=== PATIENT | female | born 1955 | race American Indian/Alaskan Native ===

== ENCOUNTER 2017-09-24 17:14 | Observation (INO) | payer MEDICARE, MEDICAID ==
[2017-09-24 17:42] VITALS: BMI 23.8
[2017-09-24] MEDS ORDERED: Morphine 4 mg/ml ISec IVP STA (18:07)
--- NOTE | 2017-09-24 18:20 | ED PDOC ---
Arrival/HPI - General Historian: Patient - History of Present Illness Symptom Onset: Sudden Symptom Course: Unchanged Activities at Onset: Rest Context: Other (PMD office) <Gui Jones - Last Filed: 09/24/17 18:17> - General Historian: Patient <Ramo Phillip - Last Filed: 09/25/17 14:21> - General Chief Complaint: Abdominal Pain Time Seen by Provider: 09/24/17 17:23 - History of Present Illness Narrative History of Present Illness (Text): 09/24/17 18:19 A 62 year old female, whose past medical history includes HIV, hypertension, diabetes, CAD, COPD, CHF, anemia, asthma, RA, and hypothyroidism, presents to the emergency department from PMD office complaining of abdominal pain from her "irritable bowel syndrome", taking Viberzi. PMD called ambulance for patient to come to the emergency department for further evaluation, concerned for obstruction. Patient denies any other complaints at this time. PMD: Dr. Croft (Gui Jones) 09/24/17 19:12 62 y/o female ph including copd/hiv/htn/gerd/dm/cad/chf/ra/hypothyroidism, nkda , send in to the ER by Dr. Croft as the patient complaining of the left abdominal pain for 1 week. Pt. stated that she gets abdominal pain on and off chronically, aching pain, associated with nausea/vomiting, no diarrhea, no chest pain or shortness, no palpitation, advised to come to the ER for labs/ radiology study and IV medications. Pt. stated that she has no fever or chills. (Ramo Phillip) Past Medical History - Provider Review Nursing Documentation Reviewed: Yes - Infectious Disease Hx of Infectious Diseases: None - Tetanus Immunization Tetanus Immunization: Unknown - Cardiac Hx Congestive Heart Failure: Yes Hx Hypertension: Yes - Pulmonary Hx Chronic Obstructive Pulmonary Disease (COPD): Yes - Neurological HX Cerebrovascular Accident: No - HEENT Hx HEENT Disorder: No Hx Blind: No Hx Cataracts: No Hx Deafness: No Hx Difficulty Chewing: No Hx Epistaxis: No Hx Glaucoma: No Hx Macular Degeneration: No - Renal Hx Renal Failure: No - Endocrine/Metabolic Hx Diabetes Mellitus Type 2: Yes Hx Hypothyroidism: No - Hematological/Oncological Hx Anemia: Yes Other/Comment: blood transfusion - Integumentary Hx Dermatological Disorder: No Hx Basal Cell Carcinoma: No Hx Eczema: No Hx Melanoma: No Hx Psoriasis: No Hx Squamous Cell Carcinoma: No - Musculoskeletal/Rheumatological Hx Arthritis: Yes Hx Falls: No Hx Rheumatoid Arthritis: Yes - Gastrointestinal Hx Gastroesophageal Reflux: No Other/Comment: colonoscopy 12/23/14: colitis, descending colon polyp, Diverticulosis - Genitourinary/Gynecological Hx Genitourinary Disorders: No Hx Hematuria: No Hx Incontinence: No Hx Sexually Transmitted Diseases: No Hx Urinary Tract Infection: No - Psychiatric Hx Psychophysiologic Disorder: Yes (attempted suiside) Hx Anxiety: Yes Hx Depression: Yes Hx Emotional Abuse: No Hx Physical Abuse: No Hx Substance Use: No - Surgical History Other/Comment: trans vaginal mesh - Anesthesia Hx Anesthesia: No Hx Anesthesia Reactions: No Hx Malignant Hyperthermia: No - Suicidal Assessment Feels Threatened In Home Enviroment: No <Gui Jones - Last Filed: 09/24/17 18:17> - Provider Review Nursing Documentation Reviewed: Yes <Ramo Phillip - Last Filed: 09/25/17 14:21> Family/Social History - Physician Review Nursing Documentation Reviewed: Yes Family/Social History: No Known Family HX Smoking Status: Former Smoker Hx Alcohol Use: No Hx Substance Use: No Hx Substance Use Treatment: No <Gui Jones - Last Filed: 09/24/17 18:17> - Physician Review Nursing Documentation Reviewed: Yes Family/Social History: Unknown Family HX <Ramo Phillip - Last Filed: 09/25/17 14:21> Allergies/Home Meds <Gui Jones - Last Filed: 09/24/17 18:17> <Ramo Phillip - Last Filed: 09/25/17 14:21> Allergies/Adverse Reactions: Allergies No Known Allergies Allergy (Verified 03/05/15 15:54) Home Medications: Home Meds Medication Instructions Recorded Confirmed Albuterol Sulfate [Proair Hfa] 0.09 mg IH BID PRN 07/08/16 09/24/17 Budesonide/Formoterol Fumarate 1 aer IH DAILY 07/08/16 09/24/17 [Symbicort] Carvedilol [Coreg] 25 mg PO DAILY 07/08/16 09/24/17 Clopidogrel [Plavix] 75 mg PO DAILY 07/08/16 09/24/17 Darunavir Ethanolate [Prezista] 600 mg PO BID 07/08/16 09/24/17 Dolutegravir Sodium [Tivicay] 50 mg PO DAILY 07/08/16 09/24/17 Eluxadoline [Viberzi] 75 mg PO DAILY 07/08/16 09/24/17 Ergocalciferol (Vitamin D2) 50,000 unit PO DAILY 07/08/16 09/24/17 [Vitamin D2] Famotidine [Pepcid] 20 mg PO DAILY 07/08/16 09/24/17 Fluticasone Nasal [Flonase] 0.05 mg NS DAILY 07/08/16 09/24/17 Folic Acid 1 mg PO DAILY 07/08/16 09/24/17 Furosemide [Lasix] 40 mg PO DAILY 07/08/16 09/24/17 Gabapentin [Neurontin] 300 mg PO BID 07/08/16 09/24/17 Imipramine [Tofranil] 25 mg PO HS 07/08/16 09/24/17 Montelukast Sodium [Singulair] 10 mg PO DAILY 07/08/16 09/24/17 Uxxro-1-[id number] Ethyl Esters 1 GM 1 gm PO DAILY 07/08/16 09/24/17 [Lovaza] Pantoprazole [Protonix EC Tab] 40 mg PO DAILY 07/08/16 09/24/17 Propranolol [Inderal] 20 mg PO TID 07/08/16 09/24/17 Rilpivirine HCl [Edurant] 25 mg PO DAILY 07/08/16 09/24/17 Ritonavir [Norvir] 100 mg PO BID 07/08/16 09/24/17 Sertraline [Zoloft] 100 mg PO DAILY 07/08/16 09/24/17 Zafirlukast [Accolate] 20 mg PO BID 07/08/16 09/24/17 Zolpidem [Ambien] 5 mg PO HS 07/08/16 09/24/17 amLODIPine [Norvasc] 10 mg PO DAILY 07/08/16 09/24/17 DiphenhydrAMINE [Benadryl] 1 tab PO HS 09/24/17 09/24/17 Hydroxyzine Pamoate [Vistaril] 1 tab PO TID 09/24/17 09/24/17 Insulin Regular [HumuLIN R] 2 unit SC TID 09/24/17 09/24/17 Melatonin [Melatonin] 1 tab PO DAILY 09/24/17 09/24/17 Rilpivirine HCl [Edurant] 1 tab PO DAILY 09/24/17 09/24/17 Vitamin B Complex 100 No.2 [B-100 1 tab PO DAILY 09/24/17 09/24/17 Complex] Review of Systems - Physician Review All systems were reviewed & negative as marked: Yes - Review of Systems Constitutional: absent: Fevers Gastrointestinal: Abdominal Pain <Gabrin,Gui - Last Filed: 09/24/17 18:17> - Review of Systems Constitutional: absent: Fatigue Respiratory: absent: SOB, Cough Cardiovascular: absent: Chest Pain Gastrointestinal: Abdominal Pain, Nausea, Vomiting. absent: Diarrhea Musculoskeletal: absent: Arthralgias, Myalgias Skin: absent: Rash, Pruritis Neurological: absent: Headache, Dizziness <Ramo Phillip Q - Last Filed: 09/25/17 14:21> Physical Exam Vital Signs Reviewed: Yes Temperature: Afebrile Blood Pressure: Normal Pulse: Regular Respiratory Rate: Normal Appearance: Positive for: Well-Appearing, Non-Toxic, Comfortable Pain Distress: None Mental Status: Positive for: Alert and Oriented X 3 - Systems Exam Head: Present: Atraumatic, Normocephalic Pupils: Present: PERRL Extroacular Muscles: Present: EOMI Conjunctiva: Present: Normal Mouth: Present: Moist Mucous Membranes Neck: Present: Normal Range of Motion. No: JVD Respiratory/Chest: Present: Clear to Auscultation, Good Air Exchange, Other (no conversational dyspnea). No: Respiratory Distress, Accessory Muscle Use, Rales Cardiovascular: Present: Regular Rate and Rhythm, Normal S1, S2. No: Murmurs Abdomen: Present: Tenderness (diffuse). No: Distention, Peritoneal Signs, Rebound, Guarding, Mass/Organomegaly Back: Present: Normal Inspection Upper Extremity: Present: Normal Inspection. No: Cyanosis, Edema Lower Extremity: Present: Normal Inspection. No: Edema Neurological: Present: GCS=15, CN II-XII Intact, Speech Normal Skin: Present: Warm, Dry, Normal Color. No: Rashes Psychiatric: Present: Alert, Oriented x 3, Normal Insight, Normal Concentration <Gabrin,Gui - Last Filed: 09/24/17 18:17> Vital Signs Reviewed: Yes Temperature: Afebrile Blood Pressure: Normal Pulse: Regular Respiratory Rate: Normal Appearance: Positive for: Well-Appearing, Non-Toxic, Comfortable Pain Distress: Moderate Mental Status: Positive for: Alert and Oriented X 3 - Systems Exam Head: Present: Atraumatic, Normocephalic Pupils: Present: PERRL Extroacular Muscles: Present: EOMI Conjunctiva: Present: Normal Mouth: Present: Moist Mucous Membranes Neck: Present: Normal Range of Motion Respiratory/Chest: Present: Clear to Auscultation, Good Air Exchange, Other. No : Respiratory Distress, Accessory Muscle Use Cardiovascular: Present: Regular Rate and Rhythm, Normal S1, S2. No: Murmurs Abdomen: Present: Tenderness (diffuse). No: Distention, Peritoneal Signs Back: Present: Normal Inspection Upper Extremity: Present: Normal Inspection. No: Cyanosis, Edema Lower Extremity: Present: Normal Inspection. No: Edema Neurological: Present: GCS=15, CN II-XII Intact, Speech Normal, Motor Func Grossly Intact, Gait Normal, Memory Normal Skin: Present: Warm, Dry, Normal Color. No: Rashes Psychiatric: Present: Alert, Oriented x 3, Normal Insight, Normal Concentration <Ramo Phillip - Last Filed: 09/25/17 14:21> Vital Signs Temp Pulse Resp BP Pulse Ox 09/24/17 19:15 98.2 F 69 18 140/65 98 09/24/17 17:15 98.2 F 67 18 141/67 92 L Medical Decision Making - Lab Interpretations I have reviewed the lab results: Yes - EKG Interpretation Interpreted by ED Physician: Yes Type: 12 lead EKG <Gui Jones - Last Filed: 09/24/17 18:17> - Lab Interpretations I have reviewed the lab results: Yes - RAD Interpretation Retail Analytics Manager: Radiologist - EKG Interpretation Interpreted by ED Physician: Yes Type: 12 lead EKG Comparison: Com.w/previous EKG <Ramo Phillip - Last Filed: 09/25/17 14:21> ED Course and Treatment: 09/24/17 18:18 Impression: A 62 year old female with abdominal pain. Plan: -- EKG -- labs -- Chest X-ray -- Urinalysis -- Radiology abdomen -- Morphine, Zofran -- Reassess and disposition Prior Visits: Notes and results from previous visits were reviewed. Patient was last seen in the emergency department on 07/08/16 for evaluation of mid sternal chest pressure. Progress Notes: (Gui Jones) 09/24/17 19:10 -Case sign off by DR. Gui Jones for follow up the labs/radiology result: 09/24/17 20:38 -Pt. still in pain so dilaudid 1mg IV ordered, CT abdomen and pelvis added. 09/24/17 23:30 -EKG: NSR @ 69 BPM, no ST elevation or depression, T wave inversion on V3 to V4 as new onset compared with previous ekg. -Chest xray no active disease compared with previous xray -Abdominal xray show no obstruction -CT abdomen and pelvis There is a ventral abdominal hernia inferiorly, containing small bowel loops. There is no obstruction of bowel. There is new abnormal density within the subcutaneous tissues overlying the ventral abdominal wall, suggestive of a complex fluid collection. This measures 1.3 cm in thickness. This may be postoperative or infectious in etiology. Cholelithiasis. Hypodense renal cysts are visualized bilaterally. Additional indeterminate renal lesions are identified bilaterally, which are increased in density. Follow-up ultrasonography is recommended. Additional CT findings described above. -Lab show no acute findings except creatine 1.3 (newly) with GFR 50 (moderate stage 3) -BNP show no acute findings -Troponin show no acute findings -UA show +UTI, IV rocephine ordered -Pt. feels pain under controlled with IV dilaudid, will need GI/Surgical consults -Paging Dr. Croft for admission 09/24/17 23:41 -I spoke to Dr. Croft discussed about the case/labs/radiology result, request Dr. Olivera (GI)/DR. Torres (Surgery)/Dr. Mercedes ([place] Marker) on the routine consult. -Dr. Jones is off the shift and I will put in the admission order for him. 09/25/17 00:20 -I spoke to the surgical oncologist Dr. Deepthi Yanes dental professional and aware of the consult. (Ramo Phillip) - Lab Interpretations Lab Results: 09/24/17 18:30 09/24/17 18:30 Lab Results 09/24/17 19:45: Urine Color Yellow, Urine Appearance Sl cloudy, Urine pH 6.0, Ur Specific [place] 1.010, Urine Protein 30 H, Urine Glucose (UA) Negative, Urine Ketones Negative, Urine Blood Negative, Urine Nitrate Negative, Urine Bilirubin Negative, Urine Urobilinogen 0.2, Ur Leukocyte Esterase Trace H, Urine RBC Negative, Urine WBC 5 - 10, Ur Epithelial Cells 3 - 4, Urine Bacteria Few 09/24/17 18:30: Sodium 137, Potassium 4.4, Chloride 103, Carbon Dioxide 23, Anion Gap 15, BUN 11, Creatinine 1.3 H, Est GFR ( Amer) 50, Est GFR (Non- Af Amer) 41, Random Glucose 130 H, Calcium 9.4, Total Bilirubin 0.5, AST 32, ALT 19, Alkaline Phosphatase 132 H, Lactate Dehydrogenase 417, Total Creatine Kinase 227, Troponin I < 0.01, NT-Pro-B Natriuret Pep 171, Total Protein 7.9, Albumin 4.1, Globulin 3.7, Albumin/Globulin Ratio 1.1, Lipase 60 09/24/17 18:30: PT 11.7, INR 1.03 09/24/17 18:30: WBC 9.1, RBC 4.99, Hgb 13.7, Hct 40.6, MCV 81.4, MCH 27.5, MCHC 33.7, RDW 15.3 H, Plt Count 233, MPV 9.1, Gran % 49.6 L, Lymph % (Auto) 40.9 H, [place] % (Auto) 6.5 H, Eos % (Auto) 2.7, Baso % (Auto) 0.3, Gran # 4.51, Lymph # ( Auto) 3.7 H, [place] # (Auto) 0.6, Eos # (Auto) 0.3, Baso # (Auto) 0.03 - RAD Interpretation Radiology Orders: 09/24/17 18:06 CHEST PORTABLE [RAD] Stat 09/24/17 19:51 ABD 2 VIEWS (FLAT/UP OR DECUB) [RAD] Stat 09/24/17 20:53 ABDOMEN & PELVIS [ABD & PELVIS W/O PO OR IV CONT] [CT] Stat Chest xray: no active disease Abdominal xray: no bowel obstruction CT abdomen and pelvis: Lung bases: Mild atelectatic changes are visualized at the lung bases. Mediastinum: There is a small hiatal hernia. ABDOMEN: Liver: No mass. Gallbladder and bile ducts: Small gallstones are visualized within the gallbladder. Pancreas: Normal contour. No ductal dilation. Spleen: No splenomegaly. Adrenals: No mass. Kidneys and ureters: Hypodense renal cysts are visualized bilaterally. Additional indeterminate renal lesions are identified bilaterally, which are increased in density. At the lower pole the right kidney, this measures 1.3 x 1.2 cm. There is no hydronephrosis or obstructive calculi bilaterally. TERESA BRAUN | Final Radiology Report CONFIDENTIALITY STATEMENT This report is intended only for use by the referring physician, and only in accordance with law. If you received this in error, call [phone]. Page 2 of 2 Stomach and bowel: There is a ventral abdominal hernia inferiorly, containing small bowel loops. There is no significant wall thickening of the herniated bowel loops or stranding of the herniated fat to suggest incarceration. There is no obstruction of bowel. The cecum is identified anterior to the liver. PELVIS: Appendix: No findings to suggest acute appendicitis. Bladder: No stones. Reproductive: The uterus is absent. Hypodense follicles and cysts are visualized within the right ovary. The largest probable cyst measures 2.3 x 1.9 cm. Right ovarian cysts are visualized on the prior study as well. ABDOMEN and PELVIS: Intraperitoneal space: No free air. Bones/joints: Hypertrophic degenerative changes are noted within the spine. Advanced arthropathy is identified at L4-5, with anterior wedging of the L5 vertebral body. These are chronic findings compared to the prior study. Soft tissues: There is abnormal density within the subcutaneous tissues overlying the ventral abdominal wall, suggestive of a complex fluid collection. This measures 1.3 cm in thickness. Postoperative changes are identified involving the ventral abdominal wall. Vasculature: There is atherosclerotic calcification of the abdominal aorta. No abdominal aortic aneurysm. Lymph nodes: No enlarged lymph nodes. IMPRESSION: 1. There is a ventral abdominal hernia inferiorly, containing small bowel loops. There is no obstruction of bowel. 2. There is new abnormal density within the subcutaneous tissues overlying the ventral abdominal wall, suggestive of a complex fluid collection. This measures 1.3 cm in thickness. This may be postoperative or infectious in etiology. 3. Cholelithiasis. 4. Hypodense renal cysts are visualized bilaterally. Additional indeterminate renal lesions are identified bilaterally, which are increased in density. Follow-up ultrasonography is recommended. 5. Additional CT findings described above. Thank you for allowing us to participate in the care of your patient. Dictated and Authenticated by: Bipin Padilla MD 09/24/2017 10:46 PM Eastern Time ([place] & [place]) (Ramo Phillip) - EKG Interpretation EKG Interpretation (Text): 09/24/17 19:15 -EKG: NSR @ 69 BPM, no ST elevation or depression, T wave inversion on V3 to V4 as new onset. (Ramo Phillip) - Medication Orders Current Medication Orders: Acetaminophen (Tylenol 325mg Tab) 650 mg PO Q4 PRN PRN Reason: Pain, moderate (4-7) Lactated Ringer's (Lactated Ringer's) 1,000 mls @ 100 mls/hr IV .Q10H CAYLA Last Admin: 09/25/17 02:04 Dose: 100 mls/hr eMAR Start Stop Document 09/25/17 02:04 PCO (Rec: 09/25/17 02:05 PCO [id number]) Intravenous Solution Start Date 09/25/17 Start Time 02:04 End Date 09/25/17 End time 12:05 Total Infusion Time 601 Ondansetron HCl (Zofran Inj) 4 mg IVP Q6H PRN PRN Reason: Nausea/Vomiting Oxycodone HCl (Oxycodone Immediate Release Tab) 5 mg PO Q6H PRN PRN Reason: Pain, severe (8-10) Discontinued Medications Diphenhydramine HCl (Benadryl) 25 mg IVP STAT STA Stop: 09/25/17 01:57 Last Admin: 09/25/17 02:04 Dose: 25 mg IVP Administration Document 09/25/17 02:04 PCO (Rec: 09/25/17 02:04 PCO [id number]) Charges for Administration # of IVP Administrations 2 Hydromorphone HCl (Dilaudid) 1 mg IVP STAT STA Stop: 09/24/17 20:26 Last Admin: 09/24/17 20:55 Dose: 1 mg MAR Pain Assessment Document 09/24/17 20:55 LA (Rec: 09/24/17 20:[address] [id number]) Pain Reassessment Is this a pain reassessment? No Sleep Is patient sleeping during reassessment? No Presence of Pain Presence of Pain Yes Pain Scale Used Pain Scale Used Numeric Location Pain Location Body Site Abdomen Description Description Constant Intensity of Pain at present 7 IVP Administration Document 09/24/17 20:55 LA (Rec: 09/24/17 20:[address] [facility] [id number]) Charges for Administration # of IVP Administrations 1 Ceftriaxone Sodium (Rocephin 1 Gram Ivpb) 1 gm in 100 mls @ 200 mls/hr IVPB STAT STA PRN Reason: Protocol Stop: 09/24/17 21:39 Ceftriaxone Sodium (Rocephin 1 Gram Ivpb) 1 gm in 100 mls @ 200 mls/hr IVPB STAT STA PRN Reason: Protocol Stop: 09/25/17 02:00 Last Admin: 09/25/17 01:43 Dose: 200 mls/hr eMAR Start Stop Document 09/25/17 01:43 PCO (Rec: 09/25/17 01:44 PCO [id number]) Intravenous Solution Start Date 09/25/17 Start Time 01:43 End Date 09/25/17 End time 02:45 Total Infusion Time 62 Metoclopramide HCl (Reglan) 10 mg IVP STAT STA Stop: 09/24/17 20:26 Last Admin: 09/24/17 20:55 Dose: 10 mg IVP Administration Document 09/24/17 20:55 LA (Rec: 09/24/17 20:[address] [facility] [id number]) Charges for Administration # of IVP Administrations 1 Morphine Sulfate (Morphine) 4 mg IVP STAT STA Stop: 09/24/17 18:08 Last Admin: 09/24/17 18:30 Dose: 4 mg MAR Pain Assessment Document 09/24/17 18:30 LA (Rec: 09/24/17 18:30 LA [id number]) Pain Reassessment Is this a pain reassessment? No Sleep Is patient sleeping during reassessment? No Presence of Pain Presence of Pain Yes Pain Scale Used Pain Scale Used Numeric Location Pain Location Body Site Abdomen Description Description Constant Intensity of Pain at present 7 IVP Administration Document 09/24/17 18:30 LA (Rec: 09/24/17 18:30 LA [id number]) Charges for Administration # of IVP Administrations 1 Re-Assess: MAR Pain Assessment Document 09/24/17 19:30 LA (Rec: 09/24/17 20:07 [place] [facility] [id number]) Pain Reassessment Is this a pain reassessment? Yes Sleep Is patient sleeping during reassessment? No Presence of Pain Presence of Pain Yes Pain Scale Used Pain Scale Used Numeric Location Pain Location Body Site Abdomen Description Description Constant Intensity of Pain at present 5 Ondansetron HCl (Zofran Inj) 4 mg IVP STAT STA Stop: 09/24/17 18:08 Last Admin: 09/24/17 18:30 Dose: 4 mg IVP Administration Document 09/24/17 18:30 LA (Rec: 09/24/17 18:31 LA [id number]) Charges for Administration # of IVP Administrations 1 - Scribe Statement The provider has reviewed the documentation as recorded by the Scribe <Gui Jones - Last Filed: 09/24/17 18:17> - PA / ASSISTANT ENGINEER / Resident Statement MD/ has reviewed & agrees with the documentation as recorded. MD/DO has examined the patient and agrees with the treatment plan. <Ramo Phillip - Last Filed: 09/25/17 14:21> - Scribe Statement Eric Berry Provider Scribe Attestation: All medical record entries made by the Scribe were at my direction and personally dictated by me. I have reviewed the chart and agree that the record accurately reflects my personal performance of the history, physical exam, medical decision making, and the department course for this patient. I have also personally directed, reviewed, and agree with the discharge instructions and disposition. (Gui Jones) Disposition/Present on Arrival - Present on Arrival History of DVT/PE: No History of Uncontrolled Diabetes: No Urinary Catheter: No History of Decub. Ulcer: No History Surgical Site Infection Following: None <Gui Jones - Last Filed: 09/24/17 18:17> - Present on Arrival Any Indicators Present on Arrival: No History of DVT/PE: No History of Uncontrolled Diabetes: No Urinary Catheter: No History of Decub. Ulcer: No - Disposition Have Diagnosis and Disposition been Completed?: Yes Disposition Time: 21:13 Patient Plan: Admission <Ramo Phillip - Last Filed: 09/25/17 14:21> - Disposition Diagnosis: CKD (chronic kidney disease), UTI (urinary tract infection), Abdominal pain, Other ventral hernia without mention of obstruction or gangrene Disposition: HOSPITALIZED Patient Problems: Current Active Problems Problem Status Onset Abdominal pain Acute CKD (chronic kidney disease) Acute Other ventral hernia without mention of obstruction or gangrene Acute UTI (urinary tract infection) Acute Condition: STABLE
[2017-09-24 19:01] LABS: BASO # 0.03 K/mm3 (0.0-2.0); BASO % 0.3 % (0.0-3.0); EOS # 0.3 (0.0-0.7); EOS % 2.7 % (1.5-5.0); GRAN # 4.51 (1.4-6.5); GRAN % 49.6 % (50.0-68.0); HEMOGLOBIN 13.7 g/dL (12.0-16.0); LYMPH # 3.7 (1.2-3.4); LYMPH % 40.9 % (22.0-35.0); MEAN CELL VOLUME 81.4 fl (80.0-105.0); MEAN CORPUSCULAR HEMOGLOBIN 27.5 pg (25.0-35.0); MEAN CORPUSCULAR HGB CONC 33.7 g/dl (31.0-37.0); MEAN PLATELET VOLUME 9.1 fl (7.0-11.0); MONO # 0.6 (0.1-0.6); MONO % 6.5 % (1.0-6.0); RBC 4.99 10^6/uL (3.5-6.1); RED CELL DISTRIBUTION WIDTH 15.3 % (11.5-14.5); WHITE BLOOD COUNT 9.1 10^3/ul (4.5-11.0)
[2017-09-24 19:07] LABS: INR 1.03 (0.93-1.08); PROTHROMBIN TIME 11.7 SECONDS (9.4-12.5)
[2017-09-24 19:18] LABS: ALB/GLOB RATIO 1.1 (1.1-1.8); ALBUMIN 4.1 g/dL (3.0-4.8); ALT/SGPT 19 U/L (7-56); AST/SGOT 32 U/L (14-36); BLOOD UREA NITROGEN 11 mg/dL (7-21); CALCIUM 9.4 mg/dL (8.4-10.5); GFR AFRICAN-AMERICAN 50; GFR NON-AFRICAN AMERICAN 41; LIPASE 60 U/L (23-300)
[2017-09-24 19:30] LABS: B-TYPE NATRIURETIC PEPTIDE 171 pg/mL (0-450); TROPONIN I < 0.01 ng/mL
[2017-09-24 19:56] LABS: URINE BILIRUBIN NEGATIVE (NEGATIVE); URINE BLOOD NEGATIVE (NEGATIVE); URINE GLUCOSE (UA) NEGATIVE (NEGATIVE); URINE LEUKOCYTE ESTERASE TRACE Leu/uL (NEGATIVE); URINE PROTEIN 30 mg/dL (<30 mg/dL); URINE UROBILINOGEN 0.2 E.U./dL (<1 E.U./dL)
[2017-09-24 20:01] LABS: URINE APPEARANCE SL CLOUDY (CLEAR); URINE COLOR YELLOW (YELLOW)
[2017-09-24 20:03] LABS: URINE BACTERIA FEW (NEG); URINE RBC NEGATIVE /hpf (0-2)
[2017-09-24] MEDS ORDERED: Iohexol 240 (50 ml) ONE ×2 (20:23→20:26)
[2017-09-24] MEDS ORDERED: Iohexol 350 MG/100 ML VIAL ONE ×2 (20:23→20:26)
[2017-09-24] MEDS ORDERED: HYDROmorphone 1 mg/ml ISec IVP STA (20:25)
[2017-09-24] MEDS ORDERED: cefTRIAXone 1 gm 1 GM/100 ML BAG IVPB STA (21:10)
--- NOTE | 2017-09-24 22:47 | CT ---
EXAM: CT Abdomen and Pelvis Without Intravenous Contrast EXAM DATE/TIME: 09/24/2017 8:53 PM CLINICAL HISTORY: The patient age is 62 years old and is female; Pain; Abdominal pain; Flank; Left upper quadrant (luq); Prior surgery; Surgery date: 6+ months; Surgery type: Hyst. , C-sections, hernias; Additional info: Lt. Sided abdominal pain Facility exam id and description: Ct abdpelscon abd pelvis w/o po or iv cont TECHNIQUE: Axial computed tomography images of the abdomen and pelvis without intravenous contrast. All CT scans at this facility use one or more dose reduction techniques, viz.: automated exposure control; ma/kV adjustment per patient size (including targeted exams where dose is matched to indication; i.e. head); or iterative reconstruction technique. Coronal and sagittal reformatted images were created and reviewed. COMPARISON: CT - ABD PELVIS PO IV CONTRAST 2011-10-18 14:36 FINDINGS: Lung bases: Mild atelectatic changes are visualized at the lung bases. Mediastinum: There is a small hiatal hernia. ABDOMEN: Liver: No mass. Gallbladder and bile ducts: Small gallstones are visualized within the gallbladder. Pancreas: Normal contour. No ductal dilation. Spleen: No splenomegaly. Adrenals: No mass. Kidneys and ureters: Hypodense renal cysts are visualized bilaterally. Additional indeterminate renal lesions are identified bilaterally, which are increased in density. At the lower pole the right kidney, this measures 1.3 x 1.2 cm. There is no hydronephrosis or obstructive calculi bilaterally. Stomach and bowel: There is a ventral abdominal hernia inferiorly, containing small bowel loops. There is no significant wall thickening of the herniated bowel loops or stranding of the herniated fat to suggest incarceration. There is no obstruction of bowel. The cecum is identified anterior to the liver. PELVIS: Appendix: No findings to suggest acute appendicitis. Bladder: No stones. Reproductive: The uterus is absent. Hypodense follicles and cysts are visualized within the right ovary. The largest probable cyst measures 2.3 x 1.9 cm. Right ovarian cysts are visualized on the prior study as well. ABDOMEN and PELVIS: Intraperitoneal space: No free air. Bones/joints: Hypertrophic degenerative changes are noted within the spine. Advanced arthropathy is identified at L4-5, with anterior wedging of the L5 vertebral body. These are chronic findings compared to the prior study. Soft tissues: There is abnormal density within the subcutaneous tissues overlying the ventral abdominal wall, suggestive of a complex fluid collection. This measures 1.3 cm in thickness. Postoperative changes are identified involving the ventral abdominal wall. Vasculature: There is atherosclerotic calcification of the abdominal aorta. No abdominal aortic aneurysm. Lymph nodes: No enlarged lymph nodes. IMPRESSION: 1. There is a ventral abdominal hernia inferiorly, containing small bowel loops. There is no obstruction of bowel. 2. There is new abnormal density within the subcutaneous tissues overlying the ventral abdominal wall, suggestive of a complex fluid collection. This measures 1.3 cm in thickness. This may be postoperative or infectious in etiology. 3. Cholelithiasis. 4. Hypodense renal cysts are visualized bilaterally. Additional indeterminate renal lesions are identified bilaterally, which are increased in density. Follow-up ultrasonography is recommended. 5. Additional CT findings described above.
--- NOTE | 2017-09-25 00:54 | CP.PCM.CON ---
History of Present Illness - History of Present Illness History of Present Illness: General Surgery consult for Dr. Cary, covering for Dr. Torres Consulted for: Recurrent ventral hernia Patient is a 62F with extensive PMH including HIV, DM, COPD, IBS, and CAD with PSH of ventral incisional hernia repair with mesh with Dr. Jessica in 2011 and repair of recurrent ventral her[place] with Dr. Jessica [place] [facility] [place]. Patient reports chronic LLQ pain, nausea, and diarrhea with incontinence since her last hernia repair but the past 2-3 days the symptoms have been worse and she has been unable to eat. Patient also reports 3 episodes of clear, non- bloody emesis past 2 days. Patient states that the pain begins in [place] LLQ and radiates across her lower abdomen. Patient also complains of some left flank pain. Patient reports diarrhea is more frequent but denies any hematochezia, melena, dysuria, hematuria, polyuria, fevers, chills, or any other symptoms. PMH: uterine cancer s/p hysterectomy, HTN, RA, depression, anemia, asthma, hypothyroidism, HIV, DM, COPD, IBS, and CAD PSH: incisional ventral hernia repair x2, hysterectomy, x1 ALL: NKDA Soc: smokes 10cig/day for 50 years, ETOH: occasional, admits to marijuana many years ago, no other substances Review of Systems - Review of Systems All systems: reviewed and no additional remarkable complaints except (as per HPI ) Past Patient History - Infectious Disease Hx of Infectious Diseases: None - Tetanus Immunizations Tetanus Immunization: Unknown - Past Medical History & Family History Past Medical History?: Yes Past Family History: Reviewed and not pertinent - Past Social History Smoking Status: Heavy Smoker > 10 Cigarettes Daily Alcohol: Occasional Drugs: Denies - CARDIAC Hx Cardiac Disorders: Yes Hx Congestive Heart Failure: Yes Hx Hypertension: Yes Other/Comment: CAD - PULMONARY Hx Asthma: Yes Hx Chronic Obstructive Pulmonary Disease (COPD): Yes - NEUROLOGICAL HX Cerebrovascular Accident: No - HEENT Hx HEENT Problems: No Hx Blind: No Hx Cataracts: No Hx Deafness: No Hx Difficulty Chewing: No Hx Epistaxis: No Hx Glaucoma: No Hx Macular Degeneration: No - RENAL Hx Renal Failure: No - ENDOCRINE/METABOLIC Hx Diabetes Mellitus Type 2: Yes Hx Hypothyroidism: No - HEMATOLOGICAL/ONCOLOGICAL Hx Anemia: Yes Other/Comment: blood transfusion - INTEGUMENTARY Hx Dermatological Problems: No Hx Basil Cell: No Hx Eczema: No Hx Melanoma: No Hx Psoriasis: No Hx Squamous Cell: No - MUSCULOSKELETAL/RHEUMATOLOGICAL Hx Arthritis: Yes Hx Falls: No Hx Rheumatoid Arthritis: Yes - GASTROINTESTINAL Hx Gastrointestinal Disorders: Yes Hx Diarrhea: Yes (chronic diarrhea with bowel incontinence) Hx Gastroesophageal Reflux: No Hx Irritable Bowel: Yes Other/Comment: colonoscopy 12/23/14: colitis, descending colon polyp, Diverticulosis - GENITOURINARY/GYNECOLOGICAL Hx Genitourinary Disorders: No Hx Hematuria: No Hx Incontinence: No Hx Sexually Transmitted Disorders: No Hx Urinary Tract Infection: Yes - PSYCHIATRIC Hx Psychophysiologic Disorder: Yes (attempted suiside) Hx Anxiety: Yes Hx Depression: Yes Hx Emotional Abuse: No Hx Physical Abuse: No Hx Substance Use: No - SURGICAL HISTORY Hx Surgeries: Yes Hx Section: Yes Hx Cholecystectomy: No Hx Coronary Stent: No Hx Herniorrhaphy: Yes (ventral incisional hernia repair with mesh x2) Hx Hysterectomy: Yes Other/Comment: trans vaginal mesh - ANESTHESIA Hx Anesthesia: No Hx Anesthesia Reactions: No Hx Malignant Hyperthermia: No Meds Allergies/Adverse Reactions: Allergies Allergy/AdvReac Type Severity Reaction Status Date / Time No Known Allergies Allergy Verified 03/05/15 15:54 Physical Exam - Constitutional Appears: Well, Non-toxic, No Acute Distress - Head Exam Head Exam: ATRAUMATIC, NORMOCEPHALIC - Eye Exam Eye Exam: Normal appearance. absent: Conjunctival injection, Scleral icterus - ENT Exam ENT Exam: Mucous Membranes Moist, Normal Oropharynx - Respiratory Exam Respiratory Exam: NORMAL BREATHING PATTERN. absent: Accessory Muscle Use, Respiratory Distress - GI/Abdominal Exam GI & Abdominal Exam: Hernia (suprapubic hernia, non-tender, non-erythematous, soft, reducible but does not remain reduced), Soft, Tenderness (LLQ and suprapubis). absent: Distended - Extremities Exam Extremities exam: Negative for: calf tenderness, pedal edema, tenderness - Back Exam Back exam: CVA tenderness (L). absent: CVA tenderness (R), vertebral tenderness - Neurological Exam Neurological exam: Alert, Oriented x3 - Psychiatric Exam Psychiatric exam: Normal Affect, Normal Mood - Skin Skin Exam: Dry, Intact, Normal Color, Warm Results - Vital Signs Recent Vital Signs: Last Vital Signs Temp 98.2 F 09/24/17 17:15 Pulse 67 09/24/17 17:15 Resp 18 09/24/17 17:15 BP 141/67 09/24/17 17:15 Pulse Ox 92 L 09/24/17 17:15 - Labs Result Diagrams: 09/24/17 18:30 09/24/17 18:30 - Imaging and Cardiology CT scan - abdomen Status: Image reviewed by me, Report reviewed by me Assessment & Plan - Assessment and Plan (Free Text) Assessment: 62F with abdominal pain, probable UTI and recurrent ventral hernia, possible gastritis vs. pain from hernia vs. SBO Plan: Repeat cbc/cmp in the AM Abdominal XR in the AM to r/o obstruction Monitor bowel and urine output closely Keep patient NPO, IVF PRN nausea and pain medication Antibiotics for UTI per primary No acute surgical intervention indicated--minimal proximal dilation of the small bowel on the CT scan, patient not actively vomiting, no signs of strangulation of bowel. Will continue to monitor Incentive spirometer, SCD's Physical therapy Will discuss with Dr. Cary, further recs per him Deepthi Yanes, PGY2
[2017-09-25] MEDS ORDERED: cefTRIAXone 1 gm 1 GM/100 ML BAG IVPB STA (01:31)
[2017-09-25] MEDS ORDERED: oxyCODONE 5 mg Immediate Release Tab PO PRN (01:37)
[2017-09-25] MEDS ORDERED: Lactated Ringer's 1,000 ML IV SCH (01:45)
[2017-09-25] MEDS ORDERED: DiphenhydrAMINE 50 mg/ml Inj IVP STA (01:56)
[2017-09-25 04:44] VITALS: RESP 20
[2017-09-25 04:54] LABS: BASO # 0.04 K/mm3 (0.0-2.0); BASO % 0.5 % (0.0-3.0); EOS # 0.3 (0.0-0.7); EOS % 3.5 % (1.5-5.0); GRAN # 3.15 (1.4-6.5); GRAN % 41.9 % (50.0-68.0); HEMOGLOBIN 12.6 g/dL (12.0-16.0); LYMPH # 3.5 (1.2-3.4); LYMPH % 46.9 % (22.0-35.0); MEAN CELL VOLUME 81.6 fl (80.0-105.0); MEAN CORPUSCULAR HGB CONC 33.1 g/dl (31.0-37.0); MEAN PLATELET VOLUME 9.2 fl (7.0-11.0); MONO # 0.5 (0.1-0.6); MONO % 7.2 % (1.0-6.0); RBC 4.67 10^6/uL (3.5-6.1); RED CELL DISTRIBUTION WIDTH 15.4 % (11.5-14.5); WHITE BLOOD COUNT 7.5 10^3/ul (4.5-11.0)
--- NOTE | 2017-09-25 08:21 | RAD ---
HISTORY: Dyspnea COMPARISON: 07/08/2016 FINDINGS: LUNGS: No active pulmonary disease. PLEURA: No significant pleural effusion identified, no pneumothorax apparent. CARDIOVASCULAR: Normal. OSSEOUS STRUCTURES: No significant abnormalities. VISUALIZED UPPER ABDOMEN: Normal. OTHER FINDINGS: None. IMPRESSION: No active disease.
--- NOTE | 2017-09-25 08:23 | RAD ---
HISTORY: POSSSIBLE OBSTRUCTION COMPARISON: 03/11/2014 FINDINGS: BOWEL: No evidence of bowel obstruction. Dilated loop colon/ hepatic flexure right upper quadrant. No masses or abnormal calcifications. Ventral abdominal mesh noted. Psoas margins preserved. BONES: Osteoarthritis of both hips, right greater than left. OTHER FINDINGS: None. IMPRESSION: No evidence of bowel obstruction.
--- NOTE | 2017-09-25 09:17 | CARD ---
APPROVED REPORT EKG Measurement Heart [id number] IN [id number] <Conclusion> Normal sinus rhythm Possible Left atrial enlargement Low voltage QRS Poor R Progression V1-V3. Non Specific ST_T Changes.
[2017-09-25 10:04] LABS: ALBUMIN 3.7 g/dL (3.0-4.8); BILIRUBIN,DIRECT 0.1 mg/dL (0.0-0.4)
--- NOTE | 2017-09-25 10:48 | RAD ---
HISTORY: re-evaluate for SBO COMPARISON: 09/24/2017 FINDINGS: BOWEL: Normal. No obstruction. No free air. There is some residual contrast in the colon. There is no evidence of obstruction BONES: Normal. OTHER FINDINGS: None. IMPRESSION: No evidence of obstruction
--- NOTE | 2017-09-25 16:26 | CP.PCM.CON ---
<Sindi Rosario - Last Filed: 09/25/17 16:05> History of Present Illness - History of Present Illness History of Present Illness: Seen and examined , chart reviewed. Request for GI consult is for abdominal pain. HPI:this is a 62-year-old female with a past medical history of HIV, irritable bowel syndrome, coronary artery disease and multiple ventral hernia repair with mesh with Dr. Jessica, most recent was 2 years ago as per patient. Came with complaint of mid abdominal pain for 1 week but increasing in intensity. she describes the pain to be in the left lower quadrant and radiates across the abdomen. Patient also complains of left flank pain, no dysuria or hematuria. Patient reports loss of appetite, she did complain of nausea and vomiting the past 2 days but no hematopoiesis. Patient also complained of diarrhea, no reports of melena or weight loss. Passing gas. On admission patient had a CT scan of abdomen and pelvis without any contrast and this showed a ventral abdominal hernia containing small bowel loops but no bowel obstruction. There is a new abnormal density within the subcutaneous tissues over the ventral abdominal wall, possible fluid collection., Cholelithiasis and hypodense renal cysts bilaterally. This patient last endoscopy and colonoscopy were in 2014 found to have active gastritis with erosions, biopsies were negative for H. pylori or intestinal metaplasia. Colonoscopy patient found to have a adenomatous colon polyp and biopsies were taken in the cecum which showed submucosal edema but no inflammation. Patient went for an abdominal x-ray this morning which was negative for any acute findings or bowel obstruction. Past medical history: Hypertension, rheumatoid arthritis, HIV, diabetes mellitus , irritable bowel syndrome, COPD, coronary artery disease, hypothyroidism, anemia, uterine cancer status post hysterectomy Past surgical history: Incisional ventral hernia repair 2, hysterectomy, C- section 1, EGD/colonoscopy 12/22/14 Allergies no known drug allergies Family history: Noncontributory to this time Medications: Reviewed as per MAR Social history: Positive for smoking cigarettes, drinks alcohol on occasion, history of marijuana use Review of systems systems reviewed. Positive findings see HPI. Past Patient History - Infectious Disease Hx of Infectious Diseases: None - Tetanus Immunizations Tetanus Immunization: Unknown - Past Medical History & Family History Past Medical History?: Yes Past Family History: Reviewed and not pertinent - Past Social History Smoking Status: Heavy Smoker > 10 Cigarettes Daily Alcohol: Occasional Drugs: Denies - CARDIAC Hx Cardiac Disorders: Yes Hx Congestive Heart Failure: Yes Hx Hypertension: Yes Other/Comment: CAD - PULMONARY Hx Asthma: Yes Hx Chronic Obstructive Pulmonary Disease (COPD): Yes - NEUROLOGICAL HX Cerebrovascular Accident: No - HEENT Hx HEENT Problems: No Hx Blind: No Hx Cataracts: No Hx Deafness: No Hx Difficulty Chewing: No Hx Epistaxis: No Hx Glaucoma: No Hx Macular Degeneration: No - RENAL Hx Renal Failure: No - ENDOCRINE/METABOLIC Hx Diabetes Mellitus Type 2: Yes Hx Hypothyroidism: No - HEMATOLOGICAL/ONCOLOGICAL Hx Anemia: Yes Other/Comment: blood transfusion - INTEGUMENTARY Hx Dermatological Problems: No Hx Basil Cell: No Hx Eczema: No Hx Melanoma: No Hx Psoriasis: No Hx Squamous Cell: No - MUSCULOSKELETAL/RHEUMATOLOGICAL Hx Arthritis: Yes Hx Falls: No Hx Rheumatoid Arthritis: Yes - GASTROINTESTINAL Hx Gastrointestinal Disorders: Yes Hx Diarrhea: Yes (chronic diarrhea with bowel incontinence) Hx Gastroesophageal Reflux: No Hx Irritable Bowel: Yes Other/Comment: colonoscopy 12/23/14: colitis, descending colon polyp, Diverticulosis - GENITOURINARY/GYNECOLOGICAL Hx Genitourinary Disorders: No Hx Hematuria: No Hx Incontinence: No Hx Sexually Transmitted Disorders: No Hx Urinary Tract Infection: Yes - PSYCHIATRIC Hx Psychophysiologic Disorder: Yes (attempted suiside) Hx Anxiety: Yes Hx Depression: Yes Hx Emotional Abuse: No Hx Physical Abuse: No Hx Substance Use: No - SURGICAL HISTORY Hx Surgeries: Yes Hx Section: Yes Hx Cholecystectomy: No Hx Coronary Stent: No Hx Herniorrhaphy: Yes (ventral incisional hernia repair with mesh x2) Hx Hysterectomy: Yes Other/Comment: trans vaginal mesh - ANESTHESIA Hx Anesthesia: No Hx Anesthesia Reactions: No Hx Malignant Hyperthermia: No Meds Allergies/Adverse Reactions: Allergies Allergy/AdvReac Type Severity Reaction Status Date / Time No Known Allergies Allergy Verified 03/05/15 15:54 - Medications Medications: Current Medications Acetaminophen (Tylenol 325mg Tab) 650 mg PO Q4 PRN PRN Reason: Pain, moderate (4-7) Lactated Ringer's (Lactated Ringer's) 1,000 mls @ 100 mls/hr IV .Q10H [facility] Last Admin: 09/25/17 02:04 Dose: 100 mls/hr Ondansetron HCl (Zofran Inj) 4 mg IVP Q6H PRN PRN Reason: Nausea/Vomiting Oxycodone HCl (Oxycodone Immediate Release Tab) 5 mg PO Q6H PRN PRN Reason: Pain, severe (8-10) Physical Exam - Constitutional Appears: No Acute Distress - Head Exam Head Exam: NORMOCEPHALIC - Eye Exam Eye Exam: Scleral icterus. absent: Normal appearance - ENT Exam ENT Exam: Mucous Membranes Moist - Respiratory Exam Respiratory Exam: NORMAL BREATHING PATTERN. absent: Respiratory Distress - Cardiovascular Exam Cardiovascular Exam: +S1, +S2 - GI/Abdominal Exam GI & Abdominal Exam: Normal Bowel Sounds, Soft, Tenderness (left-sided diffuse abdominal pain). absent: Guarding, Rebound - Extremities Exam Extremities exam: Positive for: pedal pulses present. Negative for: calf tenderness, pedal edema - Neurological Exam Neurological exam: Alert, Oriented x3 - Skin Skin Exam: Dry, Warm Results - Vital Signs Recent Vital Signs: Last Vital Signs Temp 98.3 F 09/25/17 08:35 Pulse 67 09/25/17 08:35 Resp 20 09/25/17 08:35 BP 137/69 09/25/17 08:35 Pulse Ox 92 L 09/25/17 08:35 - Labs Result Diagrams: 09/25/17 04:20 09/25/17 04:20 Labs: Laboratory Results - last 24 hr 09/25/17 09/25/17 09/25/17 04:20 04:20 06:19 WBC 7.5 RBC 4.67 Hgb 12.6 Hct 38.1 MCV 81.6 MCH 27.0 MCHC 33.1 RDW 15.4 H Plt Count 209 MPV 9.2 Gran % 41.9 L Lymph % (Auto) 46.9 H [place] % (Auto) 7.2 H Eos % (Auto) 3.5 Baso % (Auto) 0.5 Gran # 3.15 Lymph # (Auto) 3.5 H [place] # (Auto) 0.5 Eos # (Auto) 0.3 Baso # (Auto) 0.04 Sodium 138 Potassium 3.9 Chloride 105 Carbon Dioxide 24 Anion Gap 13 BUN 11 Creatinine 1.3 H Est GFR ( Amer) 50 Est GFR (Non-Af Amer) 41 POC Glucose (mg/dL) 109 Random Glucose 102 Calcium 9.0 Phosphorus 3.8 Magnesium 2.0 Total Bilirubin Direct Bilirubin AST ALT Alkaline Phosphatase Total Protein Albumin Globulin Albumin/Globulin Ratio 09/25/17 09:46 WBC RBC Hgb Hct MCV MCH MCHC RDW Plt Count MPV Gran % Lymph % (Auto) [place] % (Auto) Eos % (Auto) Baso % (Auto) Gran # Lymph # (Auto) [place] # (Auto) Eos # (Auto) Baso # (Auto) Sodium Potassium Chloride Carbon Dioxide Anion Gap BUN Creatinine Est GFR ( Amer) Est GFR (Non-Af Amer) POC Glucose (mg/dL) Random Glucose Calcium Phosphorus Magnesium Total Bilirubin 0.2 Direct Bilirubin 0.1 AST 25 ALT 17 Alkaline Phosphatase 118 Total Protein 7.2 Albumin 3.7 Globulin 3.5 Albumin/Globulin Ratio 1.0 L Assessment & Plan - Assessment and Plan (Free Text) Assessment: Assessment: Abdominal pain Recurrent ventral hernia, lasts hernia repair with mesh was in 2014, s/p CT scan abnormal density in the subcutaneous tissue overlying ventral abdominal wall, Suggestive of fluid collection, postop changes or infectious etiology History of colon polyp Gastritis History of uterine cancer status post hysterectomy HIV Cholelithiasis Plan: Repeat abdominal x-ray negative for obstruction start clear liquid diet and advance as tolerated GI prophylaxis Pain management surgical FU Thank you for this consult and for allowing us to participate in your patient's care, further recommendations based upon clinical course. Seen and discussed with Dr. Olivera. <Maru Olivera V - Last Filed: 09/25/17 23:07> Meds - Medications Medications: Current Medications Acetaminophen (Tylenol 325mg Tab) 650 mg PO Q4 PRN PRN Reason: Pain, moderate (4-7) Albuterol/Ipratropium (Duoneb 3 Mg/0.5 Mg (3 Ml) Ud) 3 ml IH [id number] [facility] Amlodipine Besylate (Norvasc) 10 mg PO DAILY [facility] Carvedilol (Coreg) 25 mg PO BID [facility] Last Admin: 09/25/17 19:46 Dose: 25 mg Clopidogrel Bisulfate (Plavix) 75 mg PO DAILY [facility] Doxycycline Hyclate (Doryx) 100 mg PO Q12 [facility] PRN Reason: Protocol Ergocalciferol (Drisdol 50,000 Intl Units Cap) 1 cap PO Q7D [facility] Famotidine (Pepcid) 20 mg PO 1000,2200 [facility] Last Admin: 09/25/17 21:17 Dose: 20 mg Fluticasone Propionate (Flonase) 0 actuation NS DAILY [facility] Folic Acid (Folic Acid) 1 mg PO DAILY [facility] Furosemide (Lasix) 40 mg PO DAILY [facility] Gabapentin (Neurontin) 300 mg PO BID [facility] PRN Reason: Protocol Last Admin: 09/25/17 19:46 Dose: 300 mg Insulin Human Regular (Humulin R Low) 0 units SC ACHS [facility] PRN Reason: Protocol Methylprednisolone (Solu-Medrol) 20 mg IVP Q8 [facility] Montelukast Sodium (Singulair) 10 mg PO HS [facility] Last Admin: 09/25/17 21:17 Dose: 10 mg Nicotine (Nicoderm Cq) 1 patch TD DAILY [facility] Nicotine (Nicoderm Cq) 1 patch TD DAILY [facility] [id number] Ethyl Esters (Lovaza) 1 gm PO DAILY [facility] Ondansetron HCl (Zofran Inj) 4 mg IVP Q6H PRN PRN Reason: Nausea/Vomiting Oxycodone HCl (Oxycodone Immediate Release Tab) 5 mg PO Q6H PRN PRN Reason: Pain, severe (8-10) Pantoprazole Sodium (Protonix Susp) 40 mg PO 0600 [facility] Propranolol HCl (Inderal) 20 mg PO TID [facility] Last Admin: 09/25/17 19:47 Dose: 20 mg Sertraline HCl (Zoloft) 100 mg PO DAILY [facility] Vitamin B Complex/Vit C/Folic Acid (Nephro-Jenniffer) 1 tab PO 0800 [facility] Zolpidem Tartrate (Ambien) 5 mg PO HS PRN; Protocol PRN Reason: Insomnia Results - Vital Signs Recent Vital Signs: Last Vital Signs Temp 98.7 F 09/25/17 21:54 Pulse 83 09/25/17 21:54 Resp 20 09/25/17 21:54 BP 115/69 09/25/17 21:54 Pulse Ox 93 L 09/25/17 21:54 - Labs Result Diagrams: 09/25/17 04:20 09/25/17 04:20 Labs: Laboratory Results - last 24 hr 09/25/17 09/25/17 09/25/17 04:20 04:20 06:19 WBC 7.5 RBC 4.67 Hgb 12.6 Hct 38.1 MCV 81.6 MCH 27.0 MCHC 33.1 RDW 15.4 H Plt Count 209 MPV 9.2 Gran % 41.9 L Lymph % (Auto) 46.9 H [place] % (Auto) 7.2 H Eos % (Auto) 3.5 Baso % (Auto) 0.5 Gran # 3.15 Lymph # (Auto) 3.5 H [place] # (Auto) 0.5 Eos # (Auto) 0.3 Baso # (Auto) 0.04 Sodium 138 Potassium 3.9 Chloride 105 Carbon Dioxide 24 Anion Gap 13 BUN 11 Creatinine 1.3 H Est GFR ( Amer) 50 Est GFR (Non-Af Amer) 41 POC Glucose (mg/dL) 109 Random Glucose 102 Calcium 9.0 Phosphorus 3.8 Magnesium 2.0 Total Bilirubin Direct Bilirubin AST ALT Alkaline Phosphatase Total Protein Albumin Globulin Albumin/Globulin Ratio 09/25/17 09/25/17 09/25/17 09:46 11:29 16:04 WBC RBC Hgb Hct MCV MCH MCHC RDW Plt Count MPV Gran % Lymph % (Auto) [place] % (Auto) Eos % (Auto) Baso % (Auto) Gran # Lymph # (Auto) [place] # (Auto) Eos # (Auto) Baso # (Auto) Sodium Potassium Chloride Carbon Dioxide Anion Gap BUN Creatinine Est GFR ( Amer) Est GFR (Non-Af Amer) POC Glucose (mg/dL) 108 148 H Random Glucose Calcium Phosphorus Magnesium Total Bilirubin 0.2 Direct Bilirubin 0.1 AST 25 ALT 17 Alkaline Phosphatase 118 Total Protein 7.2 Albumin 3.7 Globulin 3.5 Albumin/Globulin Ratio 1.0 L 09/25/17 21:03 WBC RBC Hgb Hct MCV MCH MCHC RDW Plt Count MPV Gran % Lymph % (Auto) [place] % (Auto) Eos % (Auto) Baso % (Auto) Gran # Lymph # (Auto) [place] # (Auto) Eos # (Auto) Baso # (Auto) Sodium Potassium Chloride Carbon Dioxide Anion Gap BUN Creatinine Est GFR ( Amer) Est GFR (Non-Af Amer) POC Glucose (mg/dL) 134 H Random Glucose Calcium Phosphorus Magnesium Total Bilirubin Direct Bilirubin AST ALT Alkaline Phosphatase Total Protein Albumin Globulin Albumin/Globulin Ratio Assessment & Plan - Assessment and Plan (Free Text) Plan: p Attending/Attestation - Attestation I have personally seen and examined this patient.: Yes I have fully participated in the care of the patient.: Yes I have reviewed all pertinent clinical information: Yes Notes (Text): p 09/25/17 23:07
[2017-09-25] MEDS ORDERED: Ergocalciferol 50,000 Intl Units Cap PO SCH (19:00)
[2017-09-25] MEDS: MethylPREDNISolone 40 mg Vial IVP SCH (22:22)
[2017-09-25] MEDS: Insulin Reg-LOW-Coverage SC SCH (22:27)
[2017-09-26] MEDS: Albuterol-Ipratrop 3 mg / 0.5 (3 ml) UD IH SCH ×4 (01:26→20:45)
[2017-09-26] MEDS: Pantoprazole 40 mg Susp UD PO SCH (05:22)
[2017-09-26] MEDS: MethylPREDNISolone 40 mg Vial IVP SCH ×3 (05:23→21:52)
[2017-09-26] MEDS: Insulin Reg-LOW-Coverage SC SCH ×3 (07:43→16:47)
[2017-09-26] MEDS ORDERED: Magnesium Hydroxide Susp 30 ml UD PO ONE (07:58)
--- NOTE | 2017-09-26 08:08 | CP.PCM.PN ---
Subjective - Date & Time of Evaluation Date of Evaluation: 09/26/17 Time of Evaluation: 07:30 - Subjective Subjective: Surgery progress note for Dr. Cary, covering for Dr. Torres Patient seen and examined at bedside. Per nursing staff, no acute events overnight. Patient's diet was advanced yesterday, and she is tolerating a regular diet. Denies nausea, vomiting, diarrhea, or pain. Is passing gas, but has not yet had a BM. Denies fever, chills. Objective - Vital Signs/Intake and Output Vital Signs (last 24 hours): Temp Pulse Resp BP Pulse Ox 98.7 F 80 20 115/69 93 L 09/25/17 21:54 09/26/17 01:26 09/25/17 21:54 09/25/17 21:54 09/25/17 21:54 Intake and Output: 09/26/17 09/26/17 06:59 18:59 Intake Total 840 Balance 840 - Medications Medications: Current Medications Acetaminophen (Tylenol 325mg Tab) 650 mg PO Q4 PRN PRN Reason: Pain, moderate (4-7) Albuterol/Ipratropium (Duoneb 3 Mg/0.5 Mg (3 Ml) Ud) 3 ml IH [id number] [facility] Last Admin: 09/26/17 07:19 Dose: 3 ml Amlodipine Besylate (Norvasc) 10 mg PO DAILY [facility] Carvedilol (Coreg) 25 mg PO BID [facility] Last Admin: 09/25/17 19:46 Dose: 25 mg Clopidogrel Bisulfate (Plavix) 75 mg PO DAILY [facility] Doxycycline Hyclate (Doryx) 100 mg PO Q12 [facility] PRN Reason: Protocol Last Admin: 09/25/17 22:20 Dose: 100 mg Ergocalciferol (Drisdol 50,000 Intl Units Cap) 1 cap PO Q7D [facility] Famotidine (Pepcid) 20 mg PO 1000,2200 [facility] Last Admin: 09/25/17 21:17 Dose: 20 mg Fluticasone Propionate (Flonase) 0 actuation NS DAILY [facility] Folic Acid (Folic Acid) 1 mg PO DAILY [facility] Furosemide (Lasix) 40 mg PO DAILY [facility] Gabapentin (Neurontin) 300 mg PO BID [facility] PRN Reason: Protocol Last Admin: 09/25/17 19:46 Dose: 300 mg Insulin Human Regular (Humulin R Low) 0 units SC ACHS [facility] PRN Reason: Protocol Last Admin: 09/26/17 07:43 Dose: Not Given Magnesium Hydroxide (Milk Of Magnesia) 30 ml PO ONCE ONE Stop: 09/26/17 07:59 Methylprednisolone (Solu-Medrol) 20 mg IVP Q8 [facility] Last Admin: 09/26/17 05:23 Dose: 20 mg Montelukast Sodium (Singulair) 10 mg PO HS [facility] Last Admin: 09/25/17 21:17 Dose: 10 mg Nicotine (Nicoderm Cq) 1 patch TD DAILY [facility] Nicotine (Nicoderm Cq) 1 patch TD DAILY [facility] [id number] Ethyl Esters (Lovaza) 1 gm PO DAILY [facility] Ondansetron HCl (Zofran Inj) 4 mg IVP Q6H PRN PRN Reason: Nausea/Vomiting Oxycodone HCl (Oxycodone Immediate Release Tab) 5 mg PO Q6H PRN PRN Reason: Pain, severe (8-10) Pantoprazole Sodium (Protonix Susp) 40 mg PO 0600 [facility] Last Admin: 09/26/17 05:22 Dose: 40 mg Propranolol HCl (Inderal) 20 mg PO TID [facility] Last Admin: 09/25/17 19:47 Dose: 20 mg Sertraline HCl (Zoloft) 100 mg PO DAILY [facility] Vitamin B Complex/Vit C/Folic Acid (Nephro-Jenniffer) 1 tab PO 0800 [facility] Zolpidem Tartrate (Ambien) 5 mg PO HS PRN; Protocol PRN Reason: Insomnia - Labs Labs: 09/25/17 04:20 09/25/17 04:20 PT 11.7 SECONDS (9.4-12.5) 09/24/17 18:30 INR 1.03 (0.93-1.08) 09/24/17 18:30 - Constitutional Appears: Non-toxic, No Acute Distress, Chronically Ill - Eye Exam Eye Exam: Normal appearance - ENT Exam ENT Exam: Mucous Membranes Moist - Respiratory Exam Respiratory Exam: NORMAL BREATHING PATTERN - Cardiovascular Exam Cardiovascular Exam: +S1, +S2 - GI/Abdominal Exam GI & Abdominal Exam: Soft, Hernia (ventral, easily reducible, nontender). absent: Tenderness - Neurological Exam Neurological Exam: Alert, Awake Assessment and Plan - Assessment and Plan (Free Text) Assessment: 62F with abdominal pain, probable UTI and recurrent ventral hernia Plan: Diet was advanced yesterday, and patient is no tolerating a regular diet Patient has not required analgesics or antiemetics since admission No acute surgical intervention indicated; hernia is nonincarcerated, with no pain, nausea, vomiting; patient to follow up as outpatient for elective surgical repair Further recs per Dr. Luis Daniel Goetz PGY1
--- NOTE | 2017-09-26 08:44 | CON ---
DATE: 09/25/2017 PULMONARY CONSULTATION REFERRING PHYSICIAN: Lois Croft MD. REASON FOR CONSULTATION: Chronic obstructive lung disease. HISTORY OF PRESENT ILLNESS: This is a 62-year-old female well known to me from office and previous admission, has a known history of HIV positive, hypertension, diabetes, coronary artery disease, chronic obstructive lung disease, history of heart failure, anemia, rheumatoid arthritis, hypothyroid. Has a history of irritable bowel disease and been on Viberzi, complaining about abdominal pain. Did have some nausea and vomiting and also has some cough. Actively smokes. No hemoptysis, no hematemesis, no hematuria. No leg swelling reported. PAST MEDICAL HISTORY: As per history of present illness.. ALLERGIES: NONE KNOWN. FAMILY HISTORY: Positive for hypertension, diabetes. SOCIAL HISTORY: She is smoker. Denies any alcohol use. MEDICATIONS: She is on Ambien 5 mg at bedtime p.r.n., Coreg 25 mg twice a day, vitamin D 50,000 units weekly, Flonase one spray each nostril daily, folic acid 1 mg daily, insulin coverage, Inderal 20 mg three times a day, Lasix 40 mg daily, Lovaza 1 g daily, Nephro vitamins daily, gabapentin 300 mg twice a day, Nicoderm patch daily, Norvasc 10 mg daily, oxycodone immediate release 5 mg every 6 hours p.r.n., Pepcid 20 mg twice a day, Plavix 75 mg daily, Protonix 40 mg daily ,Singulair 10 mg daily, Tylenol p.r.n. basis, Zofran p.r.n. basis, Zoloft 100 mg daily. REVIEW OF SYSTEMS: No headache, no rhinitis. Has a mild cough and short of breath. No chest pain. No nausea. Has lower abdominal pain. Has diarrhea and also at the time constipation. No leg pain or leg swelling. PHYSICAL EXAMINATION: GENERAL: Lying in the bed. VITAL SIGNS: Temperature is 98, heart rate is 81, respiratory rate is 20, blood pressure 151/69, pulse ox 95% room air. HEENT: Moist mucous membranes. No ulcer or thrush noted. NECK: Supple. No JVD. LUNGS: Have bilateral wheezing. HEART: S1 and S2. ABDOMEN: Positive bowel sounds, soft to mostly suprapubic area. Tender to touch. EXTREMITIES: There is not much edema. NEUROLOGIC: Awake, alert, follows simple commands. LABORATORY DATA: Shows hemoglobin 12.6, hematocrit 38.1, WBC 7.5, platelet is 209. Sodium 138, potassium 3.9, chloride 105, bicarbonate 24, BUN 11, creatinine 1.3, glucose 134, calcium 9.0, magnesium 2, total bili 0.2, AST 25, ALT 17, alk phos is 118. Albumin is 3.5. Urinalysis showing wbc's of 5-10. Has abdominal x-ray done today shows no evidence of obstruction. Also had a CT of abdomen and pelvis done on admission, which shows that there is a ventral abdominal hernia inferiorly containing small bowel loop. No obstruction of the bowel. There is a new abdominal density within the subcutaneous tissue underlying the ventral abdominal wall suggesting a complex fluid collection. This 13 cm in thickness and it may be postoperative or infectious in etiology. There is cholelithiasis. Hyperdense renal cysts are visualized bilaterally. Chest x-ray done in ER shows no active disease. IMPRESSION AND PLAN: Chronic obstructive lung disease, human immunodeficiency virus positive, history of gastric ulcer, ventral hernia, diabetes, hypertension, hypothyroid, actively smokes. Case discussed with the nursing staff. Her home medication is renewed. Patient is seen by Surgery and Gastroenterology. Pulmonary point of view, add inhaled bronchodilator. May add doxycycline 100 mg twice a day, Solu-Medrol 20 mg every 8 hours. Gastric prophylaxis, sequential compression device to lower extremity. May place her on nicotine patch. The patient has to stop smoking. Thank you and we will follow with you. Osman Mercedes MD
[2017-09-26] MEDS: Furosemide 40 mg/5 mL Oral Soln UD PO SCH (09:34)
[2017-09-26] MEDS: Omega-3-Acid Ethyl Esters 1 GM Cap PO SCH (09:35)
[2017-09-26] MEDS: Fluticasone Nasal 50 mcg/Spray NS SCH (09:36)
[2017-09-26] MEDS: Multivitamin Vitamin B Complex (Nephro-Vite) Tab PO SCH (09:36)
[2017-09-26] MEDS ORDERED: Ergocalciferol 50,000 Intl Units Cap PO SCH (10:00)
--- NOTE | 2017-09-26 10:16 | HP ---
DATE OF EXAM: 09/25/2017 CHIEF COMPLAINT: Shortness of breath and abdominal pain. The patient was seen and examined at the bedside on 09/25/2017. HISTORY OF PRESENT ILLNESS: Ms. Lu Roa is a 62-year-old my private patient with past medical history of HIV positive, hypertension, diabetes mellitus, coronary artery disease, COPD, congestive heart failure, anemia, asthma, rheumatoid arthritis, hypothyroidism, actually came in my office with intractable abdominal pain, coughing, shortness of breath. She was wheezing badly. I sent her to [facility] Emergency Department. The patient has irritable bowel syndrome, taking but every night she is having accident, smearing her whole her bed. She states she is afraid to go to bed because whenever she is waking up, the bed is full with stool. From my office, I transferred the patient with ambulance, with , to the emergency room, concerning of obstruction. The patient denies any headaches, fevers, chest pain. No hematuria, no hematochezia. Pain is mainly in the left upper abdomen. Pain is constant, no relation with food. No palpitation. PAST MEDICAL HISTORY: As above, congestive heart failure, hypertension, COPD, diabetes mellitus type 2, anemia, history of blood transfusion, arthritis, history of colonoscopy, diverticulitis, descending colon polyp, diverticulosis, history of depression, history of attempting suicide, anxiety, depression, has transvaginal mesh. FAMILY HISTORY: Father and mother, noncontributory. HABITS: Actively smoking. No alcohol. No substance abuse. ALLERGIES: THE PATIENT IS NOT ALLERGIC WITH ANY MEDICATIONS. HOME MEDICATIONS: Reviewed by me, HIV medication,ProAir, Coreg, Plavix, vitamin D, Pepcid, Flonase, folic acid, Lasix, Neurontin, Singulair, Protonix, Inderal, Zoloft, Ambien, Norvasc, Vistaril, insulin, melatonin. REVIEW OF SYSTEMS: The patient was seen and examined at the bedside on 09/25/2017, abdominal pain is same but coughing and wheezing is better. No fatigue, no chest pain, no arthralgia, no myalgia, no pruritus. No dizziness. The 10-point review of system is done by me, everything is negative except above as mentioned. PHYSICAL EXAMINATION: VITAL SIGNS: Temperature 98.2, pulse 67, respiratory rate 18, blood pressure 140/57, pulse oximetry of 92%. HEENT: Head is normocephalic and atraumatic. Eyes: PERRLA. Extraocular muscles intact. Conjunctivae clear. Nose patent. Mucous membranes moist. NECK: Supple. No carotid bruits. No JVD or thyromegaly. CHEST: Bilaterally symmetrical. HEART: S1, S2 positive. LUNGS: Wheezing bilaterally. ABDOMEN: Soft. Tender in the left upper quadrant. Bowel sounds positive. No organomegaly. EXTREMITIES: No edema. No cyanosis. NEUROLOGICAL: Patient is awake and alert. Moving all 4 extremities. No focal deficits. LABORATORY DATA: White blood cell 9.1, hemoglobin 13.7, hematocrit 40.6, platelets 233. Sodium 137, potassium 4.4, BUN 11, creatinine 1.6, glucose of 130. ASSESSMENT AND PLAN: Ms. Lu Roa is 62-year-old lady with hyperglycemia, chronic kidney disease, urinary tract infection, abdominal pain, ventral hernia without mention of obstruction or gangrene, chronic obstructive pulmonary disease exacerbation, human immunodeficiency virus positive, hypertension, coronary artery disease, congestive heart failure, asthma, rheumatoid arthritis, hypothyroidism, history of irritable bowel syndrome, has accidental bowel movements every night. CAT scan of abdomen and pelvis done, abdominal x-ray done. She was seen by GI. Recurrent ventral hernia, last hernia repair with mesh was in 2014, status post CT scan; history of colon polyp; gastritis; history of uterine cancer status post hysterectomy, cholelithiasis, x-ray negative for obstruction, start clear liquid diet and advance as tolerated, gastrointestinal prophylaxis, pain management, surgical team is on the case. Repeat labs, repeat x-rays. Monitor bowel and urine output closely, antibiotics for urinary tract infection, no acute surgical intervention indicated, minimal proximal dilatation of the small bowel on the CT scan. The patient is not actively vomiting, no signs of strangulation of bowel, we will continue monitoring, the patient's incentive spirometry, SCD, physical therapy, gastrointestinal and deep venous thrombosis prophylaxis. Repeat labs. We will follow up. Lois Croft MD [facility] # [id number]
--- NOTE | 2017-09-26 10:48 | CP.PCM.PN ---
<Sindi Rosario - Last Filed: 09/26/17 10:48> Subjective - Date & Time of Evaluation Date of Evaluation: 09/26/17 Time of Evaluation: 10:25 - Subjective Subjective: Seen and examined, chart reviewed, denies N/V , abdominal pain better, but still have some soreness. No BM yet, passing flatus, had dose of MOM this am. Diet was advanced this am, tolerated well so far. No acute overnight events reported. Objective - Vital Signs/Intake and Output Vital Signs (last 24 hours): Temp Pulse Resp BP Pulse Ox 97.7 F 75 20 154/77 H 94 L 09/26/17 06:00 09/26/17 09:36 09/26/17 06:00 09/26/17 09:36 09/26/17 06:00 Intake and Output: 09/26/17 09/26/17 06:59 18:59 Intake Total 840 Balance 840 - Medications Medications: Current Medications Acetaminophen (Tylenol 325mg Tab) 650 mg PO Q4 PRN PRN Reason: Pain, moderate (4-7) Albuterol/Ipratropium (Duoneb 3 Mg/0.5 Mg (3 Ml) Ud) 3 ml IH [id number] [facility] Last Admin: 09/26/17 07:19 Dose: 3 ml Amlodipine Besylate (Norvasc) 10 mg PO DAILY [facility] Last Admin: 09/26/17 09:34 Dose: 10 mg Carvedilol (Coreg) 25 mg PO BID [facility] Last Admin: 09/26/17 09:35 Dose: 25 mg Clopidogrel Bisulfate (Plavix) 75 mg PO DAILY [facility] Last Admin: 09/26/17 09:35 Dose: 75 mg Doxycycline Hyclate (Doryx) 100 mg PO Q12 [facility] PRN Reason: Protocol Last Admin: 09/26/17 09:36 Dose: 100 mg Ergocalciferol (Drisdol 50,000 Intl Units Cap) 1 cap PO Q7D [facility] Famotidine (Pepcid) 20 mg PO 1000,2200 [facility] Last Admin: 09/26/17 09:36 Dose: 20 mg Fluticasone Propionate (Flonase) 0 actuation NS DAILY [facility] Last Admin: 09/26/17 09:36 Dose: 1 spr Folic Acid (Folic Acid) 1 mg PO DAILY [facility] Furosemide (Lasix) 40 mg PO DAILY [facility] Last Admin: 09/26/17 09:34 Dose: 40 mg Gabapentin (Neurontin) 300 mg PO BID [facility] PRN Reason: Protocol Last Admin: 09/26/17 09:35 Dose: 300 mg Insulin Human Regular (Humulin R Low) 0 units SC ACHS [facility] PRN Reason: Protocol Last Admin: 09/26/17 07:43 Dose: Not Given Methylprednisolone (Solu-Medrol) 20 mg IVP Q8 [facility] Last Admin: 09/26/17 05:23 Dose: 20 mg Montelukast Sodium (Singulair) 10 mg PO HS [facility] Last Admin: 09/25/17 21:17 Dose: 10 mg Nicotine (Nicoderm Cq) 1 patch TD DAILY [facility] Last Admin: 09/26/17 10:15 Dose: 1 patch Nicotine (Nicoderm Cq) 1 patch TD DAILY [facility] Last Admin: 09/26/17 10:17 Dose: Not Given [id number] Ethyl Esters (Lovaza) 1 gm PO DAILY [facility] Last Admin: 09/26/17 09:35 Dose: 1 gm Ondansetron HCl (Zofran Inj) 4 mg IVP Q6H PRN PRN Reason: Nausea/Vomiting Oxycodone HCl (Oxycodone Immediate Release Tab) 5 mg PO Q6H PRN PRN Reason: Pain, severe (8-10) Pantoprazole Sodium (Protonix Susp) 40 mg PO 0600 [facility] Last Admin: 09/26/17 05:22 Dose: 40 mg Propranolol HCl (Inderal) 20 mg PO TID [facility] Last Admin: 09/26/17 09:36 Dose: 20 mg Sertraline HCl (Zoloft) 100 mg PO DAILY [facility] Last Admin: 09/26/17 09:36 Dose: 100 mg Vitamin B Complex/Vit C/Folic Acid (Nephro-Jenniffer) 1 tab PO 0800 [facility] Last Admin: 09/26/17 09:36 Dose: 1 tab Zolpidem Tartrate (Ambien) 5 mg PO HS PRN; Protocol PRN Reason: Insomnia - Labs Labs: 09/25/17 04:20 09/25/17 04:20 PT 11.7 SECONDS (9.4-12.5) 09/24/17 18:30 INR 1.03 (0.93-1.08) 09/24/17 18:30 - Constitutional Appears: No Acute Distress - Eye Exam Eye Exam: Normal appearance. absent: Scleral icterus - ENT Exam ENT Exam: Mucous Membranes Moist - Neck Exam Neck Exam: Normal Inspection - Respiratory Exam Respiratory Exam: NORMAL BREATHING PATTERN. absent: Respiratory Distress - Cardiovascular Exam Cardiovascular Exam: +S1, +S2 - GI/Abdominal Exam GI & Abdominal Exam: Soft, Normal Bowel Sounds. absent: Guarding, Tenderness, Organomegaly, Rebound - Extremities Exam Extremities Exam: absent: Calf Tenderness, Pedal Edema - Neurological Exam Neurological Exam: Alert, Awake, Oriented x3 Assessment and Plan - Assessment and Plan (Free Text) Assessment: Assessment: Abdominal pain Recurrent ventral hernia, lasts hernia repair with mesh was in 2014, s/p CT scan abnormal density in the subcutaneous tissue overlying ventral abdominal wall, Suggestive of fluid collection, postop changes or infectious etiology History of colon polyp Gastritis History of uterine cancer status post hysterectomy HIV Cholelithiasis UTI CAD Plan: on solid food and tolerating, discuss eat slow and chew food well GI prophylaxis Pain management surgical FU on oral antibiotics on Plavix Seen and discussed with Dr. Olivera. <Maru Olivera V - Last Filed: 09/27/17 01:28> Objective - Vital Signs/Intake and Output Vital Signs (last 24 hours): Temp Pulse Resp BP Pulse Ox 98.2 F 76 20 160/75 H 98 09/26/17 21:57 09/26/17 21:57 09/26/17 21:57 09/26/17 21:57 09/26/17 21:57 Intake and Output: 09/26/17 09/27/17 18:59 06:59 Intake Total 780 Balance 780 - Medications Medications: Current Medications Acetaminophen (Tylenol 325mg Tab) 650 mg PO Q4 PRN PRN Reason: Pain, moderate (4-7) Albuterol/Ipratropium (Duoneb 3 Mg/0.5 Mg (3 Ml) Ud) 3 ml IH [id number] [facility] Last Admin: 09/26/17 20:45 Dose: 3 ml Amlodipine Besylate (Norvasc) 10 mg PO DAILY [facility] Last Admin: 09/26/17 09:34 Dose: 10 mg Carvedilol (Coreg) 25 mg PO BID [facility] Last Admin: 09/26/17 18:10 Dose: 25 mg Clopidogrel Bisulfate (Plavix) 75 mg PO DAILY [facility] Last Admin: 09/26/17 09:35 Dose: 75 mg Ergocalciferol (Drisdol 50,000 Intl Units Cap) 1 cap PO Q7D [facility] Fluticasone Propionate (Flonase) 0 actuation NS DAILY [facility] Last Admin: 09/26/17 09:36 Dose: 1 spr Folic Acid (Folic Acid) 1 mg PO DAILY [facility] Last Admin: 09/26/17 12:13 Dose: 1 mg Furosemide (Lasix) 40 mg PO DAILY [facility] Last Admin: 09/26/17 09:34 Dose: 40 mg Gabapentin (Neurontin) 300 mg PO BID [facility] PRN Reason: Protocol Last Admin: 09/26/17 18:10 Dose: 300 mg Insulin Human Regular (Humulin R Low) 0 units SC ACHS [facility] PRN Reason: Protocol Last Admin: 09/26/17 16:47 Dose: 2 units Methylprednisolone (Solu-Medrol) 20 mg IVP Q12 [facility] Last Admin: 09/26/17 21:52 Dose: 20 mg Montelukast Sodium (Singulair) 10 mg PO HS [facility] Last Admin: 09/26/17 21:52 Dose: 10 mg Nicotine (Nicoderm Cq) 1 patch TD DAILY [facility] Last Admin: 09/26/17 10:15 Dose: 1 patch [id number] Ethyl Esters (Lovaza) 1 gm PO DAILY [facility] Last Admin: 09/26/17 09:35 Dose: 1 gm Ondansetron HCl (Zofran Inj) 4 mg IVP Q6H PRN PRN Reason: Nausea/Vomiting Oxycodone HCl (Oxycodone Immediate Release Tab) 5 mg PO Q6H PRN PRN Reason: Pain, severe (8-10) Last Admin: 09/26/17 12:58 Dose: 5 mg Pantoprazole Sodium (Protonix Susp) 40 mg PO 0600 [facility] Last Admin: 09/26/17 05:22 Dose: 40 mg Propranolol HCl (Inderal) 20 mg PO TID [facility] Last Admin: 09/26/17 18:10 Dose: 20 mg Sertraline HCl (Zoloft) 100 mg PO DAILY [facility] Last Admin: 09/26/17 09:36 Dose: 100 mg Trimethoprim/Sulfamethoxazole (Bactrim Ds Tab) 1 tab PO BID [facility] PRN Reason: Protocol Vitamin B Complex/Vit C/Folic Acid (Nephro-Jenniffer) 1 tab PO 0800 [facility] Last Admin: 09/26/17 09:36 Dose: 1 tab Zolpidem Tartrate (Ambien) 5 mg PO HS PRN; Protocol PRN Reason: Insomnia Last Admin: 09/27/17 00:41 Dose: 5 mg - Labs Labs: 09/25/17 04:20 09/25/17 04:20 PT 11.7 SECONDS (9.4-12.5) 09/24/17 18:30 INR 1.03 (0.93-1.08) 09/24/17 18:30 Attending/Attestation - Attestation I have personally seen and examined this patient.: Yes I have fully participated in the care of the patient.: Yes I have reviewed all pertinent clinical information, including history, physical exam and plan: Yes Notes (Text): This is an addendum to GI progress report dictated by the Sindi Rosario.The patient was seen and examined earlier. Medical records, lab studies, imagings were reviewed. Last 24 hours events reviewed. Agreed with the above treatment plan as outlined in notes the with the addition of the following 09/27/17 01:28
--- NOTE | 2017-09-26 12:47 | PN ---
DATE: 09/26/2017 SUBJECTIVE: Lu Roa is seen on the floor. I reviewed the notes with resident and I agree. She comes in with abdominal pain and recurrent ventral hernia and the suprapubic area is somewhat tender, but easily reducible, and a minor source of the pain, and I believe the hernia is the cause of this abdominal pain, which seems to be self-limited. PHYSICAL EXAMINATION: VITAL SIGNS: Noted that the vital signs are normal, somewhat hypertensive, 139 pounds. LABORATORY DATA: White count is normal. SMA shows slightly elevated glucose. ASSESSMENT AND PLAN: This is the patient of . Multiple operations in the past. Reviewed the CAT scan; there is no evidence of infarction or obstruction, and I believe this can be done electively. Discussed with the patient. She wants no part of an operation. She "almost at the last operation." Therefore, we will watch conservatively. Recommended a binder. We will follow up peripherally. Please call us as necessary. Saturnino Cary MD
--- NOTE | 2017-09-26 23:42 | PN ---
DATE: 09/26/2017 PULMONARY PROGRESS NOTE REFERRING PHYSICIAN: Dr. Croft. SUBJECTIVE: The patient is lying in the bed, head at 45 degrees. Feels much better. Had some cough, shortness of breath. No chest pain. No nausea. No vomiting. Still has lower abdominal discomfort. No dysuria, leg pain or leg swelling. OBJECTIVE: GENERAL: In no acute distress. VITAL SIGNS: Temperature is 98, heart rate is 77, respiratory rate is 20, blood pressure 122/66, pulse ox 96% on nasal cannula. HEENT: Moist mucous membranes. No ulcer or thrush noted. NECK: Supple. No JVD. LUNGS: Have few scattered rhonchi and wheezing. HEART: S1 and S2. ABDOMEN: Soft with upper, lower abdomen area tender to touch. EXTREMITIES: There is no edema. NEUROLOGIC: Awake, alert. Follows simple commands. MEDICATIONS: She is on Ambien 5 mg at bedtime p.r.n., Coreg 25 mg twice a day, doxycycline 100 mg twice a day, vitamin D 50,000 units every 7 days, DuoNeb every 6 hours [id number], Flonase one spray each nostril daily, folic acid 1 mg daily, insulin coverage, propanolol 20 mg three times a day, Lasix 40 mg daily, Lovaza 1 g daily, multivitamins, which is Nephro vitamins daily, gabapentin 300 mg two times a day, Nicoderm patch daily, Norvasc 10 mg daily, oxycodone immediate release 5 mg every 6 hours p.r.n., Pepcid 20 mg twice a day, Plavix 75 mg daily, Protonix mg daily ,Singulair 10 mg daily, Solu-Medrol 20 mg every 8 hours, Tylenol p.r.n., Zofran p.r.n. basis. LABORATORY DATA: Reviewed. Blood sugar is 247. Microbiology: Urine culture has gram-negative rods. IMPRESSION AND PLAN: Chronic obstructive lung disease, human immunodeficiency virus positive, history of gastric ulcer, ventral hernia, diabetes, hypertension, hypothyroid, smoker. Patient was seen by Surgical team. Patient refuse any surgical manipulation. Recommended abdominal binder. Spoke to nursing staff to get a binder. Continue Solu-Medrol, we will decrease to every 12 hours. May discontinue doxycycline and add Bactrim. Thank you and we will follow with you. Osman Mercedes MD
[2017-09-27] MEDS: Albuterol-Ipratrop 3 mg / 0.5 (3 ml) UD IH SCH ×3 (03:05→13:49)
[2017-09-27] MEDS: Pantoprazole 40 mg Susp UD PO SCH (05:29)
--- NOTE | 2017-09-27 05:39 | PN ---
DATE: 09/26/2017 Patient is a 62-year-old female. SUBJECTIVE: Patient was seen and examined at the bedside on 09/26/2017. No nausea, vomiting, or diarrhea. No hematuria or hematochezia. Still having abdominal pain in the left upper quadrant and complaining about stool incontinence especially at night. According to her, she is afraid to go to the bed at night because when she is waking up in the morning, her bed is smeared with stool, that is what I have discussion done with Dr. Olivera. Patient is eating, tolerated food. No nausea or vomiting. PHYSICAL EXAMINATION: VITAL SIGNS: Temperature 97.7, pulse 75, respiratory rate 20, blood pressure 154/77, pulse oximetry 94. HEENT: Head: Normocephalic and atraumatic. Eyes: PERRLA. Extraocular muscles intact. Conjunctivae clear. Nose: Patent. Mucous membranes moist. NECK: Supple. No carotid bruit. No JVD or thyromegaly. CHEST: Bilaterally symmetrical. HEART: S1, S2 positive. LUNGS: Clear to auscultation. ABDOMEN: Soft, bowel sounds present. No organomegaly. EXTREMITIES: No edema. No cyanosis. NEUROLOGIC: Patient is awake, alert. Moving all four extremities. No focal deficits. MEDICATIONS: Ambien, Bactrim, Coreg, vitamin D, albuterol, folic acid, Inderal, furosemide, vitamin B complex, gabapentin, Neurontin, amlodipine, oxycodone, Plavix, Protonix, ceftriaxone, montelukast, methylprednisolone, acetaminophen, Zofran, and Zoloft. LABORATORY DATA: White blood cells 7.5, hemoglobin 12.6, hematocrit 38.1, platelets 209. Glucose 234, 247. Has protein in the urine and trace leukocytes. ASSESSMENT AND PLAN: Ms. Lu Roa is a 62-year-old lady with controlled diabetes mellitus type 2, proteinuria, and urinary tract infection, came with exacerbation of chronic obstructive pulmonary disease, asthma, has human immunodeficiency virus positive, history of gastric ulcer, ventral hernia, diabetes mellitus, hypertension, hypothyroidism. Patient is seen by the Surgical team. Patient refuses any surgical manipulation. Recommended abdominal binder and I saw patient was having that. Continue Solu-Medrol tapering doses; decreased to every 12 hours. May discontinue doxycycline and add Bactrim. I reviewed Dr. Mago's notes. Length of time discussion done with Dr. Olivera. Gastrointestinal and deep venous thrombosis prophylaxis. Last hernia repair with mesh was done in 2014. Status post CT scan of the abdomen; density in the subcutaneous tissue, ventral abdominal wall suggestive of fluid collection; postoperative changes and infectious etiology. History of colon polyp, gastritis, cholelithiasis, coronary artery disease. Pain management. Oral antibiotics and Plavix. Repeat labs. We will follow up. Lois Croft MD MTDMarialuisa
[2017-09-27] MEDS: Multivitamin Vitamin B Complex (Nephro-Vite) Tab PO SCH (08:48)
[2017-09-27 08:49] VITALS: PULSE 75; TEMP 98.1; O2SAT 97
[2017-09-27] MEDS: Insulin Reg-LOW-Coverage SC SCH ×2 (08:49→11:32)
[2017-09-27] MEDS ORDERED: Tmp-Smz 800 mg-160 mg DS Tab PO SCH (10:00)
[2017-09-27] MEDS: MethylPREDNISolone 40 mg Vial IVP SCH (11:33)
[2017-09-27] MEDS: Furosemide 40 mg/5 mL Oral Soln UD PO SCH (11:35)
[2017-09-27] MEDS: Omega-3-Acid Ethyl Esters 1 GM Cap PO SCH (11:37)
[2017-09-27] MEDS: Fluticasone Nasal 50 mcg/Spray NS SCH (11:37)
[2017-09-27 11:44] VITALS: BP 145/75
--- NOTE | 2017-09-28 20:11 | DS ---
The patient is a 62-year-old female. CHIEF COMPLAINT: Shortness of breath and abdominal pain. HISTORY OF PRESENT ILLNESS: Ms. Lu Roa is a 62-year-old my private patient with multiple medical problems including HIV, hepatitis, diabetes mellitus, coronary artery disease, diabetic neuropathy, nephropathy, retinopathy, COPD, congestive heart failure, anemia, rheumatoid arthritis, hypothyroidism, came in my office with intractable abdominal pain, coughing, shortness of breath, wheezing. I sent the patient to the hospital, we admitted the patient for Pulmonary consult, Dr. Mercedes started tapering dose of steroids. CAT scan of abdomen and pelvis done. Chest x-ray done. Seen by GI Dr. Olivera, surgeon by Dr. Saturnino Cary, cleared. The patient improved. Discharged home on 09/27/2017 with followup primary care physician, surgeon, and car changer. Tapering dose of Medrol Dosepak given and all medicines provided at the bedside. PAST MEDICAL HISTORY: As above. Congestive heart failure, hypertension, COPD, diabetes mellitus type 2, history of blood transfusion, arthritis, colonoscopy, diverticulitis, depression. FAMILY HISTORY: Father and mother, noncontributory. HABITS: Actively smoking. No alcohol. No substance abuse. ALLERGIES: THE PATIENT IS NOT ALLERGIC TO ANY MEDICATIONS. HOME MEDICATIONS: Reviewed by me. REVIEW OF SYSTEMS: The patient was seen and examined on the bedside, looking comfortable. No nausea, vomiting, or diarrhea. No hematuria or hematochezia. No headache. No dizziness. No chest pain. No palpitations. Abdominal pain is better. Coughing and wheezing is better. PHYSICAL EXAMINATION: VITAL SIGNS: Temperature 98.1, pulse 75, blood pressure 145/75, respiratory rate 20. HEENT: Head is normocephalic and atraumatic. Eyes; PERRLA. Extraocular muscles are intact. Conjunctivae are clear. Nose is patent. Mucous membranes are moist. NECK: Supple. No carotid bruit, JVD, or thyromegaly. CHEST: Bilaterally symmetrical. HEART: S1, S2 positive. LUNGS: Clear to auscultation. ABDOMEN: Soft. Bowel sounds are present. No organomegaly. EXTREMITIES: No edema. No cyanosis. NEUROLOGIC: The patient is awake and alert. Moving all four extremities. No focal deficit. LABORATORY DATA: White blood cell is 7.5, hemoglobin 12.6, hematocrit 38.1, and platelets 209. Glucose 175. ASSESSMENT AND PLAN: Ms. Lu Roa is a 62-year-old lady with history of HIV positive, chronic obstructive lung disease, history of gastric ulcers, ventral hernia, history of surgery of the ventral hernia with mesh, diabetes mellitus, hypertension, hypothyroidism, history of actively smoking. The patient was seen by the surgical team. The patient refuses surgery and surgical manipulation. Recommended abdominal binder. She is feeling better with binder. Breathing is better. History of chronic obstructive pulmonary disease. Continue tapering dose of steroids. Discharged to home with doxycycline, Bactrim, and Medrol Dosepak. Medicines provided on the bedside. Follow with car changer and primary care physician. Lois Croft MD MTDD
== END 2017-09-27 15:24 | disposition home or self-care (01) ==
LOC: ED 17:14 → ERH 23:42 → 5RSO 09-25 00:53
PROVIDERS: ADMIT Internal Medicine; ATTEND Internal Medicine
DX: K43.2 Incisional hernia without obstruction or gangrene (principal); Z21 Asymptomatic human immunodeficiency virus [HIV] infection status; E11.21 Type 2 diabetes mellitus with diabetic nephropathy; E11.319 Type 2 diabetes mellitus with unspecified diabetic retinopathy without macular edema; E11.40 Type 2 diabetes mellitus with diabetic neuropathy, unspecified; N39.0 Urinary tract infection, site not specified; J44.1 Chronic obstructive pulmonary disease with (acute) exacerbation; M06.9 Rheumatoid arthritis, unspecified; I13.0 Hypertensive heart and chronic kidney disease with heart failure and stage 1 through stage 4 chronic kidney disease, or unspecified chronic kidney disease; I50.9 Heart failure, unspecified; N18.9 Chronic kidney disease, unspecified; I25.10 Atherosclerotic heart disease of native coronary artery without angina pectoris; E11.65 Type 2 diabetes mellitus with hyperglycemia; K58.0 Irritable bowel syndrome with diarrhea; E03.9 Hypothyroidism, unspecified; F41.9 Anxiety disorder, unspecified; F32.9 Major depressive disorder, single episode, unspecified; D12.4 Benign neoplasm of descending colon; K29.70 Gastritis, unspecified, without bleeding; K80.20 Calculus of gallbladder without cholecystitis without obstruction; M19.90 Unspecified osteoarthritis, unspecified site; D64.9 Anemia, unspecified; F17.210 Nicotine dependence, cigarettes, uncomplicated; E11.22 Type 2 diabetes mellitus with diabetic chronic kidney disease; K21.9 Gastro-esophageal reflux disease without esophagitis; N28.1 Cyst of kidney, acquired; Z85.42 Personal history of malignant neoplasm of other parts of uterus; Z79.4 Long term (current) use of insulin; Z87.11 Personal history of peptic ulcer disease; Z90.710 Acquired absence of both cervix and uterus; Z79.02 Long term (current) use of antithrombotics/antiplatelets
CPT/HCPCS: 36415; 71045; 74019; 74176; 80048; 80053; 80076; 81001; 82550; 82948; 83615; 83690; 83735; 83880; 84100; 84484; 85025; 85610; 87086; 93005; 94640; 96361; 96365; 96375; 96376; 99285; G0378; J0696; J1170; J1200; J2270; J2405; J2765; J2920; J7120; Q9966

== ENCOUNTER 2017-12-27 20:32 | Inpatient (IN) | payer MEDICARE, MEDICAID ==
[2017-12-27 20:33] VITALS: BMI 23.8
[2017-12-27] MEDS ORDERED: Sodium Chloride 0.9% 1,000 ML IV SCH (21:00)
--- NOTE | 2017-12-27 21:07 | ED PDOC ---
Arrival/HPI - General Chief Complaint: GI Problem Time Seen by Provider: 12/27/17 20:38 Historian: Patient - History of Present Illness Narrative History of Present Illness (Text): 12/27/17 20:50 Lu Roa is a 62 year old female, whose past medical history includes HIV, hepatitis, diabetes, CAD, diabetic neuropathy, nephropathy, COPD, anemoa, arthritis, hypothyroidism, and IBS, who presents to the ED complaining of recurrent vomiting and decreased appetite over the past week. Patient states she is unable to "keep anything down," other than occasional liquid. Patient also complaining of diarrhea and dizziness with occasional abdominal cramps. Patient denies any urinary symptoms, fever, chills, chest pain, shortness of breath, or any other complaints. Time/Duration: 1 week Symptom Onset: Gradual Symptom Course: Unchanged Activities at Onset: Light Context: Home Past Medical History - Provider Review Nursing Documentation Reviewed: Yes - Infectious Disease Hx of Infectious Diseases: None - Tetanus Immunization Tetanus Immunization: Unknown - Cardiac Hx Cardiac Disorders: Yes Hx Congestive Heart Failure: Yes Hx Hypertension: Yes Other/Comment: CAD - Pulmonary Hx Respiratory Disorders: Yes Hx Asthma: Yes Hx Chronic Obstructive Pulmonary Disease (COPD): Yes - Neurological HX Cerebrovascular Accident: No - HEENT Hx HEENT Disorder: No Hx Blind: No Hx Cataracts: No Hx Deafness: No Hx Difficulty Chewing: No Hx Epistaxis: No Hx Glaucoma: No Hx Macular Degeneration: No - Renal Hx Renal Failure: No - Endocrine/Metabolic Hx Endocrine Disorders: Yes Hx Diabetes Mellitus Type 2: Yes Hx Hypothyroidism: No - Hematological/Oncological Hx Blood Disorders: Yes Hx Anemia: Yes Other/Comment: blood transfusion - Integumentary Hx Dermatological Disorder: No Hx Basal Cell Carcinoma: No Hx Eczema: No Hx Melanoma: No Hx Psoriasis: No Hx Squamous Cell Carcinoma: No - Musculoskeletal/Rheumatological Hx Musculoskeletal Disorders: Yes Hx Arthritis: Yes Hx Falls: No Hx Rheumatoid Arthritis: Yes - Gastrointestinal Hx Gastrointestinal Disorders: Yes Hx Diarrhea: Yes (chronic diarrhea with bowel incontinence) Hx Gastroesophageal Reflux: No Hx Irritable Bowel: Yes Other/Comment: colonoscopy 12/23/14: colitis, descending colon polyp, Diverticulosis - Genitourinary/Gynecological Hx Genitourinary Disorders: No Hx Hematuria: No Hx Incontinence: No Hx Sexually Transmitted Diseases: No Hx Urinary Tract Infection: Yes - Psychiatric Hx Psychophysiologic Disorder: Yes (attempted suiside) Hx Anxiety: Yes Hx Depression: Yes Hx Emotional Abuse: No Hx Physical Abuse: No Hx Substance Use: No - Surgical History Hx Section: Yes Hx Cholecystectomy: No Hx Coronary Stent: No Hx Hysterectomy: Yes Other/Comment: trans vaginal mesh - Anesthesia Hx Anesthesia: No Hx Anesthesia Reactions: No Hx Malignant Hyperthermia: No - Suicidal Assessment Feels Threatened In Home Enviroment: No Family/Social History - Physician Review Nursing Documentation Reviewed: Yes Family/Social History: Unknown Family HX Smoking Status: Heavy Smoker > 10 Cigarettes Daily Hx Alcohol Use: Yes (socially) Frequency of alcohol use: Socially Hx Substance Use: No Hx Substance Use Treatment: No Allergies/Home Meds Allergies/Adverse Reactions: Allergies No Known Allergies Allergy (Verified 12/27/17 20:45) Home Medications: Home Meds Medication Instructions Recorded Confirmed Albuterol Sulfate [Proair Hfa] 0.09 mg IH BID PRN 07/08/16 12/27/17 Budesonide/Formoterol Fumarate 1 aer IH DAILY 07/08/16 12/27/17 [Symbicort] Carvedilol [Coreg] 25 mg PO DAILY 07/08/16 12/27/17 Clopidogrel [Plavix] 75 mg PO DAILY 07/08/16 12/27/17 Darunavir Ethanolate [Prezista] 600 mg PO BID 07/08/16 12/27/17 Dolutegravir Sodium [Tivicay] 50 mg PO DAILY 07/08/16 12/27/17 Eluxadoline [Viberzi] 75 mg PO DAILY 07/08/16 12/27/17 Ergocalciferol (Vitamin D2) 50,000 unit PO DAILY 07/08/16 12/27/17 [Vitamin D2] Fluticasone Nasal [Flonase] 0.05 mg NS DAILY 07/08/16 12/27/17 Folic Acid 1 mg PO DAILY 07/08/16 12/27/17 Furosemide [Lasix] 40 mg PO DAILY 07/08/16 12/27/17 Gabapentin [Neurontin] 300 mg PO BID 07/08/16 12/27/17 Imipramine [Tofranil] 25 mg PO HS 07/08/16 12/27/17 Montelukast Sodium [Singulair] 10 mg PO DAILY 07/08/16 12/27/17 [id number] Ethyl Esters 1 GM 1 gm PO DAILY 07/08/16 12/27/17 [Lovaza] Pantoprazole [Protonix EC Tab] 40 mg PO DAILY 07/08/16 12/27/17 Propranolol [Inderal] 20 mg PO TID 07/08/16 12/27/17 Ritonavir [Norvir] 100 mg PO BID 07/08/16 12/27/17 Sertraline [Zoloft] 100 mg PO DAILY 07/08/16 12/27/17 Zafirlukast [Accolate] 20 mg PO BID 07/08/16 12/27/17 amLODIPine [Norvasc] 10 mg PO DAILY 07/08/16 12/27/17 Insulin Regular [HumuLIN R] 2 unit SC TID 09/24/17 12/27/17 Melatonin [Melatonin] 1 tab PO DAILY 09/24/17 12/27/17 Vitamin B Complex 100 No.2 [B-100 1 tab PO DAILY 09/24/17 12/27/17 Complex] Review of Systems - Physician Review All systems were reviewed & negative as marked: Yes - Review of Systems Constitutional: Normal. absent: Fevers Eyes: Normal ENT: Normal Respiratory: Normal. absent: SOB, Cough Cardiovascular: Normal. absent: Chest Pain Gastrointestinal: Abdominal Pain, Diarrhea, Vomiting, Appetite Changes (+ decreased appetite) Genitourinary Female: Normal. absent: Dysuria, Frequency, Hematuria, Urine Output Changes Musculoskeletal: Normal. absent: Back Pain, Neck Pain Skin: Normal. absent: Rash Neurological: Dizziness. absent: Headache Endocrine: Normal Hemo/Lymphatic: Normal Psychiatric: Normal Physical Exam Vital Signs Reviewed: Yes Vital Signs Temp Pulse Resp BP Pulse Ox 12/27/17 22:47 73 18 116/48 L 97 12/27/17 20:39 97.9 F 76 18 119/81 98 Temperature: Afebrile Blood Pressure: Normal Pulse: Regular Respiratory Rate: Normal Appearance: Positive for: Well-Appearing, Non-Toxic, Comfortable Pain Distress: None Mental Status: Positive for: Alert and Oriented X 3 - Systems Exam Head: Present: Atraumatic, Normocephalic Pupils: Present: PERRL Extroacular Muscles: Present: EOMI Conjunctiva: Present: Normal Ears: Present: Normal, NORMAL TM, Normal Canal. No: Erythema, TM Bulging, Fluid , TM Perf Mouth: Present: Moist Mucous Membranes Pharnyx: Present: Normal. No: ERYTHEMA, EXUDATE, TONSILS ENLARGED, Peritonsilar Swelling, Uvular Deviation, Muffled/Hoarse Voice, Strider, Soft Palate/Uvular Edema Nose (External): Present: Atraumatic Nose (Internal): Present: Normal Inspection Neck: Present: Normal Range of Motion. No: Meningeal Signs, MIDLINE TENDERNESS , Paraspinal Tenderness Respiratory/Chest: Present: Clear to Auscultation, Good Air Exchange. No: Respiratory Distress, Accessory Muscle Use Cardiovascular: Present: Regular Rate and Rhythm, Normal S1, S2. No: Murmurs Abdomen: Present: Tenderness (mild periumbilical/lower abdomen), Distention ( Globus abdomen). No: Normal Bowel Sounds (Decreased bowel sounds), Peritoneal Signs Back: Present: Normal Inspection. No: CVA Tenderness, Midline Tenderness, Paraspinal Tenderness Upper Extremity: Present: Normal Inspection. No: Cyanosis, Edema Lower Extremity: Present: Normal Inspection. No: Edema Neurological: Present: GCS=15, CN II-XII Intact, Speech Normal, Motor Func Grossly Intact, Normal Sensory Function, Normal Cerebellar Funct Skin: Present: Warm, Dry, Normal Color. No: Rashes Psychiatric: Present: Alert, Oriented x 3, Normal Insight, Normal Concentration Medical Decision Making ED Course and Treatment: 12/27/17 20:50 Impression: 62 year old female c/o vomiting, decreased appetite, diarrhea, and dizziness. Plan: -- CT Abdomen and Pelvis -- Labs, lipase -- IV fluids -- Zofran -- Pepcid -- Reassess and disposition Prior Visits: Notes and results from previous visits were reviewed. Progress Notes: 12/27/17 22:52 CT Abdomen and Pelvis shows: Lung bases: The visualized portions of the lung bases are normal. ABDOMEN: Liver: Unremarkable. No suspicious lesions are seen. Gallbladder and bile ducts: No gallbladder wall thickening or pericholecystic fluid to suggest cholecystitis. Pancreas: The pancreas appears normal. No ductal dilation. Spleen: The spleen is normal. Adrenals: Unremarkable. No mass. Kidneys and ureters: Both Bosniak class I and II cysts of the left kidney. Kidneys otherwise show no significant abnormalities. No obstructing stones. No hydronephrosis. Stomach and bowel: Focal eventration in the lower intra-abdominal wall near the pelvis which contains bowel loops without obstruction. No mucosal thickening. PELVIS: Appendix: No findings to suggest acute appendicitis. Bladder: Unremarkable. No stones. Reproductive: Right ovary contains small follicles the largest 1.8 cm. Uterus and left ovary have been removed. Small stones in the gallbladder. ABDOMEN and PELVIS: Intraperitoneal space: Unremarkable. No free air. No significant fluid collection. Bones/joints: Severe degenerative disc disease and facet disease at L4-5. There are marked degenerative changes in the right hip joint. The spine demonstrates moderate degenerative changes at multiple levels. No acute fracture. No dislocation. Soft tissues: Previous abdominal wall surgery for hernia repair, and placement of mesh in satisfactory position. Vasculature: The aorta demonstrates moderate atherosclerotic calcification. No abdominal aortic aneurysm. Lymph nodes: Unremarkable. No enlarged lymph nodes. IMPRESSION: No evidence of obstruction. Postsurgical changes of anterior abdomen, and pelvis. Renal cysts. Small gallstones. No significant acute findings. 12/27/17 23:39 Case discussed with surgical specialist flotation operator, who agrees to evaluate pt in ER. Reviewed EKG, NSR at 73 bpm. Prolonged QT. Non-specific ST/T wave changes. 12/28/17 00:03 Spoke with surgical specialist, present in ED to evaluate pt. States surgery will consult on case. 12/28/17 00:[address] Croft, who is aware and agrees with plan. Accepts pt in to her service. Pt will be [facility] to [facility] for abdominal pain, gastroenteritis, and dehydration. Requests Dr. Torres and Dr. Olivera on consult. - Lab Interpretations Lab Results: 12/27/17 21:00 12/27/17 21:00 Lab Results 12/28/17 00:31: POC Glucose (mg/dL) 135 H 12/27/17 22:00: pO2 85 H, VBG pH 7.29 L, VBG pCO2 34.0 L, VBG HCO3 16.3 L, VBG Total CO2 17.3 L, VBG O2 Sat (Calc) 97.8 H, VBG Base Excess -9.3 L, VBG Potassium 3.1 L, Glucose 162 H, Lactate 3.2 H, FiO2 21.0, Sodium 131.0 L, Chloride 101.0, Venous Blood Potassium 3.1 L 12/27/17 21:10: POC Glucose (mg/dL) 189 H 12/27/17 21:00: WBC 10.0 D, RBC 4.96, Hgb 13.8, Hct 39.5, MCV 79.6 L, MCH 27.8 , MCHC 34.9, RDW 15.6 H, Plt Count 224, MPV 10.1 12/27/17 21:00: Sodium 133, Potassium 3.4 L, Chloride 101, Carbon Dioxide 16 L, Anion Gap 19, BUN 6 L, Creatinine 1.3 H, Est GFR ( Amer) 50, Est GFR (Non -Af Amer) 41, Random Glucose 190 H, Calcium 9.0, Total Bilirubin 0.4, AST 30, ALT 15, Alkaline Phosphatase 112, Total Protein 7.4, Albumin 3.9, Globulin 3.4, Albumin/Globulin Ratio 1.2, Lipase 69 I have reviewed the lab results: Yes - RAD Interpretation Radiology Orders: 12/27/17 20:54 ABD & PELVIS W/O PO OR IV CONT [CT] Stat Knifeman: Radiologist - EKG Interpretation Interpreted by ED Physician: Yes Type: 12 lead EKG - Medication Orders Current Medication Orders: Albuterol Sulfate (Albuterol 0.083% Inhal Keyonna (2.5 Mg/3 Ml) Ud) 2.5 mg IH [id number] PRN PRN Reason: Shortness of Breath Amlodipine Besylate (Norvasc) 10 mg PO DAILY [facility] Carvedilol (Coreg) 25 mg PO DAILY [facility] Ergocalciferol (Drisdol 50,000 Intl Units Cap) 1 cap PO MON [facility] Fluticasone Propionate (Flonase) 1 actuation NS DAILY [facility] Folic Acid (Folic Acid) 1 mg PO DAILY [facility] Furosemide (Lasix) 40 mg PO DAILY [facility] Gabapentin (Neurontin) 300 mg PO BID [facility] PRN Reason: Protocol Sodium Chloride (Sodium Chloride 0.9%) 2,000 mls @ 999 mls/hr IV .Q2H1M STA Stop: 12/28/17 01:30 Last Admin: 12/27/17 23:51 Dose: 999 mls/hr eMAR Start Stop Document 12/27/17 23:51 CNR (Rec: 12/27/17 23:51 CNR [id number]) Intravenous Solution Start Date 12/27/17 Start Time 23:51 End Date 12/28/17 End time 00:51 Total Infusion Time 60 Lactated Ringer's (Lactated Ringer's) 1,000 mls @ 125 mls/hr IV .Q8H [facility]LA Stop: 12/30/17 00:16 Last Admin: 12/28/17 00:38 Dose: 125 mls/hr eMAR Start Stop Document 12/28/17 00:38 CNR (Rec: 12/28/17 00:38 CNR [id number]) Intravenous Solution Start Date 12/28/17 Start Time 00:38 Imipramine HCl (Tofranil) 25 mg PO HS [facility] Insulin Human Regular (Humulin R Low) 0 units SC Q6 CAYLA PRN Reason: Protocol Last Admin: 12/28/17 00:31 Dose: Not Given Non-Admin Reason: Blood Sugar Parameter MAR Blood Glucose Document 12/28/17 00:31 CNR (Rec: 12/28/17 00:31 CNR [id number]) Blood Glucose Finger Stick Blood Glucose (70-120) 135 Montelukast Sodium (Singulair) 10 mg PO HS [facility] Morphine Sulfate (Morphine) 2 mg IVP Q4H PRN PRN Reason: Pain, moderate (4-7) Multivitamins/Minerals (Therapeutic-M Tab) 1 tab PO DAILY [facility] Non-Formulary Medication (Budesonide/Formoterol Fumarate [Symbicort 160-4.5 Mcg Inhaler]) 1 aer IH DAILY [facility] Non-Formulary Medication (Darunavir Ethanolate [Prezista]) 600 mg PO BID [facility] Non-Formulary Medication (Dolutegravir Sodium [Tivicay]) 50 mg PO DAILY [facility] Non-Formulary Medication (Eluxadoline [Viberzi]) 75 mg PO DAILY [facility] Non-Formulary Medication (Melatonin [Melatonin]) 1 tab PO DAILY [facility] Awgrt-5-Aozj Ethyl Esters (Lovaza) 1 gm PO DAILY [facility] Ondansetron HCl (Zofran Inj) 4 mg IVP Q4H PRN PRN Reason: Nausea/Vomiting Pantoprazole Sodium (Protonix Ec Tab) 40 mg PO 0600 [facility] Propranolol HCl (Inderal) 20 mg PO TID [facility] Ritonavir (Norvir) 100 mg PO BRKDIN [facility] Sertraline HCl (Zoloft) 100 mg PO DAILY [facility] Discontinued Medications Famotidine (Pepcid) 20 mg IVP STAT STA Stop: 12/27/17 20:56 Last Admin: 12/27/17 21:07 Dose: 20 mg IVP Administration Document 12/27/17 21:07 CNR (Rec: 12/27/17 21:07 CNR [id number]) Charges for Administration # of IVP Administrations 1 Sodium Chloride (Sodium Chloride 0.9%) 1,000 mls @ 100 mls/hr IV .Q10H CAYLA Last Admin: 12/27/17 21:06 Dose: 100 mls/hr eMAR Start Stop Document 12/27/17 21:06 CNR (Rec: 12/27/17 21:07 CNR [id number]) Intravenous Solution Start Date 12/27/17 Start Time 21:07 Potassium Chloride (Potassium Chloride 20 Meq/100 Ml) 100 mls @ 50 mls/hr IV ONCE ONE Stop: 12/27/17 23:35 Last Admin: 12/27/17 22:13 Dose: 50 mls/hr eMAR Start Stop Document 12/27/17 22:13 CNR (Rec: 12/27/17 22:15 CNR [id number]) Intravenous Solution Start Date 12/27/17 Start Time 22:14 Piperacillin Sod/Tazobactam Sod (Zosyn 3.375 In Ns 100ml) 100 mls @ 200 mls/hr IV STAT STA PRN Reason: Protocol Stop: 12/28/17 00:00 Last Admin: 12/27/17 23:49 Dose: 200 mls/hr eMAR Start Stop Document 12/27/17 23:49 CNR (Rec: 12/27/17 23:51 CNR [id number]) Intravenous Solution Start Date 12/27/17 Start Time 23:51 End Date 12/28/17 End time 00:21 Total Infusion Time 30 Ketorolac Tromethamine (Toradol) 30 mg IVP ONCE ONE Stop: 12/27/17 22:04 Last Admin: 12/27/17 22:15 Dose: 30 mg MAR Pain Assessment Document 12/27/17 22:15 CNR (Rec: 12/27/17 22:15 CNR [id number]) Pain Reassessment Is this a pain reassessment? Yes Location Pain Location Body Site Abdomen Description Description Constant IVP Administration Document 12/27/17 22:15 CNR (Rec: 12/27/17 22:15 CNR [id number]) Charges for Administration # of IVP Administrations 1 Ondansetron HCl (Zofran Inj) 4 mg IVP ONCE ONE Stop: 12/27/17 20:56 Last Admin: 12/27/17 21:07 Dose: 4 mg IVP Administration Document 12/27/17 21:07 CNR (Rec: 12/27/17 21:07 CNR [id number]) Charges for Administration # of IVP Administrations 1 - Scribe Statement The provider has reviewed the documentation as recorded by the Scribelieser Lowry All medical record entries made by the Scribe were at my direction and personally dictated by me. I have reviewed the chart and agree that the record accurately reflects my personal performance of the history, physical exam, medical decision making, and the department course for this patient. I have also personally directed, reviewed, and agree with the discharge instructions and disposition. Disposition/Present on Arrival - Present on Arrival Any Indicators Present on Arrival: No History of DVT/PE: No History of Uncontrolled Diabetes: No Urinary Catheter: No History of Decub. Ulcer: No History Surgical Site Infection Following: None - Disposition Have Diagnosis and Disposition been Completed?: Yes Diagnosis: Nausea and vomiting, Abdominal pain, Gastroenteritis, Dehydration Disposition: HOSPITALIZED Disposition Time: 00:45 Patient Plan: Admission Condition: STABLE Referrals: Lois Croft MD [Primary Care Provider] - Follow up with primary Forms: [employer] ([place])
[2017-12-27 21:23] LABS: ALB/GLOB RATIO 1.2 (1.1-1.8); ALBUMIN 3.9 g/dL (3.0-4.8)
[2017-12-27 21:27] LABS: HEMOGLOBIN 13.8 g/dL (12.0-16.0); MEAN CELL VOLUME 79.6 fl (80.0-105.0); MEAN CORPUSCULAR HEMOGLOBIN 27.8 pg (25.0-35.0); MEAN CORPUSCULAR HGB CONC 34.9 g/dl (31.0-37.0); MEAN PLATELET VOLUME 10.1 fl (7.0-11.0); RBC 4.96 10^6/uL (3.5-6.1); RED CELL DISTRIBUTION WIDTH 15.6 % (11.5-14.5)
[2017-12-27] MEDS ORDERED: Potassium Chloride 20 mEq 100 ML IV ONE (21:36)
[2017-12-27 22:32] LABS: VENOUS BLOOD GAS BASE EXCESS -9.3 mmol/L (0.0-2.0); VENOUS BLOOD GAS PO2 85 mm/Hg (30-55); VENOUS BLOOD PH 7.29 (7.32-7.43)
[2017-12-27] MEDS ORDERED: Sodium Chloride 0.9% 2,000 ML IV STA (23:30)
[2017-12-27] MEDS ORDERED: Piperacillin/Tazobact 3.375 gm 100 ML IV STA (23:31)
[2017-12-28] MEDS ORDERED: Morphine 2 mg/ml ISec IVP PRN (00:09)
--- NOTE | 2017-12-28 00:22 | CP.PCM.CON ---
<Madelaine Montemayor - Last Filed: 12/28/17 07:46> History of Present Illness - History of Present Illness History of Present Illness: Surgery Consult: Dr. Torres Pt is a 62F with PMHx significant for DM, CHF, COPD, HIV, IBS & depression who [place] [facility] of abdominal pain. Pt states she has been having on/off abdominal pain for the past few months. She admits to being in the hospital in September for similar complaints. She describes the pain as diffuse and states it comes and goes. Over the past few weeks however, her pain has been more consistent with associated nausea/vomiting. She states she hasn't been able to keep anything down. Pt also admits to diarrhea secondary to her IBS. Pt had a ventral hernia repair with Dr. Jessica in [id number] and had a recurrence for which she had another ventral hernia repair a year later. Pt states that she thinks it's the hernia/mesh causing her problems again. She denies any other symptoms such fevers, chills, chest pain or SOB. In the ER, pt had a CT abdomen/pelvis which did not show any specific findings. Surgery called to evaluate. Currently, pt is resting comfortably in her bed. She states the pain is better. She hasn't had any more episodes of vomiting. Denies other complaints at this time. Pt states her last colonoscopy was 5-6 yrs ago and was normal. She states she no longer gets her period consistently & is menopausal. PMHx: as listed above PSHx: ventral hernia repair with mesh x 2, hysterectomy, NKDA Review of Systems - Review of Systems All systems: reviewed and no additional remarkable complaints except (as per HPI ) Past Patient History - Infectious Disease Hx of Infectious Diseases: None - Tetanus Immunizations Tetanus Immunization: Unknown - Past Medical History & Family History Past Medical History?: Yes - Past Social History Smoking Status: Heavy Smoker > 10 Cigarettes Daily - CARDIAC Hx Cardiac Disorders: Yes Hx Congestive Heart Failure: Yes Hx Hypertension: Yes Other/Comment: CAD - PULMONARY Hx Respiratory Disorders: Yes Hx Asthma: Yes Hx Chronic Obstructive Pulmonary Disease (COPD): Yes - NEUROLOGICAL HX Cerebrovascular Accident: No - HEENT Hx HEENT Problems: No Hx Blind: No Hx Cataracts: No Hx Deafness: No Hx Difficulty Chewing: No Hx Epistaxis: No Hx Glaucoma: No Hx Macular Degeneration: No - RENAL Hx Renal Failure: No - ENDOCRINE/METABOLIC Hx Endocrine Disorders: Yes Hx Diabetes Mellitus Type 2: Yes Hx Hypothyroidism: No - HEMATOLOGICAL/ONCOLOGICAL Hx Blood Disorders: Yes Hx Anemia: Yes Hx Blood Transfusions: Yes - INTEGUMENTARY Hx Dermatological Problems: No Hx Basil Cell: No Hx Eczema: No Hx Melanoma: No Hx Psoriasis: No Hx Squamous Cell: No - MUSCULOSKELETAL/RHEUMATOLOGICAL Hx Musculoskeletal Disorders: Yes Hx Arthritis: Yes Hx Falls: No Hx Rheumatoid Arthritis: Yes - GASTROINTESTINAL Hx Gastrointestinal Disorders: Yes Hx Diarrhea: Yes (chronic diarrhea with bowel incontinence) Hx Gastroesophageal Reflux: No Hx Irritable Bowel: Yes Other/Comment: colonoscopy 12/23/14: colitis, descending colon polyp, Diverticulosis - GENITOURINARY/GYNECOLOGICAL Hx Genitourinary Disorders: No Hx Hematuria: No Hx Incontinence: No Hx Sexually Transmitted Disorders: No Hx Urinary Tract Infection: Yes - PSYCHIATRIC Hx Psychophysiologic Disorder: Yes (attempted suicide) Hx Anxiety: Yes Hx Depression: Yes Hx Emotional Abuse: No Hx Physical Abuse: No Hx Substance Use: No - SURGICAL HISTORY Hx Section: Yes Hx Cholecystectomy: No Hx Coronary Stent: No Hx Hysterectomy: Yes - ANESTHESIA Hx Anesthesia: Yes Hx Anesthesia Reactions: No Hx Malignant Hyperthermia: No Meds Allergies/Adverse Reactions: Allergies Allergy/AdvReac Type Severity Reaction Status Date / Time No Known Allergies Allergy Verified 12/27/17 20:45 - Medications Medications: Current Medications Albuterol (Ventolin Hfa 90 Mcg/Actuation (8 G)) 90 puff IH BID PRN PRN Reason: Shortness of Breath Amlodipine Besylate (Norvasc) 10 mg PO DAILY [facility] Carvedilol (Coreg) 25 mg PO DAILY [facility] Ergocalciferol (Drisdol 50,000 Intl Units Cap) cap PO DAILY [facility] Fluticasone Propionate (Flonase) actuation NS DAILY [facility] Folic Acid (Folic Acid) 1 mg PO DAILY [facility] Furosemide (Lasix) 40 mg PO DAILY [facility] Gabapentin (Neurontin) 300 mg PO BID [facility] PRN Reason: Protocol Sodium Chloride (Sodium Chloride 0.9%) 2,000 mls @ 999 mls/hr IV .Q2H1M STA Stop: 12/28/17 01:30 Last Admin: 12/27/17 23:51 Dose: 999 mls/hr Lactated Ringer's (Lactated Ringer's) 1,000 mls @ 125 mls/hr IV .Q8H [facility] Stop: 12/30/17 00:16 Insulin Human Regular (Humulin R Low) 1 units SC Q6H [facility] PRN Reason: Protocol Montelukast Sodium (Singulair) 10 mg PO DAILY [facility] Morphine Sulfate (Morphine) 2 mg IVP Q4H PRN PRN Reason: Pain, moderate (4-7) Non-Formulary Medication (Budesonide/Formoterol Fumarate [Symbicort 160-4.5 Mcg Inhaler]) 1 aer IH DAILY [facility] Non-Formulary Medication (Darunavir Ethanolate [Prezista]) 600 mg PO BID [facility] Non-Formulary Medication (Dolutegravir Sodium [Tivicay]) 50 mg PO DAILY [facility] Non-Formulary Medication (Eluxadoline [Viberzi]) 75 mg PO DAILY [facility] Non-Formulary Medication (Imipramine [Tofranil]) 25 mg PO HS [facility] Non-Formulary Medication (Melatonin [Melatonin]) 1 tab PO DAILY [facility] Non-Formulary Medication (Ritonavir [Norvir]) 100 mg PO BID [facility] Non-Formulary Medication (Vitamin B Complex 100 No.2 [B-100 Complex]) 1 tab PO DAILY [facility] [id number] Ethyl Esters (Lovaza) 1 gm PO DAILY [facility] Ondansetron HCl (Zofran Inj) 4 mg IVP Q4H PRN PRN Reason: Nausea/Vomiting Pantoprazole Sodium (Protonix Ec Tab) 40 mg PO DAILY [facility] Propranolol HCl (Inderal) 20 mg PO TID [facility] Sertraline HCl (Zoloft) 100 mg PO DAILY [facility] Physical Exam - Constitutional Appears: Well, No Acute Distress - Head Exam Head Exam: ATRAUMATIC, NORMOCEPHALIC - Eye Exam Eye Exam: Normal appearance - ENT Exam ENT Exam: Mucous Membranes Moist - Respiratory Exam Respiratory Exam: NORMAL BREATHING PATTERN - Cardiovascular Exam Cardiovascular Exam: RRR - GI/Abdominal Exam GI & Abdominal Exam: Guarding (voluntary), Soft, Tenderness (generalized ). absent: Distended, Rebound - Neurological Exam Neurological exam: Alert, Oriented x3 - Skin Skin Exam: Dry, Warm Results - Vital Signs Recent Vital Signs: Last Vital Signs Temp 97.9 F 12/27/17 20:39 Pulse 73 12/27/17 22:47 Resp 18 12/27/17 22:47 BP 116/48 L 12/27/17 22:47 Pulse Ox 97 12/27/17 22:47 - Labs Result Diagrams: 12/28/17 06:00 12/28/17 06:00 Labs: Laboratory Results - last 24 hr 12/27/17 12/27/17 12/27/17 21:00 21:00 21:10 WBC 10.0 D RBC 4.96 Hgb 13.8 Hct 39.5 MCV 79.6 L MCH 27.8 MCHC 34.9 RDW 15.6 H Plt Count 224 MPV 10.1 pO2 VBG pH VBG pCO2 VBG HCO3 VBG Total CO2 VBG O2 Sat (Calc) VBG Base Excess VBG Potassium Glucose Lactate FiO2 Sodium 133 Potassium 3.4 L Chloride 101 Carbon Dioxide 16 L Anion Gap 19 BUN 6 L Creatinine 1.3 H Est GFR ( Amer) 50 Est GFR (Non-Af Amer) 41 POC Glucose (mg/dL) 189 H Random Glucose 190 H Calcium 9.0 Total Bilirubin 0.4 AST 30 ALT 15 Alkaline Phosphatase 112 Total Protein 7.4 Albumin 3.9 Globulin 3.4 Albumin/Globulin Ratio 1.2 Lipase 69 Venous Blood Potassium 12/27/17 22:00 WBC RBC Hgb Hct MCV MCH MCHC RDW Plt Count MPV pO2 85 H VBG pH 7.29 L VBG pCO2 34.0 L VBG HCO3 16.3 L VBG Total CO2 17.3 L VBG O2 Sat (Calc) 97.8 H VBG Base Excess -9.3 L VBG Potassium 3.1 L Glucose 162 H Lactate 3.2 H FiO2 21.0 Sodium 131.0 L Potassium Chloride 101.0 Carbon Dioxide Anion Gap BUN Creatinine Est GFR ( Amer) Est GFR (Non-Af Amer) POC Glucose (mg/dL) Random Glucose Calcium Total Bilirubin AST ALT Alkaline Phosphatase Total Protein Albumin Globulin Albumin/Globulin Ratio Lipase Venous Blood Potassium 3.1 L - Imaging and Cardiology CT scan - abdomen Status: Image reviewed by me Assessment & Plan - Assessment and Plan (Free Text) Assessment: 62F with abdominal pain Plan: - no acute findings on CT scan; will f/u official read - plan to start CLD and advance slowly as tolerated - encourage ambulation - d/w Dr. Brian Montemayor <Michael Torres - Last Filed: 12/28/17 10:03> Meds - Medications Medications: Current Medications Albuterol Sulfate (Albuterol 0.083% Inhal Keyonna (2.5 Mg/3 Ml) Ud) 2.5 mg IH [id number] PRN PRN Reason: Shortness of Breath Amlodipine Besylate (Norvasc) 10 mg PO DAILY [facility] Carvedilol (Coreg) 25 mg PO DAILY [facility] Ergocalciferol (Drisdol 50,000 Intl Units Cap) 1 cap PO MON [facility] Fluticasone Propionate (Flonase) 1 actuation NS DAILY [facility] Folic Acid (Folic Acid) 1 mg PO DAILY [facility] Furosemide (Lasix) 40 mg PO DAILY [facility] Gabapentin (Neurontin) 300 mg PO BID [facility] PRN Reason: Protocol Lactated Ringer's (Lactated Ringer's) 1,000 mls @ 125 mls/hr IV .Q8H [facility] Stop: 12/30/17 00:16 Last Admin: 12/28/17 00:38 Dose: 125 mls/hr Imipramine HCl (Tofranil) 25 mg PO HS [facility] Insulin Human Regular (Humulin R Low) 0 units SC Q6 [facility] PRN Reason: Protocol Last Admin: 12/28/17 06:40 Dose: Not Given Montelukast Sodium (Singulair) 10 mg PO HS [facility] Morphine Sulfate (Morphine) 2 mg IVP Q4H PRN PRN Reason: Pain, moderate (4-7) Multivitamins/Minerals (Therapeutic-M Tab) 1 tab PO DAILY [facility] Non-Formulary Medication (Budesonide/Formoterol Fumarate [Symbicort 160-4.5 Mcg Inhaler]) 1 aer IH DAILY [facility] Non-Formulary Medication (Darunavir Ethanolate [Prezista]) 600 mg PO BID [facility] Non-Formulary Medication (Dolutegravir Sodium [Tivicay]) 50 mg PO DAILY [facility] Non-Formulary Medication (Eluxadoline [Viberzi]) 75 mg PO DAILY [facility] Non-Formulary Medication (Melatonin [Melatonin]) 1 tab PO DAILY [facility] [id number] Ethyl Esters (Lovaza) 1 gm PO DAILY [facility] Ondansetron HCl (Zofran Inj) 4 mg IVP Q4H PRN PRN Reason: Nausea/Vomiting Pantoprazole Sodium (Protonix Ec Tab) 40 mg PO 0600 [facility] Last Admin: 08/26/18 06:40 Dose: 40 mg Propranolol HCl (Inderal) 20 mg PO TID [facility] Ritonavir (Norvir) 100 mg PO BRKDIN [facility] Sertraline HCl (Zoloft) 100 mg PO DAILY [facility] Results - Vital Signs Recent Vital Signs: Last Vital Signs Temp 98 F 12/28/17 08:00 Pulse 73 12/28/17 08:00 Resp 20 12/28/17 08:00 BP 128/72 12/28/17 08:00 Pulse Ox 98 12/28/17 08:00 - Labs Result Diagrams: 12/28/17 06:00 12/28/17 06:00 Labs: Laboratory Results - last 24 hr 12/28/17 12/28/17 12/28/17 01:30 06:00 06:00 WBC 6.3 D RBC 4.73 Hgb 12.5 Hct 37.3 MCV 78.9 L MCH 26.4 MCHC 33.5 RDW 15.6 H Plt Count 204 MPV 9.6 Gran % 40.1 L Lymph % (Auto) 49.4 H Lanier % (Auto) 7.0 H Eos % (Auto) 3.2 Baso % (Auto) 0.3 Gran # 2.51 Lymph # (Auto) 3.1 Lanier # (Auto) 0.4 Eos # (Auto) 0.2 Baso # (Auto) 0.02 pO2 64 H VBG pH 7.22 L VBG pCO2 39.0 L VBG HCO3 16.0 L VBG Total CO2 17.2 L VBG O2 Sat (Calc) 93.1 H VBG Base Excess -11.1 L VBG Potassium 3.2 L Sodium 136.0 142 Chloride 109.0 H 113 H Glucose 157 H Lactate 2.2 H FiO2 21.0 Potassium 3.8 Carbon Dioxide 21 Anion Gap 12 BUN 8 Creatinine 1.1 Est GFR ( Amer) > 60 Est GFR (Non-Af Amer) 50 POC Glucose (mg/dL) Random Glucose 119 H Calcium 7.9 L Phosphorus 3.4 Magnesium 1.8 Total Bilirubin 0.3 AST 26 ALT 23 Alkaline Phosphatase 103 Total Protein 6.3 Albumin 3.1 Globulin 3.1 Albumin/Globulin Ratio 1.0 L Venous Blood Potassium 3.2 L 12/28/17 12/28/17 06:09 06:15 WBC RBC Hgb Hct MCV MCH MCHC RDW Plt Count MPV Gran % Lymph % (Auto) Lanier % (Auto) Eos % (Auto) Baso % (Auto) Gran # Lymph # (Auto) Lanier # (Auto) Eos # (Auto) Baso # (Auto) pO2 209 H VBG pH 7.30 L VBG pCO2 44.0 VBG HCO3 21.6 VBG Total CO2 23.0 VBG O2 Sat (Calc) 99.7 H VBG Base Excess -4.8 L VBG Potassium 3.8 Sodium 139.0 Chloride 113.0 H Glucose 124 H Lactate 1.2 FiO2 21.0 Potassium Carbon Dioxide Anion Gap BUN Creatinine Est GFR ( Amer) Est GFR (Non-Af Amer) POC Glucose (mg/dL) 123 H Random Glucose Calcium Phosphorus Magnesium Total Bilirubin AST ALT Alkaline Phosphatase Total Protein Albumin Globulin Albumin/Globulin Ratio Venous Blood Potassium 3.8 Assessment & Plan - Assessment and Plan (Free Text) Assessment: Rec Abdoninal pin-admission Patient feels it is due to her Mesh(Herniorraphy)--UNLIKELY The possibility of surgery with her major co morbidities really contraindicatr any recommendation for intervention (ie: COBPD/HIV/CHF/Hepatitis/DM) This consult done under my direct supervision I will be away 12/29 for 1 week: Dr Ga Cary covering Thanks Eliceo Torres MD FACS
[2017-12-28] MEDS: Insulin Reg-LOW-Coverage SC SCH ×4 (00:31→17:58)
[2017-12-28] MEDS ORDERED: Albuterol 0.083% Inhal Sol (2.5 mg/3 mL) UD IH PRN (00:34)
[2017-12-28] MEDS: Lactated Ringer's 1,000 ML IV SCH ×2 (00:38→17:59)
[2017-12-28 01:43] LABS: VENOUS BLOOD GAS BASE EXCESS -11.1 mmol/L (0.0-2.0); VENOUS BLOOD GAS PO2 64 mm/Hg (30-55); VENOUS BLOOD PH 7.22 (7.32-7.43)
[2017-12-28 01:53] LABS: PH,URINE 6.5 (4.7-8.0); URINE BILIRUBIN NEGATIVE (NEGATIVE); URINE BLOOD NEGATIVE (NEGATIVE); URINE GLUCOSE (UA) NEGATIVE (NEGATIVE); URINE LEUKOCYTE ESTERASE NEGATIVE Leu/uL (NEGATIVE); URINE PROTEIN NEGATIVE mg/dL (<30 mg/dL); URINE UROBILINOGEN 0.2 E.U./dL (<1 E.U./dL)
[2017-12-28 01:55] LABS: URINE APPEARANCE CLEAR (CLEAR); URINE COLOR YELLOW (YELLOW)
[2017-12-28] MEDS: Pantoprazole 40 mg EC Tab PO SCH (06:40)
[2017-12-28 06:43] LABS: BASO # 0.02 K/mm3 (0.0-2.0); BASO % 0.3 % (0.0-3.0); EOS # 0.2 (0.0-0.7); EOS % 3.2 % (1.5-5.0); GRAN # 2.51 (1.4-6.5); GRAN % 40.1 % (50.0-68.0); HEMOGLOBIN 12.5 g/dL (12.0-16.0); LYMPH # 3.1 (1.2-3.4); LYMPH % 49.4 % (22.0-35.0); MEAN CELL VOLUME 78.9 fl (80.0-105.0); MEAN CORPUSCULAR HEMOGLOBIN 26.4 pg (25.0-35.0); MEAN CORPUSCULAR HGB CONC 33.5 g/dl (31.0-37.0); MEAN PLATELET VOLUME 9.6 fl (7.0-11.0); MONO # 0.4 (0.1-0.6); RBC 4.73 10^6/uL (3.5-6.1); RED CELL DISTRIBUTION WIDTH 15.6 % (11.5-14.5); WHITE BLOOD COUNT 6.3 10^3/ul (4.5-11.0)
[2017-12-28 06:48] LABS: VENOUS BLOOD GAS BASE EXCESS -4.8 mmol/L (0.0-2.0); VENOUS BLOOD GAS PO2 209 mm/Hg (30-55)
[2017-12-28 07:21] LABS: ALBUMIN 3.1 g/dL (3.0-4.8); ALT/SGPT 23 U/L (7-56); AST/SGOT 26 U/L (14-36); BLOOD UREA NITROGEN 8 mg/dL (7-21); CALCIUM 7.9 mg/dL (8.4-10.5); GFR NON-AFRICAN AMERICAN 50
--- NOTE | 2017-12-28 09:33 | CT ---
Date of service: 12/27/2017 PROCEDURE: CT Abdomen and Pelvis without intravenous contrast HISTORY: vomiting/abdominal pain COMPARISON: 09/24/2017. TECHNIQUE: CT scan of the abdomen and pelvis was performed without administration of intravenous contrast. Oral contrast was not administered. Coronal and sagittal reformatted images were obtained. . Radiation dose: Total exam DLP = mGy-cm. This CT exam was performed using one or more of the following dose reduction techniques: Automated exposure control, adjustment of the mA and/or kV according to patient size, and/or use of iterative reconstruction technique. FINDINGS: LOWER THORAX: Mild fibrotic changes in the right peripheral lung. Otherwise the lung bases are clear. LIVER: Normal in size. No intrahepatic ductal dilatation. GALLBLADDER AND BILE DUCTS: There are tiny calcified gallstones. No biliary dilatation PANCREAS: Normal in size. No ductal dilatation. SPLEEN: Normal in size. ADRENALS: Normal in size. No discrete nodule. KIDNEYS AND URETERS: Normal in size without nephrolithiasis. No hydronephrosis. There are stable simple and presumable hemorrhagic cysts in the left kidney. VASCULATURE: No aortic aneurysm. BOWEL: The small bowel loops are normal in caliber. The colon is normal in size. No bowel dilatation or wall thickening. No bowel obstruction. APPENDIX: Normal appendix. PERITONEUM: No free fluid. No free air. LYMPH NODES: No enlarged lymph nodes. BLADDER: Well distended and grossly normal in appearance. REPRODUCTIVE: The uterus is normal in size. There is a 2.3 cm cyst in the right ovary. BONES: No acute fracture. OTHER FINDINGS: There are postsurgical changes of midline ventral hernia repair. There is an infraumbilical ventral hernia containing nonobstructed small bowel lobes. IMPRESSION: No acute abdominal or pelvic abnormality. Status post repair of ventral hernia, small infraumbilical ventral hernia containing nonobstructed small bowel lobes. No other significant interval change. A preliminary report was provided by [facility].
[2017-12-28] MEDS ORDERED: ELUXADOLINE 75 MG PO SCH (10:00)
[2017-12-28] MEDS ORDERED: Non Formulary Medication (Dolutegravir Sodium [Tivicay] 50 MG) PO SCH (10:00)
[2017-12-28] MEDS ORDERED: Non Formulary Medication (Budesonide/Formoterol Fumarate [Symbicort 160-4.5 Mcg Inhaler] 1 IH SCH (10:00)
[2017-12-28] MEDS ORDERED: DARUNAVIR ETHANOLATE 600 MG PO SCH (10:00)
[2017-12-28] MEDS ORDERED: ZAFIRLUKAST 20 MG PO SCH (10:00)
[2017-12-28] MEDS ORDERED: MELATONIN PO SCH (10:00)
[2017-12-28] MEDS: Fluticasone Nasal 50 mcg/Spray NS SCH (10:35)
[2017-12-28] MEDS: Omega-3-Acid Ethyl Esters 1 GM Cap PO SCH (10:35)
[2017-12-28] MEDS: Multivitamin With Minerals Tab PO SCH (10:36)
--- NOTE | 2017-12-28 12:53 | CARD ---
APPROVED REPORT Date of service: 12/27/2017 EKG Measurement Heart [id number] <Conclusion> Normal sinus rhythm Cannot rule out Anterior infarct, age undetermined Prolonged QT Abnormal ECG
--- NOTE | 2017-12-28 14:49 | ED PDOC ---
ED Additional Note - Physician Additional Note Physician Additional Note: CT of abdomen and pelvis was placed into PA review folder; CT:FINDINGS: LOWER THORAX: Mild fibrotic changes in the right peripheral lung. Otherwise the lung bases are clear. LIVER: Normal in size. No intrahepatic ductal dilatation. GALLBLADDER AND BILE DUCTS: There are tiny calcified gallstones. No biliary dilatation PANCREAS: Normal in size. No ductal dilatation. SPLEEN: Normal in size. ADRENALS: Normal in size. No discrete nodule. KIDNEYS AND URETERS: Normal in size without nephrolithiasis. No hydronephrosis. There are stable simple and presumable hemorrhagic cysts in the left kidney. VASCULATURE: No aortic aneurysm. BOWEL: The small bowel loops are normal in caliber. The colon is normal in size. No bowel dilatation or wall thickening. No bowel obstruction. APPENDIX: Normal appendix. PERITONEUM: No free fluid. No free air. LYMPH NODES: No enlarged lymph nodes. BLADDER: Well distended and grossly normal in appearance. REPRODUCTIVE: The uterus is normal in size. There is a 2.3 cm cyst in the right ovary. BONES: No acute fracture. OTHER FINDINGS: There are postsurgical changes of midline ventral hernia repair. There is an infraumbilical ventral hernia containing nonobstructed small bowel lobes. IMPRESSION: No acute abdominal or pelvic abnormality. Status post repair of ventral hernia , small infraumbilical ventral hernia containing nonobstructed small bowel lobes. No other significant interval change. i spoke with dr. azul in depth and discussed the final Ct reading of small infraumbilical ventral hernia containing nonobstructed small bowel lobes. He states he is aware and states he was able to palpate the hernia.
--- NOTE | 2017-12-28 15:50 | CP.PCM.PCO ---
Physician Communication Note - Physician Communication Note Physician Communication Note: CT: Non Obstructing Hernia/Cons Rx now-not surgery
--- NOTE | 2017-12-28 16:26 | CP.PCM.CON ---
<Andrew Adame - Last Filed: 12/28/17 16:21> History of Present Illness - History of Present Illness History of Present Illness: PGY-4 GI Fellow Consult Note Mrs. Roa is a 62 yo BF with IBS-D [on eluxadoline (Viberzi)], DM, COPD, CAD, Hypothyroid, HIV, Depression presenting with complaint of abdominal pain and diarrhea. She states these are chronic issues for her for years, but states that some symptoms worse over the last several weeks. She reports diffuse, intermittent pain associated with NB/NB emesis. She reports being unable to keep anything down with decreased appetite. Diarrhea is too high to count with loose brown BMs reported. She denied any nocturnal symptoms, hematemesis, melena, hematochezia, sick contacts, recent travel or change in diet. Of note, she states that she has not had her viberzi in many weeks. 12 point ROS negative other than stated above MHx: See above SurgHx: Vent hernia repari x 2, CSPY Dec 2014 with tubular adenoma and diverticulosis. EGD in Feb 2015 with erosive gastritis (biopsies negative) Meds: reviewed (on HAART), plavix FamHx: Denied Gi probs SocHx: +Tob, Social EtOH, denied ill All: NKDA Past Patient History - Infectious Disease Hx of Infectious Diseases: None - Tetanus Immunizations Tetanus Immunization: Unknown - Past Medical History & Family History Past Medical History?: Yes - Past Social History Smoking Status: Heavy Smoker > 10 Cigarettes Daily - CARDIAC Hx Cardiac Disorders: Yes Hx Congestive Heart Failure: Yes Hx Hypertension: Yes Other/Comment: CAD - PULMONARY Hx Respiratory Disorders: Yes Hx Asthma: Yes Hx Chronic Obstructive Pulmonary Disease (COPD): Yes - NEUROLOGICAL HX Cerebrovascular Accident: No - HEENT Hx HEENT Problems: No Hx Blind: No Hx Cataracts: No Hx Deafness: No Hx Difficulty Chewing: No Hx Epistaxis: No Hx Glaucoma: No Hx Macular Degeneration: No - RENAL Hx Renal Failure: No - ENDOCRINE/METABOLIC Hx Endocrine Disorders: Yes Hx Diabetes Mellitus Type 2: Yes Hx Hypothyroidism: No - HEMATOLOGICAL/ONCOLOGICAL Hx Blood Disorders: Yes Hx Anemia: Yes Hx Blood Transfusions: Yes - INTEGUMENTARY Hx Dermatological Problems: No Hx Basil Cell: No Hx Eczema: No Hx Melanoma: No Hx Psoriasis: No Hx Squamous Cell: No - MUSCULOSKELETAL/RHEUMATOLOGICAL Hx Musculoskeletal Disorders: Yes Hx Arthritis: Yes Hx Falls: No Hx Rheumatoid Arthritis: Yes - GASTROINTESTINAL Hx Gastrointestinal Disorders: Yes Hx Diarrhea: Yes (chronic diarrhea with bowel incontinence) Hx Gastroesophageal Reflux: No Hx Irritable Bowel: Yes Other/Comment: colonoscopy 12/23/14: colitis, descending colon polyp, Diverticulosis - GENITOURINARY/GYNECOLOGICAL Hx Genitourinary Disorders: No Hx Hematuria: No Hx Incontinence: No Hx Sexually Transmitted Disorders: No Hx Urinary Tract Infection: Yes - PSYCHIATRIC Hx Psychophysiologic Disorder: Yes (attempted suicide) Hx Anxiety: Yes Hx Depression: Yes Hx Emotional Abuse: No Hx Physical Abuse: No Hx Substance Use: No - SURGICAL HISTORY Hx Section: Yes Hx Cholecystectomy: No Hx Coronary Stent: No Hx Hysterectomy: Yes - ANESTHESIA Hx Anesthesia: Yes Hx Anesthesia Reactions: No Hx Malignant Hyperthermia: No Meds Allergies/Adverse Reactions: Allergies Allergy/AdvReac Type Severity Reaction Status Date / Time No Known Allergies Allergy Verified 12/27/17 20:45 - Medications Medications: Current Medications Albuterol Sulfate (Albuterol 0.083% Inhal Keyonna (2.5 Mg/3 Ml) Ud) 2.5 mg IH [id number] PRN PRN Reason: Shortness of Breath Amlodipine Besylate (Norvasc) 10 mg PO DAILY [facility] Last Admin: 12/28/17 10:36 Dose: 10 mg Carvedilol (Coreg) 25 mg PO DAILY [facility] Last Admin: 12/28/17 10:35 Dose: 25 mg Ergocalciferol (Drisdol 50,000 Intl Units Cap) 1 cap PO MON [facility] Fluticasone Propionate (Flonase) 1 actuation NS DAILY [facility] Last Admin: 12/28/17 10:35 Dose: 1 spr Folic Acid (Folic Acid) 1 mg PO DAILY [facility] Last Admin: 12/28/17 10:36 Dose: 1 mg Furosemide (Lasix) 40 mg PO DAILY [facility] Last Admin: 12/28/17 10:37 Dose: 40 mg Gabapentin (Neurontin) 300 mg PO BID [facility] PRN Reason: Protocol Last Admin: 12/28/17 10:36 Dose: 300 mg Lactated Ringer's (Lactated Ringer's) 1,000 mls @ 125 mls/hr IV .Q8H [facility] Stop: 12/30/17 00:16 Last Admin: 12/28/17 00:38 Dose: 125 mls/hr Imipramine HCl (Tofranil) 25 mg PO HS [facility] Insulin Human Regular (Humulin R Low) 0 units SC Q6 [facility] PRN Reason: Protocol Last Admin: 12/28/17 13:20 Dose: Not Given Montelukast Sodium (Singulair) 10 mg PO HS [facility] Morphine Sulfate (Morphine) 2 mg IVP Q4H PRN PRN Reason: Pain, moderate (4-7) Multivitamins/Minerals (Therapeutic-M Tab) 1 tab PO DAILY [facility] Last Admin: 12/28/17 10:36 Dose: 1 tab Non-Formulary Medication (Budesonide/Formoterol Fumarate [Symbicort 160-4.5 Mcg Inhaler]) 1 aer IH DAILY [facility] Non-Formulary Medication (Darunavir Ethanolate [Prezista]) 600 mg PO BID [facility] Non-Formulary Medication (Dolutegravir Sodium [Tivicay]) 50 mg PO DAILY [facility] Non-Formulary Medication (Eluxadoline [Viberzi]) 75 mg PO DAILY [facility] Non-Formulary Medication (Melatonin [Melatonin]) 1 tab PO DAILY [facility] [id number] Ethyl Esters (Lovaza) 1 gm PO DAILY [facility] Last Admin: 12/28/17 10:35 Dose: 1 gm Ondansetron HCl (Zofran Inj) 4 mg IVP Q4H PRN PRN Reason: Nausea/Vomiting Pantoprazole Sodium (Protonix Ec Tab) 40 mg PO 0600 [facility] Last Admin: 12/28/17 06:40 Dose: 40 mg Propranolol HCl (Inderal) 20 mg PO TID [facility] Last Admin: 12/28/17 13:32 Dose: Not Given Ritonavir (Norvir) 100 mg PO BRKDIN [facility] Last Admin: 12/28/17 10:35 Dose: 100 mg Sertraline HCl (Zoloft) 100 mg PO DAILY [facility] Last Admin: 12/28/17 10:36 Dose: 100 mg Physical Exam - Constitutional Appears: Well, Non-toxic, No Acute Distress - Head Exam Head Exam: ATRAUMATIC, NORMAL INSPECTION - Eye Exam Eye Exam: EOMI, Normal appearance. absent: Conjunctival injection, Scleral icterus - ENT Exam ENT Exam: Mucous Membranes Moist, Normal External Ear Exam. absent: Mucous Membranes Dry - Respiratory Exam Respiratory Exam: Clear to Auscultation Bilateral. absent: Respiratory Distress - Cardiovascular Exam Cardiovascular Exam: REGULAR RHYTHM, RRR - GI/Abdominal Exam GI & Abdominal Exam: Normal Bowel Sounds, Soft, Tenderness (mildly ttp in L half of abdomen w/o guarding). absent: Bruit, Diminished Bowel Sounds, Distended, Firm, Guarding, Hernia, Organomegaly - Rectal Exam Rectal Exam: Deferred - Extremities Exam Extremities exam: Positive for: normal inspection - Neurological Exam Neurological exam: Alert, CN II-XII Intact - Psychiatric Exam Psychiatric exam: Normal Affect, Normal Mood - Skin Skin Exam: Normal Color, Warm Results - Vital Signs Recent Vital Signs: Last Vital Signs Temp 97.8 F 12/28/17 14:00 Pulse 72 12/28/17 14:00 Resp 20 12/28/17 14:00 BP 137/68 12/28/17 14:00 Pulse Ox 98 12/28/17 14:00 - Labs Result Diagrams: 12/28/17 06:00 12/28/17 06:00 Labs: Laboratory Results - last 24 hr 12/28/17 12/28/17 12/28/17 01:30 06:00 06:00 WBC 6.3 D RBC 4.73 Hgb 12.5 Hct 37.3 MCV 78.9 L MCH 26.4 MCHC 33.5 RDW 15.6 H Plt Count 204 MPV 9.6 Gran % 40.1 L Lymph % (Auto) 49.4 H [place] % (Auto) 7.0 H Eos % (Auto) 3.2 Baso % (Auto) 0.3 Gran # 2.51 Lymph # (Auto) 3.1 [place] # (Auto) 0.4 Eos # (Auto) 0.2 Baso # (Auto) 0.02 pO2 64 H VBG pH 7.22 L VBG pCO2 39.0 L VBG HCO3 16.0 L VBG Total CO2 17.2 L VBG O2 Sat (Calc) 93.1 H VBG Base Excess -11.1 L VBG Potassium 3.2 L Sodium 136.0 142 Chloride 109.0 H 113 H Glucose 157 H Lactate 2.2 H FiO2 21.0 Potassium 3.8 Carbon Dioxide 21 Anion Gap 12 BUN 8 Creatinine 1.1 Est GFR ( Amer) > 60 Est GFR (Non-Af Amer) 50 POC Glucose (mg/dL) Random Glucose 119 H Calcium 7.9 L Phosphorus 3.4 Magnesium 1.8 Total Bilirubin 0.3 AST 26 ALT 23 Alkaline Phosphatase 103 Total Protein 6.3 Albumin 3.1 Globulin 3.1 Albumin/Globulin Ratio 1.0 L Venous Blood Potassium 3.2 L 12/28/17 12/28/17 12/28/17 06:09 06:15 11:11 WBC RBC Hgb Hct MCV MCH MCHC RDW Plt Count MPV Gran % Lymph % (Auto) [place] % (Auto) Eos % (Auto) Baso % (Auto) Gran # Lymph # (Auto) [place] # (Auto) Eos # (Auto) Baso # (Auto) pO2 209 H VBG pH 7.30 L VBG pCO2 44.0 VBG HCO3 21.6 VBG Total CO2 23.0 VBG O2 Sat (Calc) 99.7 H VBG Base Excess -4.8 L VBG Potassium 3.8 Sodium 139.0 Chloride 113.0 H Glucose 124 H Lactate 1.2 FiO2 21.0 Potassium Carbon Dioxide Anion Gap BUN Creatinine Est GFR ( Amer) Est GFR (Non-Af Amer) POC Glucose (mg/dL) 123 H 139 H Random Glucose Calcium Phosphorus Magnesium Total Bilirubin AST ALT Alkaline Phosphatase Total Protein Albumin Globulin Albumin/Globulin Ratio Venous Blood Potassium 3.8 12/28/17 15:53 WBC RBC Hgb Hct MCV MCH MCHC RDW Plt Count MPV Gran % Lymph % (Auto) [place] % (Auto) Eos % (Auto) Baso % (Auto) Gran # Lymph # (Auto) [place] # (Auto) Eos # (Auto) Baso # (Auto) pO2 VBG pH VBG pCO2 VBG HCO3 VBG Total CO2 VBG O2 Sat (Calc) VBG Base Excess VBG Potassium Sodium Chloride Glucose Lactate FiO2 Potassium Carbon Dioxide Anion Gap BUN Creatinine Est GFR ( Amer) Est GFR (Non-Af Amer) POC Glucose (mg/dL) 102 Random Glucose Calcium Phosphorus Magnesium Total Bilirubin AST ALT Alkaline Phosphatase Total Protein Albumin Globulin Albumin/Globulin Ratio Venous Blood Potassium Assessment & Plan - Assessment and Plan (Free Text) Assessment: 62 yo BF with HIV, IBS-D, COPD, DM, CAd presenting with abd pain and diarrhea. # Acute on Chronic Abd Pain and Diarrhea: Exact etiology unclear but perhaps multifactorial from IBS-D flare since not taking viberzi recently as well was possible viral gastroenteritis. Infectious cause of diarrhea always possible especially in HIV patient (unable to find last CD4 but reportedly complaint with HAART. Plan: - Check for infectious diarrhea with Cdiff and Stool Cx, hold O&P for now - Restart eluxadoline if able - IVF - FLD, ADAT - Probiotic - Consider further w/u if symptoms persist/above unrevealing Pt seen and examined with Dr. Olivera; see his attestation for further details/ changes <Maru Olivera V - Last Filed: 12/29/17 00:37> Meds - Medications Medications: Current Medications Albuterol Sulfate (Albuterol 0.083% Inhal Keyonna (2.5 Mg/3 Ml) Ud) 2.5 mg IH [id number] PRN PRN Reason: Shortness of Breath Amlodipine Besylate (Norvasc) 10 mg PO DAILY [facility] Last Admin: 12/28/17 10:36 Dose: 10 mg Carvedilol (Coreg) 25 mg PO DAILY [facility] Last Admin: 12/28/17 10:35 Dose: 25 mg Ergocalciferol (Drisdol 50,000 Intl Units Cap) 1 cap PO MON [facility] Fluticasone Propionate (Flonase) 1 actuation NS DAILY [facility] Last Admin: 12/28/17 10:35 Dose: 1 spr Folic Acid (Folic Acid) 1 mg PO DAILY [facility] Last Admin: 12/28/17 10:36 Dose: 1 mg Furosemide (Lasix) 40 mg PO DAILY [facility] Last Admin: 12/28/17 10:37 Dose: 40 mg Gabapentin (Neurontin) 300 mg PO BID [facility] PRN Reason: Protocol Last Admin: 12/28/17 17:56 Dose: 300 mg Lactated Ringer's (Lactated Ringer's) 1,000 mls @ 125 mls/hr IV .Q8H [facility] Stop: 12/30/17 00:16 Last Admin: 12/28/17 17:59 Dose: 125 mls/hr Sodium Chloride (Sodium Chloride 0.9%) 1,000 mls @ 100 mls/hr IV .Q10H [facility] Imipramine HCl (Tofranil) 25 mg PO HS [facility] Last Admin: 12/28/17 22:06 Dose: Not Given Insulin Human Regular (Humulin R Low) 0 units SC Q6 [facility] PRN Reason: Protocol Last Admin: 12/29/17 00:14 Dose: Not Given Lactobacillus Acidophilus (Bacid Acidophilus) 1 cap PO BID [facility] Montelukast Sodium (Singulair) 10 mg PO HS [facility] Last Admin: 12/28/17 22:05 Dose: 10 mg Morphine Sulfate (Morphine) 2 mg IVP Q4H PRN PRN Reason: Pain, moderate (4-7) Multivitamins/Minerals (Therapeutic-M Tab) 1 tab PO DAILY [facility] Last Admin: 12/28/17 10:36 Dose: 1 tab Non-Formulary Medication (Budesonide/Formoterol Fumarate [Symbicort 160-4.5 Mcg Inhaler]) 1 aer IH DAILY [facility] Non-Formulary Medication (Darunavir Ethanolate [Prezista]) 600 mg PO BID [facility] Non-Formulary Medication (Dolutegravir Sodium [Tivicay]) 50 mg PO DAILY [facility] Non-Formulary Medication (Eluxadoline [Viberzi]) 75 mg PO DAILY [facility] Non-Formulary Medication (Melatonin [Melatonin]) 1 tab PO DAILY [facility] [id number]-[id number] Ethyl Esters (Lovaza) 1 gm PO DAILY [facility] Last Admin: 12/28/17 10:35 Dose: 1 gm Ondansetron HCl (Zofran Inj) 4 mg IVP Q4H PRN PRN Reason: Nausea/Vomiting Pantoprazole Sodium (Protonix Ec Tab) 40 mg PO 0600 [facility] Last Admin: 12/28/17 06:40 Dose: 40 mg Propranolol HCl (Inderal) 20 mg PO TID [facility] Last Admin: 12/28/17 17:56 Dose: 20 mg Ritonavir (Norvir) 100 mg PO BRKDIN [facility] Last Admin: 12/28/17 17:56 Dose: 100 mg Sertraline HCl (Zoloft) 100 mg PO DAILY [facility] Last Admin: 12/28/17 10:36 Dose: 100 mg Results - Vital Signs Recent Vital Signs: Last Vital Signs Temp 98.5 F 12/28/17 21:48 Pulse 73 12/28/17 21:48 Resp 20 12/28/17 21:48 BP 115/65 12/28/17 21:48 Pulse Ox 91 L 12/28/17 21:48 - Labs Result Diagrams: 12/28/17 06:00 12/28/17 06:00 Labs: Laboratory Results - last 24 hr 12/28/17 12/28/17 12/28/17 01:30 06:00 06:00 WBC 6.3 D RBC 4.73 Hgb 12.5 Hct 37.3 MCV 78.9 L MCH 26.4 MCHC 33.5 RDW 15.6 H Plt Count 204 MPV 9.6 Gran % 40.1 L Lymph % (Auto) 49.4 H [place] % (Auto) 7.0 H Eos % (Auto) 3.2 Baso % (Auto) 0.3 Gran # 2.51 Lymph # (Auto) 3.1 [place] # (Auto) 0.4 Eos # (Auto) 0.2 Baso # (Auto) 0.02 pO2 64 H VBG pH 7.22 L VBG pCO2 39.0 L VBG HCO3 16.0 L VBG Total CO2 17.2 L VBG O2 Sat (Calc) 93.1 H VBG Base Excess -11.1 L VBG Potassium 3.2 L Sodium 136.0 142 Chloride 109.0 H 113 H Glucose 157 H Lactate 2.2 H FiO2 21.0 Potassium 3.8 Carbon Dioxide 21 Anion Gap 12 BUN 8 Creatinine 1.1 Est GFR ( Amer) > 60 Est GFR (Non-Af Amer) 50 POC Glucose (mg/dL) Random Glucose 119 H Calcium 7.9 L Phosphorus 3.4 Magnesium 1.8 Total Bilirubin 0.3 AST 26 ALT 23 Alkaline Phosphatase 103 Total Protein 6.3 Albumin 3.1 Globulin 3.1 Albumin/Globulin Ratio 1.0 L Venous Blood Potassium 3.2 L 12/28/17 12/28/17 12/28/17 06:09 06:15 11:11 WBC RBC Hgb Hct MCV MCH MCHC RDW Plt Count MPV Gran % Lymph % (Auto) [place] % (Auto) Eos % (Auto) Baso % (Auto) Gran # Lymph # (Auto) [place] # (Auto) Eos # (Auto) Baso # (Auto) pO2 209 H VBG pH 7.30 L VBG pCO2 44.0 VBG HCO3 21.6 VBG Total CO2 23.0 VBG O2 Sat (Calc) 99.7 H VBG Base Excess -4.8 L VBG Potassium 3.8 Sodium 139.0 Chloride 113.0 H Glucose 124 H Lactate 1.2 FiO2 21.0 Potassium Carbon Dioxide Anion Gap BUN Creatinine Est GFR ( Amer) Est GFR (Non-Af Amer) POC Glucose (mg/dL) 123 H 139 H Random Glucose Calcium Phosphorus Magnesium Total Bilirubin AST ALT Alkaline Phosphatase Total Protein Albumin Globulin Albumin/Globulin Ratio Venous Blood Potassium 3.8 12/28/17 12/28/17 12/29/17 15:53 17:48 00:08 WBC RBC Hgb Hct MCV MCH MCHC RDW Plt Count MPV Gran % Lymph % (Auto) [place] % (Auto) Eos % (Auto) Baso % (Auto) Gran # Lymph # (Auto) [place] # (Auto) Eos # (Auto) Baso # (Auto) pO2 VBG pH VBG pCO2 VBG HCO3 VBG Total CO2 VBG O2 Sat (Calc) VBG Base Excess VBG Potassium Sodium Chloride Glucose Lactate FiO2 Potassium Carbon Dioxide Anion Gap BUN Creatinine Est GFR ( Amer) Est GFR (Non-Af Amer) POC Glucose (mg/dL) 102 182 H 162 H Random Glucose Calcium Phosphorus Magnesium Total Bilirubin AST ALT Alkaline Phosphatase Total Protein Albumin Globulin Albumin/Globulin Ratio Venous Blood Potassium Attending/Attestation - Attestation I have personally seen and examined this patient.: Yes I have fully participated in the care of the patient.: Yes I have reviewed all pertinent clinical information: Yes Notes (Text): This is an addendum to GI consult report dictated by the GI Fellow.The patient was seen and examined earlier. Medical records, lab studies, imagings were reviewed. Last 24 hours events reviewed. Agreed with the above treatment plan as outlined in GI Fellow 's notes with the addition of the following this patient is admitted now with abdominal pain nausea vomiting and diarrhea morales of acute gastroenteritis, dehydration Patient does have a history of IBS D. Patient was on by [facility] Follow-up stool cultures, continue IVF, follow-up electrolytes, clear liquid diet Continue probiotics would slowly advance the diet based ohe clinical course 12/29/17 00:33
[2017-12-29] MEDS: Insulin Reg-LOW-Coverage SC SCH ×5 (00:14→23:24)
[2017-12-29] MEDS: Lactated Ringer's 1,000 ML IV SCH (00:15)
[2017-12-29] MEDS: Pantoprazole 40 mg EC Tab PO SCH (06:05)
[2017-12-29] MEDS: Sodium Chloride 0.9% 1,000 ML IV SCH (08:59)
[2017-12-29] MEDS: Omega-3-Acid Ethyl Esters 1 GM Cap PO SCH (09:01)
[2017-12-29] MEDS: Lactobacillus Acidophilus 500 MU Cap PO SCH ×2 (09:02→17:33)
[2017-12-29] MEDS: Multivitamin With Minerals Tab PO SCH (09:34)
[2017-12-29] MEDS: Fluticasone Nasal 50 mcg/Spray NS SCH (09:35)
[2017-12-29] MEDS ORDERED: Ergocalciferol 50,000 Intl Units Cap PO SCH (10:00)
--- NOTE | 2017-12-29 18:48 | CP.PCM.PN ---
<Zhao Lu - Last Filed: 12/29/17 18:53> Subjective - Date & Time of Evaluation Date of Evaluation: 12/29/17 Time of Evaluation: 18:45 - Subjective Subjective: GI Progress Note for Dr. Olivera's Service- Robin, PGY2 Patient seen and assessed at bedside. No acute events overnight. Patient endorses several loose BM's yesterday but none today thus far. Patient denies any complaints at this time including fevers, chills, headache, chest pain, SOB , abdominal pain, N/V/C, changes in urine output or any skin changes. Objective - Vital Signs/Intake and Output Vital Signs (last 24 hours): Temp Pulse Resp BP Pulse Ox 98.9 F 80 18 132/90 93 L 12/29/17 14:00 12/29/17 14:00 12/29/17 14:00 12/29/17 14:23 12/29/17 14:00 Intake and Output: 12/29/17 12/29/17 06:59 18:59 Intake Total 2520 Balance 2520 - Medications Medications: Current Medications Albuterol Sulfate (Albuterol 0.083% Inhal Keyonna (2.5 Mg/3 Ml) Ud) 2.5 mg IH [id number] PRN PRN Reason: Shortness of Breath Amlodipine Besylate (Norvasc) 10 mg PO DAILY [facility] Last Admin: 12/29/17 09:02 Dose: 10 mg Carvedilol (Coreg) 25 mg PO DAILY [facility] Last Admin: 12/29/17 09:34 Dose: 25 mg Ergocalciferol (Drisdol 50,000 Intl Units Cap) 1 cap PO MON [facility] Last Admin: 12/29/17 09:34 Dose: 1 cap Fluticasone Propionate (Flonase) 1 actuation NS DAILY [facility] Last Admin: 12/29/17 09:35 Dose: 1 spr Folic Acid (Folic Acid) 1 mg PO DAILY [facility] Last Admin: 12/29/17 09:03 Dose: 1 mg Furosemide (Lasix) 40 mg PO DAILY [facility] Last Admin: 12/29/17 09:03 Dose: 40 mg Gabapentin (Neurontin) 300 mg PO BID [facility] PRN Reason: Protocol Last Admin: 12/29/17 17:34 Dose: 300 mg Home Med (Home Med) 1 unit PO HS [facility] Sodium Chloride (Sodium Chloride 0.9%) 1,000 mls @ 100 mls/hr IV .Q10H [facility] Last Admin: 12/29/17 08:59 Dose: 100 mls/hr Insulin Human Regular (Humulin R Low) 0 units SC Q6 [facility] PRN Reason: Protocol Last Admin: 12/29/17 17:34 Dose: Not Given Lactobacillus Acidophilus (Bacid Acidophilus) 1 cap PO BID [facility] Last Admin: 12/29/17 17:33 Dose: 1 cap Montelukast Sodium (Singulair) 10 mg PO HS [facility] Last Admin: 12/28/17 22:05 Dose: 10 mg Morphine Sulfate (Morphine) 2 mg IVP Q4H PRN PRN Reason: Pain, moderate (4-7) Multivitamins/Minerals (Therapeutic-M Tab) 1 tab PO DAILY [facility] Last Admin: 12/29/17 09:34 Dose: 1 tab Non-Formulary Medication (Budesonide/Formoterol Fumarate [Symbicort 160-4.5 Mcg Inhaler]) 1 aer IH DAILY [facility] Non-Formulary Medication (Darunavir Ethanolate [Prezista]) 600 mg PO BID [facility] Last Admin: 12/29/17 10:00 Dose: Not Given Non-Formulary Medication (Dolutegravir Sodium [Tivicay]) 50 mg PO DAILY [facility] Non-Formulary Medication (Eluxadoline [Viberzi]) 75 mg PO DAILY [facility] Melatonin [Melatonin (] 1 Tab) 1 tab PO DAILY [facility] Last Admin: 12/29/17 12:25 Dose: Not Given [id number] Ethyl Esters (Lovaza) 1 gm PO DAILY [facility] Last Admin: 12/29/17 09:01 Dose: 1 gm Ondansetron HCl (Zofran Inj) 4 mg IVP Q4H PRN PRN Reason: Nausea/Vomiting Pantoprazole Sodium (Protonix Ec Tab) 40 mg PO 0600 [facility] Last Admin: 12/29/17 06:05 Dose: 40 mg Propranolol HCl (Inderal) 20 mg PO TID [facility] Last Admin: 12/29/17 17:33 Dose: 20 mg Ritonavir (Norvir) 100 mg PO BRKDIN [facility] Last Admin: 12/29/17 17:35 Dose: 100 mg Sertraline HCl (Zoloft) 100 mg PO DAILY [facility] Last Admin: 12/29/17 09:02 Dose: 100 mg - Labs Labs: 12/28/17 06:00 12/28/17 06:00 - Constitutional Appears: Non-toxic, No Acute Distress - Head Exam Head Exam: ATRAUMATIC, NORMOCEPHALIC - Eye Exam Eye Exam: EOMI, Normal appearance - ENT Exam ENT Exam: Mucous Membranes Moist, Normal Exam - Neck Exam Neck Exam: Full ROM - Respiratory Exam Respiratory Exam: Clear to Ausculation Bilateral, NORMAL BREATHING PATTERN. absent: Accessory Muscle Use, Chest Wall Tenderness, Decreased Breath Sounds, Prolonged Expiratory Phase, Rales, Rhonchi, Wheezes, Respiratory Distress, Stridor - Cardiovascular Exam Cardiovascular Exam: REGULAR RHYTHM, RRR, +S1, +S2 - GI/Abdominal Exam GI & Abdominal Exam: Soft, Normal Bowel Sounds. absent: Distended, Firm, Guarding, Tenderness - Extremities Exam Extremities Exam: Full ROM, Normal Capillary Refill, Normal Inspection - Neurological Exam Neurological Exam: Alert, Awake, Normal Gait, Oriented x3 - Psychiatric Exam Psychiatric exam: Normal Affect, Normal Mood - Skin Skin Exam: Dry, Intact, Normal Color, Warm Assessment and Plan - Assessment and Plan (Free Text) Assessment: 62 year old female with a past medical history significant for HIV, IBS-D, COPD , DM, and CAD who presented with abdominal pain and diarrhea. Plan: -C. Diff Serology and Stool Cultures pending -Continue Eluxadoline, Probiotic and daily PPI -Tolerating Heart Healthy/Moderate Carbohydrate Consistent Diet -Symptoms improving but will consider further workup if symptoms persist/other workup is unrevealing Patient seen and case discussed with attending, Dr. Olivera. <Maru Olivera V - Last Filed: 12/30/17 06:16> Objective - Vital Signs/Intake and Output Vital Signs (last 24 hours): Temp Pulse Resp BP Pulse Ox 98.7 F 81 20 140/73 91 L 12/29/17 21:54 12/29/17 21:54 12/29/17 21:54 12/29/17 21:54 12/29/17 21:54 Intake and Output: 12/29/17 12/30/17 18:59 06:59 Intake Total 1000 Balance 1000 - Medications Medications: Current Medications Albuterol Sulfate (Albuterol 0.083% Inhal Keyonna (2.5 Mg/3 Ml) Ud) 2.5 mg IH [id number] PRN PRN Reason: Shortness of Breath Amlodipine Besylate (Norvasc) 10 mg PO DAILY [facility] Last Admin: 12/29/17 09:02 Dose: 10 mg Carvedilol (Coreg) 25 mg PO DAILY [facility] Last Admin: 12/29/17 09:34 Dose: 25 mg Ergocalciferol (Drisdol 50,000 Intl Units Cap) 1 cap PO MON [facility] Last Admin: 12/29/17 09:34 Dose: 1 cap Fluticasone Propionate (Flonase) 1 actuation NS DAILY [facility] Last Admin: 12/29/17 09:35 Dose: 1 spr Folic Acid (Folic Acid) 1 mg PO DAILY [facility] Last Admin: 12/29/17 09:03 Dose: 1 mg Furosemide (Lasix) 40 mg PO DAILY [facility] Last Admin: 12/29/17 09:03 Dose: 40 mg Gabapentin (Neurontin) 300 mg PO BID [facility] PRN Reason: Protocol Last Admin: 12/29/17 17:34 Dose: 300 mg Home Med (Home Med) 1 unit PO HS [facility] Last Admin: 12/29/17 21:59 Dose: Not Given Sodium Chloride (Sodium Chloride 0.9%) 1,000 mls @ 100 mls/hr IV .Q10H [facility] Last Admin: 12/30/17 05:28 Dose: 100 mls/hr Insulin Human Regular (Humulin R Low) 0 units SC ACHS [facility] PRN Reason: Protocol Lactobacillus Acidophilus (Bacid Acidophilus) 1 cap PO BID [facility] Last Admin: 12/29/17 17:33 Dose: 1 cap Montelukast Sodium (Singulair) 10 mg PO HS [facility] Last Admin: 12/29/17 22:01 Dose: 10 mg Morphine Sulfate (Morphine) 2 mg IVP Q4H PRN PRN Reason: Pain, moderate (4-7) Multivitamins/Minerals (Therapeutic-M Tab) 1 tab PO DAILY [facility] Last Admin: 12/29/17 09:34 Dose: 1 tab Non-Formulary Medication (Eluxadoline [Viberzi]) 75 mg PO DAILY [facility] Non Formulary Medication ( Darunavir Ethanolate [Prezista] 800 Mg) 800 mg PO DAILY [facility] Melatonin [Melatonin (] 5mg 1 Tab) 1 tab PO [facility] Non-Formulary Medication (Dolutegravir Sodium [Tivicay]) 50 mg PO DAILY [facility] Non-Formulary Medication (Budesonide/Formoterol Fumarate [Symbicort 160-4.5 Mcg Inhaler]) 1 aer IH DAILY [facility] [id number] Ethyl Esters (Lovaza) 1 gm PO DAILY [facility] Last Admin: 12/29/17 09:01 Dose: 1 gm Ondansetron HCl (Zofran Inj) 4 mg IVP Q4H PRN PRN Reason: Nausea/Vomiting Pantoprazole Sodium (Protonix Ec Tab) 40 mg PO 0600 [facility] Last Admin: 12/30/17 05:26 Dose: 40 mg Propranolol HCl (Inderal) 20 mg PO TID [facility] Last Admin: 12/29/17 17:33 Dose: 20 mg Ritonavir (Norvir) 100 mg PO BRKDIN [facility] Last Admin: 12/29/17 17:35 Dose: 100 mg Sertraline HCl (Zoloft) 100 mg PO DAILY [facility] Last Admin: 12/29/17 09:02 Dose: 100 mg - Labs Labs: 12/28/17 06:00 12/28/17 06:00 Attending/Attestation - Attestation I have personally seen and examined this patient.: Yes I have fully participated in the care of the patient.: Yes I have reviewed all pertinent clinical information, including history, physical exam and plan: Yes
[2017-12-29] MEDS ORDERED: IMIPRAMINE 25 MG PO SCH (22:00)
[2017-12-30] MEDS ORDERED: DARUNAVIR ETHANOLATE 800 MG PO SCH (02:23)
[2017-12-30] MEDS ORDERED: MELATONIN 5 MG PO SCH (02:28)
[2017-12-30] MEDS ORDERED: Non Formulary Medication (Dolutegravir Sodium [Tivicay] 50 MG) PO SCH (02:31)
[2017-12-30] MEDS ORDERED: Non Formulary Medication (Budesonide/Formoterol Fumarate [Symbicort 160-4.5 Mcg Inhaler] 1 IH SCH (02:35)
--- NOTE | 2017-12-30 05:07 | PN ---
Copied To: Lois Croft MD Attending MD: Lois Croft MD DATE: 12/29/2017 SUBJECTIVE: The patient was comfortable. Family was around. No nausea, vomiting, diarrhea. No hematuria or hematochezia. No headache, dizziness, chest pain or palpitations. 5 bowel movement. PHYSICAL EXAMINATION: VITAL SIGNS: Temperature 98.9, pulse 80, respiratory rate 18, blood pressure 142/90, pulse oximetry 93. HEENT: Head normocephalic, atraumatic. Eyes PERRLA. Extraocular muscles are intact. Conjunctivae clear. Nose patent. Mucous membrane moist. NECK: Supple. No carotid bruit. No JVD or thyromegaly. CHEST: Bilaterally symmetrical. HEART: S1 and S2 positive. LUNGS: Clear to auscultation. ABDOMEN: Soft. Bowel sounds positive. No organomegaly. EXTREMITIES: No edema. No cyanosis. NEUROLOGICAL: The patient is awake and alert. Moving all 4 extremities. No focal deficits. MEDICATIONS: Albuterol, amlodipine, carvedilol, fluticasone, folic acid, NS, insulin, lactobacillus. ASSESSMENT AND PLAN: hiv+ . copd . htn , asthma . stool incontenece , anemia , dm , came with abdominal pain , r/o uti . gi and surgery is on the case Gastrointestinal, deep venous thrombosis prophylaxes. Repeat labs. We will follow up. Lois Croft MD [email or web address]
[2017-12-30] MEDS: Pantoprazole 40 mg EC Tab PO SCH (05:26)
[2017-12-30] MEDS: Sodium Chloride 0.9% 1,000 ML IV SCH (05:28)
[2017-12-30 06:54] LABS: HEMOGLOBIN 12.4 g/dL (12.0-16.0); MEAN CORPUSCULAR HEMOGLOBIN 26.7 pg (25.0-35.0); MEAN CORPUSCULAR HGB CONC 33.3 g/dl (31.0-37.0); MEAN PLATELET VOLUME 10.3 fl (7.0-11.0); RBC 4.65 10^6/uL (3.5-6.1); RED CELL DISTRIBUTION WIDTH 15.9 % (11.5-14.5); WHITE BLOOD COUNT 7.5 10^3/ul (4.5-11.0)
[2017-12-30 07:14] LABS: BLOOD UREA NITROGEN 12 mg/dL (7-21); GFR NON-AFRICAN AMERICAN > 60
[2017-12-30] MEDS ORDERED: Potassium Chloride 20 mEq ER Tab PO ONE (08:18)
--- NOTE | 2017-12-30 08:33 | HP ---
date 12/28/17 Copied To: Lois Croft MD Attending MD: Lois Croft MD CHIEF COMPLAINTS: Dizziness, diarrhea. HISTORY OF PRESENT ILLNESS: Ms. Lu Roa, 62-year-old female whose past medical history has HIV positive, hepatitis, diabetes mellitus, coronary artery disease, diabetic neuropathy, nephropathy, COPD, anemia, arthritis, hypothyroidism, irritable bowel syndrome. Came to the emergency room for recurrent diarrhea, abdominal pain, history of vomiting. The patient states she is unable to keep anything down other than occasional liquid. The patient is also complaining about dizziness with occasional abdominal cramps, diarrhea. The patient denies any urinary symptoms. No fever. No chills. No shortness of breath. The patient was seen in her room. SonMarkie was sitting on the bedside also. PAST MEDICAL HISTORY: As above, hypertension, coronary artery disease, COPD, asthma, diabetes mellitus type 2, arthritis, rheumatoid arthritis, chronic diarrhea with bowel incontinence, irritable bowel syndrome, anxiety, transvaginal mesh. FAMILY HISTORY: Father and mother, noncontributory. HABITS: Heavy smoking, more than 10 cigarettes. Alcohol, yes. Substance abuse, no. ALLERGIES: THE PATIENT IS NOT ALLERGIC WITH ANY MEDICATIONS. HOME MEDICATIONS: She has a big list of medications, reviewed by me. ProAir, Symbicort, Coreg, Plavix, HIV medication , Flonase, Lasix, Neurontin, Tofranil, Singulair, Protonix, Inderal, Zoloft, Accolate, Norvasc, melatonin. REVIEW OF SYSTEMS: The patient was seen and examined on the bedside. Markie Ferrer was sitting on the bedside also. Still having diarrhea, at least doing 6-7 times a day. Abdominal pain, vomiting, appetite change. No dysuria, frequency, hematuria, urinary output change, back pain or neck pain. The patient has dizziness. PHYSICAL EXAMINATION: VITAL SIGNS: Temperature 97.9, pulse 76, respiratory rate 18, blood pressure 119/81, pulse oximetry 98. HEENT: Head normocephalic, atraumatic. Eyes PERRLA. Extraocular muscles intact. Conjunctivae clear. Nose patent. Mucous membrane moist. NECK: Supple. No carotid bruit. No JVD or thyromegaly. CHEST: Bilaterally symmetrical. HEART: S1 and S2 positive. LUNGS: Clear to auscultation. ABDOMEN: Soft. Bowel sounds positive. No organomegaly. EXTREMITIES: No edema. No cyanosis. NEUROLOGICAL: The patient is awake and alert. Moving all 4 extremities. No focal deficits. LABORATORY DATA: White blood cells 10, hemoglobin 13.8, hematocrit 39.5, platelets 224. Sodium 133, potassium 3.4, BUN 6, creatinine 1.3, glucose 190. ASSESSMENT AND PLAN: Ms. Lu Roa, 62-year-old lady with anemia, hypokalemia, replaced; hyperglycemia, is admitted due to nausea, vomiting, abdominal pain, gastroenteritis, dehydration, dizziness. Did CAT scan of abdomen and pelvis, showed no acute abdominal or pelvic abnormality, status post repair of the ventral hernia, small intraumbilical ventral hernia containing nonobstructive small bowel loops. Seen by Dr. Michael Torres, surgeon. According to his communication report, CT shows nonobstructive hernia/ medicle treatment, not surgery. Medical treatment right now. Seen by Dr. Olivera. Dr. Torres for CT regarding a small infraumbilical ventral hernia containing nonobstructive small bowel. He states he is aware and states that he was able to palpate the hernia. We will give some IV fluid. Gastrointestinal, deep venous thrombosis prophylaxes. Repeat labs. We will follow up. Lois Croft MD [facility]
[2017-12-30] MEDS: Omega-3-Acid Ethyl Esters 1 GM Cap PO SCH (09:15)
[2017-12-30] MEDS: Lactobacillus Acidophilus 500 MU Cap PO SCH (09:15)
[2017-12-30] MEDS: Multivitamin With Minerals Tab PO SCH (09:16)
[2017-12-30] MEDS: Insulin Reg-LOW-Coverage SC SCH ×2 (09:17→12:34)
[2017-12-30] MEDS: Fluticasone Nasal 50 mcg/Spray NS SCH (09:19)
[2017-12-30 09:25] VITALS: RESP 18
--- NOTE | 2017-12-30 12:07 | CP.PCM.PN ---
<Sallie Allen - Last Filed: 12/30/17 12:08> Subjective - Date & Time of Evaluation Date of Evaluation: 12/30/17 Time of Evaluation: 08:00 - Subjective Subjective: GI Fellow PGY5 Progress Note Patient seen and examined at bedside reports less BM since admission and no BM this am. Patient reports mild abdominal disomcoft that is much improved since admission. She is tolerating diet. ROS: A 12pt ROS was negative except as above Objective - Vital Signs/Intake and Output Vital Signs (last 24 hours): Temp Pulse Resp BP Pulse Ox 97.8 F 68 18 148/74 94 L 12/30/17 06:00 12/30/17 09:18 12/30/17 06:00 12/30/17 09:18 12/30/17 06:00 Intake and Output: 12/30/17 12/30/17 06:59 18:59 Intake Total 1000 Balance 1000 - Medications Medications: Current Medications Albuterol Sulfate (Albuterol 0.083% Inhal Keyonna (2.5 Mg/3 Ml) Ud) 2.5 mg IH [id number] PRN PRN Reason: Shortness of Breath Amlodipine Besylate (Norvasc) 10 mg PO DAILY [facility] Last Admin: 12/30/17 09:18 Dose: 10 mg Carvedilol (Coreg) 25 mg PO DAILY [facility] Last Admin: 12/30/17 09:18 Dose: 25 mg Ergocalciferol (Drisdol 50,000 Intl Units Cap) 1 cap PO MON [facility] Last Admin: 12/29/17 09:34 Dose: 1 cap Fluticasone Propionate (Flonase) 1 actuation NS DAILY [facility] Last Admin: 12/30/17 09:19 Dose: 1 spr Folic Acid (Folic Acid) 1 mg PO DAILY [facility] Last Admin: 12/30/17 09:17 Dose: 1 mg Furosemide (Lasix) 40 mg PO DAILY [facility] Last Admin: 12/30/17 09:18 Dose: 40 mg Gabapentin (Neurontin) 300 mg PO BID [facility] PRN Reason: Protocol Last Admin: 12/30/17 09:16 Dose: 300 mg Home Med (Home Med) 1 unit PO HS [facility] Last Admin: 12/29/17 21:59 Dose: Not Given Sodium Chloride (Sodium Chloride 0.9%) 1,000 mls @ 100 mls/hr IV .Q10H [facility] Last Admin: 12/30/17 05:28 Dose: 100 mls/hr Insulin Human Regular (Humulin R Low) 0 units SC ACHS [facility] PRN Reason: Protocol Last Admin: 12/30/17 09:17 Dose: 2 units Lactobacillus Acidophilus (Bacid Acidophilus) 1 cap PO BID [facility] Last Admin: 12/30/17 09:15 Dose: 1 cap Montelukast Sodium (Singulair) 10 mg PO HS [facility] Last Admin: 12/29/17 22:01 Dose: 10 mg Morphine Sulfate (Morphine) 2 mg IVP Q4H PRN PRN Reason: Pain, moderate (4-7) Multivitamins/Minerals (Therapeutic-M Tab) 1 tab PO DAILY [facility] Last Admin: 12/30/17 09:16 Dose: 1 tab Non-Formulary Medication (Eluxadoline [Viberzi]) 75 mg PO DAILY [facility] Non Formulary Medication ( Darunavir Ethanolate [Prezista] 800 Mg) 800 mg PO DAILY [facility] Melatonin [Melatonin (] 5mg 1 Tab) 1 tab PO [facility] Non-Formulary Medication (Dolutegravir Sodium [Tivicay]) 50 mg PO DAILY [facility] Non-Formulary Medication (Budesonide/Formoterol Fumarate [Symbicort 160-4.5 Mcg Inhaler]) 1 aer IH DAILY [facility] [id number] Ethyl Esters (Lovaza) 1 gm PO DAILY [facility] Last Admin: 12/30/17 09:15 Dose: 1 gm Ondansetron HCl (Zofran Inj) 4 mg IVP Q4H PRN PRN Reason: Nausea/Vomiting Pantoprazole Sodium (Protonix Ec Tab) 40 mg PO 0600 [facility] Last Admin: 12/30/17 05:26 Dose: 40 mg Propranolol HCl (Inderal) 20 mg PO TID [facility] Last Admin: 12/30/17 09:17 Dose: 20 mg Ritonavir (Norvir) 100 mg PO BRKDIN [facility] Last Admin: 12/30/17 09:16 Dose: 100 mg Sertraline HCl (Zoloft) 100 mg PO DAILY [facility] Last Admin: 12/30/17 09:16 Dose: 100 mg - Labs Labs: 12/30/17 06:00 12/30/17 06:00 - Constitutional Appears: Non-toxic, No Acute Distress - Head Exam Head Exam: ATRAUMATIC, NORMAL INSPECTION, NORMOCEPHALIC - Eye Exam Eye Exam: EOMI, Normal appearance, PERRL Pupil Exam: PERRL - ENT Exam ENT Exam: Mucous Membranes Moist - Neck Exam Neck Exam: Full ROM, Normal Inspection - Respiratory Exam Respiratory Exam: Clear to Ausculation Bilateral, NORMAL BREATHING PATTERN - Cardiovascular Exam Cardiovascular Exam: REGULAR RHYTHM, RRR, +S1, +S2 - GI/Abdominal Exam GI & Abdominal Exam: Soft, Normal Bowel Sounds. absent: Distended, Firm, Guarding, Tenderness - Rectal Exam Rectal Exam: Deferred - Extremities Exam Extremities Exam: Full ROM, Normal Inspection - Back Exam Back Exam: NORMAL INSPECTION - Neurological Exam Neurological Exam: Alert, Awake, Oriented x3 - Psychiatric Exam Psychiatric exam: Normal Affect, Normal Mood - Skin Skin Exam: Dry, Intact, Normal Color, Warm Assessment and Plan - Assessment and Plan (Free Text) Assessment: This is a 62 year old female with a past medical history significant for HIV, IBS-D, COPD, DM, and CAD who presented with abdominal pain and diarrhea. 1. Gastroenteritis 2. IBS-D Plan: -Continue supportive care -Continue Eluxadoline, Probiotic and daily PPI -Tolerating Heart Healthy/Moderate Carbohydrate Consistent Diet -Symptoms improving, clinically better -Recommend outpt colonoscopy -Pt okay for discharge from GI perspective <Maru Olivera V - Last Filed: 12/30/17 23:45> Objective - Vital Signs/Intake and Output Vital Signs (last 24 hours): Temp Pulse Resp BP Pulse Ox 98.2 F 69 18 129/84 96 12/30/17 14:00 12/30/17 14:00 12/30/17 14:00 12/30/17 14:00 12/30/17 14:00 - Labs Labs: 12/30/17 06:00 12/30/17 06:00 Attending/Attestation - Attestation I have personally seen and examined this patient.: Yes I have fully participated in the care of the patient.: Yes I have reviewed all pertinent clinical information, including history, physical exam and plan: Yes
--- NOTE | 2017-12-30 13:27 | CP.PCM.CON ---
<Chiqui Garsia - Last Filed: 12/30/17 14:37> History of Present Illness - History of Present Illness History of Present Illness: PGY3 ID Consult Note for Dr. Ponce 62yo female PMHx IBS-D [on eluxadoline (Viberzi)], DM, COPD, CAD, Hypothyroid, HIV compliant with medications, Depression presents with diarrhea and abdominal pain. Patient reports these symptoms are chronic for >1 year and recently worsened from baseline although she could not quantify how many days. On admission, patient could not quantify number of BMs as she wears diapers but denied any blood/melena. She reports she ran out of Viberzi and was unable to fill her prescription and had not taken it for days. She admitted to some LLQ abdominal pain that radiated to her RLQ. She described the pain as an intermittent sharp/stabbing sensation 10/10 at its worst and could not quantify the pain at baseline. She reported decreased appetite secondary to the pain. She denied any fever/chills associated with her diarrhea but admitted to some nausea with no nonbloody/nonbilious emesis. This AM patient was seen and examined at [facility]. She reported diarrhea had resolved and she had a solid BM this morning. Denied any acute complaints of fever, chills, chest pain, palpitations, SOB, cough, abd pain, vomiting, constipation, dysuria, hematuria, pyuria, pain/swelling in her legs bilaterally. She did complain of some nausea but tolerated her diet this afternoon. Patient reports not having had a colonoscopy in years and is aware she is to follow up with Dr. Olivera upon discharge. Of note, patient follows up with [facility] in and is compliant with HAART therapy PMHx: IBS-D [on eluxadoline (Viberzi)], DM, COPD, CAD, Hypothyroid, HIV compliant with medications, Depression PSurgHx: Vent hernia repair x 2, CSPY Dec 2014 with tubular adenoma and diverticulosis. EGD in Feb 2015 with erosive gastritis (biopsies negative) Meds: reviewed (on HAART), plavix SocHx: +Tob 1/2ppd for 45 years, Social EtOH, denied ill drug use All: NKDA Review of Systems - Review of Systems All systems: reviewed and no additional remarkable complaints except Review of Systems: as per HPI Past Patient History - Infectious Disease Hx of Infectious Diseases: None - Tetanus Immunizations Tetanus Immunization: Unknown - Past Medical History & Family History Past Medical History?: Yes - Past Social History Smoking Status: Heavy Smoker > 10 Cigarettes Daily - CARDIAC Hx Cardiac Disorders: Yes Hx Congestive Heart Failure: Yes Hx Hypertension: Yes Other/Comment: CAD - PULMONARY Hx Respiratory Disorders: Yes Hx Asthma: Yes Hx Chronic Obstructive Pulmonary Disease (COPD): Yes - NEUROLOGICAL HX Cerebrovascular Accident: No - HEENT Hx HEENT Problems: No Hx Blind: No Hx Cataracts: No Hx Deafness: No Hx Difficulty Chewing: No Hx Epistaxis: No Hx Glaucoma: No Hx Macular Degeneration: No - RENAL Hx Renal Failure: No - ENDOCRINE/METABOLIC Hx Endocrine Disorders: Yes Hx Diabetes Mellitus Type 2: Yes Hx Hypothyroidism: No - HEMATOLOGICAL/ONCOLOGICAL Hx Blood Disorders: Yes Hx Anemia: Yes Hx Blood Transfusions: Yes - INTEGUMENTARY Hx Dermatological Problems: No Hx Basil Cell: No Hx Eczema: No Hx Melanoma: No Hx Psoriasis: No Hx Squamous Cell: No - MUSCULOSKELETAL/RHEUMATOLOGICAL Hx Musculoskeletal Disorders: Yes Hx Arthritis: Yes Hx Falls: No Hx Rheumatoid Arthritis: Yes - GASTROINTESTINAL Hx Gastrointestinal Disorders: Yes Hx Diarrhea: Yes (chronic diarrhea with bowel incontinence) Hx Gastroesophageal Reflux: No Hx Irritable Bowel: Yes Other/Comment: colonoscopy 12/23/14: colitis, descending colon polyp, Diverticulosis - GENITOURINARY/GYNECOLOGICAL Hx Genitourinary Disorders: No Hx Hematuria: No Hx Incontinence: No Hx Sexually Transmitted Disorders: No Hx Urinary Tract Infection: Yes - PSYCHIATRIC Hx Psychophysiologic Disorder: Yes (attempted suicide) Hx Anxiety: Yes Hx Depression: Yes Hx Emotional Abuse: No Hx Physical Abuse: No Hx Substance Use: No - SURGICAL HISTORY Hx Section: Yes Hx Cholecystectomy: No Hx Coronary Stent: No Hx Hysterectomy: Yes - ANESTHESIA Hx Anesthesia: Yes Hx Anesthesia Reactions: No Hx Malignant Hyperthermia: No Meds Allergies/Adverse Reactions: Allergies Allergy/AdvReac Type Severity Reaction Status Date / Time No Known Allergies Allergy Verified 12/27/17 20:45 - Medications Medications: Current Medications Albuterol Sulfate (Albuterol 0.083% Inhal Keyonna (2.5 Mg/3 Ml) Ud) 2.5 mg IH [id number] PRN PRN Reason: Shortness of Breath Amlodipine Besylate (Norvasc) 10 mg PO DAILY [facility] Last Admin: 12/30/17 09:18 Dose: 10 mg Carvedilol (Coreg) 25 mg PO DAILY [facility] Last Admin: 12/30/17 09:18 Dose: 25 mg Ergocalciferol (Drisdol 50,000 Intl Units Cap) 1 cap PO MON [facility] Last Admin: 12/29/17 09:34 Dose: 1 cap Fluticasone Propionate (Flonase) 1 actuation NS DAILY [facility] Last Admin: 12/30/17 09:19 Dose: 1 spr Folic Acid (Folic Acid) 1 mg PO DAILY [facility] Last Admin: 12/30/17 09:17 Dose: 1 mg Furosemide (Lasix) 40 mg PO DAILY [facility] Last Admin: 12/30/17 09:18 Dose: 40 mg Gabapentin (Neurontin) 300 mg PO BID [facility] PRN Reason: Protocol Last Admin: 12/30/17 09:16 Dose: 300 mg Home Med (Home Med) 1 unit PO HS [facility] Last Admin: 12/29/17 21:59 Dose: Not Given Sodium Chloride (Sodium Chloride 0.9%) 1,000 mls @ 100 mls/hr IV .Q10H [facility] Last Admin: 12/30/17 05:28 Dose: 100 mls/hr Insulin Human Regular (Humulin R Low) [address] [facility] PRN Reason: Protocol Last Admin: 12/30/17 12:34 Dose: Not Given Lactobacillus Acidophilus (Bacid Acidophilus) 1 cap PO BID [facility] Last Admin: 12/30/17 09:15 Dose: 1 cap Montelukast Sodium (Singulair) 10 mg PO [facility] Last Admin: 12/29/17 22:01 Dose: 10 mg Morphine Sulfate (Morphine) 2 mg IVP Q4H PRN PRN Reason: Pain, moderate (4-7) Multivitamins/Minerals (Therapeutic-M Tab) 1 tab PO DAILY [facility] Last Admin: 12/30/17 09:16 Dose: 1 tab Non-Formulary Medication (Eluxadoline [Viberzi]) 75 mg PO DAILY [facility] Last Admin: 12/30/17 12:32 Dose: Not Given Non Formulary Medication ( Darunavir Ethanolate [Prezista] 800 Mg) 800 mg PO DAILY [facility] Last Admin: 12/30/17 12:03 Dose: 800 mg Melatonin [Melatonin (] 5mg 1 Tab) 1 tab PO [facility] Non-Formulary Medication (Dolutegravir Sodium [Tivicay]) 50 mg PO DAILY [facility] Last Admin: 12/30/17 12:12 Dose: 50 mg Non-Formulary Medication (Budesonide/Formoterol Fumarate [Symbicort 160-4.5 Mcg Inhaler]) 1 aer IH DAILY [facility] Last Admin: 12/30/17 12:02 Dose: 1 aer [id number] Ethyl Esters (Lovaza) 1 gm PO DAILY [facility] Last Admin: 12/30/17 09:15 Dose: 1 gm Ondansetron HCl (Zofran Inj) 4 mg IVP Q4H PRN PRN Reason: Nausea/Vomiting Pantoprazole Sodium (Protonix Ec Tab) 40 mg PO 0600 [facility] Last Admin: 12/30/17 05:26 Dose: 40 mg Propranolol HCl (Inderal) 20 mg PO TID [facility] Last Admin: 12/30/17 09:17 Dose: 20 mg Ritonavir (Norvir) 100 mg PO BRKDIN [facility] Last Admin: 12/30/17 09:16 Dose: 100 mg Sertraline HCl (Zoloft) 100 mg PO DAILY [facility] Last Admin: 12/30/17 09:16 Dose: 100 mg Physical Exam - Constitutional Appears: Non-toxic, No Acute Distress - Head Exam Head Exam: ATRAUMATIC, NORMAL INSPECTION, NORMOCEPHALIC - Eye Exam Eye Exam: EOMI, Normal appearance, PERRL. absent: Conjunctival injection, Scleral icterus Pupil Exam: NORMAL ACCOMODATION - ENT Exam ENT Exam: Mucous Membranes Dry - Neck Exam Neck exam: Positive for: Full Rom. Negative for: Lymphadenopathy - Respiratory Exam Respiratory Exam: Clear to Auscultation Bilateral, NORMAL BREATHING PATTERN. absent: Accessory Muscle Use, Rales, Rhonchi, Wheezes, Respiratory Distress - Cardiovascular Exam Cardiovascular Exam: +S1, +S2. absent: Bradycardia, Tachycardia - GI/Abdominal Exam GI & Abdominal Exam: Normal Bowel Sounds, Soft, Tenderness (to palpation). absent: Distended, Firm, Guarding, Rigid - Rectal Exam Rectal Exam: Deferred - Extremities Exam Extremities exam: Positive for: normal capillary refill, normal inspection, pedal pulses present. Negative for: pedal edema - Neurological Exam Neurological exam: Alert, CN II-XII Intact, Oriented x3 - Psychiatric Exam Psychiatric exam: Normal Affect, Normal Mood - Skin Skin Exam: Dry, Intact, Normal Color Results - Vital Signs Recent Vital Signs: Last Vital Signs Temp 97.8 F 12/30/17 06:00 Pulse 68 12/30/17 09:18 Resp 18 12/30/17 06:00 BP 148/74 12/30/17 09:18 Pulse Ox 94 L 12/30/17 06:00 - Labs Result Diagrams: 12/30/17 06:00 12/30/17 06:00 Labs: Laboratory Results - last 24 hr 12/29/17 12/29/17 12/29/17 11:10 16:06 21:35 WBC RBC Hgb Hct MCV MCH MCHC RDW Plt Count MPV Sodium Potassium Chloride Carbon Dioxide Anion Gap BUN Creatinine Est GFR ( Amer) Est GFR (Non-Af Amer) POC Glucose (mg/dL) 176 H 199 H 181 H Random Glucose Calcium 12/30/17 12/30/17 12/30/17 06:00 06:00 06:54 WBC 7.5 RBC 4.65 Hgb 12.4 Hct 37.2 MCV 80.0 MCH 26.7 MCHC 33.3 RDW 15.9 H Plt Count 206 MPV 10.3 Sodium 143 Potassium 3.2 L Chloride 108 H Carbon Dioxide 27 Anion Gap 12 BUN 12 Creatinine 0.9 Est GFR ( Amer) > 60 Est GFR (Non-Af Amer) > 60 POC Glucose (mg/dL) 215 H Random Glucose 180 H Calcium 9.0 12/30/17 11:03 WBC RBC Hgb Hct MCV MCH MCHC RDW Plt Count MPV Sodium Potassium Chloride Carbon Dioxide Anion Gap BUN Creatinine Est GFR ( Amer) Est GFR (Non-Af Amer) POC Glucose (mg/dL) 147 H Random Glucose Calcium Assessment & Plan - Assessment and Plan (Free Text) Assessment: 62yo female PMHx IBS-D [on eluxadoline (Viberzi)], DM, COPD, CAD, Hypothyroid, HIV compliant with medications, Depression presents with diarrhea and abdominal pain. ID consulted for Urine culture growing gram negative rods Plan: -abdominal pain and diarrhea resolved and patient tolerating PO diet -urine culture: Gram negative rods -patient does not need any abx at this time -C Diff negative -blood culture prelim negative x 2 -f/u stool culture -CT A/P: no acute abd or pelvic abnl; s/p ventral hernia repair; small infraumbilical ventral hernia containing nonobstructed small bowel lobes -continue current management Discussed with Dr. Rosario Garsia PGY3 <Jerry Ponce - Last Filed: 12/30/17 14:44> Meds - Medications Medications: Current Medications Albuterol Sulfate (Albuterol 0.083% Inhal Keyonna (2.5 Mg/3 Ml) Ud) 2.5 mg IH [id number] PRN PRN Reason: Shortness of Breath Amlodipine Besylate (Norvasc) 10 mg PO DAILY [facility] Last Admin: 12/30/17 09:18 Dose: 10 mg Carvedilol (Coreg) 25 mg PO DAILY [facility] Last Admin: 12/30/17 09:18 Dose: 25 mg Ergocalciferol (Drisdol 50,000 Intl Units Cap) 1 cap PO MON [facility] Last Admin: 12/29/17 09:34 Dose: 1 cap Fluticasone Propionate (Flonase) 1 actuation NS DAILY [facility] Last Admin: 12/30/17 09:19 Dose: 1 spr Folic Acid (Folic Acid) 1 mg PO DAILY [facility] Last Admin: 12/30/17 09:17 Dose: 1 mg Furosemide (Lasix) 40 mg PO DAILY [facility] Last Admin: 12/30/17 09:18 Dose: 40 mg Gabapentin (Neurontin) 300 mg PO BID [facility] PRN Reason: Protocol Last Admin: 12/30/17 09:16 Dose: 300 mg Home Med (Home Med) 1 unit PO HS [facility] Last Admin: 12/29/17 21:59 Dose: Not Given Sodium Chloride (Sodium Chloride 0.9%) 1,000 mls @ 100 mls/hr IV .Q10H [facility] Last Admin: 12/30/17 05:28 Dose: 100 mls/hr Insulin Human Regular (Humulin R Low) 0 units SC ACHS [facility] PRN Reason: Protocol Last Admin: 12/30/17 12:34 Dose: Not Given Lactobacillus Acidophilus (Bacid Acidophilus) 1 cap PO BID [facility] Last Admin: 12/30/17 09:15 Dose: 1 cap Montelukast Sodium (Singulair) 10 mg PO HS [facility] Last Admin: 12/29/17 22:01 Dose: 10 mg Morphine Sulfate (Morphine) 2 mg IVP Q4H PRN PRN Reason: Pain, moderate (4-7) Multivitamins/Minerals (Therapeutic-M Tab) 1 tab PO DAILY [facility] Last Admin: 12/30/17 09:16 Dose: 1 tab Non-Formulary Medication (Eluxadoline [Viberzi]) 75 mg PO DAILY [facility] Last Admin: 12/30/17 12:32 Dose: Not Given Non Formulary Medication ( Darunavir Ethanolate [Prezista] 800 Mg) 800 mg PO DAILY [facility] Last Admin: 12/30/17 12:03 Dose: 800 mg Melatonin [Melatonin (] 5mg 1 Tab) 1 tab PO [facility] Non-Formulary Medication (Dolutegravir Sodium [Tivicay]) 50 mg PO DAILY [facility] Last Admin: 12/30/17 12:12 Dose: 50 mg Non-Formulary Medication (Budesonide/Formoterol Fumarate [Symbicort 160-4.5 Mcg Inhaler]) 1 aer IH DAILY [facility] Last Admin: 12/30/17 12:02 Dose: 1 aer [id number]-[id number] Ethyl Esters (Lovaza) 1 gm PO DAILY [facility] Last Admin: 12/30/17 09:15 Dose: 1 gm Ondansetron HCl (Zofran Inj) 4 mg IVP Q4H PRN PRN Reason: Nausea/Vomiting Pantoprazole Sodium (Protonix Ec Tab) 40 mg PO 0600 [facility] Last Admin: 12/30/17 05:26 Dose: 40 mg Propranolol HCl (Inderal) 20 mg PO TID [facility] Last Admin: 12/30/17 13:24 Dose: 20 mg Ritonavir (Norvir) 100 mg PO BRKDIN [facility] Last Admin: 12/30/17 09:16 Dose: 100 mg Sertraline HCl (Zoloft) 100 mg PO DAILY [facility] Last Admin: 12/30/17 09:16 Dose: 100 mg Results - Vital Signs Recent Vital Signs: Last Vital Signs Temp 97.8 F 12/30/17 06:00 Pulse 72 12/30/17 13:24 Resp 18 12/30/17 06:00 BP 147/82 12/30/17 13:24 Pulse Ox 94 L 12/30/17 06:00 - Labs Result Diagrams: 12/30/17 06:00 12/30/17 06:00 Labs: Laboratory Results - last 24 hr 12/29/17 12/29/1712/29/18 11:10 16:06 21:35 WBC RBC Hgb Hct MCV MCH MCHC RDW Plt Count MPV Sodium Potassium Chloride Carbon Dioxide Anion Gap BUN Creatinine Est GFR ( Amer) Est GFR (Non-Af Amer) POC Glucose (mg/dL) 176 H 199 H 181 H Random Glucose Calcium 12/30/17 12/30/17 12/30/17 06:00 06:00 06:54 WBC 7.5 RBC 4.65 Hgb 12.4 Hct 37.2 MCV 80.0 MCH 26.7 MCHC 33.3 RDW 15.9 H Plt Count 206 MPV 10.3 Sodium 143 Potassium 3.2 L Chloride 108 H Carbon Dioxide 27 Anion Gap 12 BUN 12 Creatinine 0.9 Est GFR ( Amer) > 60 Est GFR (Non-Af Amer) > 60 POC Glucose (mg/dL) 215 H Random Glucose 180 H Calcium 9.0 12/30/17 11:03 WBC RBC Hgb Hct MCV MCH MCHC RDW Plt Count MPV Sodium Potassium Chloride Carbon Dioxide Anion Gap BUN Creatinine Est GFR ( Amer) Est GFR (Non-Af Amer) POC Glucose (mg/dL) 147 H Random Glucose Calcium Assessment & Plan - Assessment and Plan (Free Text) Plan: Gastroenteritis/ gram neg xi in uc asymptomatic/ no abx needed
[2017-12-30 15:13] VITALS: BP 129/84; PULSE 69; TEMP 98.2; O2SAT 96
--- NOTE | 2017-12-30 16:11 | CON ---
Copied To: Raj Duncan MD Attending MD: Raj Duncan MD DATE: 12/30/2017 NEUROLOGY CONSULTATION CHIEF COMPLAINT: Dizziness. HISTORY OF PRESENT ILLNESS: This is a 62-year-old -[place] woman with past medical history of IBS, diabetes mellitus, COPD, CAD, hypothyroidism, chronic diarrhea, HIV with compliant with medications, came with diarrhea and abdominal pain which have mildly improved, but has still some mild diarrhea, was consulted for dizziness in terms of gets lightheaded. She does have features of diabetic peripheral neuropathy on neuro examination. Currently, she is much stable and Romberg's is negative, but she has frequent hyperglycemic accelerations which makes her dizzy. Currently, she is stable. PAST MEDICAL HISTORY: As above. SOCIAL HISTORY: No illicit drug use ETOH abuse at this time except for she is a chronic smoker, smoking half a pack per day and has been given smoking counseling. REVIEW OF SYSTEMS: A 14-point review of system is negative except as per the HPI. ALLERGIES: NO KNOWN DRUG ALLERGIES. MEDICATIONS: Reviewed by nurse per reconciliation sheet. LABORATORY DATA: Sodium is 143, potassium 3.2, chloride 108, carbon dioxide 27. BUN of 12, creatinine of 0.9. Random glucose 180. PHYSICAL EXAMINATION VITAL SIGNS: Temperature afebrile, pulse rate 72, blood pressure 147/82, and respiratory rate of 16. GENERAL: The patient is sitting up in bed, in no acute distress. HEENT: Head is atraumatic and normocephalic. PERRLA. Extraocular muscles intact. NECK: Supple. No JVD. No adenopathy noted. LUNGS: Clear to auscultation. No adventitious sounds. HEART: S1 and S2, normal rate and rhythm. No murmurs, rubs, or gallops. ABDOMEN: Soft, nontender, and nondistended. Bowel sounds are present. EXTREMITIES: No clubbing. No cyanosis. Peripheral pulses are 2+ felt bilaterally. NEUROLOGIC: The patient is alert and oriented to person, place, month, and year. Speech is fluent without any errors. Cranial nerves II through XII are intact. Motor exam: Moves all extremities equally. No pronator drift seen. Sensory exam: Decreased light touch and pinprick up to the calves bilaterally. Decreased vibration of the toes. DTRs are 2+ throughout, 1 at both knees and ankles. Coordination: [id number] intact. No dysmetria noted. Gait is slightly wide based. Romberg's is negative. ASSESSMENT AND PLAN AND IMPRESSION: Her dizziness is more likely multifactorial likely secondary to underlying current medical conditions in terms of chronic diarrhea as well as some transient hyperglycemic accelerations. She has also underlying diabetic peripheral neuropathy from uncontrolled diabetes and is on Neurontin for neuropathic relief. At this time, we will recommend; 1. Avoid sudden movements. 2. Salt restriction in diet. 3. Keep systolic blood pressure between 130s to 140s and diastolic 70s to 80s. 4. Continue with gabapentin 300 mg p.o. b.i.d. for neuropathic relief. 5. Follow up as an outpatient for any further complaints of dizziness as well as neuropathy workup. At this time, continue with current present medical management. Avoid over-sedating meds. Thank you for this consult. She is currently stable for discharge. Raj Duncan MD
--- NOTE | 2017-12-31 21:37 | DS ---
Copied To: Lois Croft MD Attending MD: Lois Croft MD CHIEF COMPLAINTS: Abdominal pain, dizziness, diarrhea. HISTORY OF PRESENT ILLNESS: Ms. Lu Roa is a 62-year-old lady with past medical history of HIV positive, hepatitis, diabetes mellitus, coronary artery disease, diabetic neuropathy, diabetic nephropathy, COPD, anemia, arthritis, hypothyroidism, irritable bowel syndrome, came to the emergency room with recurrent diarrhea, abdominal pain, history of vomiting. The patient states she is unable to keep anything down other than occasional liquid drinks. The patient is complaining of dizziness with occasional abdominal cramps. No fever, no chills. No urinary symptoms. We did CAT scan of the abdomen and pelvis, reviewed by me. Seen by Dr. Raj Duncan for dizziness, he cleared the patient. Seen by Dr. Jerry Ponce to rule out UTI, he cleared the patient. Seen by GI, Dr. Olivera also. The patient improved, discharged home. Follow up with all her doctors as outpatient. The patient was seen by Dr. Torres also. The patient had a little bit umbilical hernia, but the hernia is not symptomatic. PAST MEDICAL HISTORY: As above. Hypertension, coronary artery disease, COPD, asthma, diabetes mellitus type 2, arthritis, rheumatoid arthritis, chronic diarrhea with bowel incontinence, irritable bowel syndrome, anxiety, transvaginal mesh. FAMILY HISTORY: Father and mother, noncontributory. HABITS: Heavy smoking, more than 10 cigarettes a day. Alcohol, yes. Substance abuse, no. ALLERGIES: THE PATIENT IS NOT ALLERGIC WITH ANY MEDICATIONS. HOME MEDICATIONS: Reviewed by me. REVIEW OF SYSTEMS: The patient was seen and examined on the bedside, looking comfortable. No nausea, vomiting, or diarrhea. No hematuria or hematochezia. No swelling of the legs. No chest pain. No palpitations. Abdominal pain is better. No headache. No dizziness. The patient is much stable, Romberg's is negative. The patient has frequent hyperglycemic attacks that is making her dizzy. PHYSICAL EXAMINATION: VITAL SIGNS: Temperature 98.6, pulse 72, blood pressure 147/82, respiratory rate 16. HEENT: Head is normocephalic and atraumatic. Eyes: PERRLA. Extraocular muscles are intact. Conjunctivae clear. Nose patent. Mucous membranes are moist. NECK: Supple. No carotid bruit. No JVD or thyromegaly. CHEST: Bilaterally symmetrical. HEART: S1, S2 positive. LUNGS: Clear to auscultation. ABDOMEN: Soft. Bowel sounds are present. No organomegaly. EXTREMITIES: No edema. No cyanosis. NEUROLOGIC: The patient is awake and alert. Moving all four extremities. No focal deficit. LABORATORY DATA: White blood cells 7.5, hemoglobin 12.4, hematocrit 37.2, and platelets 206. Sodium 142, potassium 3.2, BUN 12, creatinine 0.9, glucose 147. MEDICATIONS: Lactobacillus acidophilus, inhalers, Coreg, HIV medications, vitamin D, Viberzi, Flonase, folic acid, Inderal. ASSESSMENT AND PLAN: Ms. Lu Roa is a 62-year-old female with human immunodeficiency virus positive, stable, getting medications; hypokalemia, replaced; uncontrolled diabetes mellitus; urinalysis has gram-negative rods, Infectious Disease consult called, he cleared the patient; came with dizziness, her dizziness is likely multifactorial, likely secondary to underlying current medical condition in the terms of chronic diarrhea as well as some transient hyperglycemic accelerations; she had diabetic peripheral neuropathy, diabetic nephropathy, uncontrolled diabetes actually; the patient is on Neurontin for neuropathic relief; history of human immunodeficiency virus positive; according to neurologist, try to avoid sudden movements, salt restriction with diet. Continue gabapentin. Follow up as outpatient. Avoid over-sedating medications; history of chronic obstructive pulmonary disease; asthma; coronary artery disease; hypothyroidism; history of chronic diarrhea; irritable bowel syndrome, he is under care of GI; discussion done with nurse practitioner. Repeat labs. We will follow up. Lois Croft MD
== END 2017-12-30 16:47 | disposition home or self-care (01) | DRG 392 ==
LOC: ED 20:32 → ERH 12-28 00:48 → 5RSO 12-28 01:43
PROVIDERS: ADMIT Internal Medicine; ATTEND Internal Medicine
DX: K58.0 Irritable bowel syndrome with diarrhea (principal); E86.0 Dehydration; Z21 Asymptomatic human immunodeficiency virus [HIV] infection status; E11.42 Type 2 diabetes mellitus with diabetic polyneuropathy; E11.21 Type 2 diabetes mellitus with diabetic nephropathy; E11.65 Type 2 diabetes mellitus with hyperglycemia; M06.9 Rheumatoid arthritis, unspecified; E87.6 Hypokalemia; I11.0 Hypertensive heart disease with heart failure; I50.9 Heart failure, unspecified; K57.90 Diverticulosis of intestine, part unspecified, without perforation or abscess without bleeding; I25.10 Atherosclerotic heart disease of native coronary artery without angina pectoris; F32.9 Major depressive disorder, single episode, unspecified; E03.9 Hypothyroidism, unspecified; F17.210 Nicotine dependence, cigarettes, uncomplicated; J44.9 Chronic obstructive pulmonary disease, unspecified; Z79.4 Long term (current) use of insulin; Z79.02 Long term (current) use of antithrombotics/antiplatelets; Z87.440 Personal history of urinary (tract) infections

== ENCOUNTER 2018-03-09 01:13 | Observation (INO) | payer MEDICARE, MEDICAID ==
[2018-03-09] MEDS ORDERED: Sodium Chloride 0.9% 1,000 ML IV STA ×3 (01:39→08:41)
[2018-03-09] MEDS ORDERED: Morphine 4 mg/ml ISec IVP STA ×4 (01:39→04:46)
[2018-03-09] MEDS ORDERED: Morphine 4 mg/ml ISec ONE (01:42)
--- NOTE | 2018-03-09 01:57 | ED PDOC ---
Arrival/HPI - General Chief Complaint: Abdominal Pain Time Seen by Provider: 03/09/18 01:35 Historian: Patient - History of Present Illness Narrative History of Present Illness (Text): 03/09/18 01:40 Lu Roa is a 63 year old female, whose past medical history includes ventral hernia repair x2, HIV, hepatitis, diabetes, CAD, diabetic neuropathy, nephropathy, COPD, anemia, arthritis, hypothyroidism, and IBS, who presents to the ED complaining of LLQ abdominal pain tonight. Patient reports chronic diarrhea secondary to her IBS. Patient denies any fever, chills, chest pain, shortness of breath, urinary symptoms, back pain, neck pain, headache, dizziness, or any other complaints. Symptom Onset: Gradual Symptom Course: Unchanged Activities at Onset: Light Context: Home Past Medical History - Provider Review Nursing Documentation Reviewed: Yes - Infectious Disease Hx of Infectious Diseases: None - Tetanus Immunization Tetanus Immunization: Unknown - Cardiac Hx Cardiac Disorders: Yes Hx Congestive Heart Failure: Yes Hx Hypertension: Yes Other/Comment: CAD - Pulmonary Hx Respiratory Disorders: Yes Hx Asthma: Yes Hx Chronic Obstructive Pulmonary Disease (COPD): Yes - Neurological HX Cerebrovascular Accident: No - HEENT Hx HEENT Disorder: No Hx Blind: No Hx Cataracts: No Hx Deafness: No Hx Difficulty Chewing: No Hx Epistaxis: No Hx Glaucoma: No Hx Macular Degeneration: No - Renal Hx Renal Failure: No - Endocrine/Metabolic Hx Endocrine Disorders: Yes Hx Diabetes Mellitus Type 2: Yes Hx Hypothyroidism: No - Hematological/Oncological Hx Blood Disorders: Yes Hx Anemia: Yes Hx Blood Transfusions: Yes - Integumentary Hx Dermatological Disorder: No Hx Basal Cell Carcinoma: No Hx Eczema: No Hx Melanoma: No Hx Psoriasis: No Hx Squamous Cell Carcinoma: No - Musculoskeletal/Rheumatological Hx Musculoskeletal Disorders: Yes Hx Arthritis: Yes Hx Falls: No Hx Rheumatoid Arthritis: Yes - Gastrointestinal Hx Gastrointestinal Disorders: Yes Hx Diarrhea: Yes (chronic diarrhea with bowel incontinence) Hx Gastroesophageal Reflux: No Hx Irritable Bowel: Yes Other/Comment: colonoscopy 12/23/14: colitis, descending colon polyp, Diverticulosis - Genitourinary/Gynecological Hx Genitourinary Disorders: No Hx Hematuria: No Hx Incontinence: No Hx Sexually Transmitted Diseases: No Hx Urinary Tract Infection: Yes - Psychiatric Hx Psychophysiologic Disorder: Yes (attempted suicide) Hx Anxiety: Yes Hx Depression: Yes Hx Emotional Abuse: No Hx Physical Abuse: No Hx Substance Use: No - Surgical History Hx Section: Yes Hx Cholecystectomy: No Hx Coronary Stent: No Hx Hysterectomy: Yes - Anesthesia Hx Anesthesia: Yes Hx Anesthesia Reactions: No Hx Malignant Hyperthermia: No - Suicidal Assessment Feels Threatened In Home Enviroment: No Family/Social History - Physician Review Nursing Documentation Reviewed: Yes Family/Social History: Unknown Family HX Smoking Status: Heavy Smoker > 10 Cigarettes Daily Hx Alcohol Use: Yes Hx Substance Use: No Hx Substance Use Treatment: No Allergies/Home Meds Allergies/Adverse Reactions: Allergies No Known Allergies Allergy (Verified 03/09/18 01:16) Home Medications: Home Meds Medication Instructions Recorded Confirmed Albuterol Sulfate [Proair Hfa] 0.09 mg IH BID PRN 07/08/16 03/09/18 Budesonide/Formoterol Fumarate 1 aer IH DAILY 07/08/16 03/09/18 [Symbicort 160-4.5 Mcg Inhaler] Carvedilol [Coreg] 25 mg PO DAILY 07/08/16 03/09/18 Clopidogrel [Plavix] 75 mg PO DAILY 07/08/16 03/09/18 Darunavir Ethanolate [Prezista] 600 mg PO BID 07/08/16 03/09/18 Dolutegravir Sodium [Tivicay] 50 mg PO DAILY 07/08/16 03/09/18 Eluxadoline [Viberzi] 75 mg PO DAILY 07/08/16 03/09/18 Ergocalciferol (Vitamin D2) 50,000 unit PO DAILY 07/08/16 03/09/18 [Vitamin D2] Fluticasone Nasal [Flonase] 0.05 mg NS DAILY 07/08/16 03/09/18 Folic Acid 1 mg PO DAILY 07/08/16 03/09/18 Furosemide [Lasix] 40 mg PO DAILY 07/08/16 03/09/18 Gabapentin [Neurontin] 300 mg PO BID 07/08/16 03/09/18 Imipramine [Tofranil] 25 mg PO HS 07/08/16 03/09/18 Montelukast Sodium [Singulair] 10 mg PO DAILY 07/08/16 03/09/18 Jlleb-4-Wtyy Ethyl Esters 1 GM 1 gm PO DAILY 07/08/16 03/09/18 [Lovaza] Pantoprazole [Protonix EC Tab] 40 mg PO DAILY 07/08/16 03/09/18 Propranolol [Inderal] 20 mg PO TID 07/08/16 03/09/18 Ritonavir [Norvir] 100 mg PO BID 07/08/16 03/09/18 Sertraline [Zoloft] 100 mg PO DAILY 07/08/16 03/09/18 Zafirlukast [Accolate] 20 mg PO BID 07/08/16 03/09/18 amLODIPine [Norvasc] 10 mg PO DAILY 07/08/16 03/09/18 Insulin Regular [HumuLIN R] 2 unit SC TID 09/24/17 03/09/18 Melatonin 1 tab PO DAILY 09/24/17 03/09/18 Vitamin B Complex 100 No.2 [B-100 1 tab PO DAILY 09/24/17 03/09/18 Complex] Review of Systems - Physician Review All systems were reviewed & negative as marked: Yes - Review of Systems Constitutional: Normal. absent: Fevers Eyes: Normal ENT: Normal Respiratory: Normal Cardiovascular: Normal Gastrointestinal: Abdominal Pain, Diarrhea Genitourinary Female: Normal. absent: Dysuria, Frequency, Hematuria, Urine Outp ut Changes Musculoskeletal: Normal. absent: Back Pain, Neck Pain Skin: Normal. absent: Rash Neurological: Normal. absent: Headache, Dizziness Endocrine: Normal Hemo/Lymphatic: Normal Psychiatric: Normal Physical Exam Vital Signs Reviewed: Yes Temperature: Afebrile Blood Pressure: Normal Pulse: Regular Respiratory Rate: Normal Appearance: Positive for: Well-Appearing, Non-Toxic, Comfortable Pain Distress: None Mental Status: Positive for: Alert and Oriented X 3 - Systems Exam Head: Present: Atraumatic, Normocephalic Pupils: Present: PERRL Extroacular Muscles: Present: EOMI Conjunctiva: Present: Normal Mouth: Present: Moist Mucous Membranes Neck: Present: Normal Range of Motion Respiratory/Chest: Present: Clear to Auscultation, Good Air Exchange. No: Respiratory Distress, Accessory Muscle Use Cardiovascular: Present: Regular Rate and Rhythm, Normal S1, S2. No: Murmurs Abdomen: Present: Tenderness (LLQ tenderness). No: Distention, Peritoneal Signs Back: Present: Normal Inspection Upper Extremity: Present: Normal Inspection. No: Cyanosis, Edema Lower Extremity: Present: Normal Inspection. No: Edema Neurological: Present: GCS=15, CN II-XII Intact, Speech Normal Skin: Present: Warm, Dry, Normal Color. No: Rashes Psychiatric: Present: Alert, Oriented x 3, Normal Insight, Normal Concentration Medical Decision Making ED Course and Treatment: 03/09/18 01:40 Impression: 63 year old female complaining of LLQ pain tonight. Plan: -- Labs, lipase -- IV fluids -- Zofran -- Pepcid -- Morphine -- Reassess and disposition Prior Visits: Notes and results from previous visits were reviewed. On 12/27/2017, pt was seen in the Emergency department for vomiting, diarrhea, decrease appetite, and abdominal cramps. Pt was admitted to the hospital for further evaluation. Progress Notes: 03/09/18 05:36 CT Abdomen and Pelvis reviewed, shows: Bilateral basilar subsegmental atelectatic pulmonary changes. nenhanced liver. Cholelithiasis and nondilated extrahepatic biliary system. Normal unenhanced spleen. Normal pancreas. Normal bilateral adrenal glands. Normal size of the right kidney. There is no right renal mass. There are no right renal calculi. There is no right hydronephrosis. Normal visualized right ureter. Normal size of the left kidney. There is no left renal mass. There are no left renal calculi. There is no left hydronephrosis. Normal visualized left ureter. 1.1 cm hypodense lesion of the left kidney, probably a complex cyst. Fluid filled stomach. Normal small intestine. Normal colon. The appendix is visualized and appears normal. There is no demonstrated peritoneal fluid. Normal abdominal aorta. Normal inferior vena cava. Normal retroperitoneum. Normal urinary bladder. There is no pelvic mass lesion or lymphadenopathy. There is no pelvic fluid. Hysterectomy. Right ovarian cysts with the largest measuring 2.3 cm. Surgical changes of the lower aspect of the anterior abdominal wall. Diastasis of the midline lower aspect of the anterior abdominal wall. Normal osseous structures. IMPRESSION: Mild constipation. Cholelithiasis without acute cholecystitis. Right ovarian cysts. Additional chronic findings, as above. Electronically signed on Mar 09, 2018 5:29:49 AM EST by: Roseline Jacob M.D., Certified by EVE, RADHA, Neuroradiology 03/09/18 05:[address] Croft, who is aware and agrees with plan. Accepts pt in to her service. Pt will go to [facility] observation for abdominal pain. Requests Dr. Olivera and Dr. Torres on consult. - Lab Interpretations I have reviewed the lab results: Yes - RAD Interpretation Warp Tying Machine Knotter: Radiologist - Medication Orders Current Medication Orders: Sodium Chloride (Sodium Chloride 0.9%) 1,000 mls @ 999 mls/hr IV .Q1H1M STA Stop: 03/09/18 02:39 Discontinued Medications Famotidine (Pepcid) 20 mg IVP STAT STA Stop: 03/09/18 01:40 Morphine Sulfate (Morphine) 4 mg IVP STAT STA Stop: 03/09/18 01:40 Ondansetron HCl (Zofran Inj) 4 mg IVP ONCE ONE Stop: 03/09/18 01:40 - Scribe Statement The provider has reviewed the documentation as recorded by the Mary Jane Lowry Provider Scribe Attestation: All medical record entries made by the Scribe were at my direction and personally dictated by me. I have reviewed the chart and agree that the record accurately reflects my personal performance of the history, physical exam, medical decision making, and the department course for this patient. I have also personally directed, reviewed, and agree with the discharge instructions and disposition. Disposition/Present on Arrival - Present on Arrival Any Indicators Present on Arrival: No History of DVT/PE: No History of Uncontrolled Diabetes: No Urinary Catheter: No History of Decub. Ulcer: No History Surgical Site Infection Following: None - Disposition Have Diagnosis and Disposition been Completed?: Yes Diagnosis: Intractable abdominal pain Disposition: HOSPITALIZED Disposition Time: 05:46 Condition: STABLE Forms: [employer] ([employer])
[2018-03-09 02:09] LABS: HEMOGLOBIN 13.3 g/dL (12.0-16.0); MEAN CORPUSCULAR HEMOGLOBIN 28.3 pg (25.0-35.0); MEAN CORPUSCULAR HGB CONC 33.9 g/dl (31.0-37.0); MEAN PLATELET VOLUME 10.3 fl (7.0-11.0); RBC 4.7 10^6/uL (3.5-6.1); RED CELL DISTRIBUTION WIDTH 14.6 % (11.5-14.5); WHITE BLOOD COUNT 8.5 10^3/uL (4.5-11.0)
[2018-03-09 02:15] LABS: ALBUMIN 3.8 g/dL (3.0-4.8); CALCIUM 9.2 mg/dL (8.4-10.5)
[2018-03-09 02:16] LABS: MEAN CELL VOLUME 83.4 fl (80.0-105.0)
[2018-03-09] MEDS ORDERED: Potassium Chloride 20 mEq ER Tab PO STA (02:28)
--- NOTE | 2018-03-09 08:13 | CP.PCM.CON ---
<Bridget Gleason - Last Filed: 03/09/18 08:41> History of Present Illness - History of Present Illness History of Present Illness: Bridget Gleason, PGY-1, Surgery Consult Note for Dr. Torres 63 year old female with past medical history of IBS, diabetes mellitus type 2, COPD, CAD, hypothyroidism, HIV, asthma, depression, PUD presents with sharp stabbing, nonradiating, intermittent left lower quadrant abdominal pain that started last night. Movement exacerbates the pain, but patient has no remitting factors. Patient denies any episodes of nausea and vomiting. Patient has had intermittent pain in her left lower quadrant but reported that this pain was worse than her previous pain. Patient's last bowel movement was 2 days ago and has not passed gas since that time. Patient's appetite has been poor since after eating breakfast yesterday morning. Patient denies nausea, vomiting, fever, headache, chills, chest pain, heart palpitations, shortness of breath. PMH: as stated above PSH: ventral hernia repairx2 by Dr. Martin, hysterectomy with removal of 1 ovary, FMHx: mother: at 56 due to CAD, father at unknown age due to bleeding gastric ulcers, aunt had breast cancer SHx: smokes 7-8 cigarettes a day, drinks occassionally, no current recreational drug use Allergies: NKDA PMD: Dr. Amaya Review of Systems - Constitutional Constitutional: absent: Anorexia, Chills, Fever, Increased Appetite - EENT Eyes: absent: Blurred Vision Ears: absent: Decreased Hearing Nose/Mouth/Throat: absent: Dysphagia, Sore Throat - Cardiovascular Cardiovascular: absent: Chest Pain - Respiratory Respiratory: absent: Dyspnea - Gastrointestinal Gastrointestinal: Abdominal Pain (llq), Constipation. absent: Dysphagia, Nausea, Vomiting - Genitourinary Genitourinary: absent: Dysuria, Hematuria - Musculoskeletal Musculoskeletal: absent: Arthralgias - Neurological Neurological: Dizziness, Numbness, Tingling. absent: Headaches, Tremor - Endocrine Endocrine: Polydipsia Past Patient History - Infectious Disease Hx of Infectious Diseases: None - Tetanus Immunizations Tetanus Immunization: Unknown - Past Medical History & Family History Past Medical History?: Yes - Past Social History Smoking Status: Heavy Smoker > 10 Cigarettes Daily - CARDIAC Hx Cardiac Disorders: Yes Hx Congestive Heart Failure: Yes Hx Hypertension: Yes Other/Comment: CAD - PULMONARY Hx Respiratory Disorders: Yes Hx Asthma: Yes Hx Chronic Obstructive Pulmonary Disease (COPD): Yes - NEUROLOGICAL HX Cerebrovascular Accident: No - HEENT Hx HEENT Problems: No Hx Blind: No Hx Cataracts: No Hx Deafness: No Hx Difficulty Chewing: No Hx Epistaxis: No Hx Glaucoma: No Hx Macular Degeneration: No - RENAL Hx Renal Failure: No - ENDOCRINE/METABOLIC Hx Endocrine Disorders: Yes Hx Diabetes Mellitus Type 2: Yes Hx Hypothyroidism: No - HEMATOLOGICAL/ONCOLOGICAL Hx Blood Disorders: Yes Hx Anemia: Yes Hx Blood Transfusions: Yes - INTEGUMENTARY Hx Dermatological Problems: No Hx Basil Cell: No Hx Eczema: No Hx Melanoma: No Hx Psoriasis: No Hx Squamous Cell: No - MUSCULOSKELETAL/RHEUMATOLOGICAL Hx Musculoskeletal Disorders: Yes Hx Arthritis: Yes Hx Falls: No Hx Rheumatoid Arthritis: Yes - GASTROINTESTINAL Hx Gastrointestinal Disorders: Yes Hx Diarrhea: Yes (chronic diarrhea with bowel incontinence) Hx Gastroesophageal Reflux: No Hx Irritable Bowel: Yes Other/Comment: colonoscopy 12/23/14: colitis, descending colon polyp, Diverticulosis - GENITOURINARY/GYNECOLOGICAL Hx Genitourinary Disorders: No Hx Hematuria: No Hx Incontinence: No Hx Sexually Transmitted Disorders: No Hx Urinary Tract Infection: Yes - PSYCHIATRIC Hx Psychophysiologic Disorder: Yes (attempted suicide) Hx Anxiety: Yes Hx Depression: Yes Hx Emotional Abuse: No Hx Physical Abuse: No Hx Substance Use: No - SURGICAL HISTORY Hx Section: Yes Hx Cholecystectomy: No Hx Coronary Stent: No Hx Hysterectomy: Yes - ANESTHESIA Hx Anesthesia: Yes Hx Anesthesia Reactions: No Hx Malignant Hyperthermia: No Meds Allergies/Adverse Reactions: Allergies Allergy/AdvReac Type Severity Reaction Status Date / Time No Known Allergies Allergy Verified 03/09/18 01:16 - Medications Medications: Current Medications Hydromorphone HCl (Dilaudid) 0.5 mg IVP Q6H PRN PRN Reason: Pain, moderate (4-7) Sodium Chloride (Sodium Chloride 0.9%) 1,000 mls @ 100 mls/hr IV .Q10H STA Stop: 03/09/18 15:43 Physical Exam - Constitutional Appears: Well, Non-toxic, No Acute Distress - Head Exam Head Exam: ATRAUMATIC, NORMAL INSPECTION, NORMOCEPHALIC - Eye Exam Eye Exam: EOMI Pupil Exam: PERRL - ENT Exam ENT Exam: Mucous Membranes Moist - Respiratory Exam Respiratory Exam: Clear to Auscultation Bilateral, NORMAL BREATHING PATTERN Additional comments: intermittent wheezing - Cardiovascular Exam Cardiovascular Exam: REGULAR RHYTHM - GI/Abdominal Exam GI & Abdominal Exam: Distended, Normal Bowel Sounds, Soft, Tenderness. absent: Guarding, Rebound - Extremities Exam Extremities exam: Positive for: full ROM - Neurological Exam Neurological exam: Alert, CN II-XII Intact, Oriented x3 - Psychiatric Exam Psychiatric exam: Normal Affect, Normal Mood - Skin Skin Exam: Dry, Intact, Normal Color Results - Vital Signs Recent Vital Signs: Last Vital Signs Temp 98.7 F 03/09/18 01:14 Pulse 80 03/09/18 06:04 Resp 18 03/09/18 06:04 BP 129/61 03/09/18 06:04 Pulse Ox 94 L 03/09/18 06:04 - Labs Result Diagrams: 03/09/18 01:35 03/09/18 01:35 Labs: Laboratory Results - last 24 hr 03/09/18 03/09/18 03/09/18 01:23 01:35 01:35 WBC 8.5 RBC 4.70 Hgb 13.3 Hct 39.2 MCV 83.4 D MCH 28.3 MCHC 33.9 RDW 14.6 H Plt Count 226 MPV 10.3 Sodium 142 Potassium 3.2 L Chloride 109 H Carbon Dioxide 25 Anion Gap 11 BUN 9 Creatinine 1.3 H Est GFR ( Amer) 50 Est GFR (Non-Af Amer) 41 POC Glucose (mg/dL) 242 H Random Glucose 258 H Calcium 9.2 Total Bilirubin 0.2 AST 25 ALT 17 Alkaline Phosphatase 122 Total Protein 7.6 Albumin 3.8 Globulin 3.8 Albumin/Globulin Ratio 1.0 L Lipase 131 Assessment & Plan - Assessment and Plan (Free Text) Assessment: 63 year old female with past medical history of IBS, diabetes mellitus type 2, COPD, CAD, hypothyroidism, HIV, asthma, depression, PUD presents with sharp stabbing, nonradiating, intermittent left lower quadrant abdominal pain that started last night. Patient's Abdominal CT scan showed no acute abdominal fin dings. Plan: Abdominal CT shows no acute findings. No plans for surgery at this time. Area of hernia appears to be closed on CT. No signs of free air on CT. Monitor bowel monitor. Might benefit from stool softeners vs. enema. D51/2NS at 100cc/hr. Clear liquid diet Replete electrolytes as needed. DVT prophylaxis with heparin and GI prophylaxis with protonix. Will discuss case with Dr. Torres. - Date & Time Date: 03/09/18 Time: 08:25 <Michael Torres - Last Filed: 03/10/18 19:21> Results - Vital Signs Recent Vital Signs: Last Vital Signs Temp 98.4 F 03/10/18 14:00 Pulse 70 03/10/18 14:59 Resp 20 03/10/18 14:00 BP 130/73 03/10/18 14:59 Pulse Ox 95 03/10/18 14:00 - Labs Result Diagrams: 03/10/18 07:00 03/10/18 07:00 Labs: Laboratory Results - last 24 hr 03/09/18 03/10/18 03/10/18 21:18 06:27 07:00 WBC RBC Hgb Hct MCV MCH MCHC RDW Plt Count MPV Sodium Potassium Chloride Carbon Dioxide Anion Gap BUN Creatinine Est GFR ( Amer) Est GFR (Non-Af Amer) POC Glucose (mg/dL) 145 H 114 H Random Glucose Hemoglobin A1c 7.4 H Calcium Iron TIBC % Saturation Triglycerides Cholesterol LDL Cholesterol Direct HDL Cholesterol Vitamin B12 Folate TSH 3rd Generation 03/10/18 03/10/18 03/10/18 07:00 07:00 07:00 WBC 7.3 RBC 4.57 Hgb 12.9 Hct 38.7 MCV 84.7 MCH 28.2 MCHC 33.3 RDW 15.0 H Plt Count 208 MPV 10.4 Sodium 138 Potassium 4.0 Chloride 109 H Carbon Dioxide 25 Anion Gap 8 L BUN 10 Creatinine 0.9 Est GFR ( Amer) > 60 Est GFR (Non-Af Amer) > 60 POC Glucose (mg/dL) Random Glucose 111 H Hemoglobin A1c Calcium 7.7 L Iron 68 TIBC 305 % Saturation 22 Triglycerides 259 H Cholesterol 166 LDL Cholesterol Direct 93 HDL Cholesterol 67 H Vitamin B12 314 Folate > 20.0 TSH 3rd Generation 03/10/18 03/10/18 07:00 11:18 WBC RBC Hgb Hct MCV MCH MCHC RDW Plt Count MPV Sodium Potassium Chloride Carbon Dioxide Anion Gap BUN Creatinine Est GFR ( Amer) Est GFR (Non-Af Amer) POC Glucose (mg/dL) 174 H Random Glucose Hemoglobin A1c Calcium Iron TIBC % Saturation Triglycerides Cholesterol LDL Cholesterol Direct HDL Cholesterol Vitamin B12 Folate TSH 3rd Generation 1.55 Assessment & Plan - Assessment and Plan (Free Text) Plan: Dx: Abd Pain Constipation secondary to IBS(Off Viberzi Rx Insurance issue)- getting Viberzi sample from Dr Olivera Abd low midline Diastasisis Ventral Herniorraphy(2012) Mesh Laparoscopic without closing the fascia--NOT A HERNIA NOW Tramaine restart IBS RX No surgery needed This consult done under my direct supervision Eliceo Torres MD FACS
[2018-03-09] MEDS ORDERED: Albuterol HFA 90 mcg/actuation (8 g) IH PRN (08:22)
[2018-03-09] MEDS ORDERED: Potassium Chloride 40 mEq/30 ml LIQ UD PO ONE (08:32)
[2018-03-09] MEDS ORDERED: [UNRECOGNIZED DRUG - OTHER] IV SCH (08:45)
[2018-03-09] MEDS ORDERED: D5W IV SCH (08:45)
[2018-03-09] MEDS ORDERED: POTASSIUM CH IV SCH (08:45)
[2018-03-09] MEDS ORDERED: DEXTROSE IV SCH (08:45)
[2018-03-09] MEDS ORDERED: Albuterol 0.5% Inhal Sol (2.5 mg/0.5 ml) UD IH PRN (09:05)
[2018-03-09] MEDS: Omega-3-Acid Ethyl Esters 1 GM Cap PO SCH (09:07)
[2018-03-09] MEDS: HYDROmorphone 0.5 mg/0.5 ml ISec IVP PRN ×3 (09:09→21:06)
[2018-03-09] MEDS: DARUNAVIR ETHANOLATE 600 MG PO SCH ×2 (09:15→10:00)
[2018-03-09] MEDS: Non Formulary Medication (Dolutegravir Sodium [Tivicay] 50 MG) PO SCH (09:15)
[2018-03-09] MEDS: ELUXADOLINE 75 MG PO SCH (09:15)
[2018-03-09] MEDS ORDERED: Bisacodyl 5mg EC Tab PO ONE (09:24)
[2018-03-09] MEDS ORDERED: Ergocalciferol 50,000 Intl Units Cap PO SCH ×2 (09:45→10:00)
[2018-03-09] MEDS: MELATONIN PO SCH (10:00)
[2018-03-09] MEDS ORDERED: [UNRECOGNIZED DRUG - REMARK] PO SCH ×2 (10:00)
[2018-03-09] MEDS ORDERED: Fluticasone Nasal 50 mcg/Spray NS SCH (10:00)
[2018-03-09] MEDS ORDERED: MELATONIN PO SCH (10:00)
[2018-03-09] MEDS: Non Formulary Medication (Budesonide/Formoterol Fumarate [Symbicort 160-4.5 Mcg Inhaler] 1 IH SCH (10:00)
[2018-03-09] MEDS: Fluticasone Nasal 50 mcg/Spray NS SCH (10:00)
[2018-03-09] MEDS ORDERED: Non Formulary Medication (Budesonide/Formoterol Fumarate [Symbicort 160-4.5 Mcg Inhaler] 1 IH SCH (10:00)
[2018-03-09] MEDS ORDERED: RITONAVIR 100 MG PO SCH (10:00)
--- NOTE | 2018-03-09 10:25 | CP.PCM.CON ---
<Karen Whitehead - Last Filed: 03/09/18 10:22> History of Present Illness - History of Present Illness History of Present Illness: Gastroenterology Fellow PGY6 Consult Note 63 year old female with PMH of IBS-D (noncompliant to Viberzi last 6 months), PUD 2014, HIV on HAART (no recent CD4 in chart), Diabetes, COPD, CAD, Hypothyroidism, and Depression presenting with abdominal pain. Patient notes chronic left lower abdominal pain (described as "just pain" with suddenly exacerbation last night without radiation or association to food intake, pain scale 10/10. Admits to ongoing chronic baseline daily diarrhea averaging six episodes daily. Admits to use of samples of Viberzi provided intermittently with improved stool frequency when taken. Denies nausea, vomiting, bloating, hematemesis, constipation, melena, hematochezia, or unintentional weight loss. Prior EGD/colonoscopy 2014 showed H. pylori negative severe erosive gastritis, PUD, 5mm descending tubular adenoma, and transverse diverticulosis. Family History- denies stomach cancer, colon cancer Surgical History- two ventral hernia repairs, , oophorectomy Social History- admits to tobacco abuse (7-8 cigarettes daily), social ETOH use, denies illicit drug use Review of Systems - Review of Systems Review of Systems: 12-point review of systems negative except for as above Past Patient History - Infectious Disease Hx of Infectious Diseases: None - Tetanus Immunizations Tetanus Immunization: Unknown - Past Medical History & Family History Past Medical History?: Yes - Past Social History Smoking Status: Heavy Smoker > 10 Cigarettes Daily - CARDIAC Hx Cardiac Disorders: Yes Hx Congestive Heart Failure: Yes Hx Hypertension: Yes Other/Comment: CAD - PULMONARY Hx Respiratory Disorders: Yes Hx Asthma: Yes Hx Chronic Obstructive Pulmonary Disease (COPD): Yes - NEUROLOGICAL HX Cerebrovascular Accident: No - HEENT Hx HEENT Problems: No Hx Blind: No Hx Cataracts: No Hx Deafness: No Hx Difficulty Chewing: No Hx Epistaxis: No Hx Glaucoma: No Hx Macular Degeneration: No - RENAL Hx Renal Failure: No - ENDOCRINE/METABOLIC Hx Endocrine Disorders: Yes Hx Diabetes Mellitus Type 2: Yes Hx Hypothyroidism: No - HEMATOLOGICAL/ONCOLOGICAL Hx Blood Disorders: Yes Hx Anemia: Yes Hx Blood Transfusions: Yes - INTEGUMENTARY Hx Dermatological Problems: No Hx Basil Cell: No Hx Eczema: No Hx Melanoma: No Hx Psoriasis: No Hx Squamous Cell: No - MUSCULOSKELETAL/RHEUMATOLOGICAL Hx Musculoskeletal Disorders: Yes Hx Arthritis: Yes Hx Falls: No Hx Rheumatoid Arthritis: Yes - GASTROINTESTINAL Hx Gastrointestinal Disorders: Yes Hx Diarrhea: Yes (chronic diarrhea with bowel incontinence) Hx Gastroesophageal Reflux: No Hx Irritable Bowel: Yes Other/Comment: colonoscopy 12/23/14: colitis, descending colon polyp, Diverticulosis - GENITOURINARY/GYNECOLOGICAL Hx Genitourinary Disorders: No Hx Hematuria: No Hx Incontinence: No Hx Sexually Transmitted Disorders: No Hx Urinary Tract Infection: Yes - PSYCHIATRIC Hx Psychophysiologic Disorder: Yes (attempted suicide) Hx Anxiety: Yes Hx Depression: Yes Hx Emotional Abuse: No Hx Physical Abuse: No Hx Substance Use: No - SURGICAL HISTORY Hx Section: Yes Hx Cholecystectomy: No Hx Coronary Stent: No Hx Hysterectomy: Yes - ANESTHESIA Hx Anesthesia: Yes Hx Anesthesia Reactions: No Hx Malignant Hyperthermia: No Meds Allergies/Adverse Reactions: Allergies Allergy/AdvReac Type Severity Reaction Status Date / Time No Known Allergies Allergy Verified 03/09/18 01:16 - Medications Medications: Current Medications Albuterol Sulfate (Albuterol 0.5% Inhal Keyonna (2.5 Mg/0.5 Ml) Ud) 2.5 mg IH BID PRN PRN Reason: Cough and congestion Amlodipine Besylate (Norvasc) 10 mg PO DAILY [facility] Last Admin: 03/09/18 09:08 Dose: 10 mg Carvedilol (Coreg) 25 mg PO DAILY [facility] Last Admin: 03/09/18 09:08 Dose: 25 mg Clopidogrel Bisulfate (Plavix) 75 mg PO DAILY [facility] Last Admin: 03/09/18 09:08 Dose: 75 mg Ergocalciferol (Drisdol 50,000 Intl Units Cap) 1 cap PO Q7D [facility] Fluticasone Propionate (Flonase) 1 actuation NS DAILY [facility] Folic Acid (Folic Acid) 1 mg PO DAILY [facility] Last Admin: 03/09/18 09:07 Dose: 1 mg Furosemide (Lasix) 40 mg PO DAILY [facility] Last Admin: 03/09/18 09:09 Dose: 40 mg Gabapentin (Neurontin) 300 mg PO BID [facility]; Protocol Last Admin: 03/09/18 09:09 Dose: 300 mg Heparin Sodium (Porcine) (Heparin) 5,000 units SC Q8 [facility]; Protocol Hydromorphone HCl (Dilaudid) 0.5 mg IVP Q6H PRN PRN Reason: Pain, moderate (4-7) Last Admin: 03/09/18 09:09 Dose: 0.5 mg Potassium Chloride 20 meq/ (Dextrose/Sodium Chloride) 1,010 mls @ 100 mls/hr IV .Q10H6M [facility] Insulin Human Regular (Humulin R Low) 0 units SC ACHS [facility]; Protocol Montelukast Sodium (Singulair) 10 mg PO DAILY [facility] Last Admin: 03/09/18 09:09 Dose: 10 mg Non-Formulary Medication (Darunavir Ethanolate [Prezista]) 600 mg PO BID [facility] Last Admin: 03/09/18 09:15 Dose: Not Given Non-Formulary Medication (Dolutegravir Sodium [Tivicay]) 50 mg PO DAILY [facility] Last Admin: 03/09/18 09:15 Dose: Not Given Non-Formulary Medication (Eluxadoline [Viberzi]) 75 mg PO DAILY [facility] Last Admin: 03/09/18 09:15 Dose: Not Given Non-Formulary Medication (Budesonide/Formoterol Fumarate [Symbicort 160-4.5 Mcg Inhaler]) 1 aer IH DAILY [facility] Non-Formulary Medication (Imipramine [Tofranil]) 25 mg PO HS [facility] Non-Formulary Medication (Vitamin B Complex 100 No.2 [B-100 Complex]) 1 tab PO DAILY [facility] Non-Formulary Medication (Melatonin [Melatonin]) 1 tab PO DAILY [facility] [id number] Ethyl Esters (Lovaza) 1 gm PO DAILY [facility] Last Admin: 03/09/18 09:07 Dose: 1 gm Pantoprazole Sodium (Protonix Ec Tab) 40 mg PO DAILY [facility] Propranolol HCl (Inderal) 20 mg PO TID [facility] Last Admin: 03/09/18 09:09 Dose: 20 mg Ritonavir (Norvir) 100 mg PO BID [facility] Sertraline HCl (Zoloft) 100 mg PO DAILY [facility] Last Admin: 03/09/18 09:08 Dose: 100 mg Physical Exam - Constitutional Appears: Non-toxic, No Acute Distress - Head Exam Head Exam: ATRAUMATIC, NORMOCEPHALIC - Eye Exam Eye Exam: EOMI, PERRL. absent: Scleral icterus Pupil Exam: PERRL. absent: Miosis, Mydriatic - ENT Exam ENT Exam: Mucous Membranes Moist, Normal Oropharynx - Neck Exam Neck exam: Positive for: Full Rom, Normal Inspection - Respiratory Exam Respiratory Exam: Clear to Auscultation Bilateral. absent: Rales, Rhonchi, Wh eezes - Cardiovascular Exam Cardiovascular Exam: Rubs, +S1, +S2 - GI/Abdominal Exam GI & Abdominal Exam: Normal Bowel Sounds, Soft, Tenderness. absent: Distended, Firm, Guarding, Organomegaly, Rebound, Rigid Additional comments: LLQ tenderness to palpation - Extremities Exam Extremities exam: Positive for: normal inspection. Negative for: pedal edema - Neurological Exam Neurological exam: Alert, Oriented x3 - Psychiatric Exam Psychiatric exam: Normal Affect, Normal Mood - Skin Skin Exam: Dry, Intact, Normal Color, Warm Results - Vital Signs Recent Vital Signs: Last Vital Signs Temp 98.7 F 03/09/18 01:14 Pulse 80 03/09/18 06:04 Resp 18 03/09/18 06:04 BP 127/80 03/09/18 09:09 Pulse Ox 94 L 03/09/18 06:04 - Labs Result Diagrams: 03/09/18 01:35 03/09/18 01:35 Labs: Laboratory Results - last 24 hr 03/09/18 03/09/18 03/09/18 01:23 01:35 01:35 WBC 8.5 RBC 4.70 Hgb 13.3 Hct 39.2 MCV 83.4 D MCH 28.3 MCHC 33.9 RDW 14.6 H Plt Count 226 MPV 10.3 APTT Sodium 142 Potassium 3.2 L Chloride 109 H Carbon Dioxide 25 Anion Gap 11 BUN 9 Creatinine 1.3 H Est GFR ( Amer) 50 Est GFR (Non-Af Amer) 41 POC Glucose (mg/dL) 242 H Random Glucose 258 H Calcium 9.2 Total Bilirubin 0.2 AST 25 ALT 17 Alkaline Phosphatase 122 Total Protein 7.6 Albumin 3.8 Globulin 3.8 Albumin/Globulin Ratio 1.0 L Lipase 131 03/09/18 08:50 WBC RBC Hgb Hct MCV MCH MCHC RDW Plt Count MPV APTT 30.3 Sodium Potassium Chloride Carbon Dioxide Anion Gap BUN Creatinine Est GFR ( Amer) Est GFR (Non-Af Amer) POC Glucose (mg/dL) Random Glucose Calcium Total Bilirubin AST ALT Alkaline Phosphatase Total Protein Albumin Globulin Albumin/Globulin Ratio Lipase Assessment & Plan - Assessment and Plan (Free Text) Assessment: 63 year old female with PMH of IBS-D (noncompliant to Viberzi last 6 months), HIV on HAART (no recent CD4 in chart), Diabetes, COPD, CAD, Hypothyroidism, and Depression presenting with abdominal pain. Active treatment of acute on chronic right lower abdominal pain without signs of obstruction or additional acute pathology on CT A/P without contrast. Prior EGD/colonoscopy 2014 showed H. pylori negative severe erosive gastritis, PUD, 5mm descending tubular adenoma, and transverse diverticulosis. Plan: -LLQ pain improving -endorses would like to trial soft diet -okay from GI standpoint to advance diet -diarrhea frequency at baseline -outpatient follow up for re-evaluation and consideration to restart Viberrzi -will follow clinical course <Maru Olivera V - Last Filed: 03/09/18 23:53> Meds - Medications Medications: Current Medications Albuterol Sulfate (Albuterol 0.5% Inhal Keyonna (2.5 Mg/0.5 Ml) Ud) 2.5 mg IH BID PRN PRN Reason: Cough and congestion Amlodipine Besylate (Norvasc) 10 mg PO DAILY [facility] Last Admin: 03/09/18 09:08 Dose: 10 mg Carvedilol (Coreg) 25 mg PO DAILY [facility] Last Admin: 03/09/18 09:08 Dose: 25 mg Clopidogrel Bisulfate (Plavix) 75 mg PO DAILY [facility] Last Admin: 03/09/18 09:08 Dose: 75 mg Ergocalciferol (Drisdol 50,000 Intl Units Cap) 1 cap PO Q7D [facility] Last Admin: 03/09/18 10:39 Dose: Not Given Fluticasone Propionate (Flonase) 1 actuation NS DAILY [facility] Last Admin: 03/09/18 10:00 Dose: 1 spray Folic Acid (Folic Acid) 1 mg PO DAILY [facility] Last Admin: 03/09/18 09:07 Dose: 1 mg Furosemide (Lasix) 40 mg PO DAILY [facility] Last Admin: 03/09/18 09:09 Dose: 40 mg Gabapentin (Neurontin) 300 mg PO BID [facility]; Protocol Last Admin: 03/09/18 18:17 Dose: 300 mg Heparin Sodium (Porcine) (Heparin) 5,000 units SC Q8 [facility]; Protocol Last Admin: 03/09/18 21:06 Dose: 5,000 units Hydromorphone HCl (Dilaudid) 0.5 mg IVP Q6H PRN PRN Reason: Pain, moderate (4-7) Last Admin: 03/09/18 21:06 Dose: 0.5 mg Potassium Chloride 20 meq/ (Dextrose/Sodium Chloride) 1,010 mls @ 100 mls/hr IV .Q10H6M [facility] Last Admin: 03/09/18 21:05 Dose: 100 mls/hr Insulin Human Regular (Humulin R Low) 0 units SC [facility]; Protocol Last Admin: 03/09/18 17:02 Dose: Not Given Montelukast Sodium (Singulair) 10 mg PO DAILY [facility] Last Admin: 03/09/18 09:09 Dose: 10 mg Non-Formulary Medication (Darunavir Ethanolate [Prezista]) 600 mg PO BID [facility] Last Admin: 03/09/18 10:00 Dose: Not Given Non-Formulary Medication (Dolutegravir Sodium [Tivicay]) 50 mg PO DAILY [facility] Last Admin: 03/09/18 09:15 Dose: Not Given Non-Formulary Medication (Eluxadoline [Viberzi]) 75 mg PO DAILY [facility] Last Admin: 03/09/18 09:15 Dose: Not Given Non-Formulary Medication (Budesonide/Formoterol Fumarate [Symbicort 160-4.5 Mcg Inhaler]) 1 aer IH DAILY [facility] Last Admin: 03/09/18 10:00 Dose: Not Given Non-Formulary Medication (Imipramine [Tofranil]) 25 mg PO [facility] Non-Formulary Medication (Vitamin B Complex 100 No.2 [B-100 Complex]) 1 tab PO DAILY [facility] Non-Formulary Medication (Melatonin [Melatonin]) 1 tab PO DAILY [facility] Last Admin: 03/09/18 10:00 Dose: Not Given [id number] Ethyl Esters (Lovaza) 1 gm PO DAILY [facility] Last Admin: 03/09/18 09:07 Dose: 1 gm Pantoprazole Sodium (Protonix Ec Tab) 40 mg PO DAILY [facility] Last Admin: 03/09/18 10:38 Dose: 40 mg Propranolol HCl (Inderal) 20 mg PO TID [facility] Last Admin: 03/09/18 18:17 Dose: 20 mg Ritonavir (Norvir) 100 mg PO BID [facility] Last Admin: 03/09/18 18:17 Dose: 100 mg Sertraline HCl (Zoloft) 100 mg PO DAILY [facility] Last Admin: 03/09/18 09:08 Dose: 100 mg Results - Vital Signs Recent Vital Signs: Last Vital Signs Temp 98.4 F 03/09/18 22:40 Pulse 76 03/09/18 22:40 Resp 20 03/09/18 22:40 BP 136/66 03/09/18 22:40 Pulse Ox 95 03/09/18 22:40 - Labs Result Diagrams: 03/09/18 01:35 03/09/18 01:35 Labs: Laboratory Results - last 24 hr 03/09/18 03/09/18 03/09/18 01:23 01:35 01:35 WBC 8.5 RBC 4.70 Hgb 13.3 Hct 39.2 MCV 83.4 D MCH 28.3 MCHC 33.9 RDW 14.6 H Plt Count 226 MPV 10.3 APTT Sodium 142 Potassium 3.2 L Chloride 109 H Carbon Dioxide 25 Anion Gap 11 BUN 9 Creatinine 1.3 H Est GFR ( Amer) 50 Est GFR (Non-Af Amer) 41 POC Glucose (mg/dL) 242 H Random Glucose 258 H Calcium 9.2 Total Bilirubin 0.2 AST 25 ALT 17 Alkaline Phosphatase 122 Total Protein 7.6 Albumin 3.8 Globulin 3.8 Albumin/Globulin Ratio 1.0 L Lipase 131 03/09/18 03/09/18 03/09/18 08:50 10:56 16:51 WBC RBC Hgb Hct MCV MCH MCHC RDW Plt Count MPV APTT 30.3 Sodium Potassium Chloride Carbon Dioxide Anion Gap BUN Creatinine Est GFR ( Amer) Est GFR (Non-Af Amer) POC Glucose (mg/dL) 132 H 117 H Random Glucose Calcium Total Bilirubin AST ALT Alkaline Phosphatase Total Protein Albumin Globulin Albumin/Globulin Ratio Lipase 03/09/18 21:18 WBC RBC Hgb Hct MCV MCH MCHC RDW Plt Count MPV APTT Sodium Potassium Chloride Carbon Dioxide Anion Gap BUN Creatinine Est GFR ( Amer) Est GFR (Non-Af Amer) POC Glucose (mg/dL) 145 H Random Glucose Calcium Total Bilirubin AST ALT Alkaline Phosphatase Total Protein Albumin Globulin Albumin/Globulin Ratio Lipase Attending/Attestation - Attestation I have personally seen and examined this patient.: Yes I have fully participated in the care of the patient.: Yes I have reviewed all pertinent clinical information: Yes Notes (Text): p 03/09/18 23:53
--- NOTE | 2018-03-09 10:26 | CT ---
Date of service: 03/09/2018 PROCEDURE: CT Abdomen and Pelvis without intravenous contrast HISTORY: left lower abdominal pain COMPARISON: 12/27/2017 TECHNIQUE: Without contrast.. Contrast dose: Radiation dose: Total exam DLP = 710.9 mGy-cm. This CT exam was performed using one or more of the following dose reduction techniques: Automated exposure control, adjustment of the mA and/or kV according to patient size, and/or use of iterative reconstruction technique. FINDINGS: LOWER THORAX: Unremarkable. LIVER: Unremarkable. No gross lesion or ductal dilatation. GALLBLADDER AND BILE DUCTS: Small gallstones PANCREAS: Unremarkable. No gross lesion or ductal dilatation. SPLEEN: Unremarkable. ADRENALS: Unremarkable. No mass. KIDNEYS AND URETERS: Unremarkable. No hydronephrosis. No solid mass. VASCULATURE: Unremarkable. No aortic aneurysm. Aortic calcifications are seen BOWEL: Unremarkable. No obstruction. No gross mural thickening. APPENDIX: Unremarkable. Normal appendix. PERITONEUM: Hernia mesh anterior abdominal wall. Focal bulging of the anterior abdominal wall in the lower pelvis containing segments of small bowel. No obstruction LYMPH NODES: Unremarkable. No enlarged lymph nodes. BLADDER: Unremarkable. REPRODUCTIVE: Unremarkable. BONES: No acute fracture. OTHER FINDINGS: The report concurs with the preliminary [facility] report IMPRESSION: No acute intra-abdominal findings
[2018-03-09] MEDS: Pantoprazole 40 mg EC Tab PO SCH (10:38)
[2018-03-09 10:55] VITALS: BMI 25.7
[2018-03-09] MEDS: Insulin Reg-LOW-Coverage SC SCH ×3 (11:56→22:00)
[2018-03-09] MEDS: Potassium Chloride 20 MEQ in Dextrose 5%/0.45% NS 1,000 ML IV SCH (21:05)
[2018-03-09] MEDS ORDERED: IMIPRAMINE 25 MG PO SCH ×2 (22:00)
[2018-03-10] MEDS ORDERED: Pantoprazole 40 mg EC Tab PO SCH (06:00)
[2018-03-10 07:28] LABS: HEMOGLOBIN 12.9 g/dL (12.0-16.0); MEAN CELL VOLUME 84.7 fl (80.0-105.0); MEAN CORPUSCULAR HEMOGLOBIN 28.2 pg (25.0-35.0); MEAN CORPUSCULAR HGB CONC 33.3 g/dl (31.0-37.0); MEAN PLATELET VOLUME 10.4 fl (7.0-11.0); RBC 4.57 10^6/uL (3.5-6.1); WHITE BLOOD COUNT 7.3 10^3/uL (4.5-11.0)
[2018-03-10 07:39] LABS: IRON 68 ug/dL (45-180)
[2018-03-10 07:44] LABS: BLOOD UREA NITROGEN 10 mg/dL (7-21); CALCIUM 7.7 mg/dL (8.4-10.5); GFR NON-AFRICAN AMERICAN > 60; HDL CHOLESTEROL 67 mg/dL (29-60)
[2018-03-10 07:48] LABS: % IRON SATURATION 22 % (20-55); TOTAL IRON BINDING CAPACITY 305 ug/dL (265-497)
[2018-03-10] MEDS: Potassium Chloride 20 MEQ in Dextrose 5%/0.45% NS 1,000 ML IV SCH (07:50)
[2018-03-10 07:51] LABS: LDL CHOLESTEROL 93 mg/dL (0-129)
--- NOTE | 2018-03-10 08:08 | HP ---
DATE OF EXAM: 03/09/2018 The patient seen and examined at bedside on 03/09/2018; this history and physical is for 03/09/2018. CHIEF COMPLAINT: Abdominal pain and diarrhea. HISTORY OF PRESENT ILLNESS: Ms. Lu Roa is a 63-year-old female with past medical history of ventral hernia repair times 2, HIV positive times 2, hepatitis, diabetes mellitus, coronary artery disease. The patient has history of nephropathy, COPD, anemia, arthritis, came with left lower quadrant abdominal pain, duodenitis secondary to irritable bowel syndrome. No fever. No chills. No hematuria or hematochezia. No swelling of the leg. No chest pain. No palpitation. PAST MEDICAL HISTORY: As above. Congestive heart failure, hypertension, coronary artery disease, COPD, diabetes mellitus, rheumatoid arthritis, chronic diarrhea with bowel incontinence, irritable bowel syndrome, urinary tract infection, anxiety, depression, section. FAMILY HISTORY: Father and mother, noncontributory. HABITS: Heavy smoker. Alcohol, yes. Substance abuse, no as per the patient. ALLERGIES: THE PATIENT IS NOT ALLERGIC WITH ANY MEDICATIONS. HOME MEDICATIONS: Reviewed by me. Coreg, Plavix, HIV medication , Lasix, Norvir, Zoloft. REVIEW OF SYSTEMS: The patient was seen and examined at the bedside. Still complaining of abdominal pain. No nausea, vomiting, diarrhea. No hematuria or hematochezia. No swelling of the legs. No chest pain. No palpitation. No headache. No dizziness. Complaining about abdominal pain. PHYSICAL EXAMINATION: VITAL SIGNS: Temperature 98.4, pulse 76, blood pressure 136/56, respiratory rate 20. HEENT: Head is normocephalic and atraumatic. Eyes: PERRLA. Extraocular muscles intact. Conjunctivae clear. Nose patent. Mucous membranes moist. NECK: Supple. No carotid bruits. No JVD or thyromegaly. CHEST: Bilaterally symmetrical. HEART: S1 and S2 positive. LUNGS: Clear to auscultation. ABDOMEN: Soft. Bowel sounds positive. No organomegaly. EXTREMITIES: No edema. No cyanosis. NEUROLOGIC: The patient is awake and alert. Moving all 4 extremities. No focal deficits. LABORATORY DATA: White blood cell 8.5, hemoglobin 13.2, hematocrit 39.2, platelets 226,000. Sodium 142, potassium 3.2, BUN 9, creatinine 1.3, glucose 145. ASSESSMENT AND PLAN: Ms. uL Roa is a 63-year-old lady with hypokalemia replaced, hyperchloremia, renal insufficiency, insulin dependent diabetes mellitus type 2, came with abdominal pain, history of irritable bowel syndrome, noncompliant with Viberzi due to noncoverage by the insurance, and peptic ulcer disease. The patient is on HAART medications. Chronic obstructive pulmonary disease, coronary artery disease, hyperthyroidism, depression. We admitted the patient, gastrointestinal consult with Dr. Olivera and Surgery with Dr. Terrell. Started on . Gastrointestinal and deep venous thrombosis prophylaxes. Repeat labs. We will follow up. Lois rCoft MD
--- NOTE | 2018-03-10 08:14 | CP.PCM.PN ---
Subjective - Date & Time of Evaluation Date of Evaluation: 03/10/18 Time of Evaluation: 08:11 - Subjective Subjective: Bridget Gleason, PGY-1, Surgery Progress Note for Dr. Torres. Patient seen and evaluated at bedside. Patient had no overnight events. Patient reports passing gas but has not had a bowel movement. Patient has not tolerated solid food but has been drinking water. Patient's abdominal pain has improved. She denies nausea, vomiting, chest pain, shortness of breath, dysuria, hematuria. Objective - Vital Signs/Intake and Output Vital Signs (last 24 hours): Temp Pulse Resp BP Pulse Ox 98.4 F 76 20 136/66 95 03/09/18 22:40 03/09/18 22:40 03/09/18 22:40 03/09/18 22:40 03/09/18 22:40 Intake and Output: 03/10/18 03/10/18 06:59 18:59 Intake Total 1180 Balance 1180 - Medications Medications: Current Medications Albuterol Sulfate (Albuterol 0.5% Inhal Keyonna (2.5 Mg/0.5 Ml) Ud) 2.5 mg IH BID PRN PRN Reason: Cough and congestion Amlodipine Besylate (Norvasc) 10 mg PO DAILY [facility] Last Admin: 03/09/18 09:08 Dose: 10 mg Carvedilol (Coreg) 25 mg PO DAILY [facility] Last Admin: 03/09/18 09:08 Dose: 25 mg Clopidogrel Bisulfate (Plavix) 75 mg PO DAILY [facility] Last Admin: 03/09/18 09:08 Dose: 75 mg Ergocalciferol (Drisdol 50,000 Intl Units Cap) 1 cap PO Q7D [facility] Last Admin: 03/09/18 10:39 Dose: Not Given Fluticasone Propionate (Flonase) 1 actuation NS DAILY [facility] Last Admin: 03/09/18 10:00 Dose: 1 spray Folic Acid (Folic Acid) 1 mg PO DAILY [facility] Last Admin: 03/09/18 09:07 Dose: 1 mg Furosemide (Lasix) 40 mg PO DAILY [facility] Last Admin: 03/09/18 09:09 Dose: 40 mg Gabapentin (Neurontin) 300 mg PO BID [facility]; Protocol Last Admin: 03/09/18 18:17 Dose: 300 mg Heparin Sodium (Porcine) (Heparin) 5,000 units SC Q8 [facility]; Protocol Last Admin: 03/10/18 05:16 Dose: 5,000 units Hydromorphone HCl (Dilaudid) 0.5 mg IVP Q6H PRN PRN Reason: Pain, moderate (4-7) Last Admin: 03/09/18 21:06 Dose: 0.5 mg Potassium Chloride 20 meq/ (Dextrose/Sodium Chloride) 1,010 mls @ 100 mls/hr IV .Q10H6M [facility] Last Admin: 03/10/18 07:50 Dose: 100 mls/hr Insulin Human Regular (Humulin R Low) 0 units SC ACHS [facility]; Protocol Last Admin: 03/09/18 22:00 Dose: Not Given Montelukast Sodium (Singulair) 10 mg PO DAILY [facility] Last Admin: 03/09/18 09:09 Dose: 10 mg Non-Formulary Medication (Darunavir Ethanolate [Prezista]) 600 mg PO BID [facility] Last Admin: 03/09/18 10:00 Dose: Not Given Non-Formulary Medication (Dolutegravir Sodium [Tivicay]) 50 mg PO DAILY [facility] Last Admin: 03/09/18 09:15 Dose: Not Given Non-Formulary Medication (Eluxadoline [Viberzi]) 75 mg PO DAILY [facility] Last Admin: 03/09/18 09:15 Dose: Not Given Non-Formulary Medication (Budesonide/Formoterol Fumarate [Symbicort 160-4.5 Mcg Inhaler]) 1 aer IH DAILY [facility] Last Admin: 03/09/18 10:00 Dose: Not Given Non-Formulary Medication (Imipramine [Tofranil]) 25 mg PO HS [facility] Last Admin: 03/09/18 22:00 Dose: Not Given Non-Formulary Medication (Vitamin B Complex 100 No.2 [B-100 Complex]) 1 tab PO DAILY [facility] Non-Formulary Medication (Melatonin [Melatonin]) 1 tab PO DAILY [facility] Last Admin: 03/09/18 10:00 Dose: Not Given Skvop-2-Hdyb Ethyl Esters (Lovaza) 1 gm PO DAILY [facility] Last Admin: 03/09/18 09:07 Dose: 1 gm Pantoprazole Sodium (Protonix Ec Tab) 40 mg PO DAILY [facility] Last Admin: 03/09/18 10:38 Dose: 40 mg Propranolol HCl (Inderal) 20 mg PO TID [facility] Last Admin: 03/09/18 18:17 Dose: 20 mg Ritonavir (Norvir) 100 mg PO BID [facility] Last Admin: 03/09/18 18:17 Dose: 100 mg Sertraline HCl (Zoloft) 100 mg PO DAILY [facility] Last Admin: 03/09/18 09:08 Dose: 100 mg - Labs Labs: 03/10/18 07:00 03/10/18 07:00 APTT 30.3 Seconds (25.1-36.5) 03/09/18 08:50 - Constitutional Appears: Well, Non-toxic, No Acute Distress - Head Exam Head Exam: ATRAUMATIC, NORMAL INSPECTION, NORMOCEPHALIC - Eye Exam Eye Exam: EOMI Pupil Exam: PERRL - Respiratory Exam Respiratory Exam: Clear to Ausculation Bilateral, NORMAL BREATHING PATTERN - Cardiovascular Exam Cardiovascular Exam: REGULAR RHYTHM - GI/Abdominal Exam GI & Abdominal Exam: Soft, Tenderness (minimal), Normal Bowel Sounds - Extremities Exam Extremities Exam: Full ROM - Neurological Exam Neurological Exam: Alert, Awake, CN II-XII Intact, Oriented x3 - Psychiatric Exam Psychiatric exam: Normal Affect, Normal Mood Assessment and Plan - Assessment and Plan (Free Text) Assessment: 63 year old female with past medical history of IBS, diabetes mellitus type 2, COPD, CAD, hypothyroidism, HIV, asthma, depression, PUD presents with sharp stabbing, nonradiating, intermittent left lower quadrant abdominal pain that started last night. Patient's abdominal CT scan showed no acute abdominal findings. Plan: Most likely, abdominal pain due to constipation. Continue dulcolax and monitor for bowel movements. OOB Encourage patient to consume consistent carbohydrate diet and monitor if she tolerates the diet. Replete electrolytes as needed. DVT prophylaxis with heparin. GI prophylaxis with protonix. Will discuss plan with Dr. Torres.
[2018-03-10] MEDS ORDERED: POLYETHYLENE GLYCOL 3350 17 GM/Dose PACKET PO SCH (10:00)
[2018-03-10] MEDS: Fluticasone Nasal 50 mcg/Spray NS SCH (10:13)
[2018-03-10] MEDS: Pantoprazole 40 mg EC Tab PO SCH (10:14)
[2018-03-10] MEDS: Omega-3-Acid Ethyl Esters 1 GM Cap PO SCH (10:14)
[2018-03-10] MEDS: Non Formulary Medication (Budesonide/Formoterol Fumarate [Symbicort 160-4.5 Mcg Inhaler] 1 IH SCH (10:15)
[2018-03-10] MEDS: Insulin Reg-LOW-Coverage SC SCH ×2 (10:16→12:44)
[2018-03-10] MEDS: DARUNAVIR ETHANOLATE 600 MG PO SCH (10:16)
[2018-03-10] MEDS: Non Formulary Medication (Dolutegravir Sodium [Tivicay] 50 MG) PO SCH (10:16)
[2018-03-10] MEDS: ELUXADOLINE 75 MG PO SCH (10:16)
[2018-03-10] MEDS: MELATONIN PO SCH (10:17)
--- NOTE | 2018-03-10 11:40 | CP.PCM.PN ---
<VenturaKaren - Last Filed: 03/10/18 11:41> Subjective - Date & Time of Evaluation Date of Evaluation: 03/10/18 Time of Evaluation: 11:36 - Subjective Subjective: Gastroenterology Fellow/PGY6 Progress Note Patient resolved abdominal pain. Tolerating diet. No bowel movement yesterday. A 12-point review of systems negative except for as above. Objective - Vital Signs/Intake and Output Vital Signs (last 24 hours): Temp Pulse Resp BP Pulse Ox 98.8 F 72 18 146/68 91 L 03/10/18 06:00 03/10/18 06:00 03/10/18 06:00 03/10/18 10:15 03/10/18 06:00 Intake and Output: 03/10/18 03/10/18 06:59 18:59 Intake Total 1180 Balance 1180 - Medications Medications: Current Medications Albuterol Sulfate (Albuterol 0.5% Inhal Keyonna (2.5 Mg/0.5 Ml) Ud) 2.5 mg IH BID PRN PRN Reason: Cough and congestion Amlodipine Besylate (Norvasc) 10 mg PO DAILY [facility] Last Admin: 03/10/18 10:15 Dose: 10 mg Carvedilol (Coreg) 25 mg PO DAILY [facility] Last Admin: 03/10/18 10:15 Dose: 25 mg Clopidogrel Bisulfate (Plavix) 75 mg PO DAILY [facility] Last Admin: 03/10/18 10:14 Dose: 75 mg Docusate Sodium (Colace) 100 mg PO BID [facility] Last Admin: 03/10/18 10:14 Dose: 100 mg Ergocalciferol (Drisdol 50,000 Intl Units Cap) 1 cap PO Q7D [facility] Last Admin: 03/09/18 10:39 Dose: Not Given Fluticasone Propionate (Flonase) 1 actuation NS DAILY [facility] Last Admin: 03/10/18 10:13 Dose: 1 spray Folic Acid (Folic Acid) 1 mg PO DAILY [facility] Last Admin: 03/10/18 10:14 Dose: 1 mg Furosemide (Lasix) 40 mg PO DAILY [facility] Last Admin: 03/10/18 10:15 Dose: 40 mg Gabapentin (Neurontin) 300 mg PO BID [facility]; Protocol Last Admin: 03/10/18 10:15 Dose: 300 mg Heparin Sodium (Porcine) (Heparin) 5,000 units SC Q8 [facility]; Protocol Last Admin: 03/10/18 05:16 Dose: 5,000 units Hydromorphone HCl (Dilaudid) 0.5 mg IVP Q6H PRN PRN Reason: Pain, moderate (4-7) Last Admin: 03/09/18 21:06 Dose: 0.5 mg Potassium Chloride 20 meq/ (Dextrose/Sodium Chloride) 1,010 mls @ 100 mls/hr IV .Q10H6M [facility] Last Admin: 03/10/18 07:50 Dose: 100 mls/hr Insulin Human Regular (Humulin R Low) 0 units SC ACHS [facility]; Protocol Last Admin: 03/10/18 10:16 Dose: Not Given Montelukast Sodium (Singulair) 10 mg PO DAILY [facility] Last Admin: 03/10/18 10:14 Dose: 10 mg Non-Formulary Medication (Darunavir Ethanolate [Prezista]) 600 mg PO BID [facility] Last Admin: 03/10/18 10:16 Dose: Not Given Non-Formulary Medication (Dolutegravir Sodium [Tivicay]) 50 mg PO DAILY [facility] Last Admin: 03/10/18 10:16 Dose: Not Given Non-Formulary Medication (Eluxadoline [Viberzi]) 75 mg PO DAILY [facility] Last Admin: 03/10/18 10:16 Dose: Not Given Non-Formulary Medication (Budesonide/Formoterol Fumarate [Symbicort 160-4.5 Mcg Inhaler]) 1 aer IH DAILY [facility] Last Admin: 03/10/18 10:15 Dose: Not Given Non-Formulary Medication (Imipramine [Tofranil]) 25 mg PO HS [facility] Last Admin: 03/09/18 22:00 Dose: Not Given Non-Formulary Medication (Vitamin B Complex 100 No.2 [B-100 Complex]) 1 tab PO DAILY [facility] Last Admin: 03/10/18 10:17 Dose: Not Given Non-Formulary Medication (Melatonin [Melatonin]) 1 tab PO DAILY [facility] Last Admin: 03/10/18 10:17 Dose: Not Given [id number]-[id number] Ethyl Esters (Lovaza) 1 gm PO DAILY [facility] Last Admin: 03/10/18 10:14 Dose: 1 gm Pantoprazole Sodium (Protonix Ec Tab) 40 mg PO DAILY [facility] Last Admin: 03/10/18 10:14 Dose: 40 mg Polyethylene Glycol (Miralax) 17 gm PO BID [facility] Last Admin: 03/10/18 10:14 Dose: 17 gm Propranolol HCl (Inderal) 20 mg PO TID [facility] Last Admin: 03/10/18 10:14 Dose: 20 mg Ritonavir (Norvir) 100 mg PO BID [facility] Last Admin: 03/10/18 10:14 Dose: 100 mg Sertraline HCl (Zoloft) 100 mg PO DAILY [facility] Last Admin: 03/10/18 10:14 Dose: 100 mg - Labs Labs: 03/10/18 07:00 03/10/18 07:00 APTT 30.3 Seconds (25.1-36.5) 03/09/18 08:50 - Constitutional Appears: Non-toxic, No Acute Distress - Head Exam Head Exam: ATRAUMATIC, NORMOCEPHALIC - Eye Exam Eye Exam: EOMI, PERRL. absent: Scleral icterus Pupil Exam: PERRL. absent: Miosis, Mydriatic - ENT Exam ENT Exam: Mucous Membranes Moist, Normal Oropharynx - Neck Exam Neck Exam: Full ROM, Normal Inspection - Respiratory Exam Respiratory Exam: Clear to Ausculation Bilateral. absent: Rales, Rhonchi, Wheezes - Cardiovascular Exam Cardiovascular Exam: RRR, +S1, +S2. absent: Gallop, Rubs - GI/Abdominal Exam GI & Abdominal Exam: Soft, Normal Bowel Sounds. absent: Distended, Firm, Guar ding, Rigid, Tenderness, Organomegaly, Rebound - Extremities Exam Extremities Exam: Normal Inspection. absent: Pedal Edema - Neurological Exam Neurological Exam: Alert, Awake - Psychiatric Exam Psychiatric exam: Normal Affect, Normal Mood - Skin Skin Exam: Dry, Intact, Normal Color, Warm Assessment and Plan - Assessment and Plan (Free Text) Assessment: 63 year old female with PMH of IBS-D (noncompliant to Viberzi last 6 months), HIV on HAART (no recent CD4 in chart), Diabetes, COPD, CAD, Hypothyroidism, and Depression presenting with abdominal pain. Active treatment of resolved acute on chronic right lower abdominal pain and note of stool retention without acute pathology on CT A/P without contrast. Prior EGD/colonoscopy 2014 showed H. pylori negative severe erosive gastritis, PUD, 5mm descending tubular adenoma, and transverse diverticulosis. Plan: -tolerating diet -office will schedule outpatient colonoscopy to evaluate chronic abdominal pain -outpatient follow up for re-evaluation and consideration to restart Viberzi -okay to discharge patient from GI standpoint -thank you for opportunity to participate in the care of this patient <Maru Olivera V - Last Filed: 03/10/18 19:45> Objective - Vital Signs/Intake and Output Vital Signs (last 24 hours): Temp Pulse Resp BP Pulse Ox 98.4 F 70 20 130/73 95 03/10/18 14:00 03/10/18 14:59 03/10/18 14:00 03/10/18 14:59 03/10/18 14:00 - Labs Labs: 03/10/18 07:00 03/10/18 07:00 APTT 30.3 Seconds (25.1-36.5) 03/09/18 08:50 Attending/Attestation - Attestation I have personally seen and examined this patient.: Yes I have fully participated in the care of the patient.: Yes I have reviewed all pertinent clinical information, including history, physical exam and plan: Yes Notes (Text): This is an addendum to GI progress report dictated by the GI Fellow.The patient was seen and examined earlier. Medical records, lab studies, imagings were reviewed. Last 24 hours events reviewed. Agreed with the above treatment plan as outlined in GI Fellow 's notes with the addition of the following Feeling much better Did have large bowl movements Patient has history of IBS-D on Viberzi Patient would benefit from colonoscopy Detailed instructions were given to the patient regarding scheduling of colonoscopy through my office as an outpatient Followup in office post colonoscopy 03/10/18 19:43
[2018-03-10 13:52] LABS: FOLATE > 20.0 ng/mL
[2018-03-10 15:01] VITALS: BP 130/73; PULSE 70
[2018-03-10 15:19] VITALS: RESP 20; TEMP 98.4; O2SAT 95
== END 2018-03-10 18:05 | disposition home or self-care (01) ==
LOC: ED 01:13 → ERH 05:43 → 5RSO 07:22
PROVIDERS: ADMIT Internal Medicine; ATTEND Internal Medicine
DX: K59.00 Constipation, unspecified (principal); R10.32 Left lower quadrant pain; B20 Human immunodeficiency virus [HIV] disease; E87.6 Hypokalemia; K58.0 Irritable bowel syndrome with diarrhea; E03.9 Hypothyroidism, unspecified; E11.21 Type 2 diabetes mellitus with diabetic nephropathy; E11.40 Type 2 diabetes mellitus with diabetic neuropathy, unspecified; I11.0 Hypertensive heart disease with heart failure; I50.9 Heart failure, unspecified; I25.10 Atherosclerotic heart disease of native coronary artery without angina pectoris; F17.200 Nicotine dependence, unspecified, uncomplicated; J44.9 Chronic obstructive pulmonary disease, unspecified; F32.9 Major depressive disorder, single episode, unspecified; E87.8 Other disorders of electrolyte and fluid balance, not elsewhere classified; K57.30 Diverticulosis of large intestine without perforation or abscess without bleeding; K80.20 Calculus of gallbladder without cholecystitis without obstruction; Z79.4 Long term (current) use of insulin; Z87.11 Personal history of peptic ulcer disease; Z91.138 Patient's unintentional underdosing of medication regimen for other reason; Z79.02 Long term (current) use of antithrombotics/antiplatelets
CPT/HCPCS: 36415; 74176; 80048; 80053; 80061; 82607; 82746; 82948; 83036; 83540; 83550; 83690; 84443; 85027; 85730; 96361; 96372; 96374; 96375; 96376; 99285; G0378; J1170; J1644; J1885; J2270; J2405; J3480; J7030; J7042

== ENCOUNTER 2018-06-11 22:24 | Inpatient (IN) | payer MEDICARE, MEDICAID ==
[2018-06-11] MEDS ORDERED: Sodium Chloride 0.9% 1,000 ML IV STA (22:50)
[2018-06-11] MEDS ORDERED: Albuterol-Ipratrop 3 mg / 0.5 (3 ml) UD IH STA (22:53)
--- NOTE | 2018-06-11 23:18 | ED PDOC ---
Arrival/HPI - General Chief Complaint: GI Problem Historian: Patient - History of Present Illness Narrative History of Present Illness (Text): 06/11/18 23:15 63 year old female, whose past medical history includes ventral hernia repair x2, HIV, hepatitis, diabetes, CAD, diabetic neuropathy, nephropathy, COPD, anemia, arthritis, hypothyroidism, and IBS, presents to the emergency department complaining of a cold for the past 2 weeks with difficulty breathing and cough with white phlegm. Patient reports she also had no appetite for the past 2 weeks with decrease PO intake associated with nausea and episodes of vomiting today. Patient reports she "self medicated with Christy and took two shots today" with no relief. She reports receiving her flu shot this year. She reports she has been adherent to her HAART therapy. Patient reports fever and chills, but denies any chest pain, abdominal pain, diarrhea, urinary symptoms, back pain, neck pain, headache, dizziness, or any other complaints. PMD: Dr. Croft Time/Duration: Other (2 weeks) Symptom Onset: Gradual Symptom Course: Unchanged Activities at Onset: Light Context: Home Past Medical History - Provider Review Nursing Documentation Reviewed: Yes - Infectious Disease Hx of Infectious Diseases: None - Tetanus Immunization Tetanus Immunization: Unknown - Reproductive Menopause: Yes Currently : No - Cardiac Hx Cardiac Disorders: Yes Hx Congestive Heart Failure: Yes Hx Hypertension: Yes Other/Comment: CAD - Pulmonary Hx Respiratory Disorders: Yes Hx Asthma: Yes Hx Chronic Obstructive Pulmonary Disease (COPD): Yes - Neurological HX Cerebrovascular Accident: No - HEENT Hx HEENT Disorder: No Hx Blind: No Hx Cataracts: No Hx Deafness: No Hx Difficulty Chewing: No Hx Epistaxis: No Hx Glaucoma: No Hx Macular Degeneration: No - Renal Hx Renal Failure: No - Endocrine/Metabolic Hx Endocrine Disorders: Yes Hx Diabetes Mellitus Type 2: Yes Hx Hypothyroidism: No - Hematological/Oncological Hx Blood Disorders: Yes Hx Anemia: Yes Hx Blood Transfusions: Yes - Integumentary Hx Dermatological Disorder: No Hx Basal Cell Carcinoma: No Hx Eczema: No Hx Melanoma: No Hx Psoriasis: No Hx Squamous Cell Carcinoma: No - Musculoskeletal/Rheumatological Hx Musculoskeletal Disorders: Yes Hx Arthritis: Yes Hx Falls: No Hx Rheumatoid Arthritis: Yes - Gastrointestinal Hx Gastrointestinal Disorders: Yes Hx Diarrhea: Yes (chronic diarrhea with bowel incontinence) Hx Gastroesophageal Reflux: No Hx Irritable Bowel: Yes Other/Comment: colonoscopy 12/23/14: colitis, descending colon polyp, Diverticulosis - Genitourinary/Gynecological Hx Genitourinary Disorders: No Hx Hematuria: No Hx Incontinence: No Hx Sexually Transmitted Diseases: No Hx Urinary Tract Infection: Yes - Psychiatric Hx Psychophysiologic Disorder: Yes (attempted suicide) Hx Anxiety: Yes Hx Depression: Yes Hx Emotional Abuse: No Hx Physical Abuse: No Hx Substance Use: No - Surgical History Hx Section: Yes Hx Cholecystectomy: No Hx Coronary Stent: No Hx Hysterectomy: Yes - Anesthesia Hx Anesthesia: Yes Hx Anesthesia Reactions: No Hx Malignant Hyperthermia: No - Suicidal Assessment Feels Threatened In Home Enviroment: No Family/Social History - Physician Review Nursing Documentation Reviewed: Yes Family/Social History: No Known Family HX Smoking Status: Heavy Smoker > 10 Cigarettes Daily Hx Alcohol Use: Yes Frequency of alcohol use: Daily Hx Substance Use: No Hx Substance Use Treatment: No Allergies/Home Meds Allergies/Adverse Reactions: Allergies No Known Allergies Allergy (Verified 03/09/18 01:16) Home Medications: Home Meds Medication Instructions Recorded Confirmed RX: Albuterol Sulfate [Proair Hfa] 0.09 mg IH BID PRN 07/08/16 06/11/18 RX: Budesonide/Formoterol Fumarate 1 aer IH DAILY 07/08/16 06/11/18 [Symbicort 160-4.5 Mcg Inhaler] RX: Carvedilol [Coreg] 25 mg PO DAILY 07/08/16 06/11/18 RX: Clopidogrel [Plavix] 75 mg PO DAILY 07/08/16 06/11/18 RX: Darunavir Ethanolate [Prezista] 600 mg PO BID 07/08/16 06/11/18 RX: Dolutegravir Sodium [Tivicay] 50 mg PO DAILY 07/08/16 06/11/18 RX: Eluxadoline [Viberzi] 75 mg PO DAILY 07/08/16 06/11/18 RX: Ergocalciferol (Vitamin D2) 50,000 unit PO DAILY 07/08/16 06/11/18 [Vitamin D2] RX: Fluticasone Nasal [Flonase] 0.05 mg NS DAILY 07/08/16 06/11/18 RX: Folic Acid 1 mg PO DAILY 07/08/16 06/11/18 RX: Furosemide [Lasix] 40 mg PO DAILY 07/08/16 06/11/18 RX: Gabapentin [Neurontin] 300 mg PO BID 07/08/16 06/11/18 RX: Imipramine [Tofranil] 25 mg PO HS 07/08/16 06/11/18 RX: Montelukast Sodium [Singulair] 10 mg PO DAILY 07/08/16 06/11/18 RX: [id number]-[id number] Ethyl Esters 1 GM 1 gm PO DAILY 07/08/16 06/11/18 [Lovaza] RX: Pantoprazole [Protonix EC Tab] 40 mg PO DAILY 07/08/16 06/11/18 RX: Propranolol [Inderal] 20 mg PO TID 07/08/16 06/11/18 RX: Ritonavir [Norvir] 100 mg PO BID 07/08/16 06/11/18 RX: Sertraline [Zoloft] 100 mg PO DAILY 07/08/16 06/11/18 RX: Zafirlukast [Accolate] 20 mg PO BID 07/08/16 06/11/18 RX: amLODIPine [Norvasc] 10 mg PO DAILY 07/08/16 06/11/18 RX: Insulin Regular [HumuLIN R] 2 unit SC TID 09/24/17 06/11/18 RX: Melatonin 1 tab PO DAILY 09/24/17 06/11/18 RX: Vitamin B Complex 100 No.2 1 tab PO DAILY 09/24/17 06/11/18 [B-100 Complex] Review of Systems - Physician Review All systems were reviewed & negative as marked: Yes - Review of Systems Constitutional: Fevers, Other (chills) Respiratory: SOB, Cough Cardiovascular: absent: Chest Pain Gastrointestinal: Nausea, Vomiting, Appetite Changes. absent: Hematemesis Musculoskeletal: absent: Back Pain, Neck Pain Neurological: absent: Headache, Dizziness Physical Exam Vital Signs Reviewed: Yes (Hypoxic ) Vital Signs Temp Pulse Resp BP Pulse Ox 06/11/18 22:43 20 90 L 06/11/18 22:24 97.6 F 66 20 106/60 86 L Temperature: Afebrile Blood Pressure: Normal Pulse: Regular Respiratory Rate: Normal Appearance: Positive for: Well-Appearing, Non-Toxic, Comfortable Pain Distress: None Mental Status: Positive for: Alert and Oriented X 3 - Systems Exam Head: Present: Atraumatic, Normocephalic Pupils: Present: PERRL Extroacular Muscles: Present: EOMI Conjunctiva: Present: Normal Mouth: Present: Dry Neck: Present: Normal Range of Motion Respiratory/Chest: Present: Wheezes (expiratory wheeze), Rhonchi, Other (coarsed breath sounds bilaterally) Cardiovascular: Present: Regular Rate and Rhythm Abdomen: Present: Other (soft). No: Tenderness Lower Extremity: No: Edema Neurological: Present: GCS=15, Speech Normal Skin: Present: Warm, Dry, Normal Color Psychiatric: Present: Alert, Oriented x 3, Normal Insight, Normal Concentration Medical Decision Making ED Course and Treatment: 06/11/18 23:10 Impression: 63 year old female presents complaining cold for the past 2 weeks with difficulty breathing and cough with white phlegm. Patient also reports deacreas Po intake for the past 2 weeks associated with nausea and episodes of vomiting today. Differential Diagnosis included but are not limited to: PCP PNA Bronchitis Influenza Plan: -- VBG -- Labs -- CXR -- Albuterol --Solu-medrol --IV Fluids -- Zofran inj -- Rapid Flu --Zosyn --Vnacomycin -- Reassess and disposition Prior Visits: Notes and results from previous visits were reviewed. Progress Notes: 06/11/18 23:49 ABG performed reveals lactate of 3.5 with evidence of metabolic acidosis. Pending labs. CXR reveals slight increased haziness at the LLLB. 06/12/18 00:25 Labs reviewed with no leukocytosis noted. Discussed case with Dr. Croft(PCP) who accepts patient onto her service for admission. She is unable to provide history on the patient's previous CD T4 cell count, but states patient is followed by an outside infectious disease group. She would like the patient to be started on IV antibiotics. - Lab Interpretations Lab Results: 06/11/18 23:17 06/11/18 23:17 Lab Results 06/11/18 23:17: Sodium 133, Potassium 3.6, Chloride 102, Carbon Dioxide 21, Anion Gap 14, BUN 14, Creatinine 1.3 H, Est GFR ( Amer) 50, Est GFR (Non- Af Amer) 41, Random Glucose 176 H, Calcium 8.6, Phosphorus 4.3, Magnesium 2.1, Total Bilirubin 0.4, AST 21, ALT 8, Alkaline Phosphatase 115, Troponin I < 0.01, Total Protein 7.4, Albumin 3.8, Globulin 3.7, Albumin/Globulin Ratio 1.0 L 06/11/18 23:17: D-Dimer, Quantitative 201 06/11/18 23:17: WBC 8.8 D, RBC 4.51, Hgb 12.8, Hct 37.7, MCV 83.6, MCH 28.4, MCHC 34.0, RDW 14.2, Plt Count 214, MPV 9.7, Neut % (Auto) 46.2 L, Lymph % (Auto) 44.7 H, [place] % (Auto) 5.9, Eos % (Auto) 2.7, Baso % (Auto) 0.5, Lymph # (Auto) 3.9 H, [place] # (Auto) 0.5, Eos # (Auto) 0.2, Baso # (Auto) 0.04, Absolute Neuts (auto) 4.07 I have reviewed the lab results: Yes - RAD Interpretation Narrative RAD Interpretations (Text): 06/12/18 00:55 CXR Impression: As read by me, increase haziness left lower lung base. Increase vascular markings. Radiology Orders: 06/11/18 22:50 CHEST PORTABLE [RAD] Stat Tripe Scraper: ED Physician - Medication Orders Current Medication Orders: Sodium Chloride (Sodium Chloride 0.9%) 1,000 mls @ 999 mls/hr IV .Q1H1M STA Stop: 06/11/18 23:50 Discontinued Medications Albuterol/Ipratropium (Duoneb 3 Mg/0.5 Mg (3 Ml) Ud) 3 ml IH STAT STA Stop: 06/11/18 22:54 Methylprednisolone (Solu-Medrol) 125 mg IVP STAT STA Stop: 06/11/18 22:54 Amlodipine Besylate (Norvasc) 10 mg PO DAILY [facility] Last Admin: 06/13/18 09:28 Dose: 10 mg MAR Blood Pressure Document 06/13/18 09:28 [id number] (Rec: 06/13/18 09:28 [id number] [facility] [place] [id number][place] Blood Pressure Blood Pressure (100/60-150/90 mm Hg) 145/73 Arformoterol Tartrate (Brovana) 15 mcg IH [id number] [facility] Last Admin: 06/14/18 07:09 Dose: 15 mcg Budesonide (Pulmicort Respules) 0.5 mg IH [id number] [facility] Last Admin: 06/14/18 07:09 Dose: 0.5 mg Carvedilol (Coreg) 25 mg PO DAILY [facility] Last Admin: 06/13/18 09:23 Dose: 25 mg MAR Pulse and Blood Pressure Document 06/13/18 09:23 [id number] (Rec: 06/13/18 09:[address]- [id number]) Pulse Pulse Rate (60-90 beats/min) 80 Blood Pressure Blood Pressure (100/60-150/90 mm Hg) 145/73 Clopidogrel Bisulfate (Plavix) 75 mg PO DAILY [facility] Last Admin: 06/13/18 09:28 Dose: 75 mg Doxycycline Hyclate (Doryx) 100 mg PO Q12 [facility]; Protocol Last Admin: 06/13/18 21:21 Dose: 100 mg Ergocalciferol (Drisdol 50,000 Intl Units Cap) 1 cap PO DAILY [facility] Last Admin: 06/13/18 09:25 Dose: 1 cap Fluticasone Propionate (Flonase) 1 actuation NS DAILY [facility] Last Admin: 06/13/18 09:25 Dose: 1 spr Folic Acid (Folic Acid) 1 mg PO DAILY [facility] Last Admin: 06/13/18 09:26 Dose: 1 mg Furosemide (Lasix) 40 mg PO DAILY [facility] Last Admin: 06/13/18 09:27 Dose: 40 mg MAR Blood Pressure Document 06/13/18 09:27 [id number] (Rec: 06/13/18 09:27 CX01 [facility] [place] [id number]) Blood Pressure Blood Pressure (100/60-150/90 mm Hg) 145/73 Gabapentin (Neurontin) 300 mg PO BID [facility]; Protocol Last Admin: 06/13/18 18:10 Dose: 300 mg Behavioural Document 06/13/18 18:10 [email or web address] (Rec: 06/13/18 18:[address]- [id number]) Maintenance Maintenance Dose Yes Re-Assess: Reassess Psych Meds Document 06/13/18 19:10 [email or web address] (Rec: 06/13/18 19:[address]-[id number]) Reassess Psych Med Effective Home Med (Home Med) 0 unit PO DAILY [facility] Insulin Human Regular (Humulin R Med) 0 units SC ACHS [facility]; Protocol Last Admin: 06/14/18 08:16 Dose: 7 unit MAR Blood Glucose Document 06/14/18 08:16 NGOLK (Rec: 06/14/18 08:17 NGOLK [id number]) Blood Glucose Finger Stick Blood Glucose (70-120) 340 Subcutaneous Administrations Document 06/14/18 08:16 NGOLK (Rec: 06/14/18 08:17 NGOLK [id number]) Injection Site MAR Injection Site Left Deltoid Charges for Administration # of Subcutaneous Administrations 1 Methylprednisolone (Solu-Medrol) 40 mg IVP Q12 [facility] Last Admin: 06/13/18 21:22 Dose: 40 mg IVP Administration Document 06/13/18 21:22 FG (Rec: 06/13/18 21:22 FG [id number]) Charges for Administration # of IVP Administrations 1 Multivitamins (Thera Tab) 1 tab PO DAILY [facility] Last Admin: 06/13/18 09:29 Dose: 1 tab Nicotine (Nicoderm Cq) 1 patch TD DAILY [facility] Last Admin: 06/13/18 09:28 Dose: 1 patch MAR Transdermal Patch Site Document 06/13/18 09:28 [id number] (Rec: 06/13/18 09:28 [id number] [facility] [place] [id number]) Transdermal Patch Site Transdermal Patch Site Right Shoulder Re-Assess: MAR Transdermal Patch Removal Document 06/13/18 21:28 FG (Rec: 06/13/18 22:07 FG [id number]) Transdermal Patch Removal Removal of Transdermal Patch done? Yes Zafirlukast [ Accolate] 20 Mg ( Home Med) 20 mg PO BID [facility] Melatonin [Melatonin (] 1 Tab (Home Med)) 1 tab PO HS [facility] Last Admin: 06/13/18 22:27 Dose: 1 tab Darunavir Ethanolate [Prezista] 800 Mg ( Home Med) 800 mg PO DAILY [facility] Eluxadoline [Viberzi (] 75 Mg (Home Med)) 75 mg PO DAILY [facility] [id number] Ethyl Esters (Lovaza) 1 gm PO DAILY [facility] Last Admin: 06/13/18 09:27 Dose: 1 gm Pantoprazole Sodium (Protonix Ec Tab) 40 mg PO DAILY [facility] Last Admin: 06/13/18 09:29 Dose: 40 mg Propranolol HCl (Inderal) 20 mg PO TID [facility] Last Admin: 06/13/18 18:10 Dose: 20 mg MAR Pulse and Blood Pressure Document 06/13/18 18:10 [email or web address] (Rec: 06/13/18 18:10 [id number] [facility] [place] [id number]) Blood Pressure Blood Pressure (100/60-150/90 mm Hg) 125/74 Ritonavir (Norvir) 100 mg PO BID [facility] Last Admin: 06/13/18 18:11 Dose: 100 mg Sertraline HCl (Zoloft) 100 mg PO DAILY [facility] Last Admin: 06/13/18 09:29 Dose: 100 mg Discontinued Medications Albuterol Sulfate (Albuterol 0.083% Inhal Keyonna (2.5 Mg/3 Ml) Ud) 2.5 mg INH STAT STA Stop: 06/11/18 23:47 Last Admin: 06/12/18 00:16 Dose: Not Given Non-Admin Reason: Patient Refused Albuterol Sulfate (Albuterol 0.083% Inhal Keyonna (2.5 Mg/3 Ml) Ud) 2.5 mg INH STAT STA Stop: 06/12/18 00:23 Albuterol/Ipratropium (Duoneb 3 Mg/0.5 Mg (3 Ml) Ud) 3 ml IH STAT STA Stop: 06/11/18 22:54 Last Admin: 06/11/18 23:17 Dose: 3 ml Sodium Chloride (Sodium Chloride 0.9%) 1,000 mls @ 999 mls/hr IV .Q1H1M STA Stop: 06/11/18 23:50 Last Admin: 06/11/18 23:17 Dose: 999 mls/hr eMAR Start Stop Document 06/11/18 23:17 JOL (Rec: 06/11/18 23:17 JOL [id number]) Intravenous Solution Start Date 06/11/18 Start Time 23:17 End Date 06/12/18 End time 00:18 Total Infusion Time 61 Insulin Human Regular (Humulin R Low) 0 units SC [facility]; Protocol Last Admin: 06/12/18 22:47 Dose: 4 unit MAR Blood Glucose Document 06/12/18 22:47 MAD (Rec: 06/12/18 22:48 MAD [facility] [place][id number]) Blood Glucose Finger Stick Blood Glucose (70-120) 448 Subcutaneous Administrations Document 06/12/18 22:47 MAD (Rec: 06/12/18 22:48 MAD [facility] [place][id number]) Injection Site MAR Injection Site Right Abdomen Charges for Administration # of Subcutaneous Administrations 1 Methylprednisolone (Solu-Medrol) 125 mg IVP STAT STA Stop: 06/11/18 22:54 Last Admin: 06/11/18 23:17 Dose: 125 mg IVP Administration Document 06/11/18 23:17 JOL (Rec: 06/11/18 23:17 [id number] Charges for Administration # of IVP Administrations 1 Darunavir Ethanolate [Prezista] 600 Mg (Home Med) 600 mg PO BID [facility] Last Admin: 06/13/18 19:16 Dose: Not Given Non-Admin Reason: awaiting meds from family Dolutegravir Sodium [Tivicay] 50 Mg ( Home Med) 50 mg PO DAILY [facility] Last Admin: 06/13/18 09:24 Dose: Not Given Non-Admin Reason: pt must bring from home Eluxadoline [Viberzi ] 75 Mg (Home Med) 75 mg PO DAILY [facility] Last Admin: 06/13/18 09:25 Dose: Not Given Non-Admin Reason: pt needs from home Imipramine [Tofranil ] 25 Mg (Home Med) [address] [facility] Last Admin: 06/13/18 02:08 Dose: Not Given Non-Admin Reason: Not Available Melatonin [Melatonin ] 1 Tab) (Home Med) 1 tab PO DAILY [facility] Last Admin: 06/13/18 09:27 Dose: Not Given Non-Admin Reason: pt needs to bring in from home Non-Formulary Medication (Zafirlukast [Accolate]) 20 mg PO BID [facility] Last Admin: 06/13/18 19:17 Dose: Not Given Non-Admin Reason: awaiting meds from family Ondansetron HCl (Zofran Inj) 4 mg IVP ONCE ONE Stop: 06/11/18 23:56 Last Admin: 06/12/18 00:16 Dose: 4 mg IVP Administration Document 06/12/18 00:16 JOL (Rec: 06/12/18 00:16 JOL [id number]) Charges for Administration # of IVP Administrations 1 - Scribe Statement The provider has reviewed the documentation as recorded by the Mary Jane Gonzalez Provider Scribe Attestation: All medical record entries made by the Jalynibe were at my direction and personally dictated by me. I have reviewed the chart and agree that the record accurately reflects my personal performance of the history, physical exam, medical decision making, and the department course for this patient. I have also personally directed, reviewed, and agree with the discharge instructions and disposition. Disposition/Present on Arrival - Present on Arrival Any Indicators Present on Arrival: No History of DVT/PE: No History of Uncontrolled Diabetes: No Urinary Catheter: No History of Decub. Ulcer: No History Surgical Site Infection Following: None - Disposition Have Diagnosis and Disposition been Completed?: Yes Diagnosis: PNA (pneumonia) Disposition: HOSPITALIZED Disposition Time: 01:14 Patient Plan: Admission Patient Problems: Current Active Problems Problem Status Onset PNA (pneumonia) Acute Condition: FAIR
[2018-06-11 23:26] LABS: BASO # 0.04 K/mm3 (0.0-2.0); BASO % 0.5 % (0.0-3.0); EOS # 0.2 (0.0-0.7); EOS % 2.7 % (1.5-5.0); HEMOGLOBIN 12.8 g/dL (12.0-16.0); LYMPH # 3.9 (1.2-3.4); LYMPH % 44.7 % (22.0-35.0); MEAN CELL VOLUME 83.6 fl (80.0-105.0); MEAN CORPUSCULAR HEMOGLOBIN 28.4 pg (25.0-35.0); MEAN PLATELET VOLUME 9.7 fl (7.0-11.0); MONO # 0.5 (0.1-0.6); MONO % 5.9 % (1.0-6.0); RBC 4.51 10^6/uL (3.5-6.1); RED CELL DISTRIBUTION WIDTH 14.2 % (11.5-14.5); WHITE BLOOD COUNT 8.8 10^3/uL (4.5-11.0)
[2018-06-11] MEDS ORDERED: Albuterol 0.083% Inhal Sol (2.5 mg/3 mL) UD INH STA (23:46)
[2018-06-11 23:50] LABS: ALBUMIN 3.8 g/dL (3.0-4.8); ALT/SGPT 8 U/L (7-56); AST/SGOT 21 U/L (14-36); BLOOD UREA NITROGEN 14 mg/dL (7-21); CALCIUM 8.6 mg/dL (8.4-10.5); GFR NON-AFRICAN AMERICAN 41
[2018-06-12 00:01] LABS: TROPONIN I < 0.01 ng/mL
[2018-06-12] MEDS ORDERED: Albuterol 0.083% Inhal Sol (2.5 mg/3 mL) UD INH STA (00:22)
[2018-06-12 00:45] LABS: VENOUS BLOOD GAS BASE EXCESS -5.4 mmol/L (0.0-2.0); VENOUS BLOOD GAS PO2 40 mm/Hg (30-55); VENOUS BLOOD PH 7.27 (7.32-7.43)
[2018-06-12 02:43] VITALS: BMI 28.1
[2018-06-12 03:49] LABS: VENOUS BLOOD GAS BASE EXCESS -8.2 mmol/L (0.0-2.0); VENOUS BLOOD GAS PO2 49 mm/Hg (30-55); VENOUS BLOOD PH 7.23 (7.32-7.43)
[2018-06-12 08:55] LABS: VENOUS BLOOD GAS BASE EXCESS -4.9 mmol/L (0.0-2.0); VENOUS BLOOD GAS PO2 211 mm/Hg (30-55); VENOUS BLOOD PH 7.33 (7.32-7.43)
--- NOTE | 2018-06-12 09:44 | RAD ---
Date of service: 06/11/2018 HISTORY: sob COMPARISON: 09/24/2017 FINDINGS: LUNGS: No active pulmonary disease. PLEURA: No significant pleural effusion identified, no pneumothorax apparent. CARDIOVASCULAR: No aortic atherosclerotic calcification present. Normal cardiac size. No pulmonary vascular congestion. OSSEOUS STRUCTURES: No significant abnormalities. VISUALIZED UPPER ABDOMEN: Normal. OTHER FINDINGS: None. IMPRESSION: No active disease.
[2018-06-12] MEDS: Ergocalciferol 50,000 Intl Units Cap PO SCH (09:58)
[2018-06-12] MEDS: Omega-3-Acid Ethyl Esters 1 GM Cap PO SCH (09:58)
[2018-06-12] MEDS: Pantoprazole 40 mg EC Tab PO SCH (09:58)
[2018-06-12] MEDS: Multivitamin Therapeutic Tab PO SCH (09:58)
[2018-06-12] MEDS: MethylPREDNISolone 40 mg Vial IVP SCH ×2 (09:59→22:47)
[2018-06-12] MEDS: Fluticasone Nasal 50 mcg/Spray NS SCH (09:59)
[2018-06-12] MEDS: ELUXADOLINE 75 MG PO SCH (10:00)
[2018-06-12] MEDS: MELATONIN PO SCH (10:00)
[2018-06-12] MEDS: DOLUTEGRAVIR SODIUM 50 MG PO SCH (10:00)
[2018-06-12] MEDS ORDERED: Non Formulary Medication (Budesonide/Formoterol Fumarate [Symbicort 160-4.5 Mcg Inhaler] 1 IH SCH (10:00)
[2018-06-12] MEDS: DARUNAVIR ETHANOLATE 600 MG PO SCH ×2 (10:00→17:48)
[2018-06-12] MEDS: ZAFIRLUKAST 20 MG PO SCH ×2 (10:00→17:44)
[2018-06-12] MEDS: Insulin Reg-LOW-Coverage SC SCH ×3 (12:04→22:47)
--- NOTE | 2018-06-12 13:27 | CT ---
Date of service: 06/12/2018 PROCEDURE: CT Chest without contrast HISTORY: smoker COMPARISON: None available. TECHNIQUE: Contiguous axial images were obtained through the chest without intravenous contrast enhancement. Sagittal and coronal reconstructions were performed. Radiation dose: Total exam DLP = 658.38 mGy-cm. This CT exam was performed using one or more of the following dose reduction techniques: Automated exposure control, adjustment of the mA and/or kV according to patient size, and/or use of iterative reconstruction technique. FINDINGS: LUNGS: There is a small bulla in the right lung apex. There is some linear scarring at the left lung base and in the left upper lobe peripherally. The lungs are otherwise clear MEDIASTINUM: Unremarkable thoracic aorta. No aneurysm. Normal sized heart. Main pulmonary artery unremarkable. No vascular congestion. No lymphadenopathy. Minimal aortic calcification and coronary artery calcification. PLEURA: No pleural fluid. No pneumothorax. BONES: No fracture. No destructive lesion. UPPER ABDOMEN: Grossly unremarkable. OTHER FINDINGS: None. IMPRESSION: There is a small bulla in the right lung apex. There is some linear scarring at the left lung base and in the left upper lobe peripherally. The lungs are otherwise clear
--- NOTE | 2018-06-12 13:40 | CON ---
DATE: 06/12/2018 PULMONARY CONSULTATION NOTE REFERRING PHYSICIAN: Lois Croft MD REASON FOR CONSULTATION: COPD, cough, shortness of breath, obstructive sleep apnea syndrome. HISTORY OF PRESENT ILLNESS: This is a 63-year-old female with past medical history of significant for HIV, hepatitis, diabetes, coronary artery disease, diabetic neuropathy, nephropathy, COPD, anemia, arthritis, ventral hernia repair x2, hypothyroidism and IBS. The patient is currently active smoker, presents today emergency room complaining of having a cold for the past 2 weeks with difficulty breathing and productive cough with white sputum. The patient although reports associating symptoms of no appetite, decreased p.o. intake, nausea, and episode of vomiting. Today, the patient reports that she is still does have shortness of breath and cough present on nasal congestion. heart burn. The patient in the past was told to have attended sleep study for suspected sleep apnea syndrome. The patient reports that she never had sleep study done and currently does not want to use CPAP machine. PAST MEDICAL HISTORY: As per history of present illness. ALLERGIES: NO KNOWN ALLERGIES. FAMILY HISTORY: Hypertension and diabetes. SOCIAL HISTORY: Current smoker, smokes about 1 pack per day. smoking for the past 50 years. No ETOH abuse. No illicit drug use. MEDICATIONS: Reviewed. Norvasc 10 mg daily, Brovana 50 mcg every 12 hour, Pulmicort 0.5 mg every 12 hours, Coreg 25 mg daily, Plavix 75 mg daily, ergocalciferol 50,000 units daily, Flonase nasal spray, folic acid 1 mg daily, Lasix 40 mg daily, Neurontin 300 mg twice a day, Humulin R sliding scale a.c and at bedtime, Solu-Medrol 40 mg every 12 hours, multivitamin daily, Prezista 600 mg twice a day, Tivicay 50 mg daily, 75 mg daily, melatonin 1 tab daily, Accolate 20 mg twice a day, Tofranil 25 mg at bedtime, Lovaza 1 gram daily, Protonix 40 mg daily, Propranolol 20 mg three times a day, Norvir 100 mg twice a day and Zoloft 100 mg daily. REVIEW OF SYSTEMS: No headache, chest pain, abdominal pain, nausea, vomiting, diarrhea, leg pain or leg swelling reported. Today, the patient does have cough, shortness of breath, nasal congestion, does suffered from heart burn in the past. PHYSICAL EXAMINATION: GENERAL: No acute distress. VITAL SIGNS: Blood pressure 143/72, pulse 75, temperature 97.8 and oxygen saturation 95% on room air. HEENT: Moist mucus membrane. NECK: Supple. No JVD. LUNGS: Fair airflow bilaterally. CARDIOVASCULAR: S1 and S2, audible. ABDOMEN: Soft and nondistended. Positive bowel sounds. No organomegaly. EXTREMITIES: No bilateral lower extremities edema. NEUROLOGIC: Awake, alert and verbal. Follows commands. LABORATORY DATA: Reviewed. WBC 8.8, RBC 4.51, hemoglobin 12.8, hematocrit 37.7 and platelets 214. D-dimer 201. PO2 211, pH 7.33, PCO2 39, HCO3 20.6 and FiO2 21. Sodium 133, potassium 3.6, chloride 102, carbon dioxide 21, anion gap 14, BUN 14, creatinine 1.3, GFR 50, POC glucose 289, random glucose 176, calcium 8.6, phosphorous 4.3 magnesium 2.1, total bilirubin 0.4, AST 21, ALT 8, alkaline phosphatase 115, troponin less than 0.01, total protein 7.4, albumin 3.8, globulin 3.7 and albumin-globulin ratio 1.0. Influenza negative. Chest x-ray no active disease. IMPRESSION AND PLAN: Chronic obstructive lung disease, human immunodeficiency virus positive, diabetes, hypertension, hypothyroidism, active smoker, agree with current plan. Continue inhaled bronchodilator, Flonase nasal spray, and steroids. We will start patient on doxycycline 100 mg twice a day. Continue gastric prophylaxis. We will place patient on Lovenox for deep venous thrombosis prophylaxis, both the patient agreed to nicotine patch. We will add nicotine patch. We will get procalcitonin level. We will do Mycoplasma IgG and IgM, strep antigen, urine for legionella, sputum culture. We will also get CT of chest without contrast. Encourage the patient with smoking cessation, both the patient regarding using continuous positive airway pressure machine while hospitalized the patient refused at this time, states she will continue . We will need sleep study as outpatient. Full pulmonary function test as outpatient. This patient was seen and examined with Dr. Mercedes. Discussed assessment and plan as described above. This patient was seen and examined with An Pickett, nurse practitioner. Discussed assessment and plan as described above. Thank you for this consult and we will follow with you. Piyush Nolan APN Osman Mercedes MD
--- NOTE | 2018-06-12 15:43 | CP.PCM.APN ---
Subjective - Date & Time of Evaluation Date of Evaluation: 06/12/18 Time of Evaluation: 15:00 - Subjective Subjective: Pt seen and examined, resting in bed, states breathing is better, denied chest pain, palpitations, is noted to be wheezing, Objective - Vital Signs/Intake and Output Vital Signs (last 24 hours): Temp Pulse Resp BP Pulse Ox 97.8 F 75 18 143/72 95 06/12/18 06:00 06/12/18 09:58 06/12/18 06:00 06/12/18 09:58 06/12/18 06:00 - Medications Medications: Current Medications Amlodipine Besylate (Norvasc) 10 mg PO DAILY [facility] Last Admin: 06/12/18 09:57 Dose: 10 mg Arformoterol Tartrate (Brovana) 15 mcg IH [id number] [facility] Budesonide (Pulmicort Respules) 0.5 mg IH [id number] [facility] Carvedilol (Coreg) 25 mg PO DAILY [facility] Last Admin: 06/12/18 09:57 Dose: 25 mg Clopidogrel Bisulfate (Plavix) 75 mg PO DAILY [facility] Last Admin: 06/12/18 09:57 Dose: 75 mg Doxycycline Hyclate (Doryx) 100 mg PO Q12 [facility]; Protocol Ergocalciferol (Drisdol 50,000 Intl Units Cap) 1 cap PO DAILY [facility] Last Admin: 06/12/18 09:58 Dose: 1 cap Fluticasone Propionate (Flonase) 1 actuation NS DAILY [facility] Last Admin: 06/12/18 09:59 Dose: 1 spr Folic Acid (Folic Acid) 1 mg PO DAILY [facility] Last Admin: 06/12/18 09:59 Dose: 1 mg Furosemide (Lasix) 40 mg PO DAILY [facility] Last Admin: 06/12/18 09:57 Dose: 40 mg Gabapentin (Neurontin) 300 mg PO BID [facility]; Protocol Last Admin: 06/12/18 09:58 Dose: 300 mg Insulin Human Regular (Humulin R Low) 0 units SC ACHS [facility]; Protocol Last Admin: 06/12/18 12:04 Dose: 3 unit Methylprednisolone (Solu-Medrol) 40 mg IVP Q12 [facility] Last Admin: 06/12/18 09:59 Dose: 40 mg Multivitamins (Thera Tab) 1 tab PO DAILY [facility] Last Admin: 06/12/18 09:58 Dose: 1 tab Nicotine (Nicoderm Cq) 1 patch TD DAILY [facility] Darunavir Ethanolate [Prezista] 600 Mg (Home Med) 600 mg PO BID [facility] Last Admin: 06/12/18 10:00 Dose: Not Given Dolutegravir Sodium [Tivicay] 50 Mg ( Home Med) 50 mg PO DAILY [facility] Last Admin: 06/12/18 10:00 Dose: Not Given Eluxadoline [Viberzi ] 75 Mg (Home Med) 75 mg PO DAILY [facility] Last Admin: 06/12/18 10:00 Dose: Not Given Imipramine [Tofranil ] 25 Mg (Home Med) 25 mg PO [facility] Melatonin [Melatonin ] 1 Tab) (Home Med) 1 tab PO DAILY [facility] Last Admin: 06/12/18 10:00 Dose: Not Given Non-Formulary Medication (Zafirlukast [Accolate]) 20 mg PO BID [facility] Last Admin: 06/12/18 10:00 Dose: Not Given Ukgip-4-Hjfr Ethyl Esters (Lovaza) 1 gm PO DAILY [facility] Last Admin: 06/12/18 09:58 Dose: 1 gm Pantoprazole Sodium (Protonix Ec Tab) 40 mg PO DAILY [facility] Last Admin: 06/12/18 09:58 Dose: 40 mg Propranolol HCl (Inderal) 20 mg PO TID [facility] Last Admin: 06/12/18 15:18 Dose: 20 mg Ritonavir (Norvir) 100 mg PO BID [facility] Last Admin: 06/12/18 09:58 Dose: 100 mg Sertraline HCl (Zoloft) 100 mg PO DAILY [facility] Last Admin: 06/12/18 09:57 Dose: 100 mg - Labs Labs: 06/11/18 23:17 06/11/18 23:17 - Constitutional Appears: Well, Non-toxic - Head Exam Head Exam: NORMOCEPHALIC - Eye Exam Eye Exam: Normal appearance Pupil Exam: NORMAL ACCOMODATION - Neck Exam Neck Exam: Full ROM - Respiratory Exam Respiratory Exam: Wheezes - Cardiovascular Exam Cardiovascular Exam: +S1, +S2 - GI/Abdominal Exam GI & Abdominal Exam: Soft, Normal Bowel Sounds - Rectal Exam Rectal Exam: Deferred - Exam Exam: absent: Circumcision, NORMAL INSPECTION, Scrotal Swelling, Testicular Tenderness, Uretheral Discharge, Testicular Vertical Lie, Bladder Distension External exam: absent: Ecchymosis, Erythema, Lacerations, Lesions, NORMAL EXTERNAL EXAM, Swelling Speculum exam: absent: Cervical Discharge, Erythema, Foreign Body, Laceration, NORMAL SPECULUM EXAM, Tissue, Vaginal Bleeding, Vaginal Discharge Bimanual exam: absent: Adenexal Mass, Adnexal, Cervical Motion Tendernes, NORMAL BIMANUAL EXAM, Uterine Enlargement, Uterine Tenderness - Extremities Exam Extremities Exam: Full ROM - Back Exam Back Exam: absent: CVA tenderness (L), CVA tenderness (R), Full ROM, muscle spasm, NORMAL INSPECTION, paraspinal tenderness, rash noted, tenderness, vertebral tenderness - Neurological Exam Neurological Exam: Alert, Awake, Oriented x3 - Skin Skin Exam: Dry, Intact, Normal Color, Warm Assessment and Plan - Assessment and Plan (Free Text) Assessment: Impressions Chest X-Ray 06/11/18 22:50 IMPRESSION: No active disease. Chest CT 06/12/18 12:02 IMPRESSION: There is a small bulla in the right lung apex. There is some linear scarring at the left lung base and in the left upper lobe peripherally. The lungs are otherwise clear Assessment: 63 year old female w.pmh HIV pos, Hepatitis, DM, CAD, COPD, IBS, current spoker presented w.complains cold, cough for the past 2 weeks with difficulty breathing and cough with white phlegm. Patient also reports decreased Po intake for the past 2 weeks associated with nausea and episodes of vomiting, found to have pneumonia, admitted for further treatment, with pulmonary consulted. Plan: 1. Pneumonia -Anitbiotics, blood cx, sputum cx results pending. 2. Bronchitis Bronchdolilators, IV solumedrol per pulm. 3. Current Smoker -Nicotine patch ordered, smoking cessation advised. Will continue to monitor clinical status and follow closely. PT nicole diez.
[2018-06-12] MEDS: Budesonide 0.5 mg/2 ml Inhal Susp UD IH SCH (20:37)
[2018-06-12] MEDS: Arformoterol 15 mcg/2 ml Inh Sol IH SCH (20:37)
[2018-06-12] MEDS ORDERED: IMIPRAMINE 25 MG PO SCH (22:00)
[2018-06-13 00:06] LABS: HDL CHOLESTEROL 81 mg/dL (29-60)
[2018-06-13 00:09] LABS: IRON 73 ug/dL (45-180)
[2018-06-13 00:17] LABS: LDL CHOLESTEROL 111 mg/dL (0-129)
[2018-06-13 00:18] LABS: TROPONIN I < 0.01 ng/mL
[2018-06-13 00:19] LABS: % IRON SATURATION 24 % (20-55); TOTAL IRON BINDING CAPACITY 300 ug/dL (265-497)
[2018-06-13 01:01] LABS: URINE BILIRUBIN NEGATIVE (NEGATIVE); URINE BLOOD NEGATIVE (NEGATIVE); URINE GLUCOSE (UA) >=1000 mg/dL (NEGATIVE); URINE LEUKOCYTE ESTERASE NEGATIVE Leu/uL (NEGATIVE); URINE PROTEIN TRACE mg/dL (<30 mg/dL); URINE UROBILINOGEN 0.2 E.U./dL (<1 E.U./dL)
[2018-06-13 01:03] LABS: URINE APPEARANCE CLEAR (CLEAR); URINE COLOR YELLOW (YELLOW)
[2018-06-13 01:16] LABS: URINE BACTERIA SMALL /hpf; URINE RBC 0 - 2 /hpf (0-2)
[2018-06-13 07:24] LABS: HEMOGLOBIN 12.9 g/dL (12.0-16.0); MEAN CELL VOLUME 84.2 fl (80.0-105.0); MEAN CORPUSCULAR HEMOGLOBIN 27.9 pg (25.0-35.0); MEAN CORPUSCULAR HGB CONC 33.2 g/dl (31.0-37.0); MEAN PLATELET VOLUME 10.1 fl (7.0-11.0); RBC 4.62 10^6/uL (3.5-6.1); RED CELL DISTRIBUTION WIDTH 14.4 % (11.5-14.5)
[2018-06-13] MEDS: Budesonide 0.5 mg/2 ml Inhal Susp UD IH SCH ×2 (07:33→20:53)
[2018-06-13] MEDS: Arformoterol 15 mcg/2 ml Inh Sol IH SCH ×2 (07:33→20:51)
[2018-06-13 07:59] LABS: CALCIUM 9.3 mg/dL (8.4-10.5)
[2018-06-13] MEDS: Insulin Reg-MEDIUM-Coverage SC SCH ×4 (08:31→22:26)
[2018-06-13] MEDS: DARUNAVIR ETHANOLATE 600 MG PO SCH ×2 (09:24→19:16)
[2018-06-13] MEDS: DOLUTEGRAVIR SODIUM 50 MG PO SCH (09:24)
[2018-06-13] MEDS: Fluticasone Nasal 50 mcg/Spray NS SCH (09:25)
[2018-06-13] MEDS: ELUXADOLINE 75 MG PO SCH (09:25)
[2018-06-13] MEDS: Ergocalciferol 50,000 Intl Units Cap PO SCH (09:25)
[2018-06-13] MEDS: MELATONIN PO SCH ×2 (09:27→22:27)
[2018-06-13] MEDS: Omega-3-Acid Ethyl Esters 1 GM Cap PO SCH (09:27)
[2018-06-13] MEDS: Multivitamin Therapeutic Tab PO SCH (09:29)
[2018-06-13] MEDS: MethylPREDNISolone 40 mg Vial IVP SCH ×2 (09:29→21:22)
[2018-06-13] MEDS: ZAFIRLUKAST 20 MG PO SCH ×2 (09:29→19:17)
[2018-06-13] MEDS: Pantoprazole 40 mg EC Tab PO SCH (09:29)
--- NOTE | 2018-06-13 09:37 | PN ---
DATE: 06/13/2018 PULMONARY PROGRESS NOTE REFERRING PHYSICIAN: Lois Croft MD SUBJECTIVE: The patient is lying in the bed, in no acute distress. No overnight events reported. The patient reports feeling much better this morning. No headache, rhinitis, chest pain, abdominal pain, nausea, vomiting, diarrhea, leg pain or leg swelling reported. Reports cough and shortness of breath has improved. OBJECTIVE: GENERAL: No acute distress. VITAL SIGNS: Blood pressure 135/76, pulse 79, temperature 97.5, oxygen saturation 98 on room air. HEENT: Moist mucous membranes. Carotid airway. NECK: Supple. No JVD. LUNGS: Fair airflow bilaterally. CARDIOVASCULAR: S1 and S2, audible. ABDOMEN: Soft. No distention. No organomegaly. EXTREMITIES: No bilateral lower extremity edema. NEUROLOGIC: Awake, alert and verbal. Follows commands. MEDICATIONS: Reviewed. Norvasc 10 mg daily, Brovana 15 mcg every 12 hour, Pulmicort 0.5 mg every 12 hours, Coreg 25 mg daily, Plavix 75 mg daily, doxycycline 100 mg every 12 hours, ergocalciferol 50,000 units daily, Flonase nasal spray daily, folic acid 1 mg daily, Lasix 40 mg daily, gabapentin 300 mg twice a day, Humulin R sliding scale a.c. and at bedtime, Solu-Medrol 40 mg every 12 hours, multivitamin 1 tab daily, nicotine patch transdermal daily, Prezista 600 mg twice a day, Tivicay 50 mg daily, 75 mg daily, melatonin 1 tab daily, Accolate 20 mg twice a day, Tofranil 25 mg at bedtime, Lovaza 1 gram daily, Protonix 40 mg daily, Inderal 20 mg three times a day, Norvir 100 mg twice a day and Zoloft 100 mg daily. LABORATORY DATA: Reviewed. WBC 10, RBC 4.62, hemoglobin 12.9, hematocrit 38.9 and platelets 222. Sodium 135, potassium 4.2, chloride 106, carbon dioxide 21, anion gap 12, BUN 33, creatinine 1.5, GFR 35, POC glucose 354, random glucose 388, calcium 9.3 and TSH 0.35. Urinalysis shows urine protein trace, urine keytones trace, urine epithelial cells 6-8. Chest CT shows small bulla in the right lung apex, small linear scarring at the left lung base and in the left upper lobe peripherally. The lungs are otherwise clear. IMPRESSION AND PLAN: Chronic obstructive lung disease, human immunodeficiency virus positive, diabetes, hypertension, active smoker, hypothyroidism. Continue inhaled bronchodilators, steroids, nasal spray. Continue antibiotic therapy, gastric prophylaxis and deep venous thrombosis prophylaxis. The patient currently on nicotine patch for smoking. Procalcitonin is still pending. Urine for legionella is pending. Sputum culture to be done. Mycoplasma pneumoniae IgG and IgM Streptococcus pneumoniae antigen to be done. Discussed with patient in depth, suspected sleep apnea syndrome and continuous positive airway pressure use and the patient agreed to try continuous positive airway pressure tonight. We will start patient on continuous positive airway pressure 6 cm, FiO2 30. Sleep apnea precaution. Head of bed elevated at 45 degrees. This patient will need sleep study and full pulmonary function test as outpatient. This patient was seen and examined with Dr. Mercedes. Discussed assessment and plan as described above. This patient was seen and examined with An Pickett, nurse practitioner. Discussed assessment and plan as described above. Thank you for this consult. We will follow with you. Piyush Nolan APN Osman Mercedes MD [facility]
[2018-06-13 12:58] LABS: FOLATE 17.7 ng/mL
--- NOTE | 2018-06-13 21:41 | PN ---
DATE: 06/13/2018 SUBJECTIVE: The patient is 63-year-old female. The patient is seen and examined at bedside on 06/13/2018, looking comfortable. No fever. No chills. No hematuria. No hematochezia. Cough is better. Shortness of breath is better, but still wheezing. PHYSICAL EXAMINATION: VITAL SIGNS: Blood pressure 135/76, pulse 79, temperature 97.5, oxygenation 98% on room air. HEENT: Head is normocephalic, atraumatic. Eyes PERRLA. Extraocular muscles intact. Conjunctivae clear. Nose patent. NECK: Supple. No carotid bruit. No JVD or thyromegaly. CHEST: Bilateral symmetrical. HEART: S1 and S2 positive. LUNGS: Fair airflow bilaterally. ABDOMEN: Soft and nontender. No organomegaly. EXTREMITIES: Bilateral lower extremity. No edema. No cyanosis. NEUROLOGIC: Awake and alert, follows simple commands, oriented x3. MEDICATIONS: Norvasc, Brovana, Pulmicort, Coreg, doxycycline, Flonase, Lasix, gabapentin, Solu-Medrol, nicotine patch, HIV medications, Protonix. LABORATORY DATA: White blood cells 7.0, hemoglobin 12.9, hematocrit 38.9, and platelets 222. Sodium 135, potassium 4.2, BUN 36, creatinine 1.5, glucose 354. ASSESSMENT AND PLAN: Ms. Lu Roa is 63-year-old lady with multiple medical problems. Human immunodeficiency virus positive, chronic obstructive pulmonary disease, insulin-dependent diabetes mellitus, history of hypertension, active smoker, hypothyroidism, depression came with exacerbation of chronic obstructive pulmonary disease. Gastrointestinal and deep venous thrombosis prophylaxis given. Patient is heavy smoker, now have nicotine patch. Sputum cultures done. Appreciated pulmonary input. Repeat labs. We will followup. Lois Croft MD [facility]
[2018-06-14] MEDS: Budesonide 0.5 mg/2 ml Inhal Susp UD IH SCH ×2 (07:09→21:24)
[2018-06-14] MEDS: Arformoterol 15 mcg/2 ml Inh Sol IH SCH ×2 (07:09→21:24)
[2018-06-14] MEDS: Insulin Reg-MEDIUM-Coverage SC SCH ×4 (08:16→22:12)
[2018-06-14] MEDS: ELUXADOLINE 75 MG PO SCH (09:11)
[2018-06-14] MEDS: Ergocalciferol 50,000 Intl Units Cap PO SCH (09:12)
[2018-06-14] MEDS: Pantoprazole 40 mg EC Tab PO SCH (09:12)
[2018-06-14] MEDS: Multivitamin Therapeutic Tab PO SCH (09:14)
[2018-06-14] MEDS: Fluticasone Nasal 50 mcg/Spray NS SCH (09:15)
[2018-06-14] MEDS: JULUCA PO SCH (09:17)
[2018-06-14] MEDS: ZAFIRLUKAST 20 MG PO SCH ×2 (09:17→17:28)
[2018-06-14] MEDS: DARUNAVIR ETHANOLATE 800 MG PO SCH (09:18)
[2018-06-14] MEDS: Omega-3-Acid Ethyl Esters 1 GM Cap PO SCH (09:34)
[2018-06-14] MEDS: MethylPREDNISolone 40 mg Vial IVP SCH ×2 (10:00→22:12)
[2018-06-14] MEDS ORDERED: Oxycodone/Acetaminophen 5/325 mg Tab PO STA (10:50)
--- NOTE | 2018-06-14 13:15 | RAD ---
Date of service: 06/14/2018 PROCEDURE: Pelvis and right hip HISTORY: pain COMPARISON: TECHNIQUE: Three views FINDINGS: There is joint space narrowing in the right hip with bony sclerosis. Small osteophytes are seen. No evidence of fracture. IMPRESSION: Osteoarthritis in the right hip. No acute findings
--- NOTE | 2018-06-14 13:17 | RAD ---
Date of service: 06/14/2018 PROCEDURE: Cervical Spine Radiographs. HISTORY: Pain. COMPARISON: 07/09/2016 FINDINGS: BONES: Alignment maintained. No fracture. Dens Intact. DISC SPACES: Multilevel disc degeneration can be seen with anterior osteophytes. There is also facet arthropathy SOFT TISSUES: Normal. No prevertebral soft tissue swelling. OTHER FINDINGS: None. IMPRESSION: Multilevel disc degeneration and facet arthropathy at C4-5, C5-6 and C6-7
--- NOTE | 2018-06-14 16:43 | PN ---
DATE: 06/14/2018 PULMONARY PROGRESS NOTE REFERRING PHYSICIAN: Dr. Croft. SUBJECTIVE: The patient is lying in bed, in no acute distress. No overnight events reported. The patient reports that she did try CPAP machine last night for about 40 minutes. Reports that machine was uncomfortable, but states that she is willing to try the machine again tonight. States that she is feeling better. Cough and shortness of breath have improved. No headache, rhinitis, chest pain, abdominal pain, nausea, vomiting, diarrhea, leg pain or leg swelling reported. OBJECTIVE: GENERAL: No acute distress. VITAL SIGNS: Blood pressure 140/73, pulse 83, temperature 98.6, oxygen saturation 96. HEENT: Moist mucous membranes. Crowded airway. NECK: Supple. No JVD. LUNGS: Rhonchi bilaterally, few. Minimal wheezing. CARDIOVASCULAR: S1, S2. ABDOMEN: Soft, nontender. No distention. No organomegaly. EXTREMITIES: No bilateral lower extremity edema. NEUROLOGIC: Awake, alert, verbal. Follows commands. MEDICATIONS: Reviewed. Norvasc 10 mg daily, Brovana 15 mcg every 12 hours, Pulmicort 0.5 mg every 12 hours, Coreg 25 mg daily, Plavix 75 mg daily, doxycycline 100 mg every 12 hours, ergocalciferol 50,000 units daily, Flonase nasal spray daily, folic acid 1 mg daily, Lasix 40 mg daily, Neurontin 300 mg three times a day, Humulin R sliding scale a.c. and h.s., Solu-Medrol 40 mg every 12 hours, multivitamin 1 tab daily, nicotine patch transdermally daily, Accolate 20 mg twice a day, melatonin 1 tab bedtime, Prezista 800 mg daily, Viberzi 75 mg daily, Lovaza 1 g daily, Protonix 40 mg daily, Inderal 20 mg three times a day, Norvir 100 mg twice a day, Zoloft 100 mg daily. LABORATORY DATA: Reviewed. POC glucose 340. Urine for legionella negative,. Cervical spine x-ray shows multilevel disk degeneration and facet arthropathy at C4-5, C5-6 and C6-7. Hip pelvic x-ray shows osteoarthritis in the right hip. No acute findings. IMPRESSION AND PLAN: Chronic obstructive lung disease, human immunodeficiency virus positive, diabetes, hypertension, active smoker, hypothyroidism, osteoarthritis in the hip. Continue inhaled bronchodilators. We will continue current dose of steroids at this time. We will reevaluate in the morning. Continue antibiotic therapy, gastric prophylaxis, deep venous thrombosis prophylaxis. Continue nicotine patch for smoking cessation. Procalcitonin level less than 0.05 indicating no bacterial pneumonia. Suspected sleep apnea syndrome. The patient states that she is willing to try continuous positive airway pressure machine tonight, so, we will try continuous positive airway pressure machine tonight. Sleep apnea precaution. Head of bed elevated at 45 degrees. Continue inhaled bronchodilators. It is recommended this patient should have sleep study and full pulmonary function tests as outpatient. This patient was seen and examined with Dr. Mercedes. Discussed assessment and plan as described above. This patient was seen and examined with Piyush Nolan, nurse practitioner. Discussed assessment and plan as described above. Thank you for this consult. We will follow with you. Piyush Nolan APN Osman Mercedes MD
[2018-06-14 21:53] VITALS: RESP 20
[2018-06-14] MEDS: MELATONIN PO SCH (22:12)
[2018-06-15] MEDS: Oxycodone/Acetaminophen 5/325 mg Tab PO PRN ×2 (00:01→09:47)
[2018-06-15] MEDS: Arformoterol 15 mcg/2 ml Inh Sol IH SCH ×2 (07:26→21:36)
[2018-06-15] MEDS: Budesonide 0.5 mg/2 ml Inhal Susp UD IH SCH ×2 (07:26→21:36)
[2018-06-15] MEDS: Insulin Reg-MEDIUM-Coverage SC SCH ×3 (08:24→17:11)
--- NOTE | 2018-06-15 08:25 | PN ---
DATE: 06/14/2018 SUBJECTIVE: The patient is a 63-year-old female. The patient was seen and examined at the bedside on 06/14/2018. The patient is complaining of pain in the right leg, looks like sciatica. No fever. No chills. According to her, the pain was 10/10. Percocet was given to relieve the pain, but when I saw the patient, the pain was a little bit better. X-ray of the lumbosacral region and right hip done, reviewed by me. PHYSICAL EXAMINATION: VITAL SIGNS: Blood pressure 140/70, pulse 86, temperature 98.2, and oxygen saturation 97%. HEENT: Head; normocephalic and atraumatic. Eyes; PERRLA. Extraocular muscles are intact. Conjunctivae clear. Nose patent. Mucous membranes moist. NECK: Supple. No carotid bruit, JVD, or thyromegaly. CHEST: Bilaterally symmetrical. HEART: S1 and S2 positive. LUNGS: Clear to auscultation. ABDOMEN: Soft. Bowel sounds positive. No organomegaly. EXTREMITIES: No edema. No cyanosis. NEUROLOGIC: The patient is awake and alert. Moving all 4 extremities. No focal deficits. MEDICATIONS: Norvasc, Brovana, Pulmicort, Coreg, doxycycline, Flonase, multivitamin, nicotine patch, Accolate, Viberzi, and Lovaza. LABORATORY DATA: We do not have recent labs today, but I reviewed old labs. Glucose 340. ASSESSMENT AND PLAN: Ms. Janina Leigh is a 63-year-old female with multiple medical problems, admitted with chronic obstructive lung disease, human immunodeficiency virus positive, diabetes mellitus, hypertension, active smoker, now in hospital getting nicotine patch, hypothyroidism, and osteoarthritis. Continue inhaled bronchodilators. Having pain in the right side of the leg, looks like sciatica. X-ray of the back and hip actually done and reviewed by me. Waiting for the Doppler of the right lower extremity to see deep venous thrombosis. Percocet given. Gastrointestinal and deep venous thrombosis prophylaxes given. Repeat labs. We will follow up. Lois Croft MD
--- NOTE | 2018-06-15 08:48 | HP ---
DATE OF EXAM: 06/13/2018 CHIEF COMPLAINT: Coughing, shortness of breath, and cold symptoms. HISTORY OF PRESENT ILLNESS: The patient is a 63-year-old female with past medical history of multiple medical problem, s/p hernia repair, HIV positive, hepatitis, asthma, history of coronary artery disease, diabetic neuropathy, nephropathy, COPD, asthma, anemia, hypothyroidism, irritable bowel syndrome, came to the emergency department complaining of cold for past two weeks with difficulty breathing and cough with white phlegm. The patient reported that she also had no appetite for the past two weeks with decreased p.o. intake associated with nausea and episodes of vomiting and diarrhea. The patient reports that she self medicated her with Benadryl, Singulair and used every type of inhalers, but no relief. She has history of flu and pneumonia vaccination. The patient was complaining about chills and fever. No hematuria or hematochezia. No headache. No dizziness. PAST MEDICAL HISTORY: Congestive heart failure, hypertension, coronary artery disease, COPD, asthma, diabetes mellitus type 2, arthritis, chronic diarrhea and bowel incontinence, irritable bowel syndrome, colitis, and HIV positive. FAMILY HISTORY: Father and mother, noncontributory. HABITS: Heavy smoking, still smoking. Alcohol, yes. Substance abuse, no as per patient. ALLERGIES: THE PATIENT IS NOT ALLERGIC WITH ANY MEDICATIONS. HOME MEDICATIONS: Reviewed by me. ProAir, Symbicort, Coreg, Plavix, Viberzi, Lasix, Neurontin, and HIV medication. REVIEW OF SYSTEMS: The patient was seen and examined at bedside, looking comfortable, as per patient her shortness of breath is better, cough is better. Sugar is high because the patient is getting Solu-Medrol, I moved her sliding scale range from Algorithm from low to medium. No hematuria or hematochezia. PHYSICAL EXAMINATION: VITAL SIGNS: Temperature 97.6, pulse 66, respiratory rate 20, and blood pressure 106/60. HEENT: Head is normocephalic and atraumatic. Eyes; PERRLA. Extraocular muscles are intact. Conjunctivae clear. Nose patent. NECK: Supple. No carotid bruit. No thyromegaly. CHEST: Bilaterally symmetrical. LUNGS: Wheezing bilaterally. HEART: S1 and S2 positive. ABDOMEN: Soft. Bowel sounds present. No organomegaly. EXTREMITIES: No edema. No cyanosis. NEUROLOGIC: The patient is awake and alert. Moving all 4 extremities. No focal deficit. LABORATORY DATA: White blood cells 6.8, hemoglobin 12.8, hematocrit 37.7, and platelets 214. Sodium 136, potassium 3.6, BUN 14, creatinine 1.3, and glucose 176. ASSESSMENT AND PLAN: The patient is a 63-year-old female with diabetes mellitus, pneumonia, history of hepatitis, coronary artery disease, diabetic neuropathy, nephropathy, chronic obstructive pulmonary disease, anemia, arthritis, hypothyroidism, irritable bowel syndrome, history of stool incontinence, has upper respiratory infection from couple of days, failed outpatient treatment, used every type of inhalers but is not helping, so she planned to come here, we admitted the patient started on Solu-Medrol, put her on medication . Pulmonary consult. Repeat labs. We will follow up. Lois Croft MD [facility]TDD
[2018-06-15] MEDS: Omega-3-Acid Ethyl Esters 1 GM Cap PO SCH (09:10)
[2018-06-15] MEDS: JULUCA PO SCH (09:11)
[2018-06-15] MEDS: DARUNAVIR ETHANOLATE 800 MG PO SCH (09:11)
[2018-06-15] MEDS: Fluticasone Nasal 50 mcg/Spray NS SCH (09:11)
[2018-06-15] MEDS: ZAFIRLUKAST 20 MG PO SCH ×2 (09:12→17:13)
[2018-06-15] MEDS: Pantoprazole 40 mg EC Tab PO SCH (09:14)
[2018-06-15] MEDS: MethylPREDNISolone 40 mg Vial IVP SCH ×2 (09:14→21:39)
[2018-06-15] MEDS: Multivitamin Therapeutic Tab PO SCH (09:14)
[2018-06-15] MEDS: Lidocaine 5% Patch TOP SCH (09:15)
[2018-06-15] MEDS: Ergocalciferol 50,000 Intl Units Cap PO SCH (09:19)
[2018-06-15] MEDS: ELUXADOLINE 75 MG PO SCH (09:37)
--- NOTE | 2018-06-15 14:44 | PN ---
DATE: 06/15/2018 PULMONARY PROGRESS NOTE REFERRING PHYSICIAN: Lois Croft MD SUBJECTIVE: The patient is sitting up in bed. No acute distress. No overnight events reports. Reports not wearing CPAP machine last night. Reports cough and shortness of breath has improved. No headache, rhinitis, chest pain, abdominal pain, nausea, vomiting, diarrhea, leg pain or leg swelling reported. OBJECTIVE: GENERAL: No acute distress. VITAL SIGNS: Blood pressure 137/75, pulse 75, temperature 98.6, oxygen saturation 93 on room. HEENT: Moist mucous membranes. Crowded airway. NECK: Supple. No JVD. LUNGS: Rhonchi bilaterally. Minimal wheezing. CARDIOVASCULAR: S1, S2. ABDOMEN: Soft, nontender. No distention. No organomegaly. EXTREMITIES: No bilateral lower extremity edema. NEUROLOGIC: Awake, alert, verbal. Follows commands. MEDICATIONS: Reviewed. Norvasc 10 mg daily, Brovana 15 mcg every 12 hours, Pulmicort 0.5 mg every 12 hours, Coreg 25 mg daily, Plavix 75 mg daily, doxycycline 100 mg every 12 hours, ergocalciferol 50,000 units daily, Pepcid 40 mg at h.s., Flonase nasal spray daily, folic acid 1 mg daily, Lasix 40 mg daily, Neurontin 300 mg three times a day, Humulin R sliding scale a.c. and h.s., Lidoderm patch topically daily, Solu-Medrol 40 mg every 12 hours, multivitamin 1 tab daily, nicotine patch transdermally daily, Accolate 20 mg twice a day, melatonin 1 tab bedtime, Prezista 800 mg daily, Viberzi 75 mg daily, Lovaza 1 g daily, Percocet 5/325 mg one tab twice a day p.r.n., Protonix 40 mg daily, propranolol 20 mg three times a day, Norvir 100 mg twice a day, Zoloft 100 mg daily. LABORATORY DATA: Reviewed. POC glucose 399. IMPRESSION AND PLAN: Chronic obstructive lung disease, human immunodeficiency virus positive, hypertension, active smoker, diabetes, hypothyroidism, osteoarthritis in the hip. Continue inhaled bronchodilators. We will decrease Solu-Medrol to 20 mg every 12 hours. Gastric prophylaxis, deep venous thrombosis prophylaxis. Nicotine patch for smoking cessation. Continue antibiotic therapy. The patient was sleep apnea syndrome. Continued to encourage continuous positive airway pressure use at bedtime. Sleep apnea precaution. Head of bed elevated to 45 degrees. We recommend this patient have sleep study and full pulmonary function test as outpatient. We will try nasal mask for the patient with continuous positive airway pressure machine tonight. Recommend physical therapy, out of bed to chair. This patient was seen and examined with Dr. Mercedes. Discussed assessment and plan as described above. This patient was seen and examined with Piyush Nolan, nurse practitioner. Discussed assessment and plan as described above. Thank you for this consult and we will follow with you. Piyush Nolan APN Osman Mercedes MD
--- NOTE | 2018-06-15 16:51 | CP.PCM.APN ---
Subjective - Date & Time of Evaluation Date of Evaluation: 06/15/18 Time of Evaluation: 13:20 - Subjective Subjective: Pt. seen and examined in bed, states breathing has improved. Objective - Vital Signs/Intake and Output Vital Signs (last 24 hours): Temp Pulse Resp BP Pulse Ox 98 F 71 20 137/75 92 L 06/15/18 14:00 06/15/18 14:00 06/15/18 14:00 06/15/18 09:14 06/15/18 14:00 Intake and Output: 06/15/18 06/15/18 06:59 18:59 Intake Total 600 Balance 600 - Medications Medications: Current Medications Amlodipine Besylate (Norvasc) 10 mg PO DAILY [facility] Last Admin: 06/15/18 09:12 Dose: 10 mg Arformoterol Tartrate (Brovana) 15 mcg IH [id number] [facility] Last Admin: 06/15/18 07:26 Dose: 15 mcg Budesonide (Pulmicort Respules) 0.5 mg IH [id number] [facility] Last Admin: 06/15/18 07:26 Dose: 0.5 mg Carvedilol (Coreg) 25 mg PO DAILY [facility] Last Admin: 06/15/18 09:12 Dose: 25 mg Clopidogrel Bisulfate (Plavix) 75 mg PO DAILY [facility] Last Admin: 06/15/18 09:12 Dose: 75 mg Doxycycline Hyclate (Doryx) 100 mg PO Q12 [facility]; Protocol Last Admin: 06/15/18 09:12 Dose: 100 mg Ergocalciferol (Drisdol 50,000 Intl Units Cap) 1 cap PO DAILY [facility] Last Admin: 06/15/18 09:19 Dose: 1 cap Famotidine (Pepcid) 40 mg PO HS [facility] Fluticasone Propionate (Flonase) 1 actuation NS DAILY [facility] Last Admin: 06/15/18 09:11 Dose: 2 spr Folic Acid (Folic Acid) 1 mg PO DAILY [facility] Last Admin: 06/15/18 09:19 Dose: 1 mg Furosemide (Lasix) 40 mg PO DAILY [facility] Last Admin: 06/15/18 09:14 Dose: 40 mg Gabapentin (Neurontin) 300 mg PO TID [facility]; Protocol Last Admin: 06/15/18 14:18 Dose: 300 mg Home Med (Home Med) 0 unit PO DAILY [facility] Last Admin: 06/15/18 09:11 Dose: 1 unit Insulin Human Regular (Humulin R Med) 0 units SC ACHS [facility]; Protocol Last Admin: 06/15/18 11:54 Dose: 8 unit Lidocaine (Lidoderm) 1 ea TOP DAILY [facility] Last Admin: 06/15/18 09:15 Dose: 1 ea Methylprednisolone (Solu-Medrol) 20 mg IVP Q12 [facility] Multivitamins (Thera Tab) 1 tab PO DAILY [facility] Last Admin: 06/15/18 09:14 Dose: 1 tab Nicotine (Nicoderm Cq) 1 patch TD DAILY [facility] Last Admin: 06/15/18 09:11 Dose: 1 patch Zafirlukast [ Accolate] 20 Mg ( Home Med) 20 mg PO BID [facility] Last Admin: 06/15/18 09:12 Dose: 20 mg Melatonin [Melatonin (] 1 Tab (Home Med)) 1 tab PO HS [facility] Last Admin: 06/14/18 22:12 Dose: 1 tab Darunavir Ethanolate [Prezista] 800 Mg ( Home Med) 800 mg PO DAILY [facility] Last Admin: 06/15/18 09:11 Dose: 800 mg Eluxadoline [Viberzi (] 75 Mg (Home Med)) 75 mg PO DAILY [facility] Last Admin: 06/15/18 09:37 Dose: 75 mg [id number] Ethyl Esters (Lovaza) 1 gm PO DAILY [facility] Last Admin: 06/15/18 09:10 Dose: 1 gm Oxycodone/Acetaminophen (Percocet 5/325 Mg Tab) 1 tab PO BID PRN PRN Reason: Pain, moderate (4-7) Stop: 06/17/18 23:43 Last Admin: 06/15/18 09:47 Dose: 1 tab Pantoprazole Sodium (Protonix Ec Tab) 40 mg PO DAILY [facility] Last Admin: 06/15/18 09:14 Dose: 40 mg Propranolol HCl (Inderal) 20 mg PO TID [facility] Last Admin: 06/15/18 14:17 Dose: 20 mg Ritonavir (Norvir) 100 mg PO BID [facility] Last Admin: 06/15/18 09:11 Dose: 100 mg Sertraline HCl (Zoloft) 100 mg PO DAILY [facility] Last Admin: 06/15/18 09:14 Dose: 100 mg - Labs Labs: 06/13/18 07:00 06/13/18 07:00 - Constitutional Appears: Well, Non-toxic - Head Exam Head Exam: NORMOCEPHALIC - Eye Exam Eye Exam: Normal appearance - Neck Exam Neck Exam: Full ROM - Respiratory Exam Respiratory Exam: Wheezes - Cardiovascular Exam Cardiovascular Exam: REGULAR RHYTHM, +S1, +S2 - GI/Abdominal Exam GI & Abdominal Exam: Soft, Normal Bowel Sounds - Rectal Exam Rectal Exam: Deferred - Exam Exam: absent: Circumcision, NORMAL INSPECTION, Scrotal Swelling, Testicular Tenderness, Uretheral Discharge, Testicular Vertical Lie, Bladder Distension External exam: absent: Ecchymosis, Erythema, Lacerations, Lesions, NORMAL EXTERNAL EXAM, Swelling Speculum exam: absent: Cervical Discharge, Erythema, Foreign Body, Laceration, NORMAL SPECULUM EXAM, Tissue, Vaginal Bleeding, Vaginal Discharge - Extremities Exam Extremities Exam: Full ROM, Normal Inspection - Neurological Exam Neurological Exam: Alert, Awake, Oriented x3 - Psychiatric Exam Psychiatric exam: Normal Affect, Normal Mood - Skin Skin Exam: Dry, Normal Color, Warm Assessment and Plan - Assessment and Plan (Free Text) Assessment: Radiology Results Chest X-Ray 06/11/18 22:50 IMPRESSION: No active disease. Chest CT 06/12/18 12:02 IMPRESSION: There is a small bulla in the right lung apex. There is some linear scarring at the left lung base and in the left upper lobe peripherally. The lungs are otherwise clear Cervical Spine X-Ray 06/14/18 11:34 IMPRESSION: Multilevel disc degeneration and facet arthropathy at C4-5, C5-6 and C6-7 Hip/Pelvis X-Ray 06/14/18 11:34 IMPRESSION: Osteoarthritis in the right hip. No acute findings Assessment: 63 year old female w.pmh HIV pos, Hepatitis, DM, CAD, COPD, IBS, current spoker presented w.complains cold, cough for the past 2 weeks with difficulty breathing and cough with white phlegm. Patient also reports decreased Po intake for the past 2 weeks associated with nausea and episodes of vomiting, found to have pneumonia, admitted for further treatment, with pulmonary consulted. Plan: 1. Pneumonia Ruled out. 2. Bronchitis/COPD Exac. Bronchdolilators, IV solumedrol weaning per pulm. 3. Current Smoker -Nicotine patch ordered, smoking cessation advised. Will continue to monitor clinical status and follow closely. PT rec HWS. Consider DC home pending pulm clearance.
[2018-06-15] MEDS ORDERED: Oxycodone/Acetaminophen 5/325 mg Tab PO STA (21:22)
[2018-06-15] MEDS: MELATONIN PO SCH (21:47)
[2018-06-15] MEDS ORDERED: Insulin Regular 1 UNITS/0.01 ML ML SC STA (22:01)
[2018-06-16] MEDS: Arformoterol 15 mcg/2 ml Inh Sol IH SCH (07:40)
[2018-06-16] MEDS: Budesonide 0.5 mg/2 ml Inhal Susp UD IH SCH (07:40)
[2018-06-16] MEDS: Insulin Reg-MEDIUM-Coverage SC SCH ×2 (07:50→12:02)
[2018-06-16 08:01] VITALS: PULSE 76; TEMP 97.9; O2SAT 98
[2018-06-16] MEDS: Lidocaine 5% Patch TOP SCH (10:52)
[2018-06-16] MEDS: Ergocalciferol 50,000 Intl Units Cap PO SCH (10:53)
[2018-06-16] MEDS: ELUXADOLINE 75 MG PO SCH (10:53)
[2018-06-16] MEDS: Omega-3-Acid Ethyl Esters 1 GM Cap PO SCH (10:53)
[2018-06-16] MEDS: Multivitamin Therapeutic Tab PO SCH (10:55)
[2018-06-16] MEDS: Pantoprazole 40 mg EC Tab PO SCH (10:55)
[2018-06-16] MEDS: Oxycodone/Acetaminophen 5/325 mg Tab PO PRN (10:55)
[2018-06-16] MEDS: Fluticasone Nasal 50 mcg/Spray NS SCH (10:56)
[2018-06-16] MEDS: MethylPREDNISolone 40 mg Vial IVP SCH (10:56)
[2018-06-16] MEDS: JULUCA PO SCH (10:57)
[2018-06-16] MEDS: DARUNAVIR ETHANOLATE 800 MG PO SCH (10:57)
[2018-06-16] MEDS: ZAFIRLUKAST 20 MG PO SCH (10:58)
[2018-06-16 11:09] VITALS: BP 160/65
--- NOTE | 2018-06-16 11:28 | PN ---
DATE: 06/16/2018 REFERRING PHYSICIAN: Lois Croft MD SUBJECTIVE: The patient is sitting up in bed. No overnight events reports. Reports not wearing CPAP machine last night. States that she feels nauseous today. Positive bowel movement today. No vomiting. No headache, rhinitis, chest pain, abdominal pain, nausea, vomiting, diarrhea, leg pain or leg swelling reported. Cough and shortness of breath have improved. OBJECTIVE: VITAL SIGNS: Blood pressure 170/90, pulse 76, temperature 97.9, oxygen saturation 98 on room. GENERAL: No acute distress. HEENT: Moist mucous membranes. Crowded airway. NECK: Supple. No JVD. LUNGS: Rhonchi bilaterally. CARDIOVASCULAR: S1, S2. ABDOMEN: Soft, nontender. No distention. No organomegaly. EXTREMITIES: No bilateral lower extremity edema. NEUROLOGIC: Awake, alert, verbal. Follows commands. MEDICATIONS: Reviewed. Norvasc 10 mg daily, Brovana 15 mcg every 12 hours, Pulmicort 0.5 mg every 12 hours, Coreg 25 mg daily, Plavix 75 mg daily, doxycycline 100 mg every 12 hours, ergocalciferol 50,000 units daily, Pepcid 40 mg at bedtime, Flonase nasal spray daily, folic acid 1 mg daily, Lasix 40 mg daily, Neurontin 300 mg three times a day, Levemir 10 units subcu daily, Humulin R sliding scale a.c. and h.s., Lidoderm patch topically to affected area, Solu-Medrol 20 mg every 12 hours, multivitamin 1 tab daily, nicotine patch transdermally daily, Accolate 20 mg twice a day, melatonin 1 tab at bedtime, Prezista 800 mg daily, Viberzi 75 mg daily, Lovaza 1 g daily, Percocet 5/325 mg one tab twice a day p.r.n., Protonix 40 mg daily, propranolol 20 mg three times a day, Norvir 100 mg twice a day, Zoloft 100 mg daily. LABORATORY DATA: Reviewed. POC glucose 314. IMPRESSION AND PLAN: Chronic obstructive lung disease, human immunodeficiency virus positive, hypertension, active smoker, diabetes, osteoarthritis in the hip, hypothyroidism. Continue inhaled bronchodilators, steroids, gastric prophylaxis, deep venous thrombosis prophylaxis. Continue nicotine patch for smoking cessation. Continue antibiotic therapy. Continue to encourage the patient to use continuous positive airway pressure machine, sleep apnea precaution. Head of bed elevated to 45 degrees. We will start the patient on Zofran p.r.n. for nausea, vomiting. Recommend the patient have sleep study and full pulmonary function test as outpatient. Recommend physical therapy, out of bed to chair. This patient was seen and examined with Dr. Mercedes. Discussed assessment and plan as described above. This patient was seen and examined with Piyush Nolan, nurse practitioner. Discussed assessment and plan as described above. Thank you for this consult. We will follow with you. Piyush Nolan APN Osman Mercedes MD
[2018-06-16] MEDS ORDERED: Insulin Detemir 100 units/ml Vial (Levemir) SC SCH (12:00)
--- NOTE | 2018-06-17 02:32 | PN ---
DATE: 06/15/2018 SUBJECTIVE: The patient is a 63-year-old female. The patient was seen and examined at the bedside, 06/15/2018, looking comfortable. No fever. No chills. No hematuria or hematochezia. No headaches. No dizziness. No chest pain. No palpitation. Cough is better. Shortness of breath is better. PHYSICAL EXAMINATION: VITAL SIGNS: Blood pressure 130/70, pulse 70, temperature 98.7, and oxygen saturation 92%. HEENT: Head; normocephalic and atraumatic. Eyes; PERRLA. Extraocular muscles are intact. Conjunctivae clear. Nose patent. Mucous membranes moist. NECK: Supple. No carotid bruits, JVD, or thyromegaly. CHEST: Bilaterally symmetrical. HEART: S1 and S2 positive. LUNGS: Clear to auscultation. ABDOMEN: Soft. Bowel sounds present. No organomegaly. EXTREMITIES: No edema. No cyanosis. NEUROLOGIC: The patient is awake and alert. Moving all four extremities. No focal deficit. MEDICATIONS: Norvasc, Brovana, Pulmicort, Coreg, , doxycycline, Pepcid, Flonase, Lasix, Neurontin, insulin, and Percocet. LABORATORY DATA: We do not have recent labs today, but I reviewed old labs. Glucose 399. ASSESSMENT AND PLAN: Ms. Lu Roa is a 63-year-old female with multiple medical problems, human immunodeficiency virus positive, chronic obstructive lung disease, sleep apnea syndrome, hypertension, active smoker, diabetes mellitus, hypothyroidism, osteoarthritis, getting Solu-Medrol tapering dose, gastric and deep venous thrombosis prophylaxes given, nicotine patch given, and urged to quit smoking. Length of time discussion done with the patient. Has degenerative joint disease. Getting pain medication, out of bed, physical therapy, and we will follow up. Lois Croft MD
== END 2018-06-16 17:39 | disposition home or self-care (01) | DRG 190 ==
LOC: ED 22:24 → ERH 06-12 00:29 → 5RSO 06-12 02:03
PROVIDERS: ADMIT Internal Medicine; ATTEND Internal Medicine
PROC: 3E0F73Z Introduction of Anti-inflammatory into Respiratory Tract, Via Natural or Artificial Opening (ICD-10-PCS; principal; 2018-06-12)
DX: J44.0 Chronic obstructive pulmonary disease with (acute) lower respiratory infection (principal); J18.9 Pneumonia, unspecified organism; E87.2 Acidosis; R05 Cough; F41.9 Anxiety disorder, unspecified; Z79.51 Long term (current) use of inhaled steroids; Z79.02 Long term (current) use of antithrombotics/antiplatelets; Z79.899 Other long term (current) drug therapy; Z79.4 Long term (current) use of insulin; E86.0 Dehydration; K58.9 Irritable bowel syndrome, unspecified; Z21 Asymptomatic human immunodeficiency virus [HIV] infection status; F17.210 Nicotine dependence, cigarettes, uncomplicated; M16.11 Unilateral primary osteoarthritis, right hip; M50.321 Other cervical disc degeneration at C4-C5 level; M54.30 Sciatica, unspecified side; M79.604 Pain in right leg; E03.9 Hypothyroidism, unspecified; E11.40 Type 2 diabetes mellitus with diabetic neuropathy, unspecified; E11.21 Type 2 diabetes mellitus with diabetic nephropathy; G47.33 Obstructive sleep apnea (adult) (pediatric); I11.0 Hypertensive heart disease with heart failure; I25.10 Atherosclerotic heart disease of native coronary artery without angina pectoris; I50.9 Heart failure, unspecified; J00 Acute nasopharyngitis [common cold]; K75.9 Inflammatory liver disease, unspecified; M06.9 Rheumatoid arthritis, unspecified; M16.10 Unilateral primary osteoarthritis, unspecified hip; Z87.440 Personal history of urinary (tract) infections; Z90.710 Acquired absence of both cervix and uterus

== ENCOUNTER 2018-07-10 20:02 | Inpatient (IN) | payer MEDICAID, MEDICARE ==
[2018-07-10 20:19] VITALS: BMI 26.6
[2018-07-10] MEDS ORDERED: Sodium Chloride 0.9% 1,000 ML IV STA (20:57)
[2018-07-10] MEDS ORDERED: Morphine 2 mg/ml ISec IVP STA ×2 (20:58→23:30)
--- NOTE | 2018-07-10 20:59 | ED PDOC ---
Arrival/HPI - General Chief Complaint: Abdominal Pain Time Seen by Provider: 07/10/18 20:04 - History of Present Illness Narrative History of Present Illness (Text): 63 y/o F c PMHx ventral hernia repair x2, HIV, hepatitis, diabetes, CAD, diabetic neuropathy, nephropathy, COPD, anemia, arthritis, hypothyroidism, and IBS p/w abdominal pain x few hours. Patient states she decided to drink justus tonight and afterwards has had severe abdominal pain diffusely. She denies fever, chills, chest pain, dyspnea, nausea, vomiting, diarrhea, constipation, dysuria. PMD: Dr. Croft Time/Duration: 4-6 hours Symptom Onset: Gradual Symptom Course: Unchanged Activities at Onset: Light Context: Home Past Medical History - Provider Review Nursing Documentation Reviewed: Yes - Infectious Disease Hx of Infectious Diseases: None - Tetanus Immunization Tetanus Immunization: Unknown - Cardiac Hx Cardiac Disorders: Yes (CAD) Hx Hypertension: Yes - Pulmonary Hx Chronic Obstructive Pulmonary Disease (COPD): Yes - Neurological HX Cerebrovascular Accident: No - HEENT Hx HEENT Disorder: No Hx Blind: No Hx Cataracts: No Hx Deafness: No Hx Difficulty Chewing: No Hx Epistaxis: No Hx Glaucoma: No Hx Macular Degeneration: No - Renal Hx Renal Failure: No - Endocrine/Metabolic Hx Diabetes Mellitus Type 2: Yes Hx Hypothyroidism: Yes - Hematological/Oncological Hx Blood Disorders: Yes Hx Anemia: Yes Hx Blood Transfusions: Yes - Integumentary Hx Dermatological Disorder: No Hx Basal Cell Carcinoma: No Hx Eczema: No Hx Melanoma: No Hx Psoriasis: No Hx Squamous Cell Carcinoma: No - Musculoskeletal/Rheumatological Hx Arthritis: Yes - Gastrointestinal Hx Gastrointestinal Disorders: Yes Hx Diarrhea: Yes (chronic diarrhea with bowel incontinence) Hx Gastroesophageal Reflux: No Hx Irritable Bowel: Yes Other/Comment: colonoscopy 12/23/14: colitis, descending colon polyp, Diverticulosis - Genitourinary/Gynecological Hx Genitourinary Disorders: No Hx Hematuria: No Hx Incontinence: No Hx Sexually Transmitted Diseases: No Hx Urinary Tract Infection: Yes - Psychiatric Hx Psychophysiologic Disorder: Yes (attempted suicide) Hx Anxiety: Yes Hx Depression: Yes Hx Emotional Abuse: No Hx Physical Abuse: No Hx Substance Use: No - Surgical History Hx Section: Yes Hx Cholecystectomy: No Hx Coronary Stent: No Hx Hysterectomy: Yes - Anesthesia Hx Anesthesia: Yes Hx Anesthesia Reactions: No Hx Malignant Hyperthermia: No - Suicidal Assessment Feels Threatened In Home Enviroment: No Family/Social History - Physician Review Nursing Documentation Reviewed: Yes Family/Social History: No Known Family HX Smoking Status: Heavy Smoker > 10 Cigarettes Daily Hx Alcohol Use: Yes Frequency of alcohol use: Few days per week Hx Substance Use: No Hx Substance Use Treatment: No Allergies/Home Meds Allergies/Adverse Reactions: Allergies No Known Allergies Allergy (Verified 03/09/18 01:16) Home Medications: Home Meds Medication Instructions Recorded Confirmed Albuterol Sulfate [Proair Hfa] 0.09 mg IH BID PRN 07/08/16 06/11/18 Budesonide/Formoterol Fumarate 1 aer IH DAILY 07/08/16 06/11/18 [Symbicort 160-4.5 Mcg Inhaler] Carvedilol [Coreg] 25 mg PO DAILY 07/08/16 06/11/18 Clopidogrel [Plavix] 75 mg PO DAILY 07/08/16 06/11/18 Darunavir Ethanolate [Prezista] 600 mg PO BID 07/08/16 06/11/18 Dolutegravir Sodium [Tivicay] 50 mg PO DAILY 07/08/16 06/11/18 Eluxadoline [Viberzi] 75 mg PO DAILY 07/08/16 06/11/18 Ergocalciferol (Vitamin D2) 50,000 unit PO DAILY 07/08/16 06/11/18 [Vitamin D2] Fluticasone Nasal [Flonase] 0.05 mg NS DAILY 07/08/16 06/11/18 Folic Acid 1 mg PO DAILY 07/08/16 06/11/18 Furosemide [Lasix] 40 mg PO DAILY 07/08/16 06/11/18 Gabapentin [Neurontin] 300 mg PO BID 07/08/16 06/11/18 Imipramine [Tofranil] 25 mg PO HS 07/08/16 06/11/18 Montelukast Sodium [Singulair] 10 mg PO DAILY 07/08/16 06/11/18 [id number] Ethyl Esters 1 GM 1 gm PO DAILY 07/08/16 06/11/18 [Lovaza] Pantoprazole [Protonix EC Tab] 40 mg PO DAILY 07/08/16 06/11/18 Propranolol [Inderal] 20 mg PO TID 07/08/16 06/11/18 Ritonavir [Norvir] 100 mg PO BID 07/08/16 06/11/18 Sertraline [Zoloft] 100 mg PO DAILY 07/08/16 06/11/18 Zafirlukast [Accolate] 20 mg PO BID 07/08/16 06/11/18 amLODIPine [Norvasc] 10 mg PO DAILY 07/08/16 06/11/18 Insulin Regular [HumuLIN R] 2 unit SC TID 09/24/17 06/11/18 Melatonin 1 tab PO DAILY 09/24/17 06/11/18 Vitamin B Complex 100 No.2 [B-100 1 tab PO DAILY 09/24/17 06/11/18 Complex] Review of Systems - Physician Review All systems were reviewed & negative as marked: Yes - Review of Systems Constitutional: absent: Fevers Respiratory: absent: SOB Physical Exam - Physical Exam Narrative Physical Exam (Text): 07/10/18 21:02 Constitutional: No acute distress. Head: Normocephalic. Atraumatic. Eyes: PERRL. ENT: Moist mucous membranes. Neck: Supple. Cardiovascular: Regular rate. Chest: No tenderness. Abdomen: Diffuse tenderness without rebound. Respiratory: Clear to auscultation bilaterally. GI: Soft. Nontender. Nondistended. Back: No CVA tenderness. Musculoskeletal: No tenderness or swelling of extremities. Skin: No rash. Neurologic: Alert, no focal deficit. Vital Signs Reviewed: Yes Vital Signs Temp Pulse Resp BP Pulse Ox 07/10/18 20:49 98.6 F 77 18 139/67 97 Temperature: Afebrile Blood Pressure: Normal Pulse: Regular Respiratory Rate: Normal Medical Decision Making ED Course and Treatment: 07/10/18 21:04 EKG: Ordered, reviewed, and independently interpreted the EKG. Rate : 76 BPM Rhythm : NSR Interpretation : No ST-T-wave changes. 07/10/18 23:39 Procedure: CT of abdomen and pelvis Dictator:Dr. Koby Castellanos M.D Impression: 1. Evidence of duodenitis and ileitis. 2. Hepatomegaly. 3. A large right abdominal/pelvic wall ventral herniorrhaphy mesh is present. 4. 2.1 cm right ovarian cyst. Consideration could be given to correlation with TV pelvic ultrasound for further characterization. Status post hysterectomy. Dr. Croft accepts to her service, recommends Dr. Olivera for consultation. - RAD Interpretation Radiology Orders: 07/10/18 20:58 ABD & PELVIS IV CONTRAST ONLY [CT] Stat - Medication Orders Current Medication Orders: Sodium Chloride (Sodium Chloride 0.9%) 1,000 mls @ 999 mls/hr IV .Q1H1M STA Stop: 07/10/18 21:57 Morphine Sulfate (Morphine) 2 mg IVP STAT STA Stop: 07/10/18 20:59 Disposition/Present on Arrival - Present on Arrival Any Indicators Present on Arrival: No History of DVT/PE: No History of Uncontrolled Diabetes: No Urinary Catheter: No History of Decub. Ulcer: No History Surgical Site Infection Following: None - Disposition Have Diagnosis and Disposition been Completed?: Yes Diagnosis: Enteritis, Acute duodenitis, Pancreatitis Disposition: HOSPITALIZED Disposition Time: 23:57 Patient Plan: Admission Condition: FAIR Forms: [employer] ([place])
[2018-07-10 22:16] LABS: BASO # 0.03 K/mm3 (0.0-2.0); BASO % 0.4 % (0.0-3.0); EOS # 0.1 (0.0-0.7); EOS % 0.9 % (1.5-5.0); HEMOGLOBIN 12.5 g/dL (12.0-16.0); LYMPH # 2.6 (1.2-3.4); LYMPH % 33.7 % (22.0-35.0); MEAN CELL VOLUME 84.9 fl (80.0-105.0); MEAN CORPUSCULAR HEMOGLOBIN 28.1 pg (25.0-35.0); MEAN CORPUSCULAR HGB CONC 33.1 g/dl (31.0-37.0); MEAN PLATELET VOLUME 9.6 fl (7.0-11.0); MONO # 0.5 (0.1-0.6); MONO % 6.5 % (1.0-6.0); RBC 4.45 10^6/uL (3.5-6.1); RED CELL DISTRIBUTION WIDTH 15.3 % (11.5-14.5); WHITE BLOOD COUNT 7.7 10^3/uL (4.5-11.0)
[2018-07-10 22:24] LABS: INR 1.05; PARTIAL THROMBOPLASTIN TIME 27.5 Seconds (26.9-38.3); PROTHROMBIN TIME 11.6 SECONDS (9.4-12.5)
[2018-07-10 22:30] LABS: ALB/GLOB RATIO 1.1 (1.1-1.8); ALBUMIN 3.6 g/dL (3.0-4.8); ALT/SGPT < 6 U/L (7-56); AST/SGOT 17 U/L (14-36); BLOOD UREA NITROGEN 12 mg/dL (7-21); CALCIUM 9.1 mg/dL (8.4-10.5); GFR NON-AFRICAN AMERICAN 50; LIPASE 500 U/L (23-300)
[2018-07-10 22:36] LABS: PH,URINE 6.5 (4.7-8.0); URINE APPEARANCE CLEAR (CLEAR); URINE BILIRUBIN NEGATIVE (NEGATIVE); URINE BLOOD NEGATIVE (NEGATIVE); URINE COLOR LIGHT YELLOW (YELLOW); URINE GLUCOSE (UA) NEGATIVE (NEGATIVE); URINE LEUKOCYTE ESTERASE NEGATIVE Leu/uL (NEGATIVE); URINE PROTEIN NEGATIVE mg/dL (<30 mg/dL); URINE UROBILINOGEN 0.2 E.U./dL (<1 E.U./dL)
[2018-07-10] MEDS ORDERED: Iohexol 350 MG/100 ML VIAL ONE (22:36)
[2018-07-10] MEDS ORDERED: metroNIDAZOLE IV 500 mg/100 ml 500 MG/100 ML BAG IVPB STA (23:51)
[2018-07-10] MEDS ORDERED: Ciprofloxacin 400mg/200ml D5W 400 MG/200 ML BAG IVPB STA (23:51)
--- NOTE | 2018-07-11 01:56 | CP.PCM.PCO ---
<Steven Sierra - Last Filed: 07/11/18 01:55> Addendum Addendum: PGY1 House Doc Note Patient requesting sleep aid. Usually takes melatonin, not available in pharmacy. Given 25mg PO bendaryl x1. <Sheridan Maki - Last Filed: 07/11/18 19:27> Attending/Attestation - Attestation I have personally seen and examined this patient.: No I have fully participated in the care of the patient.: No I have reviewed all pertinent clinical information: No
--- NOTE | 2018-07-11 08:09 | CP.PCM.CON ---
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 She was in her normal state of health on 07/10/18 when she was drinking some justus and shortly thereafter noticed acute onset of diffuse, severe abdominal pain rated 10 out of 10 with associated nausea but no vomiting. She denies any precipitating or alleviating factors. She also reported a normal bowel movement in the morning of 07/10/18. She denied any diarrhea, recent antibiotic use, recent travel, recent sick contacts. She states she sometimes has these "episodes" that usually gets better slowly over time. 12 point review of systems negative other than stated above Medical history: See above Surgical history: Ventral hernia repair 2, hysterectomy medications: Reviewed in chart Family history: Denied GI problems Social history: Positive for tobacco and alcohol Allergies: No known drug allergies Per Et3arraf review, EGD 02/12/15: Erosive gastritis, biopsies negative for H. pylori CSPY 12/23/14: Mild right-sided colitis (biopsies negative) , 5 mm tubular adenoma in descending colon Past Patient History - Infectious Disease Hx of Infectious Diseases: None - Tetanus Immunizations Tetanus Immunization: Unknown - Past Medical History & Family History Past Medical History?: Yes - Past Social History Smoking Status: Heavy Smoker > 10 Cigarettes Daily - CARDIAC Hx Cardiac Disorders: Yes Hx Hypertension: Yes - PULMONARY Hx Respiratory Disorders: Yes Hx Chronic Obstructive Pulmonary Disease (COPD): Yes - NEUROLOGICAL Hx Neurological Disorder: No - HEENT Hx HEENT Problems: No Hx Blind: No Hx Cataracts: No Hx Deafness: No Hx Difficulty Chewing: No Hx Epistaxis: No Hx Glaucoma: No Hx Macular Degeneration: No - RENAL Hx Chronic Kidney Disease: No - ENDOCRINE/METABOLIC Hx Endocrine Disorders: Yes Hx Diabetes Mellitus Type 2: Yes Hx Hypothyroidism: Yes - HEMATOLOGICAL/ONCOLOGICAL Hx Blood Disorders: Yes Hx Anemia: Yes Hx Human Immunodeficiency Virus (HIV): Yes - INTEGUMENTARY Hx Dermatological Problems: No Hx Basil Cell: No Hx Eczema: No Hx Melanoma: No Hx Psoriasis: No Hx Squamous Cell: No - MUSCULOSKELETAL/RHEUMATOLOGICAL Hx Musculoskeletal Disorders: Yes Hx Arthritis: Yes Hx Falls: No - GASTROINTESTINAL Hx Gastrointestinal Disorders: Yes Hx Pancreatitis: Yes Other/Comment: colonoscopy 12/23/14: colitis, descending colon polyp, Diver ticulosis - GENITOURINARY/GYNECOLOGICAL Hx Genitourinary Disorders: No Hx Hematuria: No Hx Incontinence: No Hx Sexually Transmitted Disorders: No Hx Urinary Tract Infection: Yes - PSYCHIATRIC Hx Psychophysiologic Disorder: Yes Hx Anxiety: Yes Hx Depression: Yes Hx Emotional Abuse: No Hx Physical Abuse: No Hx Substance Use: No - SURGICAL HISTORY Hx Surgeries: Yes Hx Hysterectomy: Yes - ANESTHESIA Hx Anesthesia: Yes Hx Anesthesia Reactions: No Hx Malignant Hyperthermia: No Meds Allergies/Adverse Reactions: Allergies Allergy/AdvReac Type Severity Reaction Status Date / Time No Known Allergies Allergy Verified 03/09/18 01:16 - Medications Medications: Current Medications Hydromorphone HCl (Dilaudid) 0.5 mg IVP Q6H PRN PRN Reason: Pain, severe (8-10) Physical Exam - Constitutional Appears: Well, No Acute Distress - Head Exam Head Exam: ATRAUMATIC, NORMAL INSPECTION - Eye Exam Eye Exam: EOMI. absent: Scleral icterus - ENT Exam ENT Exam: Mucous Membranes Moist. absent: Mucous Membranes Dry - Respiratory Exam Respiratory Exam: Wheezes, NORMAL BREATHING PATTERN. absent: Accessory Muscle Use Additional comments: raspy voice - Cardiovascular Exam Cardiovascular Exam: REGULAR RHYTHM, RRR - GI/Abdominal Exam GI & Abdominal Exam: Guarding (voluntary upon palpation), Normal Bowel Sounds, Soft, Tenderness (diffusely tender to palpation but worse in epigastrium). absent: Bruit, Diminished Bowel Sounds, Distended, Firm, Organomegaly, Pulsatile Mass, Rigid - Rectal Exam Rectal Exam: Deferred - Extremities Exam Extremities exam: Positive for: normal inspection. Negative for: pedal edema - Neurological Exam Neurological exam: Alert, CN II-XII Intact - Psychiatric Exam Psychiatric exam: Anxious, Normal Affect - Skin Skin Exam: Normal Color, Warm Results - Vital Signs Recent Vital Signs: Last Vital Signs Temp 97.5 F L 07/11/18 01:00 Pulse 78 07/11/18 01:00 Resp 20 07/11/18 01:04 BP 146/79 07/11/18 01:00 Pulse Ox 97 07/11/18 01:00 - Labs Result Diagrams: 07/10/18 22:05 07/10/18 22:05 Labs: Laboratory Results - last 24 hr 07/10/18 07/10/18 07/10/18 22:05 22:05 22:05 WBC 7.7 D RBC 4.45 Hgb 12.5 Hct 37.8 MCV 84.9 MCH 28.1 MCHC 33.1 RDW 15.3 H Plt Count 370 MPV 9.6 Neut % (Auto) 58.5 Lymph % (Auto) 33.7 Mclean % (Auto) 6.5 H Eos % (Auto) 0.9 L Baso % (Auto) 0.4 Lymph # (Auto) 2.6 Mclean # (Auto) 0.5 Eos # (Auto) 0.1 Baso # (Auto) 0.03 Absolute Neuts (auto) 4.51 PT 11.6 INR 1.05 APTT 27.5 Sodium 136 Potassium 3.8 Chloride 103 Carbon Dioxide 27 Anion Gap 10 BUN 12 Creatinine 1.1 Est GFR ( Amer) > 60 Est GFR (Non-Af Amer) 50 POC Glucose (mg/dL) Random Glucose 178 H Calcium 9.1 Total Bilirubin 0.3 AST 17 ALT < 6 L Alkaline Phosphatase 122 Total Protein 7.0 Albumin 3.6 Globulin 3.4 Albumin/Globulin Ratio 1.1 Lipase 500 H Urine Color Urine Appearance Urine pH Ur Specific [place] Urine Protein Urine Glucose (UA) Urine Ketones Urine Blood Urine Nitrate Urine Bilirubin Urine Urobilinogen Ur Leukocyte Esterase Alcohol, Quantitative 07/10/18 07/10/18 07/11/18 22:05 22:26 01:32 WBC RBC Hgb Hct MCV MCH MCHC RDW Plt Count MPV Neut % (Auto) Lymph % (Auto) Mclean % (Auto) Eos % (Auto) Baso % (Auto) Lymph # (Auto) Mclean # (Auto) Eos # (Auto) Baso # (Auto) Absolute Neuts (auto) PT INR APTT Sodium Potassium Chloride Carbon Dioxide Anion Gap BUN Creatinine Est GFR ( Amer) Est GFR (Non-Af Amer) POC Glucose (mg/dL) 224 H Random Glucose Calcium Total Bilirubin AST ALT Alkaline Phosphatase Total Protein Albumin Globulin Albumin/Globulin Ratio Lipase Urine Color Light yellow Urine Appearance Clear Urine pH 6.5 Ur Specific [place] 1.010 Urine Protein Negative Urine Glucose (UA) Negative Urine Ketones Negative Urine Blood Negative Urine Nitrate Negative Urine Bilirubin Negative Urine Urobilinogen 0.2 Ur Leukocyte Esterase Negative Alcohol, Quantitative < 10 Assessment & Plan - Assessment and Plan (Free Text) Assessment: 63-year-old female with HIV, hepatitis, IBS-D, diverticulosis, history of gastritis presenting with abdominal pain #Abdominal pain: Likely multifactorial related to alcohol intake, history of gastritis, duodenitis/ileitis seen on CT, perhaps some component of acute on chronic pancreatitis given ongoing Tob abuse and EtOH intake. No significant GI complaints aside from abdominal pain is reporting normal bowel movements. Possible gastroparesis on the differential given hyperglycemia in the setting of uncontrolled diabetes. Nonetheless, patient requesting by mouth diet which is reassuring. No SIRS criteria. #history of tubular adenoma: 5 mm in 2014. Could be due for repeat colonoscopy as early as 2019 #HIV on antiretroviral therapy #CAD: On clopidogrel #Diabetes: On insulin and complicated by nephropathy, neuropathy and likely gastroparesis Plan: - Low fat liq diet today - Plan to advance to soft tomorrow if continues to do well - Panc Enzymes TID with meals - Encourage Tob and EtOH cessation - Will consider EGD on 07/13 should symptoms persist - Does not seem infectious related, therefore can hold Abx Supportive care Blood sugar control Patient discussed with Dr. Olivera. Please see attestation for further recommendations/changes Portions of this note is been dictated but not necessarily proofread <Maru Olivera V - Last Filed: 07/11/18 22:08> Meds - Medications Medications: Current Medications Albuterol/Ipratropium (Duoneb 3 Mg/0.5 Mg (3 Ml) Ud) 3 ml IH [id number] [facility] Last Admin: 07/11/18 20:09 Dose: 3 ml Amlodipine Besylate (Norvasc) 10 mg PO DAILY [facility] Last Admin: 07/11/18 09:32 Dose: 10 mg Amylase (Pancrease [id number] U) 5,000 unit PO TID [facility] Last Admin: 07/11/18 17:11 Dose: 5,000 unit Arformoterol Tartrate (Brovana) 15 mcg IH [id number] [facility] Last Admin: 07/11/18 20:09 Dose: 15 mcg Budesonide (Pulmicort Respules) 0.5 mg IH [id number] [facility] Last Admin: 07/11/18 20:09 Dose: 0.5 mg Carvedilol (Coreg) 25 mg PO DAILY [facility] Last Admin: 07/11/18 09:25 Dose: 25 mg Clopidogrel Bisulfate (Plavix) 75 mg PO DAILY [facility] Last Admin: 07/11/18 09:33 Dose: 75 mg Fluticasone Propionate (Flonase) 1 actuation NS DAILY [facility] Last Admin: 07/11/18 09:26 Dose: 1 spr Folic Acid (Folic Acid) 1 mg PO DAILY [facility] Last Admin: 07/11/18 09:27 Dose: 1 mg Gabapentin (Neurontin) 300 mg PO BID [facility]; Protocol Last Admin: 07/11/18 17:24 Dose: 300 mg Home Med (Home Med) 1 unit PO 0800 [facility] Home Med (Home Med) 800 unit PO [phone] [facility] Last Admin: 07/11/18 19:53 Dose: 800 unit Home Med (Home Med) 1 unit PO 799,1999 [facility] Last Admin: 07/11/18 19:53 Dose: 1 unit Hydromorphone HCl (Dilaudid) 0.5 mg IVP Q6H PRN PRN Reason: Pain, severe (8-10) Last Admin: 07/11/18 19:52 Dose: 0.5 mg Insulin Human Regular (Humulin R Low) 0 units [facility]; Protocol Last Admin: 07/11/18 21:20 Dose: 2 units Nicotine (Nicoderm Cq) 1 patch TD DAILY [facility] Last Admin: 07/11/18 09:31 Dose: 1 patch Imipramine [Tofranil (] 25 Mg (Home)) 25 mg PO HS [facility] Last Admin: 07/11/18 21:15 Dose: Not Given Melatonin [Melatonin (]) 1 tab PO DAILY [facility] Last Admin: 07/11/18 10:00 Dose: Not Given Pantoprazole Sodium (Protonix Ec Tab) 40 mg PO 0600 [facility] Propranolol HCl (Inderal) 20 mg PO TID [facility] Last Admin: 07/11/18 17:10 Dose: 20 mg Ritonavir (Norvir) 100 mg PO BID [facility] Last Admin: 07/11/18 17:24 Dose: 100 mg Sertraline HCl (Zoloft) 100 mg PO DAILY [facility] Last Admin: 07/11/18 09:34 Dose: 100 mg Results - Vital Signs Recent Vital Signs: Last Vital Signs Temp 98.7 F 07/11/18 16:00 Pulse 75 07/11/18 17:10 Resp 19 07/11/18 16:00 BP 140/72 07/11/18 17:10 Pulse Ox 92 L 07/11/18 16:00 - Labs Result Diagrams: 07/10/18 22:05 07/10/18 22:05 Labs: Laboratory Results - last 24 hr 07/10/18 07/10/18 07/10/18 22:05 22:05 22:05 WBC 7.7 D RBC 4.45 Hgb 12.5 Hct 37.8 MCV 84.9 MCH 28.1 MCHC 33.1 RDW 15.3 H Plt Count 370 MPV 9.6 Neut % (Auto) 58.5 Lymph % (Auto) 33.7 Mclean % (Auto) 6.5 H Eos % (Auto) 0.9 L Baso % (Auto) 0.4 Lymph # (Auto) 2.6 Mclean # (Auto) 0.5 Eos # (Auto) 0.1 Baso # (Auto) 0.03 Absolute Neuts (auto) 4.51 PT 11.6 INR 1.05 APTT 27.5 Sodium 136 Potassium 3.8 Chloride 103 Carbon Dioxide 27 Anion Gap 10 BUN 12 Creatinine 1.1 Est GFR ( Amer) > 60 Est GFR (Non-Af Amer) 50 POC Glucose (mg/dL) Random Glucose 178 H Calcium 9.1 Iron TIBC % Saturation Total Bilirubin 0.3 AST 17 ALT < 6 L Alkaline Phosphatase 122 Total Protein 7.0 Albumin 3.6 Globulin 3.4 Albumin/Globulin Ratio 1.1 Amylase Lipase 500 H Urine Color Urine Appearance Urine pH Ur Specific [place] Urine Protein Urine Glucose (UA) Urine Ketones Urine Blood Urine Nitrate Urine Bilirubin Urine Urobilinogen Ur Leukocyte Esterase Alcohol, Quantitative 07/10/18 07/10/18 07/11/18 22:05 22:26 01:32 WBC RBC Hgb Hct MCV MCH MCHC RDW Plt Count MPV Neut % (Auto) Lymph % (Auto) Mclean % (Auto) Eos % (Auto) Baso % (Auto) Lymph # (Auto) Mclean # (Auto) Eos # (Auto) Baso # (Auto) Absolute Neuts (auto) PT INR APTT Sodium Potassium Chloride Carbon Dioxide Anion Gap BUN Creatinine Est GFR ( Amer) Est GFR (Non-Af Amer) POC Glucose (mg/dL) 224 H Random Glucose Calcium Iron TIBC % Saturation Total Bilirubin AST ALT Alkaline Phosphatase Total Protein Albumin Globulin Albumin/Globulin Ratio Amylase Lipase Urine Color Light yellow Urine Appearance Clear Urine pH 6.5 Ur Specific [place] 1.010 Urine Protein Negative Urine Glucose (UA) Negative Urine Ketones Negative Urine Blood Negative Urine Nitrate Negative Urine Bilirubin Negative Urine Urobilinogen 0.2 Ur Leukocyte Esterase Negative Alcohol, Quantitative < 10 07/11/18 07/11/18 07/11/18 07:20 11:12 16:15 WBC RBC Hgb Hct MCV MCH MCHC RDW Plt Count MPV Neut % (Auto) Lymph % (Auto) Mclean % (Auto) Eos % (Auto) Baso % (Auto) Lymph # (Auto) Mclean # (Auto) Eos # (Auto) Baso # (Auto) Absolute Neuts (auto) PT INR APTT Sodium Potassium Chloride Carbon Dioxide Anion Gap BUN Creatinine Est GFR ( Amer) Est GFR (Non-Af Amer) POC Glucose (mg/dL) 173 H 187 H 339 H Random Glucose Calcium Iron TIBC % Saturation Total Bilirubin AST ALT Alkaline Phosphatase Total Protein Albumin Globulin Albumin/Globulin Ratio Amylase Lipase Urine Color Urine Appearance Urine pH Ur Specific [place] Urine Protein Urine Glucose (UA) Urine Ketones Urine Blood Urine Nitrate Urine Bilirubin Urine Urobilinogen Ur Leukocyte Esterase Alcohol, Quantitative 07/11/18 07/11/18 07/11/18 17:30 17:58 21:12 WBC RBC Hgb Hct MCV MCH MCHC RDW Plt Count MPV Neut % (Auto) Lymph % (Auto) Mclean % (Auto) Eos % (Auto) Baso % (Auto) Lymph # (Auto) Mclean # (Auto) Eos # (Auto) Baso # (Auto) Absolute Neuts (auto) PT INR APTT Sodium Potassium Chloride Carbon Dioxide Anion Gap BUN Creatinine Est GFR ( Amer) Est GFR (Non-Af Amer) POC Glucose (mg/dL) 305 H Random Glucose Calcium Iron 45 TIBC 294 % Saturation 15 L Total Bilirubin AST ALT Alkaline Phosphatase Total Protein Albumin Globulin Albumin/Globulin Ratio Amylase 147 H Lipase 631 H Urine Color Urine Appearance Urine pH Ur Specific [place] Urine Protein Urine Glucose (UA) Urine Ketones Urine Blood Urine Nitrate Urine Bilirubin Urine Urobilinogen Ur Leukocyte Esterase Alcohol, Quantitative Attending/Attestation - Attestation I have personally seen and examined this patient.: Yes I have fully participated in the care of the patient.: Yes I have reviewed all pertinent clinical information: Yes Notes (Text): This is an addendum to GI consult report dictated by the GI Fellow.The patient was seen and examined earlier. Medical records, lab studies, imagings were reviewed. Last 24 hours events reviewed. Agreed with the above treatment plan as outlined in GI Fellow 's notes with the addition of the following 07/11/18 22:08
[2018-07-11] MEDS: HYDROmorphone 0.5 mg/0.5 ml ISec IVP PRN ×2 (09:25→19:52)
[2018-07-11] MEDS: Fluticasone Nasal 50 mcg/Spray NS SCH (09:26)
[2018-07-11] MEDS ORDERED: DARUNAVIR ETHANOLATE 800 MG PO SCH ×3 (10:00→14:39)
[2018-07-11] MEDS ORDERED: DOLUTEGRAVIR PO SCH ×2 (10:00→14:38)
[2018-07-11] MEDS ORDERED: DOLUTEGRAVIR SODIUM 50 MG PO SCH (10:00)
[2018-07-11] MEDS: MELATONIN PO SCH (10:00)
[2018-07-11] MEDS ORDERED: RILPIVIRINE PO SCH ×2 (10:00→14:38)
[2018-07-11] MEDS ORDERED: ELUXADOLINE 75 MG PO SCH ×3 (10:00→14:51)
[2018-07-11] MEDS ORDERED: Pantoprazole 40 mg EC Tab PO SCH (10:00)
[2018-07-11] MEDS ORDERED: Amylase/Lipase/Protease 5,000 Units ECC PO SCH (10:00)
[2018-07-11] MEDS ORDERED: Non Formulary Medication (Budesonide/Formoterol Fumarate [Symbicort 160-4.5 Mcg Inhaler] 1 IH SCH (10:00)
[2018-07-11] MEDS: Albuterol-Ipratrop 3 mg / 0.5 (3 ml) UD IH SCH ×2 (13:50→20:09)
[2018-07-11] MEDS: Amylase/Lipase/Protease 5,000 Units ECC PO SCH ×2 (14:00→17:11)
[2018-07-11] MEDS: Insulin Reg-LOW-Coverage SC SCH ×3 (16:29→21:20)
--- NOTE | 2018-07-11 16:35 | CT ---
Date of service: 07/10/2018 PROCEDURE: CT Abdomen and Pelvis with contrast HISTORY: abd pain COMPARISON: Abdomen pelvis CT without contrast 03/09/2018. TECHNIQUE: Following the intravenous administration of iodinated contrast material, a CT examination of the abdomen and pelvis was performed from the domes of the diaphragms to the symphysis pubis with reformatted datasets provided in axial, sagittal and coronal planes. Oral contrast was not administered as per referring physician request. Contrast dose: Omnipaque 350, 100 cc Radiation dose: Total exam DLP = 749.56 mGy-cm. This CT exam was performed using one or more of the following dose reduction techniques: Automated exposure control, adjustment of the mA and/or kV according to patient size, and/or use of iterative reconstruction technique. FINDINGS: LOWER THORAX: Likely interval atelectasis seen at the bilateral lower lobes with some nodularity identified (see images 1 and 18 of series 5). LIVER: Unremarkable. No gross lesion or ductal dilatation. GALLBLADDER AND BILE DUCTS: Unremarkable. PANCREAS: Unremarkable. No gross lesion or ductal dilatation. SPLEEN: Unremarkable. ADRENALS: Unremarkable. No mass. KIDNEYS AND URETERS: No obstructive uropathy or radiodense urolithiasis bilaterally nor perinephric reaction. Multiple bilateral renal lucencies are identified, the majority which are too small to characterize or compare. All are likely cysts on its distal basis. A 2.2 cm cyst is seen at the upper midpole left kidney with a 2.0 cm cyst identified in the midpole left kidney as well. VASCULATURE: Nonaneurysmal abdominal aortic calcific atherosclerotic changes are identified. BOWEL: Unremarkable. No obstruction. No gross mural thickening. APPENDIX: Normal appendix. PERITONEUM: Unremarkable. No free fluid. No free air. LYMPH NODES: Unremarkable. No enlarged lymph nodes. BLADDER: Unremarkable. REPRODUCTIVE: Cystic changes at the right ovary are stable if not diminished with prior hysterectomy again evident. BONES: No acute fracture. Stable chronic fracture L5 with limited anterior wedging again evident. OTHER FINDINGS: Ventral abdominal appear reiterated with small recurrence identified the inferior abdominal pelvic wall containing bowel non incarcerated or obstructed small bowel loop. IMPRESSION: 1. No definitive acute abdominal or pelvic findings as discussed above. 2. Prior ventral abdominal hernia repair reiterated with small recurrence or separate inferior abdominal pelvic wall hernia containing a minimal segment of small bowel without obstruction or incarceration. 3. Stable or diminishing right ovarian cystic changes. Discordant with preliminary report regarding duodenitis/ileitis which I do not see. Preliminary report provided by Katelyn, 07/10/2018 11:31 p.m..
[2018-07-11 17:25] VITALS: PULSE 75
[2018-07-11 18:15] LABS: AMYLASE 147 U/L (35-125); LIPASE 631 U/L (23-300)
[2018-07-11 18:15] LABS: IRON 45 ug/dL (45-180)
[2018-07-11 18:25] LABS: % IRON SATURATION 15 % (20-55); TOTAL IRON BINDING CAPACITY 294 ug/dL (265-497)
--- NOTE | 2018-07-11 19:06 | HP ---
DATE OF EXAM: 07/11/2018 The patient was seen and examined at the bedside on 07/11/2018. CHIEF COMPLAINT: History of abdominal pain, depression. HISTORY OF PRESENT ILLNESS: Ms. Lu Roa is a 53-year-old female with past medical history of irritable bowel syndrome, hepatitis, diverticulosis, HIV positive, tobacco abuse, diabetes mellitus, coronary artery disease, COPD, arthritis, insomnia, history of cervical cancer, hypothyroidism, hysterectomy who came to the emergency room with abdominal pain. The patient was drinking some justus and shortly thereafter noticed acute onset of diffuse severe abdominal pain rated 10/10 with associated nausea, but not vomiting. No fevers. No chills. No headache. No dizziness. No diarrhea. No recent use of antibiotics. No recent contact with sick people. PAST MEDICAL HISTORY: As above, history of COPD, HIV positive, diabetes mellitus, anemia. ALLERGIES: THE PATIENT IS NOT ALLERGIC WITH ANY MEDICATIONS. HOME MEDICATIONS: She has big list of home medications, I reviewed that. HABITS: Smoking, yes, heavy smoker. Alcohol, yes. Drug abuse, no. REVIEW OF SYSTEMS: The patient was seen and examined at the bedside, looking comfortable except has pain in the left upper quadrant of the abdomen. No fevers. No chills. No headaches. No dizziness. No hematuria. No hematochezia. No sinusitis. PHYSICAL EXAMINATION VITAL SIGNS: Temperature 97.5, pulse 78, respiratory rate 20, blood pressure 140/75, pulse oximetry 97%. HEENT: Head, normocephalic, atraumatic. Eyes, PERRLA. Extraocular muscles are intact. Conjunctivae clear. Nose patent. Mucous membranes moist. NECK: Supple. No carotid bruits. No JVD or thyromegaly. CHEST: Bilaterally symmetrical. HEART: S1 and S2 positive. LUNGS: Clear to auscultation. ABDOMEN: Soft, bowel sounds positive. No organomegaly. EXTREMITIES: No edema. No cyanosis. NEUROLOGIC: The patient is awake, alert, moving all four extremities. No focal deficits. LABORATORY DATA: White blood cells 7.7, hemoglobin 12.5, hematocrit 37.8, platelets 370. Sodium 133, potassium 3.8, BUN 12, creatinine 1.1, glucose 178. IMPRESSION: Ms. Lu Roa is a 53-year-old female with multiple medical problems, human immunodeficiency virus positive, chronic obstructive pulmonary disease, insomnia, sleep apnea syndrome, hepatitis, irritable bowel syndrome, diverticulosis, history of gastritis, hypothyroidism who came in with abdominal pain, likely multifactorial related to alcohol intake, gastritis, duodenitis, ileitis. CAT scan is sure appreciated. Some component of [id number] pancreatitis given ongoing tobacco abuse and alcohol abuse. Maybe patient has gastroparesis, hyperglycemia, diabetes mellitus uncontrolled, history of tubular adenoma, human immunodeficiency virus on antiretroviral therapy, coronary artery disease on Clopidogrel, diabetes mellitus on insulin, depression. We will call psychiatric consult also. On low fat liquid diet. Supportive care discussion done with nursing staff. Repeat labs. We will follow up. Lois Croft MD
[2018-07-11] MEDS ORDERED: Arformoterol 15 mcg/2 ml Inh Sol IH SCH (20:00)
[2018-07-11] MEDS: Budesonide 0.5 mg/2 ml Inhal Susp UD IH SCH (20:09)
[2018-07-11] MEDS: Arformoterol 15 mcg/2 ml Inh Sol IH SCH (20:09)
--- NOTE | 2018-07-11 21:24 | CARD ---
APPROVED REPORT Date of service: 07/10/2018 EKG Measurement Heart [id number] <Conclusion> Sinus rhythm with premature atrial complexes NDSTT abnormalities Abnormal ECG
[2018-07-11] MEDS ORDERED: IMIPRAMINE 25 MG PO SCH (22:00)
--- NOTE | 2018-07-11 23:49 | CP.PCM.PCO ---
Addendum Addendum: 07/11/18 23:48 House Doctor Note: Received page from Nurse regarding Patient who has nausea. Ordered: Zofran 4mg IVP once stat.
[2018-07-12] MEDS: Albuterol-Ipratrop 3 mg / 0.5 (3 ml) UD IH SCH ×3 (01:29→13:05)
[2018-07-12] MEDS: HYDROmorphone 0.5 mg/0.5 ml ISec IVP PRN (03:35)
[2018-07-12] MEDS ORDERED: Pantoprazole 40 mg EC Tab PO SCH (06:00)
[2018-07-12] MEDS: Arformoterol 15 mcg/2 ml Inh Sol IH SCH (08:00)
[2018-07-12] MEDS: Budesonide 0.5 mg/2 ml Inhal Susp UD IH SCH (08:00)
[2018-07-12 08:03] LABS: MEAN CORPUSCULAR HEMOGLOBIN 28.3 pg (25.0-35.0); MEAN CORPUSCULAR HGB CONC 32.5 g/dl (31.0-37.0); MEAN PLATELET VOLUME 9.4 fl (7.0-11.0); RBC 4.24 10^6/uL (3.5-6.1); RED CELL DISTRIBUTION WIDTH 15.4 % (11.5-14.5); WHITE BLOOD COUNT 8.6 10^3/uL (4.5-11.0)
[2018-07-12 08:16] LABS: AMYLASE 127 U/L (35-125); BLOOD UREA NITROGEN 13 mg/dL (7-21); CALCIUM 8.8 mg/dL (8.4-10.5); GFR NON-AFRICAN AMERICAN 56; HDL CHOLESTEROL 79 mg/dL (29-60); LIPASE 490 U/L (23-300)
[2018-07-12 08:27] LABS: LDL CHOLESTEROL 62 mg/dL (0-129)
[2018-07-12 08:42] VITALS: RESP 20; TEMP 98.3; O2SAT 93
[2018-07-12] MEDS: MELATONIN PO SCH (09:31)
[2018-07-12] MEDS: Amylase/Lipase/Protease 5,000 Units ECC PO SCH ×2 (09:32→13:41)
[2018-07-12] MEDS: Insulin Reg-LOW-Coverage SC SCH ×2 (09:38→13:39)
[2018-07-12] MEDS ORDERED: Enoxaparin 40 mg Syringe SC SCH (10:00)
[2018-07-12] MEDS: Fluticasone Nasal 50 mcg/Spray NS SCH (10:25)
[2018-07-12 13:03] LABS: FOLATE > 20.0 ng/mL
--- NOTE | 2018-07-12 13:34 | CP.PCM.PN ---
<Andrew Adame - Last Filed: 07/12/18 13:31> Subjective - Date & Time of Evaluation Date of Evaluation: 07/12/18 Time of Evaluation: 10:18 - Subjective Subjective: PGY-4 GI Fellow Prog Note Pt lying in bed when seen this AM. State abd pain continued to improve thought still present. Tolerating liquid diet without issue. RN reports that patient had been eating Doritos the night prior then requesting pain medications. 5 point ROS negative other than stated above Objective - Vital Signs/Intake and Output Vital Signs (last 24 hours): Temp Pulse Resp BP Pulse Ox 98.3 F 75 20 145/72 93 L 07/12/18 08:41 07/12/18 09:31 07/12/18 08:41 07/12/18 09:32 07/12/18 08:41 Intake and Output: 07/12/18 07/12/18 06:59 18:59 Intake Total Balance - Medications Medications: Current Medications Albuterol/Ipratropium (Duoneb 3 Mg/0.5 Mg (3 Ml) Ud) 3 ml [facility] [id number] [facility] Last Admin: 07/12/18 13:05 Dose: 3 ml Amlodipine Besylate (Norvasc) 10 mg PO DAILY [facility] Last Admin: 07/12/18 09:32 Dose: 10 mg Amylase (Pancrease 17912 U-[id number] U) 5,000 unit PO TID [facility] Last Admin: 07/12/18 09:32 Dose: 5,000 unit Arformoterol Tartrate (Brovana) 15 mcg [facility] [id number] [facility] Last Admin: 07/12/18 08:00 Dose: 15 mcg Azithromycin (Zithromax) 500 mg PO DAILY [facility]; Protocol Last Admin: 07/12/18 10:26 Dose: 500 mg Budesonide (Pulmicort Respules) 0.5 mg [facility] [id number] [facility] Last Admin: 07/12/18 08:00 Dose: 0.5 mg Carvedilol (Coreg) 25 mg PO DAILY [facility] Last Admin: 07/12/18 09:28 Dose: 25 mg Clonazepam (Klonopin) 0.5 mg PO BID [facility]; Protocol Clopidogrel Bisulfate (Plavix) 75 mg PO DAILY [facility] Last Admin: 07/12/18 09:32 Dose: 75 mg Enoxaparin Sodium (Lovenox) 40 mg SC DAILY [facility]; Protocol Last Admin: 07/12/18 10:24 Dose: 40 mg Fluticasone Propionate (Flonase) 1 actuation NS DAILY [facility] Last Admin: 07/12/18 10:25 Dose: 1 spr Folic Acid (Folic Acid) 1 mg PO DAILY [facility] Last Admin: 07/12/18 09:28 Dose: 1 mg Gabapentin (Neurontin) 300 mg PO BID [facility]; Protocol Last Admin: 07/12/18 09:31 Dose: 300 mg Home Med (Home Med) 1 unit PO 0800 [facility] Home Med (Home Med) 800 unit PO 0800,1999 [facility] Last Admin: 07/11/18 19:53 Dose: 800 unit Home Med (Home Med) 1 unit PO 0800,1999 [facility] Last Admin: 07/11/18 19:53 Dose: 1 unit Hydromorphone HCl (Dilaudid) 0.5 mg IVP Q6H PRN PRN Reason: Pain, severe (8-10) Last Admin: 07/12/18 03:35 Dose: 0.5 mg Insulin Human Regular (Humulin R Low) 0 units SC [facility]; Protocol Last Admin: 07/12/18 09:38 Dose: 2 units Nicotine (Nicoderm Cq) 1 patch TD DAILY [facility] Last Admin: 07/12/18 09:31 Dose: 1 patch Imipramine [Tofranil (] 25 Mg (Home)) 25 mg PO HS [facility] Last Admin: 07/11/18 21:15 Dose: Not Given Melatonin [Melatonin (]) 1 tab PO DAILY [facility] Last Admin: 07/12/18 09:31 Dose: Not Given Pantoprazole Sodium (Protonix Ec Tab) 40 mg PO 0600 [facility] Last Admin: 07/12/18 05:22 Dose: 40 mg Propranolol HCl (Inderal) 20 mg PO TID [facility] Last Admin: 07/12/18 09:31 Dose: 20 mg Ritonavir (Norvir) 100 mg PO BID [facility] Last Admin: 07/12/18 09:32 Dose: 100 mg Sertraline HCl (Zoloft) 100 mg PO DAILY [facility] Last Admin: 07/12/18 09:32 Dose: 100 mg - Labs Labs: 07/12/18 07:00 07/12/18 07:00 PT 11.6 SECONDS (9.4-12.5) 07/10/18 22:05 INR 1.05 07/10/18 22:05 APTT 27.5 Seconds (26.9-38.3) 07/10/18 22:05 - Constitutional Appears: No Acute Distress, Chronically Ill - Head Exam Head Exam: ATRAUMATIC, NORMAL INSPECTION - Eye Exam Eye Exam: EOMI. absent: Scleral icterus - ENT Exam ENT Exam: Mucous Membranes Moist. absent: Mucous Membranes Dry - Respiratory Exam Respiratory Exam: NORMAL BREATHING PATTERN. absent: Accessory Muscle Use - GI/Abdominal Exam GI & Abdominal Exam: Soft, Tenderness (mildly ttp in epigastrum w/o guarding), Normal Bowel Sounds. absent: Bruit, Distended, Firm, Guarding, Rigid, Mass, Organomegaly, Pulsatile Mass Assessment and Plan - Assessment and Plan (Free Text) Assessment: 63-year-old female with HIV, hepatitis, IBS-D, diverticulosis, history of gastritis presenting with abdominal pain #Abdominal pain: Likely multifactorial related to alcohol intake, history of gastritis, duodenitis/ileitis seen on CT, perhaps some component of acute on chronic pancreatitis given ongoing Tob abuse and EtOH intake. No significant GI complaints aside from abdominal pain is reporting normal bowel movements. Possible gastroparesis on the differential given hyperglycemia in the setting of uncontrolled diabetes. Nonetheless, patient requesting by mouth diet which is reassuring. No SIRS criteria. #history of tubular adenoma: 5 mm in 2014. Could be due for repeat colonoscopy as early as 2019 #HIV on antiretroviral therapy #CAD: On clopidogrel #Diabetes: On insulin and complicated by nephropathy, neuropathy and likely gastroparesis Plan: - Soft low fat diet this PM, if cont to do well can likely DC later today - Plan to f/u as outpatient with EGD evaluation - Panc Enzymes TID with meals - Encourage Tob and EtOH cessation Supportive care Blood sugar control Patient discussed with Dr. Olivera. Please see attestation for further recommendations/changes <Maru Olivera V - Last Filed: 07/12/18 23:36> Objective - Vital Signs/Intake and Output Vital Signs (last 24 hours): Temp Pulse Resp BP Pulse Ox 98.3 F 75 20 130/75 93 L 07/12/18 08:41 07/12/18 09:31 07/12/18 08:41 07/12/18 13:41 07/12/18 08:41 - Labs Labs: 07/12/18 07:00 07/12/18 07:00 PT 11.6 SECONDS (9.4-12.5) 07/10/18 22:05 INR 1.05 07/10/18 22:05 APTT 27.5 Seconds (26.9-38.3) 07/10/18 22:05 Attending/Attestation - Attestation I have personally seen and examined this patient.: Yes I have fully participated in the care of the patient.: Yes I have reviewed all pertinent clinical information, including history, physical exam and plan: Yes Notes (Text): This is an addendum to GI progress report dictated by the GI Fellow. The patient was seen and examined earlier. Medical records, lab studies, imagings were reviewed. Last 24 hours events reviewed. Agreed with the above treatment plan as outlined in GI Fellow 's notes with the addition of the following 07/12/18 23:36
[2018-07-12 13:42] VITALS: BP 130/75
--- NOTE | 2018-07-12 16:44 | CON ---
DATE: 07/12/2018 PULMONARY CONSULT NOTE REFERRING PHYSICIAN: Lois Croft MD REASON FOR CONSULT: COPD, shortness of breath, cough and sleep apnea. HISTORY OF PRESENT ILLNESS: This is a 63-year-old female with past medical history significant for HIV, hepatitis, diabetes, coronary artery disease, diabetic neuropathy, nephropathy, COPD, anemia, arthritis, ventral hernia repair x2, IBS, hypothyroidism, tobacco abuse, history of cervical cancer, hysterectomy, who came to the emergency room complaining of abdominal pain. The patient reports that she drank justus and started having severe abdominal pain with nausea. Reports she has no vomiting. No fever. No headache, chills, diarrhea or dizziness. No recent sick contacts. PAST MEDICAL HISTORY: As per history of present illness. ALLERGIES: NO KNOWN ALLERGIES. FAMILY HISTORY: Hypertension and diabetes. SOCIAL HISTORY: Current smoker. Alcohol use. No illicit drug abuse. MEDICATIONS: Reviewed. DuoNeb 3 mL inhalation every 6 hours, Norvasc 10 mg daily, amylase 5000 units 3 times a day, Brovana 50 mcg every 12 hours, Pulmicort 0.5 mg every 12 hours, Coreg 25 mg daily, Klonopin 0.5 mg twice a day, Plavix 75 mg daily, Flonase nasal spray daily, folic acid 1 mg daily, Neurontin 300 mg twice a day, Dilaudid 0.5 mg IV push every 6 hour s p.r.n., Humulin R sliding scale a.c. and at bedtime, Nicoderm CQ patch transdermal daily, melatonin 1 tab daily, Tofranil 25 mg at bedtime, Protonix 40 mg daily, Imdur 20 mg 3 times a day, Norvir 100 mg twice a day and Zoloft 100 mg daily. REVIEW OF SYSTEMS: No headache, rhinitis, chest pain, nausea, vomiting, diarrhea, leg pain or leg swelling reported. The patient does report having cough, shortness of breath with exertion. Does report abdominal pain. PHYSICAL EXAMINATION GENERAL: No acute distress. VITAL SIGNS: Blood pressure 145/72, pulse 75, temperature 98.3 and oxygen saturation 93%. HEENT: Moist mucus membrane. NECK: Supple. No JVD. LUNGS: Wheezing and rhonchi bilaterally. CARDIOVASCULAR: S1 and S2. ABDOMEN: Soft, and no distension. Tenderness noted to bilateral upper quadrants. EXTREMITIES: No bilateral lower extremities edema. NEUROLOGIC: Awake, alert and verbal. Follows commands. LABORATORY DATA: WBC 8.6, RBC 4.24, hemoglobin 12, hematocrit 36.9 and platelets 313. PT 11.6, INR 1.05 and APTT 27.5. Sodium 137, potassium 3.9, chloride 106, carbon dioxide 28, anion gap 6, BUN 13, creatinine 1, GFR greater than 60, POC glucose 241, random glucose 255 and hemoglobin A1c 11.3. Calcium 8.8, triglyceride 76, cholesterol 170, HDL cholesterol 79, amylase 127 and, lipase 490. Vitamin B12 of 356, folate greater than 20. TSH 1.65. Toxicology; alcohol less than 10. Urine culture final, no growth. Blood culture preliminary no growth after [address]dominal and pelvic [address] shows no definitive acute abdominal or pelvic findings. Stable or diminishing right ovarian cyst changes. Inferior abdominal-pelvic wall hernia containing a minimal fragment of small bowel without obstruction or incarceration. EKG shows sinus rhythm with premature atrial complexes. IMPRESSION AND PLAN: Pancreatitis, most likely alcohol related; chronic obstructive lung disease, human immunodeficiency virus positive, diabetes mellitus, hypertension, hypothyroidism, insomnia, active smoker, sleep apnea syndrome, hepatitis, irritable bowel syndrome, diverticulosis, history of gastritis, coronary artery disease and depression. The patient is noncompliant with treatment plan in the past. Does not followed up for sleep study. We spoke with the patient regarding wearing continuous positive airway pressure machine while hospitalized. The patient at this time refuses to use continuous positive airway pressure machine. We will start the patient on Lovenox for deep venous thrombosis prophylaxis. We will start the patient on Zithromax for chronic obstructive pulmonary disease exacerbation. We will order physical therapy evaluation deconditioning and pulse oximetry monitoring on room air with exercise on oxygen. sleep apnea precaution, head of bed elevated at 45 degrees, careful with sedation. We recommend this patient has full pulmonary function test and sleep study as outpatient. This patient was seen and examined with Dr. Mercedes. Discussed assessment and plan as described above. This patient was seen and examined with Piyush Nolan, nurse practitioner. Discussed assessment and plan as described above. Thank you for this consult and we will follow with you. Piyush Nolan APN Osman Mercedes MD [facility]
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
--- NOTE | 2018-07-12 23:21 | DS ---
CHIEF COMPLAINT: Abdominal pain and depression. HISTORY OF PRESENT ILLNESS: The patient is a 63-year-old female. The patient was seen and examined at the bedside on 07/12/2018. Ms. Lu Roa is a 63-year-old female with past medical history of multiple medical problems, history of drinking and smoking, came in to [facility] with abdominal pain after drinking. We admitted the patient, did CAT scan of abdomen and pelvis. Seen by GI and psychiatrist, improved, clear liquid food is given, tolerated very well. Today, she had soft food, again tolerated. Discharged home. Follow up with the GI, Psychiatry, and primary care physician. PAST MEDICAL HISTORY: COPD, HIV positive, diabetes mellitus, hypothyroidism and anemia. ALLERGIES: THE PATIENT IS NOT ALLERGIC WITH ANY MEDICATION. HOME MEDICATIONS: Reviewed by me. HABITS: Smoking, yes. Alcohol, yes. Drug abuse, no. REVIEW OF SYSTEMS: The patient was seen and examined at the bedside, looking comfortable. No fever. No chills. No hematuria. No hematochezia. No headache. No dizziness. No chest pain. No palpitation. Abdominal pain improved. PHYSICAL EXAMINATION: VITAL SIGNS: Blood pressure 145/72, pulse 70, temperature 98.4, oxygen saturation 93%, and respiratory rate 20. HEENT: Head is normocephalic and atraumatic. Eyes; PERRLA, extraocular muscles are intact, conjunctivae clear. Nose patent. Mucous membranes are moist. NECK: Supple. No carotid bruit. No JVD or thyromegaly. CHEST: Bilaterally symmetrical. HEART: S1 and S2 positive. LUNGS: Clear to auscultation. ABDOMEN: Soft. Bowel sound present. No organomegaly. EXTREMITIES: No edema. No cyanosis. NEUROLOGIC: The patient is awake, alert, moving all four extremities. No focal deficits. LABORATORY DATA: White blood cells 8.6, hemoglobin 12, hematocrit 36.9, and platelets 313. Sodium 137, potassium 3.9, BUN 13, creatinine 1, and calcium 8.8. B12 of 356. ASSESSMENT AND PLAN: Ms. Lu Roa is a 63-year-old lady with multiple medical problems, came with pancreatitis most likely alcohol related, chronic obstructive pulmonary disease, insulin-dependent diabetes mellitus, hypertension, hypothyroidism, insomnia, active smoker, active drinker, history of irritable bowel syndrome, diverticulitis, history of gastritis, and coronary artery disease. The patient is noncompliant with the treatment plan. Does not followup for studies, does not want to use CPAP, even she is not compliant with the procedures. Urged to follow up with psychiatrist, GI and overlay plastician. The patient tolerated the food very well and want to go home and discharged home. We will follow up. Lois Croft MD
--- NOTE | 2018-07-13 08:42 | CP.PCM.PCO ---
Physician Communication Note - Physician Communication Note Physician Communication Note: psych signed off
== END 2018-07-12 16:29 | disposition home or self-care (01) | DRG 439 ==
LOC: ED 20:02 → ERH 23:47 → 3RNO 07-11 00:49
PROVIDERS: ADMIT Internal Medicine; ATTEND Internal Medicine
DX: K86.0 Alcohol-induced chronic pancreatitis (principal); F32.2 Major depressive disorder, single episode, severe without psychotic features; R45.851 Suicidal ideations; K75.9 Inflammatory liver disease, unspecified; Z21 Asymptomatic human immunodeficiency virus [HIV] infection status; E03.9 Hypothyroidism, unspecified; E11.21 Type 2 diabetes mellitus with diabetic nephropathy; E11.43 Type 2 diabetes mellitus with diabetic autonomic (poly)neuropathy; E11.65 Type 2 diabetes mellitus with hyperglycemia; F10.10 Alcohol abuse, uncomplicated; F17.200 Nicotine dependence, unspecified, uncomplicated; G47.00 Insomnia, unspecified; G47.30 Sleep apnea, unspecified; I10 Essential (primary) hypertension; I25.10 Atherosclerotic heart disease of native coronary artery without angina pectoris; J44.9 Chronic obstructive pulmonary disease, unspecified; K29.80 Duodenitis without bleeding; K31.84 Gastroparesis; K57.90 Diverticulosis of intestine, part unspecified, without perforation or abscess without bleeding; K58.0 Irritable bowel syndrome with diarrhea; N83.201 Unspecified ovarian cyst, right side; Z79.02 Long term (current) use of antithrombotics/antiplatelets; Z79.4 Long term (current) use of insulin; Z79.51 Long term (current) use of inhaled steroids; Z85.41 Personal history of malignant neoplasm of cervix uteri; Z90.710 Acquired absence of both cervix and uterus; Z91.19 Patient's noncompliance with other medical treatment and regimen